=== PATIENT | female | born 1940 | race Caucasian/White ===

== ENCOUNTER → 2017-10-10 16:16 | Outpatient (CLI) | payer MEDICARE, BC, SELFPAY ==
[2017-10-10 17:29] LABS: Absolute Lymphocyte Count 0.81 X10^3/ul (0.83-4.51); Absolute Neutrophil Count 4.7 X10^3/uL (2.0-7.7); Basophil# 0.03 X10^3/uL; Basophil% 0.5 % (0-1); Eosinophil# 0.11 X10^3/uL; Eosinophils% 1.8 % (0-5); Hematocrit 39.6 % (37-47); Hemoglobin 12.7 g/dl (12.0-15.0); Lymphocyte # 0.81 X10^3/ul (4.0); Lymphocyte % 13.2 % (19-41); Mean Corp Hgb Conc 32.1 g/gl (32-36); Mean Corpuscular Hgb 28.2 pg (27.0-32.0); Mean Platelet Vol. 11.5 fl (6.2-12.0); Monocyte# 0.51 X10^3/uL; Monocyte% 8.3 % (0-10); Neutrophil # 4.68 X10^3/uL (2.7-7.7); Platelet Count 126 K/mm3 (150-450); RBC Distribution Width SD 48.3 fl (35.1-43.9); White Blood Count 6.2 K/mm3 (4.4-11.0)
[2017-10-10 17:37] LABS: POSITIVE COUNT NO; POSITIVE DIFFERENTIAL NO; POSITIVE MORPHOLOGY NO
[2017-10-10 18:26] LABS: ALB/GLOB Ratio 0.7 RATIO (0.9-2.4); AST(SGOT) 23 U/L (15-37); Alanine Aminotransfer ALT/SGPT 22 U/L (13-56); Alkaline Phosphatase 84 U/L (45-117); Anion Gap 9 (5-15); BUN 22 mg/dL (7-18); BUN/Creat Ratio 17.2 RATIO (10-20); Calcium,Total 8.7 mg/dL (8.5-10.1); Chloride 101 mmol/L (98-107); Creatinine, Serum 1.28 mg/dL (0.55-1.02); EST Glomerular Filtration Rate 43 mL/min (>60); Est Glom Filt Rate - Afr Amer 52 mL/min (>60); Globulin 4.4 g/dL (2.2-4.2); Glucose 240 mg/dL (74-106); Potassium 3.7 mmol/L (3.5-5.1); Protein, Total 7.4 g/dL (6.4-8.2); Sodium Level 141 mmol/L (136-145); Thyroid Stim Hormone (TSH) 1.53 uIU/mL (0.358-3.74)
[2017-10-10 19:58] LABS: Vitamin D,25 Hydroxy 19.1 ng/mL (19.95-100.01)
== END ==
PROVIDERS: Family Provider Family Medicine Geriatric Medicine; PCP Family Medicine Geriatric Medicine; Visit Provider Family Medicine Geriatric Medicine
DX: I10 Essential (primary) hypertension (principal); E11.9 Type 2 diabetes mellitus without complications; E55.9 Vitamin D deficiency, unspecified
CPT/HCPCS: 36415; 80053; 82306; 84443; 85025

== ENCOUNTER → 2017-10-27 17:00 | Outpatient (CLI) | payer MEDICARE, BC, SELFPAY | PROVIDERS: Family Provider Family Medicine Geriatric Medicine; PCP Family Medicine Geriatric Medicine; Visit Provider Family Medicine Geriatric Medicine | DX: R68.83 Chills (without fever) (principal) | CPT/HCPCS: 87633 ==

== ENCOUNTER → 2017-12-26 15:50 | Outpatient (CLI) | payer MEDICARE, BC, SELFPAY ==
[2017-12-26 18:10] LABS: Absolute Lymphocyte Count 0.73 X10^3/ul (0.83-4.51); Absolute Neutrophil Count 6.5 X10^3/uL (2.0-7.7); Basophil# 0.02 X10^3/uL; Basophil% 0.3 % (0-1); Eosinophil# 0.06 X10^3/uL; Eosinophils% 0.8 % (0-5); Hematocrit 41.5 % (37-47); Hemoglobin 13.6 g/dl (12.0-15.0); Lymphocyte # 0.73 X10^3/ul (4.0); Lymphocyte % 9.3 % (19-41); Mean Corp Hgb Conc 32.8 g/gl (32-36); Mean Corpuscular Hgb 29.3 pg (27.0-32.0); Mean Corpuscular Volume 89.4 fL (81-99); Monocyte# 0.59 X10^3/uL; Monocyte% 7.5 % (0-10); Neutrophil # 6.47 X10^3/uL (2.7-7.7); Platelet Count 141 K/mm3 (150-450); RBC Distribution Width CV 16.1 % (11.6-14.6); Red Blood Count 4.64 M/mm3 (4.2-5.4); White Blood Count 7.9 K/mm3 (4.4-11.0)
[2017-12-26 18:19] LABS: Anion Gap 7 (5-15); BUN 16 mg/dL (7-18); BUN/Creat Ratio 14.4 RATIO (10-20); CPK Total, Creatine Kinase 43 U/L (26-192); Calcium,Total 9.3 mg/dL (8.5-10.1); Chloride 100 mmol/L (98-107); Creatinine, Serum 1.11 mg/dL (0.55-1.02); EST Glomerular Filtration Rate 51 mL/min (>60); Est Glom Filt Rate - Afr Amer 61 mL/min (>60); Glucose 285 mg/dL (74-106); Sodium Level 135 mmol/L (136-145)
[2017-12-26 18:20] LABS: POSITIVE COUNT NO; POSITIVE DIFFERENTIAL NO; POSITIVE MORPHOLOGY NO
[2017-12-28 11:25] LABS: Myoglobin, Serum 60 ng/mL (25-58)
== END ==
PROVIDERS: Family Provider Family Medicine Geriatric Medicine; PCP Family Medicine Geriatric Medicine; Visit Provider Family Medicine Geriatric Medicine
DX: R07.9 Chest pain, unspecified (principal)
CPT/HCPCS: 36415; 80048; 82550; 83874; 84484; 85025

== ENCOUNTER 2017-12-27 19:18 | Observation (INO) | payer MEDICARE, BC, SELFPAY ==
[2017-12-27] VITALS (9 sets, daily range): BP systolic 112–135; BP diastolic 72–90; PULSE 86–104; RESP 11–16; TEMP 36.7–37.2; O2SAT 88–97; BMI 43.1; BMI 41.1; BMI 41.2
--- NOTE | 2017-12-27 19:26 | NURSING ---
CALLED FOR EKG PER PROTOCOL, PULLED OLD EKG'S FOR
--- NOTE | 2017-12-27 19:31 | EKG12_ITS ---
Test Reason : CP Blood Pressure : / mmHG Vent. Rate : 097 BPM Atrial Rate : 097 BPM P-R Int : 188 ms QRS Dur : 156 ms QT Int : 408 ms P-R-T Axes : 055 016 087 degrees QTc Int : 518 ms Normal sinus rhythm Left bundle branch block Abnormal ECG Confirmed by ANTONINO CARRANZA, BOOKER ([id number]), television news video editor JERSON TOVAR ([id number]) on 12/30/2017 3:32:45 PM Referred By: ASHLEY KWOK Confirmed By:BOOKER MUÑIZ MD
--- NOTE | 2017-12-27 19:35 | RAD_ITS ---
STUDY: X-RAY CHEST REASON FOR EXAM: Female, 77 years old. Chest pain TECHNIQUE: Single AP portable view of the chest. COMPARISON: 02/19/2016. FINDINGS: The lungs are clear and expanded. There is no demonstrated pleural abnormality. Normal size heart. Patient status post sternotomy. Normal mediastinum and allen. Normal visualized pulmonary arteries. Normal visualized aortic arch and descending thoracic aorta. Normal visualized thoracic spine. Normal visualized ribs, clavicles, and shoulders. There is no demonstrated abnormality of the visualized soft tissue structures of the upper abdomen. RAD/Chest 1 View (Portable) IMPRESSION: No acute cardiopulmonary disease. Electronically Signed: Giovany Omalley DO at 19:56 EDT , Service support ,
[2017-12-27 19:36] LABS: Bedside Glucose > 500 mg/dL (70-110)
--- NOTE | 2017-12-27 19:37 | ED.DCSUM_ITS ---
- ER Visit Summary Date of Service: 12/27/17 Chief Complaint: Chest pain History of Present Illness: The patient is a 77 F presenting with chest pain. This started today. She has pain in her left chest radiating to her left arm. This is associated with shortness of breath. She did not take her insulin this morning. She has a history of CVA, diabetes, hyperlipidemia, CHF, previous aortic valve replacement. She is on Plavix. She is a previous smoker. She is a poor historian. She does not wear home O2. Physical Examination: Vitals are stable. Patient is afebrile. Alert no acute distress. Pulse ox 88% on room air HEENT exam is unremarkable. Neck is supple. Lungs are diminished bilaterally. Heart is regular and tachycardic Abdomen is soft nontender nondistended. Extremities symmetric edema Skin is warm and dry. No focal neurologic deficit. Remainder of exam is unremarkable. Emergency Department Course and Treatment: EKG is normal sinus rhythm rate of 97 with left bundle branch block. Chest x-ray shows no acute process. CBC is unremarkable. Chemistries show sodium 132, BUN 29, creatinine 1.82. Her creatinine yesterday was 1.11. Glucose 486. She is given insulin subcutaneous. Troponin is negative. Will discuss with hospitalist for observation. Disposition: Observation Impression: Chest pain, hyperglycemia This note was generated with [employer] dictation software. It may contain incorrect words, spelling, and punctuation that were not noted in review of the chart prior to signing ED Disposition - Plan for ED Patient: Chief Complaint: Chest Pain Referrals: Micheal Teran Chi, MD [Primary Care Provider] -
[2017-12-27 19:45] LABS: Absolute Lymphocyte Count 0.48 X10^3/ul (0.83-4.51); Hematocrit 39.7 % (37-47); Hemoglobin 12.8 g/dl (12.0-15.0); Lymphocyte # 0.48 X10^3/ul (4.0); Lymphocyte % 5.1 % (19-41); Mean Corp Hgb Conc 32.2 g/gl (32-36); Mean Corpuscular Hgb 28.7 pg (27.0-32.0); Mean Platelet Vol. 10.6 fl (6.2-12.0); Monocyte# 0.91 X10^3/uL; Monocyte% 9.7 % (0-10); Neutrophil % 85.1 % (47-70); Platelet Count 151 K/mm3 (150-450); Red Blood Count 4.46 M/mm3 (4.2-5.4); White Blood Count 9.4 K/mm3 (4.4-11.0)
[2017-12-27 19:47] LABS: Differential Indicated SCAN CRITERIA MET; POSITIVE COUNT NO; POSITIVE DIFFERENTIAL YES; POSITIVE MORPHOLOGY NO
[2017-12-27 19:58] LABS: Differential Comment SCANNED
[2017-12-27 20:07] LABS: Anion Gap 7 (5-15); BUN 29 mg/dL (7-18); BUN/Creat Ratio 15.9 RATIO (10-20); Calcium,Total 8.3 mg/dL (8.5-10.1); Chloride 97 mmol/L (98-107); Creatinine, Serum 1.82 mg/dL (0.55-1.02); EST Glomerular Filtration Rate 29 mL/min (>60); Est Glom Filt Rate - Afr Amer 35 mL/min (>60); Estimated Creatinine Clearance 18.59 ml/min; Glucose 486 mg/dL (74-106); Potassium 4.3 mmol/L (3.5-5.1); Sodium Level 132 mmol/L (136-145)
--- NOTE | 2017-12-27 20:08 | ED.RN ---
LAB CALLED TO REPORT GLUCOSE 486. AND RN MADE AWARE.
--- NOTE | 2017-12-27 20:51 | PCM.HP.STD ---
Problem List (1) Atypical chest pain Status: Acute (2) Uncontrolled diabetes mellitus Status: Chronic Qualifiers: Diabetes mellitus type: type 2 (3) Obesity Status: Chronic (4) H/O aortic valve replacement Status: Resolved Comment: 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 with left carotid endarterectomy @ [place] by Dr Lerma 02/06/16 (5) Non-rheumatic aortic stenosis Status: Chronic (6) COPD (chronic obstructive pulmonary disease) Status: Chronic (7) Secondary pulmonary arterial hypertension Status: Chronic (8) Hyperlipidemia Status: Chronic (9) Chronic diastolic heart failure Status: Chronic (10) CVA (cerebral infarction) Status: Chronic (11) Hypertension Status: Chronic (12) Hypothyroidism Status: Chronic (13) Paroxysmal a-fib Status: Chronic History of Present Illness Date of Admission: 12/27/17 Chief Complaint: Intrascapular pain The patient is a 77 year old F with multiple comorbidities including diabetes mellitus type 2 with uncontrolled hyperglycemia, paroxysmal A. fib, not on Coumadin, stroke, bilateral carotid stenosis, left more than right status post left CEA, aortic stenosis status post bioprosthetic valve replacement came to ER with chest pain. She is not a good historian but at best she told me she had pain on the left hand and arm which radiates to intrascapular area. As per ER physician, Dr. Grajeda she has left-sided chest pain leading to left arm. She is mild short of breath and gets worse on exertion. Currently, she is chest pain-free [] In ED, initial workup was negative except hyperglycemia, glucose 486 with hyponatremia, sodium 132. Troponin negative. EKG shows normal sinus rhythm at 97 bpm with left bundle branch block. She has chronic left bundle branch block since January 2016 as per the EKG. Past Medical History Past Medical History (Chronic Problems): Chronic Problems (Last Reviewed 11/29/17 @ 13:02 by Mora Medina) Uncontrolled diabetes mellitus (Chronic) Obesity (Chronic) Non-rheumatic aortic stenosis (Chronic) COPD (chronic obstructive pulmonary disease) (Chronic) Secondary pulmonary arterial hypertension (Chronic) Hyperlipidemia (Chronic) Chronic diastolic heart failure (Chronic) CVA (cerebral infarction) (Chronic) Hypertension (Chronic) Hypothyroidism (Chronic) Paroxysmal a-fib (Chronic) Allergies prochlorperazine edisylate [From Compazine] Allergy (Verified 11/29/17 13:02) Other prochlorperazine maleate [From Compazine] Allergy (Verified 11/29/17 13:02) Other tolmetin sodium [From Tolectin] Allergy (Verified 11/29/17 13:02) Other Home Medications: Ambulatory Orders Medication Instructions Recorded Atorvastatin Calcium [Lipitor] 80 mg PO QHS #30 tab 04/09/14 Insulin Aspart [Novolog Flexpen] See Protocol SC TIDCM 02/18/16 Insulin Detemir [Levemir FlexPen] 25 units SC DAILY 02/18/16 clopidogrel 75 mg tablet 75 mg PO QDAY tab 11/28/17 escitalopram 10 mg tablet 10 mg PO QDAY 11/28/17 furosemide 40 mg tablet 40 mg PO BID tab 11/28/17 pregabalin 75 mg capsule 75 mg PO TID 11/28/17 levothyroxine 88 mcg capsule 112 mcg PO DAILY cap 11/29/17 Cetirizine HCl [Zyrtec] 10 mg PO DAILY 12/27/17 Ergocalciferol [Vitamin D] 50,000 unit PO QMONTH 12/27/17 Potassium Chloride [Klor-Con M20] 20 meq PO DAILY 12/27/17 Ranitidine [Zantac] 150 mg PO DAILY 12/27/17 Sitagliptin Phosphate [Januvia] 100 mg PO DAILY 12/27/17 Solifenacin Succinate [Vesicare] 10 mg PO DAILY 12/27/17 Surgical History: appendectomy, cataract, - - Aortic Valve replacement, left carotid endarterectomy, shoulder surgery Smoking Status: Former smoker - *Family History Maternal History Items: Diabetes, Stroke Paternal History Items: Cancer Sibling History Items: Hypertension Review of Systems Constitutional: Denies: Chills, Fever, Weight Change HEENT: Denies: Head Aches, Sinus Congestion, Sinus Drainage Cardiovascular: Reports: Chest Pain. Denies: Palpitations Respiratory: Reports: Shortness of breath upon exertion. Denies: Cough, Shortness of breath at rest, Sputum production Gastrointestinal: Denies: Abdominal Pain, Nausea, Vomiting Genitourinary: Denies: Dysuria Musculoskeletal: Reports: Back Pain, Joint Pain, Joint swelling, Muscle pain. Denies: Joint Tenderness Skin: Denies: Rash, Wounds Neurological: Reports: Balance problems. Denies: Focal weakness, Numbness, Tingling Psychiatric: Denies: Anxiety, Depression, Homicidal Ideations, Suicidal Ideations Hematologic/ Lymphatic: Denies: Easy Bruising, Easy Bleeding VTE Information - Inpt Only VTE Present on Admission: No VTE Mechan Device Prophylaxis: SCD's VTE Pharm Prophylaxis ordered?: Yes Patient Problems: Active and Suspected Problems (Last Reviewed 11/29/17 @ 13:02 by Mora Medina) Atypical chest pain (Acute) - Physical Exam General: Alert, Oriented x3, Cooperative HEENT: Atraumatic, PERRLA, EOMI, Normocephalic Neck: Supple, No JVD, Negative Carotid Bruits, - - Left carotid enterectomy Lungs: Clear to auscultation, Normal air movement, No rhonchi, No wheeze, Diminished Cardiovascular: Regular rate, Regular Rhythm, Normal S1, Normal S2, Murmur - Status post aortic valve replacement Abdomen: Bowel Sounds Present, Soft, Non Tender Extremities: Capillary Refill Less than 3 Seconds, Edema Skin: No rashes, No breakdown Musculoskeletal: No Tenderness to Palpation of Joints or Extremities Neurological: Cranial nerves II-XII grossly intact Psych/Mental Status: Normal Affect, Appropriate Vital Signs Temp Pulse Resp BP Pulse Ox 98.9 F 93 16 133/82 H 94 12/27/17 20:38 12/27/17 20:38 12/27/17 20:38 12/27/17 20:38 12/27/17 20:38 Assessment/Plan Active and Suspected Problems (Last Reviewed 11/29/17 @ 13:02 by Mora Medina) Atypical chest pain (Acute) The patient is a 77 year old F with multiple comorbidities including diabetes mellitus type 2 with uncontrolled hyperglycemia, paroxysmal A. fib, not on Coumadin, stroke, bilateral carotid stenosis, left more than right status post left CEA, aortic stenosis status post bioprosthetic valve replacement came to ER with chest pain. She is not a good historian but at best she told me she had pain on the left hand and arm which radiates to intrascapular area. As per ER physician, Dr. Grajeda she has left-sided chest pain leading to left arm. She is mild short of breath and gets worse on exertion. Currently, she is chest pain-free [] In ED, initial workup was negative except hyperglycemia, glucose 486 with hyponatremia, sodium 132. Troponin negative. EKG shows normal sinus rhythm at 97 bpm with left bundle branch block. She has chronic left bundle branch block since January 2016 as per the EKG. Her ANUSHA risk score is 3, one for each for age, CAD risk factor and anginal symptoms. 1. Atypical chest pain with possibility of unstable angina: Patient is being admitted on the PCU. With the history of stroke, carotid stenosis, aortic stenosis status post AVR, consult cardiology. She denies cardiac stents or CABG. Cycle cardiac enzymes. BNP pending. Continue Plavix. Started on metoprolol and continue lovastatin. She is not a good candidate for JUAN/ARB inhibitor of creatinine 1.82 with estimated GFR 18 mL/min. K4.3. 2. Cardiac or CAD equivalents: History of CVA, coronary diastolic heart failure bilateral carotid stenosis status post left CEA, aortic stenosis status post bioprosthetic, diabetes mellitus type 2 with uncontrolled hyperglycemia: This increases the risk of coronary disease. On Accu-Chek before meals and at bedtime and cover with sliding scale insulin. A1c tomorrow a.m. On Levemir 25 units subcu daily. 3. Paroxysmal A. fib: Rate is controlled. Patient is in sinus rhythm. 4. COPD with secondary pulmonary hypertension, hypothyroidism, or with obesity: Home medication reconciliation done. Laboratory Results 12/27/17 19:27: POC Glucose > 500 H* 12/27/17 19:35: WBC 9.4, RBC 4.46, Hgb 12.8, Hct 39.7, MCV 89.0, MCH 28.7, MCHC 32.2, RDW 16.0 H, RDW Differential 52.0 H, Plt Count 151, MPV 10.6, Immature Gran % (Auto) 0.100, Neut % (Auto) 85.1 H, Lymph % (Auto) 5.1 L, Colbert % (Auto) 9.7, Eos % (Auto) 0.0, Baso % (Auto) 0.0, Absolute Neuts (auto) 8.0 H, Absolute Lymphs (auto) 0.48 L, Total Counted Not Reportable, Differential Comment SCANNED 12/27/17 19:35: Sodium 132 L, Potassium 4.3, Chloride 97 L, Carbon Dioxide 28.0, Anion Gap 7, BUN 29 H, Creatinine 1.82 H, Estim Creat Clear Calc 18.59, Est GFR (MDRD) Af Amer 35 L, Est GFR (MDRD) Non-Af 29 L, BUN/Creatinine Ratio 15.9, Glucose 486 H*, Calcium 8.3 L, Troponin I < 0.02 12/27/17 19:35: B-Natriuretic Peptide Pending Clinical Impression(s) from Imaging Studies Chest X-Ray 12/27/17 19:35 IMPRESSION: No acute cardiopulmonary disease. Code Visit OBSV E&M: 51708 Initial observation care L3
[2017-12-27 22:08] LABS: BNP,B-Type NATRIURETIC PEPTIDE 743.4 pg/mL (0-100)
[2017-12-27] MEDS: Metoprolol Tartrate 25 MG Tablet PO (23:19)
[2017-12-27] MEDS: Furosemide 40 MG Tablet PO (23:19)
[2017-12-27] MEDS: Heparin Injection (Vial) 5,000 UNIT/ML VIAL 5000 UNIT SC (23:19)
[2017-12-27] MEDS: Atorvastatin Calcium 80 MG Tablet PO (23:23)
[2017-12-27] MEDS: Pregabalin 75 MG Capsule PO (23:24)
[2017-12-27 23:40] LABS: Bedside Glucose 197 mg/dL (70-110)
[2017-12-28] VITALS (8 sets, daily range): BP systolic 105–110; BP diastolic 61–63; PULSE 65–76; RESP 16–18; TEMP 36.4–36.9; O2SAT 92–96
[2017-12-28 04:20] LABS: Absolute Lymphocyte Count 0.97 X10^3/ul (0.83-4.51); Basophil# 0.01 X10^3/uL; Basophil% 0.1 % (0-1); Hematocrit 38.3 % (37-47); Hemoglobin 12.4 g/dl (12.0-15.0); Lymphocyte # 0.97 X10^3/ul (4.0); Mean Corp Hgb Conc 32.4 g/gl (32-36); Mean Corpuscular Volume 89.7 fL (81-99); Mean Platelet Vol. 10.8 fl (6.2-12.0); Monocyte# 0.71 X10^3/uL; Monocyte% 7.3 % (0-10); Neutrophil # 7.99 X10^3/uL (2.7-7.7); Neutrophil % 82.4 % (47-70); Platelet Count 158 K/mm3 (150-450); RBC Distribution Width CV 16.1 % (11.6-14.6); RBC Distribution Width SD 52.2 fl (35.1-43.9); Red Blood Count 4.27 M/mm3 (4.2-5.4); White Blood Count 9.7 K/mm3 (4.4-11.0)
[2017-12-28 04:42] LABS: International Normalized Ratio 1.1; POSITIVE COUNT NO; POSITIVE DIFFERENTIAL NO; POSITIVE MORPHOLOGY NO; Prothrombin Time (Protime)PT. 14.4 SECONDS (11.7-14.9)
[2017-12-28 04:48] LABS: ALB/GLOB Ratio 0.8 RATIO (0.9-2.4); AST(SGOT) 27 U/L (15-37); Alanine Aminotransfer ALT/SGPT 32 U/L (13-56); Albumin, Serum 2.6 g/dL (3.2-5.0); Alkaline Phosphatase 86 U/L (45-117); Anion Gap 8 (5-15); BUN 28 mg/dL (7-18); BUN/Creat Ratio 21.2 RATIO (10-20); Chloride 104 mmol/L (98-107); Cholesterol 122 mg/dL (200); Creatinine, Serum 1.32 mg/dL (0.55-1.02); EST Glomerular Filtration Rate 42 mL/min (>60); Est Glom Filt Rate - Afr Amer 50 mL/min (>60); Estimated Creatinine Clearance 25.64 ml/min; Globulin 3.4 g/dL (2.2-4.2); Glucose 240 mg/dL (74-106); High Density Lipoprotein 48 mg/dL; Potassium 4.2 mmol/L (3.5-5.1); Sodium Level 136 mmol/L (136-145); T4 Free Direct 1.08 ng/dL (0.76-1.46); Thyroid Stim Hormone (TSH) 4.22 uIU/mL (0.358-3.74); Triglycerides 94 mg/dL; Very Low Density Lipoprotein 19 mg/dL (5-40)
[2017-12-28] MEDS: Pregabalin 75 MG Capsule PO ×2 (05:43→13:36)
[2017-12-28] MEDS: Levothyroxine 112 MCG Tablet PO (05:44)
--- NOTE | 2017-12-28 05:55 | EKG12_ITS ---
Test Reason : AM EKG Blood Pressure : / mmHG Vent. Rate : 072 BPM Atrial Rate : 072 BPM P-R Int : 192 ms QRS Dur : 160 ms QT Int : 442 ms P-R-T Axes : 059 -14 150 degrees QTc Int : 483 ms Normal sinus rhythm Left bundle branch block Abnormal ECG When compared with ECG of 27-DEC-2017 19:21, MANUAL COMPARISON REQUIRED, DATA IS UNCONFIRMED Confirmed by ANTONINO CARRANZA, BOOKER ([id number]), food expeditor JERSON TOVAR ([id number]) on 12/30/2017 3:58:33 PM Referred By: FARRUKH Confirmed By:BOOKER MUÑIZ MD
[2017-12-28 06:56] LABS: Bedside Glucose 264 mg/dL (70-110)
[2017-12-28 07:14] LABS: Hemoglobin A1c 10.4 % (4.2-6.3)
[2017-12-28] MEDS: Metoprolol Tartrate 25 MG Tablet PO (09:00)
--- NOTE | 2017-12-28 09:16 | NURSING ---
Pt of of floor to nuclear stres test, report given to tex whom is familiar with patient. Son left building to get pt some personal items.
[2017-12-28] MEDS: Tolterodine Tartrate 4 MG CAP.SA PO (11:54)
[2017-12-28] MEDS: Furosemide 40 MG Tablet PO (11:55)
[2017-12-28] MEDS: Escitalopram Oxalate 10 MG Tablet PO (11:55)
[2017-12-28 11:56] LABS: Bedside Glucose 211 mg/dL (70-110)
[2017-12-28] MEDS: Famotidine 20 MG Tablet PO (11:56)
[2017-12-28] MEDS: Clopidogrel Bisulfate 75 MG Tablet PO (11:57)
[2017-12-28] MEDS: LINAGLIPTIN 5 MG TABLET PO (12:00)
--- NOTE | 2017-12-28 13:58 | DCINST_ITS ---
- Discharge Diagnoses Current Active Problems: Current Active and Chronic Problems (Last Reviewed 11/29/17 @ 13:02 by Mora Medina) Atypical chest pain (Acute) Uncontrolled diabetes mellitus (Chronic) Reason(s) for Visit for Discharge Instructions: Chest pain You will use the following diet at home:: Calorie/Carbohydrate Controlled ( specify 1200, 1400, etc), Cardiac Your food should be the consistency of: Regular Your liquids should be the consistency of: Regular/Thin Discharge Activity: Return to Normal Activity Allergies/Adverse Reactions: Allergies prochlorperazine edisylate [From Compazine] Allergy (Verified 11/29/17 13:02) Other prochlorperazine maleate [From Compazine] Allergy (Verified 11/29/17 13:02) Other tolmetin sodium [From Tolectin] Allergy (Verified 11/29/17 13:02) Other Medications to take at Discharge Atorvastatin Calcium [Lipitor] 80 mg PO QHS #30 tab 04/09/14 Insulin Aspart [Novolog Flexpen] See Protocol SC TIDCM 02/18/16 clopidogrel 75 mg tablet 75 mg PO QDAY tab 11/28/17 escitalopram 10 mg tablet 10 mg PO QDAY 11/28/17 furosemide 40 mg tablet 40 mg PO BID tab 11/28/17 pregabalin 75 mg capsule 75 mg PO TID 11/28/17 levothyroxine 88 mcg capsule 112 mcg PO DAILY cap 11/29/17 Cetirizine HCl [Zyrtec] 10 mg PO DAILY 12/27/17 Clopidogrel Bisulfate [Plavix] 75 mg PO DAILY 12/27/17 Ergocalciferol [Vitamin D] 50,000 unit PO QMONTH 12/27/17 Potassium Chloride [Klor-Con M20] 20 meq PO DAILY 12/27/17 Ranitidine [Zantac] 150 mg PO DAILY 12/27/17 Sitagliptin Phosphate [Januvia] 100 mg PO DAILY 12/27/17 Solifenacin Succinate [Vesicare] 10 mg PO DAILY 12/27/17 Insulin Detemir [Levemir FlexPen] 25 units SC DAILY #0 12/28/17 Metoprolol Tartrate [Lopressor (beta chloe)] 12.5 mg PO BID #60 tab 12/28/17 The following prescriptions were given: Metoprolol Tartrate [Lopressor (beta chloe)] 12.5 mg PO BID #60 tab Primary Care Physician: Micheal Teran Chi, MD [Primary Care Provider] - Please follow up with your Primary Care Physician in: within 2 weeks Please Follow Up With: Ventura Ragsdale MD When: within 2 weeks of discharge Proposed Discharge Date: 12/28/17
--- NOTE | 2017-12-28 13:58 | PCM.DC.SUM ---
Discharge Date and Diagnosis - Problem List Patient Problems: Active and Suspected Problems (Last Reviewed 11/29/17 @ 13:02 by Mora Medina) Atypical chest pain (Acute) Date of Admission: 12/27/17 Date of Discharge: 12/28/17 - Primary Discharge Diagnosis Active and Suspected Problems (Last Reviewed 11/29/17 @ 13:02 by Mora Medina) Atypical chest pain (Acute) Musculoskeletal pain - Secondary Discharge Diagnosis Chronic Problems (Last Reviewed 11/29/17 @ 13:02 by Mora Medina) Uncontrolled diabetes mellitus (Chronic) Obesity (Chronic) Non-rheumatic aortic stenosis (Chronic) COPD (chronic obstructive pulmonary disease) (Chronic) Secondary pulmonary arterial hypertension (Chronic) Hyperlipidemia (Chronic) Chronic diastolic heart failure (Chronic) CVA (cerebral infarction) (Chronic) Hypertension (Chronic) Hypothyroidism (Chronic) Paroxysmal a-fib (Chronic) Hospital Course and Treatment Imaging Results: 12/28/17 05:55 Nuclear Stress Test - Chemical [NM] AM (NON MEDS) None Operations: None Procedures: Stress test Summary of Care Provided: The patient is a 77 year old F with past medical history of CAD, hypertension, type II DM was admitted with atypical chest pain. Chest pain was described as pain that started from the hand and moved up the upper extremity and went in between her shoulders and down the other arm. Admitted to telemetry bed, no acute changes seen on telemetry. Troponins were slightly elevated, believed to be secondary to demand ischemia. Patient underwent stress test that was negative for any acute ischemia but showed previous infarct. Patient was started on beta-blockers and this admission. She was asked to follow-up with her primary doctor in 2 weeks and also to follow-up with Dr. Ragsdale within 2 weeks. Discharge Diet: Low fat/ Low Cholesterol, 2000 mg Sodium Diet, Carb Control Diet Discharge Activity: Return to Normal Activity Home Medications: Medications to take at Discharge Atorvastatin Calcium [Lipitor] 80 mg PO QHS #30 tab 04/09/14 Insulin Aspart [Novolog Flexpen] See Protocol SC TIDCM 02/18/16 clopidogrel 75 mg tablet 75 mg PO QDAY tab 11/28/17 escitalopram 10 mg tablet 10 mg PO QDAY 11/28/17 furosemide 40 mg tablet 40 mg PO BID tab 11/28/17 pregabalin 75 mg capsule 75 mg PO TID 11/28/17 levothyroxine 88 mcg capsule 112 mcg PO DAILY cap 11/29/17 Cetirizine HCl [Zyrtec] 10 mg PO DAILY 12/27/17 Clopidogrel Bisulfate [Plavix] 75 mg PO DAILY 12/27/17 Ergocalciferol [Vitamin D] 50,000 unit PO QMONTH 12/27/17 Potassium Chloride [Klor-Con M20] 20 meq PO DAILY 12/27/17 Ranitidine [Zantac] 150 mg PO DAILY 12/27/17 Sitagliptin Phosphate [Januvia] 100 mg PO DAILY 12/27/17 Solifenacin Succinate [Vesicare] 10 mg PO DAILY 12/27/17 Insulin Detemir [Levemir FlexPen] 25 units SC DAILY #0 12/28/17 Metoprolol Tartrate [Lopressor (beta chloe)] 12.5 mg PO BID #60 tab 12/28/17 Following Prescrptions Were Given to Patient: Metoprolol Tartrate [Lopressor (beta chloe)] 12.5 mg PO BID #60 tab Primary Care Physician: Micheal Teran Chi, MD [Primary Care Provider] - Please follow up with your Primary Care Physician in: within 2 weeks Please Follow Up With: Ventura Ragsdale MD When: within 2 weeks of discharge Disposition: Home Minutes spent on discharge:: 45 Patient Condition:: Stable Medical Necessity - Tobacco Use Smoking Status: Former smoker Meaningful Use Info Meaningful Use Diagnoses (Choose all that apply): None applicable Code Visit OBSV E&M: 62136 Observation care discharge
--- NOTE | 2017-12-28 14:46 | PCM.CONS.C ---
Problem List (1) Atypical chest pain Status: Acute (2) H/O aortic valve replacement Status: Resolved Comment: 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 with left carotid endarterectomy @ [place] by Dr Lerma 02/06/16 (3) COPD (chronic obstructive pulmonary disease) Status: Chronic Reason for Consult Date of Consultation: 12/28/17 Reason for Consultation: Atypical chest pain, AVR, peripheral vascular disease status post CEA former smoker History of Present Illness: The patient is a 77 year old F, known to me, with a history of diabetes, hypertension, hypercholesterolemia, former smoker who quit around 40 years ago after a 65-mabe-lbcf smoking history, 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 Patient was found to have severe aortic stenosis and underwent aortic valve replacement in January 2016 as well as concomitant left carotid endarterectomy for a 70% carotid stenosis. Her coronaries at that time were normal and did not require any bypass surgery during her aortic valve replacement. The patient reports that she completed cardiac rehab but essentially has very limited mobility and walks with a cane. Her existence is essentially sitting in a chair all day long. The patient developed atypical nonexertional left arm pain which radiated to her left shoulder blade while she was at rest. Patient came to [facility] ER last evening out of an abundance of caution. Her EKG showed normal sinus rhythm with left bundle branch block which is old. Patient underwent rule out protocol, which had a peak troponin of 0.31. Stress test was ordered with results pending. Prior to this the patient reports that she has had no significant chest pain, pressure, nausea or vomiting. She has been compliant with her medications. She no longer smokes. Patient is already on clopidogrel for previous CVA. [] Past Medical History Allergies/Adverse Reactions: Allergies prochlorperazine edisylate [From Compazine] Allergy (Verified 11/29/17 13:02) Other prochlorperazine maleate [From Compazine] Allergy (Verified 11/29/17 13:02) Other tolmetin sodium [From Tolectin] Allergy (Verified 11/29/17 13:02) Other Home Medications: Ambulatory Orders Medication Instructions Recorded Atorvastatin Calcium [Lipitor] 80 mg PO QHS #30 tab 04/09/14 Insulin Aspart [Novolog Flexpen] See Protocol SC TIDCM 02/18/16 clopidogrel 75 mg tablet 75 mg PO QDAY tab 11/28/17 escitalopram 10 mg tablet 10 mg PO QDAY 11/28/17 furosemide 40 mg tablet 40 mg PO BID tab 11/28/17 pregabalin 75 mg capsule 75 mg PO TID 11/28/17 levothyroxine 88 mcg capsule 112 mcg PO DAILY cap 11/29/17 Cetirizine HCl [Zyrtec] 10 mg PO DAILY 12/27/17 Clopidogrel Bisulfate [Plavix] 75 mg PO DAILY 12/27/17 Ergocalciferol [Vitamin D] 50,000 unit PO QMONTH 12/27/17 Potassium Chloride [Klor-Con M20] 20 meq PO DAILY 12/27/17 Ranitidine [Zantac] 150 mg PO DAILY 12/27/17 Sitagliptin Phosphate [Januvia] 100 mg PO DAILY 12/27/17 Solifenacin Succinate [Vesicare] 10 mg PO DAILY 12/27/17 Insulin Detemir [Levemir FlexPen] 25 units SC DAILY #0 12/28/17 Metoprolol Tartrate [Lopressor 12.5 mg PO BID #60 tab 12/28/17 (beta chloe)] Past Medical History (Chronic Problems): Chronic Problems (Last Reviewed 11/29/17 @ 13:02 by Mora Medina) Uncontrolled diabetes mellitus (Chronic) Obesity (Chronic) Non-rheumatic aortic stenosis (Chronic) COPD (chronic obstructive pulmonary disease) (Chronic) Secondary pulmonary arterial hypertension (Chronic) Hyperlipidemia (Chronic) Chronic diastolic heart failure (Chronic) CVA (cerebral infarction) (Chronic) Hypertension (Chronic) Hypothyroidism (Chronic) Paroxysmal a-fib (Chronic) Surgical History: appendectomy, cataract, - - Aortic Valve replacement, left carotid endarterectomy, shoulder surgery - *Family History Maternal Family History: Family History (Last Reviewed 11/29/17 @ 13:02 by Mora Medina) Mother CVA (cerebral vascular accident) Diabetes History Items: Diabetes, Stroke Paternal Family History: Family History (Last Reviewed 11/29/17 @ 13:02 by Mora Medina) Mother CVA (cerebral vascular accident) Diabetes History Items: Cancer Sibling Family History: Family History (Last Reviewed 11/29/17 @ 13:02 by Mora Medina) Mother CVA (cerebral vascular accident) Diabetes History Items: Hypertension Smoking Status: Former smoker Subjectve: Patient laying in bed, no acute distress. Objective: Vital Signs Temp Pulse Resp BP Pulse Ox 97.6 F L 65 16 105/63 92 12/28/17 13:38 12/28/17 13:38 12/28/17 13:38 12/28/17 13:38 12/28/17 13:38 Oxygen Flow Rate (L/min) 2 Oxygen Delivery Method Room Air Weight: 210 lb 12.191 oz Body Mass Index (BMI) 41.1 Intake and Output for Last 24 Hours 12/26/17 12/27/17 12/28/17 23:59 23:59 23:59 Intake Total 360 / 360 Output Total 500 / 500 Balance -140 / -140 General: Awake, Alert, Oriented x 3 HEENT: PERRL, EOMI, Sclera Non Icteric Neck: Supple, Good ROM, No Lymph Node Enlargement Lungs: Clear to auscultation Cardiovascular: Regular Rhythm, Normal S1, Normal S2, No Rubs, No Gallops Murmur Murmur: Grade 2/6, Crescendo-Decrescendo Vascular: No Carotid Bruits, Normal Femoral Pulses, Normal Radial Pulses, Normal Dorsalis Pedal Pulse, Normal Posterior Tibial Pulses Abdomen: Bowel Sounds Present, Soft, Non Tender, No HSM, No Organomegaly Extremities: No Cyanosis, No Clubbing, No edema Neurological: No Focal Motor or Sensory Deficit 12/27/17 23:14: Troponin I 0.11 H 12/28/17 03:56: Hemoglobin A1c 10.4 H 12/28/17 03:56: Sodium 136, Potassium 4.2, Chloride 104, Carbon Dioxide 24.0, Anion Gap 8, BUN 28 H, Creatinine 1.32 H, Est GFR (MDRD) Af Amer 50 L, Est GFR (MDRD) Non-Af 42 L, BUN/Creatinine Ratio 21.2 H, Glucose 240 H, Calcium 8.0 L, Total Bilirubin 0.50, Troponin I 0.26 H, Triglycerides 94, Cholesterol 122, LDL Cholesterol 55, VLDL Cholesterol 19, HDL Cholesterol 48 12/28/17 03:56: WBC 9.7, RBC 4.27, Hgb 12.4, Hct 38.3, MCV 89.7, MCH 29.0, MCHC 32.4, RDW 16.1 H, RDW Differential 52.2 H, Plt Count 158, MPV 10.8, Immature Gran % (Auto) 0.200, Neut % (Auto) 82.4 H, Lymph % (Auto) 10.0 L, [place] % (Auto) 7.3, Eos % (Auto) 0.0, Baso % (Auto) 0.1, Absolute Neuts (auto) 8.0 H, Total Counted Not Reportable 12/28/17 03:56: PT 14.4, INR 1.1, APTT 27.0 12/28/17 11:34: Troponin I 0.31 H Rhythm: EKG: Normal sinus rhythm, left bundle branch block, no acute changes. ECHO: Stress Test: Pending Cardiac Cath: PCI: CT Surgery: Holter monitor: EPS: PPM: CXR: Chest CT Scan: Assessment/Plan 1. New onset chest pain: It is difficult to get a history from the patient but as best I can tell the patient developed left arm pain with radiation into her shoulder while at rest. Her mobility is quite limited and she walks with a cane, and she has had no exertional anginal symptoms. Unfortunately she never really recovered very well after her aortic valve replacement in January 2016. Her catheterization prior to her aortic valve replacement was reviewed by me today which showed no significant coronary disease at that time. Nonetheless it is possible the patient may have developed coronary disease since her open heart surgery and aortic valve replacement. Her peak troponin thus far 0.31 which may be concerning for possible concomitant coronary disease. The patient underwent a non-walking nuclear stress test this morning and results are pending. If her stress test is negative for inducible ischemia, I would recommend continuing medical management at this time. If however her stress test shows any evidence of ischemia I would have a low threshold for repeat catheterization. She was already on Plavix for her previous CVA. Michelle at this point I would recommend continuing Lasix, metoprolol, Plavix, and statin based medications given her diabetes and peripheral vascular disease. Her elevated troponin may be a result of her markedly elevated sugars and may represent a type II non-STEMI. 2. Hyperlipidemia: Her LDL and HDL cholesterol are controlled well. Continue anti-lipid therapy. 3. Thank you very much for the opportunity to participate in the cardiac care of your patient. Consultation time took place between 830 and 9 AM. Code Visit Inpatient E&M: 52196 Init Hosp L2
--- NOTE | 2017-12-28 17:22 | STRESSREP ---
Stress Test Report Pharmacologic myocardial perfusion stress test. 77-year-old lady with a history of chest pain and mildly abnormal troponins. Medications Lipitor Plavix Lexapro potassium. Stress protocol: Resting EKG demonstrates sinus bradycardia with a rate of 56 bpm left bundle branch block is noted resting blood pressure is 102/60 mmHg. 0.4 mg regadenoson was infused per usual protocol followed by rapid intravenous saline flush injection. Continuous EKG monitoring was performed. At rest nonspecific ST-T wave changes were noted and the patient maintained a left bundle branch block pattern. The maximum heart rate attained was 67 bpm. The resting blood pressure is 102/60 and remained same throughout the infusion. Myocardial perfusion protocol. 15.0 mCi of technetium 99m sestamibi was injected at rest. 0.4 mg of regadenoson was infused per usual protocol. At peak infusion 44.7 mCi of technetium 99m sestamibi was injected stress images were obtained stress and rest images were reconstructed and compared in the short axis vertical long and horizontal long axis. Gated images were also obtained. Perfusion SPECT analysis: Review of the stress images demonstrate a medium-sized defect noted in the mid to distal anteroseptal wall. The anterolateral wall and inferior wall and inferoseptal wall appear to be well perfused. On the resting images there is a similar pattern also noted. This may suggest either previous anteroseptal infarct or breast wall attenuation artifact. No obvious ischemia is noted Gated SPECT analysis. The gated ejection fraction is noted to be 37% with global hypokinesis present. Conclusion: Myocardial perfusion stress test with no evidence of ischemia noted. Previous anteroseptal infarct cannot be completely excluded. Left bundle branch block pattern may give the appearance of previous anteroseptal infarct. Global hypokinesis present.
== END 2017-12-28 13:57 | disposition home or self-care (01) ==
LOC: ED 20:25 → PCU 20:30
PROVIDERS: Admitting Provider Internal Medicine; Emergency Provider Emergency Medicine; Family Provider Family Medicine Geriatric Medicine; PCP Family Medicine Geriatric Medicine; Visit Provider Internal Medicine
DX: R07.89 Other chest pain (principal); E78.5 Hyperlipidemia, unspecified; I11.0 Hypertensive heart disease with heart failure; E11.65 Type 2 diabetes mellitus with hyperglycemia; I50.32 Chronic diastolic (congestive) heart failure; E66.9 Obesity, unspecified; J44.9 Chronic obstructive pulmonary disease, unspecified; I27.21 Secondary pulmonary arterial hypertension; I48.0 Paroxysmal atrial fibrillation; E03.9 Hypothyroidism, unspecified; Z79.02 Long term (current) use of antithrombotics/antiplatelets; Z95.2 Presence of prosthetic heart valve; Z87.891 Personal history of nicotine dependence; Z86.73 Personal history of transient ischemic attack (TIA), and cerebral infarction without residual deficits; Z79.4 Long term (current) use of insulin; Z79.899 Other long term (current) drug therapy; Z68.41 Body mass index [BMI] 40.0-44.9, adult; Z71.3 Dietary counseling and surveillance
CPT/HCPCS: 36415; 71045; 78452; 80048; 80053; 80061; 82962; 83036; 83880; 84439; 84443; 84484; 85025; 85610; 85730; 93005; 93017; 96372; 97802; 99218; 99285; A9500; A4216; G0378; J2785

== ENCOUNTER 2018-01-01 23:17 | Observation (INO) | payer MEDICARE, BC, SELFPAY ==
[2018-01-01 23:18] VITALS: BP 135/78; PULSE 69; RESP 12; TEMP 36.6; O2SAT 90; BMI 43.0
[2018-01-02] VITALS (15 sets, daily range): BP systolic 115–155; BP diastolic 60–76; PULSE 62–79; RESP 14–16; TEMP 36.4–36.8; O2SAT 84–99; BMI 40.8; BMI 40.9
--- NOTE | 2018-01-02 00:03 | CT_ITS ---
STUDY: CT BRAIN WITHOUT CONTRAST REASON FOR EXAM: Female, 77 years old. Altered mental status RADIATION DOSAGE (If Supplied By Facility): CTDIvol = ( 44.99 ) mGy, DLP = ( 745.49 ) mGycm TECHNIQUE: Transaxial CT imaging of the brain was performed without administration of intravenous contrast material. Individualized dose optimization techniques were used for this CT. COMPARISON: February 18, 2016 FINDINGS: There continues to be an area of encephalomalacia in the posterior distribution of the right middle cerebral artery. This is most likely from an old infarct. There is also an old infarct involving the left lentiform nucleus. There is no acute hemorrhage or acute infarction and no intra or extra-axial hemorrhage or tumor mass. The calvarium is intact. There are no scalp swellings. The orbits, paranasal sinuses and mastoid air cells are normal. CT/Brain/Head without Contrast IMPRESSION: No acute findings in the brain. An old lacunar infarct involving the left lentiform nucleus and an old area of infarction in the posterior distribution of the right middle cerebral artery. No change since February 18, 2016 Electronically Signed: Kyle Contreras, at 1:18 EDT Tel , Service support ,
--- NOTE | 2018-01-02 00:04 | EKG12_ITS ---
Test Reason : CONFUSION Blood Pressure : / mmHG Vent. Rate : 065 BPM Atrial Rate : 065 BPM P-R Int : 184 ms QRS Dur : 160 ms QT Int : 482 ms P-R-T Axes : 059 -16 004 degrees QTc Int : 501 ms Sinus rhythm with occasional Premature ventricular complexes Left bundle branch block Abnormal ECG Confirmed by BLADIMIR CARRANZA, JEYSON ([id number]), news video editor JERSON TOVAR ([id number]) on 01/04/2018 1:14:58 PM Referred By: JOAQUINA Confirmed By:JEYSON GARRISON MD
[2018-01-02 00:32] LABS: Absolute Lymphocyte Count 0.84 X10^3/ul (0.83-4.51); Absolute Neutrophil Count 6.6 X10^3/uL (2.0-7.7); Basophil# 0.01 X10^3/uL; Basophil% 0.1 % (0-1); Eosinophil# 0.06 X10^3/uL; Eosinophils% 0.7 % (0-5); Hematocrit 39.3 % (37-47); Hemoglobin 12.6 g/dl (12.0-15.0); Lymphocyte # 0.84 X10^3/ul (4.0); Lymphocyte % 10.2 % (19-41); Mean Corp Hgb Conc 32.1 g/gl (32-36); Mean Corpuscular Hgb 28.7 pg (27.0-32.0); Mean Corpuscular Volume 89.5 fL (81-99); Mean Platelet Vol. 10.1 fl (6.2-12.0); Monocyte# 0.73 X10^3/uL; Monocyte% 8.9 % (0-10); Neutrophil # 6.55 X10^3/uL (2.7-7.7); POSITIVE COUNT NO; POSITIVE DIFFERENTIAL NO; POSITIVE MORPHOLOGY NO; Platelet Count 125 K/mm3 (150-450); RBC Distribution Width CV 15.9 % (11.6-14.6); Red Blood Count 4.39 M/mm3 (4.2-5.4); White Blood Count 8.2 K/mm3 (4.4-11.0)
--- NOTE | 2018-01-02 00:45 | RAD_ITS ---
STUDY: X-RAY CHEST REASON FOR EXAM: Female, 77 years old. Altered mental status TECHNIQUE: One view COMPARISON: December 28, 2007 FINDINGS: There is cardiomegaly with median sternotomy wires in place. Mild central vascular congestion but no pneumonia. No pleural effusions. Normal visualized thoracic spine. Normal visualized ribs, clavicles, and shoulders. There is no demonstrated abnormality of the visualized soft tissue structures of the upper abdomen. RAD/Chest 1 View (Portable) IMPRESSION: Cardiomegaly with central vascular congestion. No pneumonia. No pleural effusions. Electronically Signed: Kyle Contreras, at 1:52 EDT Tel , Service support ,
[2018-01-02 00:56] LABS: Anion Gap 6 (5-15); BUN 25 mg/dL (7-18); BUN/Creat Ratio 17.7 RATIO (10-20); Calcium,Total 8.6 mg/dL (8.5-10.1); Chloride 101 mmol/L (98-107); Creatinine, Serum 1.41 mg/dL (0.55-1.02); EST Glomerular Filtration Rate 38 mL/min (>60); Est Glom Filt Rate - Afr Amer 47 mL/min (>60); Glucose 348 mg/dL (74-106); Potassium 3.9 mmol/L (3.5-5.1); Sodium Level 137 mmol/L (136-145)
[2018-01-02 00:57] LABS: Alcohol, Blood (Medical)-Serum < 3.0 mg/dL
[2018-01-02 02:05] LABS: Bacteria 0 SEEN /hpf (None Seen); Mucous, Urine 0 SEEN /hpf (<or=2+); Red Blood Cells-Urine 0 SEEN /hpf (0-5); Squamous Epithelial Cells - UA 0 SEEN /hpf (5-10); White Blood Cells 0 SEEN /hpf (0-5)
[2018-01-02 02:09] LABS: Color, Urine Yellow (Yellow); Glucose, Dipstick 1000 mg/dl (Normal); Ketone-Dipstick 5 mg/dl (Negative); Leukocyte Esterase-Dipstick Negative /ul (Negative); Nitrite-Dipstick Negative (Negative); Occult Blood-Urine 10 /ul (Negative); Protein-Dipstick 30 mg/dl (Negative); Urine Bilirubin Dipstick Negative (Negative); Urine Clarity Clear (Clear); Urine Urobilinogen Normal (Normal)
[2018-01-02 02:27] LABS: Vista UDS pH Range 6
[2018-01-02 02:53] LABS: Amphetamine Urine VISTA NEGATIVE (<1000 ng/mL); Barbiturate Urine VISTA NEGATIVE (< 200 ng/mL); Benzodiazepine Urine VISTA NEGATIVE (< 200 ng/mL); Cocaine Urine VISTA NEGATIVE (< 300 ng/mL); Ecstacy Urine VISTA NEGATIVE (< 500 ng/mL); Methadone Urine VISTA NEGATIVE (< 300 ng/mL); PCP Urine VISTA NEGATIVE (< 25 ng/mL); THC Urine VISTA NEGATIVE (< 50 ng/mL)
--- NOTE | 2018-01-02 03:16 | ED.VISSUMM ---
- ER Visit Summary Date of Service: 01/02/18 Chief Complaint: Confusion History of Present Illness: The patient is a 77 F with confusion. Per family, the patient has been seeing people who are not there and she has been talking about her mother who was 18 years ago. She was angry at family [employer] and called 911. Her son is here. He has noted that she has had trouble with balance recently and also has been having some slurred speech intermittently lasting for short periods of time. No facial droop or unilateral weakness. Patient was seen earlier this month and was having arm and back pain. She had a cardiac evaluation according to the son. She had a negative stress test he says. The patient is not complaining of chest pain, shortness of breath, nausea, sweats, or any other related symptoms. Physical Examination: Afebrile and vital signs unremarkable. Head and neck atraumatic. Cranial nerves grossly intact. Patient was oriented to month and year and person. Heart regular. Lungs clear. Abdomen soft. Test Results: EKG showed sinus rhythm at a rate of 65 with a left bundle branch block pattern, similar to previous. CBC normal. Glucose 348, BUN 25 and creatinine 1.41. Urinalysis unremarkable. Troponin is indeterminate 0.1, and this is improved from previous. Alcohol negative. Chest x-ray showed congestion and cardiomegaly but nothing else acute. CT head showed chronic changes and nothing acute. Emergency Department Course and Treatment: Patient was placed on the monitor. Her son arrived and provided most of the history. Patient had no new or different symptoms for me when I reevaluated her. Her son said she had slurred speech lasting for several minutes here in the emergency department but no other symptoms. On initial reevaluation, the patient is resting comfortably. Patient may have some dementia or encephalopathy. I am concerned about the balance issue and slurred speech. She may also be having TIAs. I called the hospitalist for evaluation. Treatment Plan: As above Disposition: Admission Impression: 1. Encephalopathy 2. dysarthria This note was generated with [employer] software. It may contain incorrect words, spelling, and punctuation that were not noted in review of the chart prior to signing ED Disposition - Plan for ED Patient: Chief Complaint: Confusion Referrals: Micheal Teran Chi, MD [Primary Care Provider] -
--- NOTE | 2018-01-02 03:25 | ED.DCSUM_ITS ---
- ER Visit Summary Date of Service: 01/02/18 Chief Complaint: Confusion History of Present Illness: The patient is a 77 F with confusion. Per family, the patient has been seeing people who are not there and she has been talking about her mother who was 18 years ago. She was angry at family [employer] and called 911. Her son is here. He has noted that she has had trouble with balance recently and also has been having some slurred speech intermittently lasting for short periods of time. No facial droop or unilateral weakness. Patient was seen earlier this month and was having arm and back pain. She had a cardiac evaluation according to the son. She had a negative stress test he says. The patient is not complaining of chest pain, shortness of breath, nausea , sweats, or any other related symptoms. Physical Examination: Afebrile and vital signs unremarkable. Head and neck atraumatic. Cranial nerves grossly intact. Patient was oriented to month and year and person. Heart regular. Lungs clear. Abdomen soft. Test Results: EKG showed sinus rhythm at a rate of 65 with a left bundle branch block pattern, similar to previous. CBC normal. Glucose 348, BUN 25 and creatinine 1.41. Urinalysis unremarkable. Troponin is indeterminate 0.1, and this is improved from previous. Alcohol negative. Chest x-ray showed congestion and cardiomegaly but nothing else acute. CT head showed chronic changes and nothing acute. Emergency Department Course and Treatment: Patient was placed on the monitor. Her son arrived and provided most of the history. Patient had no new or different symptoms for me when I reevaluated her. Her son said she had slurred speech lasting for several minutes here in the emergency department but no other symptoms. On initial reevaluation, the patient is resting comfortably. Patient may have some dementia or encephalopathy. I am concerned about the balance issue and slurred speech. She may also be having TIAs. I called the hospitalist for evaluation. Treatment Plan: As above Disposition: Admission Impression: 1. Encephalopathy 2. dysarthria This note was generated with [employer] software. It may contain incorrect words, spelling, and punctuation that were not noted in review of the chart prior to signing ED Disposition - Plan for ED Patient: Chief Complaint: Confusion Referrals: Micheal Teran Chi, MD [Primary Care Provider] -
--- NOTE | 2018-01-02 03:37 | PCM.HP.STD ---
Problem List (1) Uncontrolled diabetes mellitus Status: Chronic (2) H/O aortic valve replacement Status: Resolved Comment: 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 with left carotid endarterectomy @ [place] by Dr Lerma 02/06/16 (3) COPD (chronic obstructive pulmonary disease) Status: Chronic (4) Hyperlipidemia Status: Chronic (5) Chronic diastolic heart failure Status: Chronic (6) CVA (cerebral infarction) Status: Chronic (7) Hypertension Status: Chronic (8) Hypothyroidism Status: Chronic (9) Paroxysmal a-fib Status: Chronic History of Present Illness Date of Admission: 01/02/18 Chief Complaint: Confusion. The patient is a 77 year old F with past medical history as mentioned above presented to the emergency room because of confusion. At this time, the patient is oriented ?2, disoriented to time and she said she does not know why she is in the hospital. The son was at the bedside and he mentioned that she has been confused, having memory issues and she has been hallucinating. The son mentioned that she has been having issues with memory and forgetfulness as well as occasional hesitation over the last few months but has been getting worse. Today, she had an argument with her and she called the [employer] office. He mentioned that she had intermittent slurred speech and she has been having issues with her balance. No reported mild deviation or drooling. No focal arm or leg weakness. At this time, the patient denies any symptoms. She has history of aortic valve replacement with bioprosthetic valve for aortic stenosis. She has history of type 2 diabetes mellitus she has been on insulin and Januvia, has been uncontrolled and her most recent hemoglobin A1c was few days ago it was 10.4. She had a history of stroke with no residual motor deficit she has been on Plavix and statins. In the emergency department, her vital signs were stable. Her routine blood work was remarkable for platelet count of 125,000 and creatinine of 1.41. Her blood glucose was 348. Troponin was 0.10. EKG revealed sinus rhythm with PVCs and left bundle branch block which was chronic. Chest x-ray showed no acute infiltrate. CT scan brain showed old lacunar infarction, no evidence of acute infarction or hemorrhage. He is being admitted for altered mental status/encephalopathy, confusion, hallucination and questionable slurred speech For evaluation. Past Medical History Past Medical History (Chronic Problems): Chronic Problems (Last Reviewed 11/29/17 @ 13:02 by Mora Medina) Uncontrolled diabetes mellitus (Chronic) Obesity (Chronic) Non-rheumatic aortic stenosis (Chronic) COPD (chronic obstructive pulmonary disease) (Chronic) Secondary pulmonary arterial hypertension (Chronic) Hyperlipidemia (Chronic) Chronic diastolic heart failure (Chronic) CVA (cerebral infarction) (Chronic) Hypertension (Chronic) Hypothyroidism (Chronic) Paroxysmal a-fib (Chronic) Allergies prochlorperazine edisylate [From Compazine] Allergy (Verified 01/01/18 23:17) Other prochlorperazine maleate [From Compazine] Allergy (Verified 01/01/18 23:17) Other tolmetin sodium [From Tolectin] Allergy (Verified 01/01/18 23:17) Other Home Medications: Ambulatory Orders Medication Instructions Recorded Atorvastatin Calcium [Lipitor] 80 mg PO QHS #30 tab 04/09/14 Insulin Aspart [Novolog Flexpen] See Protocol [facility] TIDCM 02/18/16 clopidogrel 75 mg tablet 75 mg PO QDAY tab 11/28/17 escitalopram 10 mg tablet 10 mg PO QDAY 11/28/17 furosemide 40 mg tablet 40 mg PO BID tab 11/28/17 pregabalin 75 mg capsule 75 mg PO TID 11/28/17 levothyroxine 88 mcg capsule 112 mcg PO DAILY cap 11/29/17 Cetirizine HCl [Zyrtec] 10 mg PO DAILY 12/27/17 Clopidogrel Bisulfate [Plavix] 75 mg PO DAILY 12/27/17 Ergocalciferol [Vitamin D] 50,000 unit PO QMONTH 12/27/17 Potassium Chloride [Klor-Con M20] 20 meq PO DAILY 12/27/17 Ranitidine [Zantac] 150 mg PO DAILY 12/27/17 Sitagliptin Phosphate [Januvia] 100 mg PO DAILY 12/27/17 Solifenacin Succinate [Vesicare] 10 mg PO DAILY 12/27/17 Insulin Detemir [Levemir FlexPen] 25 units SC DAILY #0 12/28/17 Metoprolol Tartrate [Lopressor 12.5 mg PO BID #60 tab 12/28/17 (beta chloe)] Surgical History: appendectomy, cataract, - - Aortic Valve replacement, left carotid endarterectomy, shoulder surgery Psychiatric History: No pertinent psych hx [employer]WORK[employer] SANDER History: No pertinent [employer]WORK[employer] SANDER history Lives: Spouse/ Significant Other Smoking Status: Former smoker Alcohol: None Drugs: None - *Family History Maternal History Items: Diabetes, Stroke Paternal History Items: Cancer Sibling History Items: Hypertension Review of Systems Constitutional: Denies: Anorexia, Chills, Fever, Weakness Eyes: Denies: Blurred vision, Double vision, Redness HEENT: Denies: Difficulty Hearing, Ear Pain, Nasal Congestion, Sore Throat Cardiovascular: Denies: Chest Pain, Chest Tightness, Heaviness, Palpitations, Syncope Respiratory: Denies: Cough, Pleuritic Pain, Shortness of Breath, Sputum production, Wheezing Gastrointestinal: Denies: Abdominal Pain, Constipation, Diarrhea, Nausea, Vomiting Genitourinary: Denies: Dysuria, Frequency, Hematuria Musculoskeletal: Denies: Arm Pain, Back Pain, Foot Pain Skin: Denies: Dryness, Rash Neurological: Reports: Confusion. Denies: Balance problems, Double vision, Change in Speech, Slurred speech, Focal weakness, Headaches, Incoordination Psychiatric: Denies: Anxiety, Depression Endocrine: Denies: Change in Body Habitus, Polydipsia VTE Information - Inpt Only VTE Present on Admission: No VTE Mechan Device Prophylaxis: None VTE Pharm Prophylaxis ordered?: Yes - Physical Exam General: Alert, Cooperative, No apparent distress, Disoriented HEENT: Atraumatic, PERRLA, EOMI Oral: No Gingival or Mucosal Lesions/ Ulcerations, Dry Mucosa Neck: Supple, No JVD, Negative Carotid Bruits, Trachea Midline, Thyroid Normal Size and Texture Lungs: Clear to auscultation, No rhonchi, No wheeze, No rales, Diminished Cardiovascular: Regular rate, Regular Rhythm, Normal S1, Normal S2, PMI Normal Abdomen: Bowel Sounds Present, Soft, Non Tender, Non-Distended, No Hepato-splenomegaly, Obese Extremities: No clubbing, No cyanosis, No edema Skin: No rashes, No breakdown Lymphatic: No Cervical, Supraclavicular, or Inguinal Adenopathy Neurological: Cranial nerves II-XII grossly intact, Motor Exam 5/5 strength throughout Psych/Mental Status: Normal Affect, Appropriate Vital Signs Temp Pulse Resp BP Pulse Ox 97.8 F 67 15 155/71 H 98 01/01/18 23:18 01/02/18 03:29 01/02/18 03:29 01/02/18 03:29 01/02/18 03:29 Oxygen Flow Rate (L/min) 4 Oxygen Delivery Method Nasal Cannula Weight: 220 lb Body Mass Index (BMI) 43.0 Finger Stick Blood Glucose 529 Laboratory Tests Past 24 Hrs 01/02/18 01/02/18 01/02/18 00:25 00:25 00:25 WBC 8.2 RBC 4.39 Hgb 12.6 Hct 39.3 MCV 89.5 MCH 28.7 MCHC 32.1 RDW 15.9 H RDW Differential 52.0 H Plt Count 125 L MPV 10.1 Immature Gran % (Auto) 0.100 Neut % (Auto) 80.0 H Lymph % (Auto) 10.2 L [place] % (Auto) 8.9 Eos % (Auto) 0.7 Baso % (Auto) 0.1 Absolute Neuts (auto) 6.6 Absolute Lymphs (auto) 0.84 Total Counted Not Reportable Sodium 137 Potassium 3.9 Chloride 101 Carbon Dioxide 30.0 Anion Gap 6 BUN 25 H Creatinine 1.41 H Estim Creat Clear Calc 24.00 Est GFR (MDRD) Af Amer 47 L Est GFR (MDRD) Non-Af 38 L BUN/Creatinine Ratio 17.7 Glucose 348 H Calcium 8.6 Troponin I 0.10 H Urine Color Urine Clarity Urine pH Ur Specific [place] Urine Protein Urine Glucose (UA) Urine Ketones Urine Occult Blood Urine Nitrite Urine Bilirubin Urine Urobilinogen Ur Leukocyte Esterase Urine RBC Urine WBC Ur Squamous Epith Cells Urine Bacteria Urine Mucus Urine Opiates Screen Urine Methadone Screen Ur Barbiturates Screen Ur Phencyclidine Scrn Ur Amphetamines Screen U Methamphetamin-MDMA U Benzodiazepines Scrn Urine Cocaine Screen U Cannabinoids Screen Ur Drug Screen Comment Ethyl Alcohol < 3.0 01/02/18 01/02/18 01:57 01:57 WBC RBC Hgb Hct MCV MCH MCHC RDW RDW Differential Plt Count MPV Immature Gran % (Auto) Neut % (Auto) Lymph % (Auto) [place] % (Auto) Eos % (Auto) Baso % (Auto) Absolute Neuts (auto) Absolute Lymphs (auto) Total Counted Sodium Potassium Chloride Carbon Dioxide Anion Gap BUN Creatinine Estim Creat Clear Calc Est GFR (MDRD) Af Amer Est GFR (MDRD) Non-Af BUN/Creatinine Ratio Glucose Calcium Troponin I Urine Color Yellow Urine Clarity Clear Urine pH 6.0 Ur Specific [place] 1.020 Urine Protein 30 H Urine Glucose (UA) 1000 H Urine Ketones 5 H Urine Occult Blood 10 H Urine Nitrite Negative Urine Bilirubin Negative Urine Urobilinogen Normal Ur Leukocyte Esterase Negative Urine RBC 0 SEEN Urine WBC 0 SEEN Ur Squamous Epith Cells 0 SEEN Urine Bacteria 0 SEEN Urine Mucus 0 SEEN Urine Opiates Screen NEGATIVE Urine Methadone Screen NEGATIVE Ur Barbiturates Screen NEGATIVE Ur Phencyclidine Scrn NEGATIVE Ur Amphetamines Screen NEGATIVE U Methamphetamin-MDMA NEGATIVE U Benzodiazepines Scrn NEGATIVE Urine Cocaine Screen NEGATIVE U Cannabinoids Screen NEGATIVE Ur Drug Screen Comment Ethyl Alcohol Clinical Impression(s) from Imaging Studies Brain CT 01/02/18 00:03 IMPRESSION: No acute findings in the brain. An old lacunar infarct involving the left lentiform nucleus and an old area of infarction in the posterior distribution of the right middle cerebral artery. No change since February 18, 2016 Electronically Signed: Kyle Contreras, at 1:18 EDT Tel , Service support , Chest X-Ray 01/02/18 00:45 IMPRESSION: Cardiomegaly with central vascular congestion. No pneumonia. No pleural effusions. Electronically Signed: Kyle Contreras, at 1:52 EDT Tel , Service support , Assessment/Plan This is a 77 years old female patient brought to the emergency room by family because of confusion, hallucination and questionable slurred speech and she is being admitted for evaluation. #1 altered mental status/confusion/hallucination: According to the patient's son, she has been having issues with memory, forgetfulness and sometimes his vision but has been getting worse nowadays. Her symptoms is not typical for TIA or stroke. It could be due to worsening dementia. CT scan brain showed no acute findings. She has no focal deficit on examination. Her vital signs are stable. Routine blood work was remarkable for chronic thrombocytopenia and chronically elevated creatinine. Plan: Admit to PCU for observation, cardiac monitoring, NIH stroke scale, MRI brain, continue Plavix and aspirin for history of stroke, PT OT evaluation and treatment. #2 borderline elevated troponin: Patient was admitted to the hospital for a couple of days ago for chest pain and abnormal cardiac enzymes. She underwent stress test that was negative for stress-induced myocardial ischemia. Troponin 0 0.10 which is actually coming down from December 28, 2017. EKG revealed sinus rhythm with LBBB which is chronic, no acute changes. #3 uncontrolled type 2 diabetes mellitus: A1c was 10.4 a few days ago, uncontrolled. Plan: ADA diet, Accu-Cheks q. before meals at bedtime, continue home dose of Levemir and Humalog insulin, continue Januvia, and systolic scale. #4 hypertension: Blood pressure stable, continue metoprolol. #5 hypothyroidism: Continue levothyroxine. #6 COPD: Stable, pulse ox is maintained on 2 L. Plan for albuterol as needed. #7 history of stroke: Continue Plavix and statins, plan for MRI brain. #8 DVT prophylaxis: Subcu Lovenox. Other chronic medical problems: #1 chronic diastolic CHF. #2 paroxysmal A. fib. #3 pulmonary hypertension. This note was generated with [employer] dictation software. It may contain incorrect words, spelling, and punctuation that were not noted in checking the note before signing. Code Visit OBSV E&M: 74600 Initial observation care L3
--- NOTE | 2018-01-02 03:50 | HP.PCM_ITS ---
Problem List (1) Uncontrolled diabetes mellitus Status: Chronic (2) H/O aortic valve replacement Status: Resolved Comment: 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 with left carotid endarterectomy @ [place] by Dr Lerma 02/06/16 (3) COPD (chronic obstructive pulmonary disease) Status: Chronic (4) Hyperlipidemia Status: Chronic (5) Chronic diastolic heart failure Status: Chronic (6) CVA (cerebral infarction) Status: Chronic (7) Hypertension Status: Chronic (8) Hypothyroidism Status: Chronic (9) Paroxysmal a-fib Status: Chronic History of Present Illness Date of Admission: 01/02/18 Chief Complaint: Confusion. The patient is a 77 year old F with past medical history as mentioned above presented to the emergency room because of confusion. At this time, the patient is oriented ?2, disoriented to time and she said she does not know why she is in the hospital. The son was at the bedside and he mentioned that she has been confused, having memory issues and she has been hallucinating. The son mentioned that she has been having issues with memory and forgetfulness as well as occasional hesitation over the last few months but has been getting worse. Today, she had an argument with her and she called the [employer] office. He mentioned that she had intermittent slurred speech and she has been having issues with her balance. No reported mild deviation or drooling. No focal arm or leg weakness. At this time, the patient denies any symptoms. She has history of aortic valve replacement with bioprosthetic valve for aortic stenosis. She has history of type 2 diabetes mellitus she has been on insulin and Januvia, has been uncontrolled and her most recent hemoglobin A1c was few days ago it was 10.4. She had a history of stroke with no residual motor deficit she has been on Plavix and statins. In the emergency department, her vital signs were stable. Her routine blood work was remarkable for platelet count of 125,000 and creatinine of 1.41. Her blood glucose was 348. Troponin was 0.10. EKG revealed sinus rhythm with PVCs and left bundle branch block which was chronic. Chest x-ray showed no acute infiltrate. CT scan brain showed old lacunar infarction, no evidence of acute infarction or hemorrhage. He is being admitted for altered mental status/encephalopathy, confusion, hallucination and questionable slurred speech For evaluation. Past Medical History Past Medical History (Chronic Problems): Chronic Problems (Last Reviewed 11/29/17 @ 13:02 by Mora Medina) Uncontrolled diabetes mellitus (Chronic) Obesity (Chronic) Non-rheumatic aortic stenosis (Chronic) COPD (chronic obstructive pulmonary disease) (Chronic) Secondary pulmonary arterial hypertension (Chronic) Hyperlipidemia (Chronic) Chronic diastolic heart failure (Chronic) CVA (cerebral infarction) (Chronic) Hypertension (Chronic) Hypothyroidism (Chronic) Paroxysmal a-fib (Chronic) Allergies prochlorperazine edisylate [From Compazine] Allergy (Verified 01/01/18 23:17) Other prochlorperazine maleate [From Compazine] Allergy (Verified 01/01/18 23:17) Other tolmetin sodium [From Tolectin] Allergy (Verified 01/01/18 23:17) Other Home Medications: Ambulatory Orders Medication Instructions Recorded Atorvastatin Calcium [Lipitor] 80 mg PO QHS #30 tab 04/09/14 Insulin Aspart [Novolog Flexpen] See Protocol [facility] TIDCM 02/18/16 clopidogrel 75 mg tablet 75 mg PO QDAY tab 11/28/17 escitalopram 10 mg tablet 10 mg PO QDAY 11/28/17 furosemide 40 mg tablet 40 mg PO BID tab 11/28/17 pregabalin 75 mg capsule 75 mg PO TID 11/28/17 levothyroxine 88 mcg capsule 112 mcg PO DAILY cap 11/29/17 Cetirizine HCl [Zyrtec] 10 mg PO DAILY 12/27/17 Clopidogrel Bisulfate [Plavix] 75 mg PO DAILY 12/27/17 Ergocalciferol [Vitamin D] 50,000 unit PO QMONTH 12/27/17 Potassium Chloride [Klor-Con M20] 20 meq PO DAILY 12/27/17 Ranitidine [Zantac] 150 mg PO DAILY 12/27/17 Sitagliptin Phosphate [Januvia] 100 mg PO DAILY 12/27/17 Solifenacin Succinate [Vesicare] 10 mg PO DAILY 12/27/17 Insulin Detemir [Levemir FlexPen] 25 units SC DAILY #0 12/28/17 Metoprolol Tartrate [Lopressor 12.5 mg PO BID #60 tab 12/28/17 (beta chloe)] Surgical History: appendectomy, cataract, - - Aortic Valve replacement, left carotid endarterectomy, shoulder surgery Psychiatric History: No pertinent psych hx CMO & PRESIDENT History: No pertinent CMO & PRESIDENT history Lives: Spouse/ Significant Other Smoking Status: Former smoker Alcohol: None Drugs: None - *Family History Maternal History Items: Diabetes, Stroke Paternal History Items: Cancer Sibling History Items: Hypertension Review of Systems Constitutional: Denies: Anorexia, Chills, Fever, Weakness Eyes: Denies: Blurred vision, Double vision, Redness HEENT: Denies: Difficulty Hearing, Ear Pain, Nasal Congestion, Sore Throat Cardiovascular: Denies: Chest Pain, Chest Tightness, Heaviness, Palpitations, Syncope Respiratory: Denies: Cough, Pleuritic Pain, Shortness of Breath, Sputum production, Wheezing Gastrointestinal: Denies: Abdominal Pain, Constipation, Diarrhea, Nausea, Vomiting Genitourinary: Denies: Dysuria, Frequency, Hematuria Musculoskeletal: Denies: Arm Pain, Back Pain, Foot Pain Skin: Denies: Dryness, Rash Neurological: Reports: Confusion. Denies: Balance problems, Double vision, Change in Speech, Slurred speech, Focal weakness, Headaches, Incoordination Psychiatric: Denies: Anxiety, Depression Endocrine: Denies: Change in Body Habitus, Polydipsia VTE Information - Inpt Only VTE Present on Admission: No VTE Mechan Device Prophylaxis: None VTE Pharm Prophylaxis ordered?: Yes - Physical Exam General: Alert, Cooperative, No apparent distress, Disoriented HEENT: Atraumatic, PERRLA, EOMI Oral: No Gingival or Mucosal Lesions/ Ulcerations, Dry Mucosa Neck: Supple, No JVD, Negative Carotid Bruits, Trachea Midline, Thyroid Normal Size and Texture Lungs: Clear to auscultation, No rhonchi, No wheeze, No rales, Diminished Cardiovascular: Regular rate, Regular Rhythm, Normal S1, Normal S2, PMI Normal Abdomen: Bowel Sounds Present, Soft, Non Tender, Non-Distended, No Hepato- splenomegaly, Obese Extremities: No clubbing, No cyanosis, No edema Skin: No rashes, No breakdown Lymphatic: No Cervical, Supraclavicular, or Inguinal Adenopathy Neurological: Cranial nerves II-XII grossly intact, Motor Exam 5/5 strength throughout Psych/Mental Status: Normal Affect, Appropriate Vital Signs Temp Pulse Resp BP Pulse Ox 97.8 F 67 15 155/71 H 98 01/01/18 23:18 01/02/18 03:29 01/02/18 03:29 01/02/18 03:29 01/02/18 03:29 Oxygen Flow Rate (L/min) 4 Oxygen Delivery Method Nasal Cannula Weight: 220 lb Body Mass Index (BMI) 43.0 Finger Stick Blood Glucose 529 Laboratory Tests Past 24 Hrs 01/02/18 01/02/18 01/02/18 00:25 00:25 00:25 WBC 8.2 RBC 4.39 Hgb 12.6 Hct 39.3 MCV 89.5 MCH 28.7 MCHC 32.1 RDW 15.9 H RDW Differential 52.0 H Plt Count 125 L MPV 10.1 Immature Gran % (Auto) 0.100 Neut % (Auto) 80.0 H Lymph % (Auto) 10.2 L [place] % (Auto) 8.9 Eos % (Auto) 0.7 Baso % (Auto) 0.1 Absolute Neuts (auto) 6.6 Absolute Lymphs (auto) 0.84 Total Counted Not Reportable Sodium 137 Potassium 3.9 Chloride 101 Carbon Dioxide 30.0 Anion Gap 6 BUN 25 H Creatinine 1.41 H Estim Creat Clear Calc 24.00 Est GFR (MDRD) Af Amer 47 L Est GFR (MDRD) Non-Af 38 L BUN/Creatinine Ratio 17.7 Glucose 348 H Calcium 8.6 Troponin I 0.10 H Urine Color Urine Clarity Urine pH Ur Specific [place] Urine Protein Urine Glucose (UA) Urine Ketones Urine Occult Blood Urine Nitrite Urine Bilirubin Urine Urobilinogen Ur Leukocyte Esterase Urine RBC Urine WBC Ur Squamous Epith Cells Urine Bacteria Urine Mucus Urine Opiates Screen Urine Methadone Screen Ur Barbiturates Screen Ur Phencyclidine Scrn Ur Amphetamines Screen U Methamphetamin-MDMA U Benzodiazepines Scrn Urine Cocaine Screen U Cannabinoids Screen Ur Drug Screen Comment Ethyl Alcohol < 3.0 01/02/18 01/02/18 01:57 01:57 WBC RBC Hgb Hct MCV MCH MCHC RDW RDW Differential Plt Count MPV Immature Gran % (Auto) Neut % (Auto) Lymph % (Auto) [place] % (Auto) Eos % (Auto) Baso % (Auto) Absolute Neuts (auto) Absolute Lymphs (auto) Total Counted Sodium Potassium Chloride Carbon Dioxide Anion Gap BUN Creatinine Estim Creat Clear Calc Est GFR (MDRD) Af Amer Est GFR (MDRD) Non-Af BUN/Creatinine Ratio Glucose Calcium Troponin I Urine Color Yellow Urine Clarity Clear Urine pH 6.0 Ur Specific [place] 1.020 Urine Protein 30 H Urine Glucose (UA) 1000 H Urine Ketones 5 H Urine Occult Blood 10 H Urine Nitrite Negative Urine Bilirubin Negative Urine Urobilinogen Normal Ur Leukocyte Esterase Negative Urine RBC 0 SEEN Urine WBC 0 SEEN Ur Squamous Epith Cells 0 SEEN Urine Bacteria 0 SEEN Urine Mucus 0 SEEN Urine Opiates Screen NEGATIVE Urine Methadone Screen NEGATIVE Ur Barbiturates Screen NEGATIVE Ur Phencyclidine Scrn NEGATIVE Ur Amphetamines Screen NEGATIVE U Methamphetamin-MDMA NEGATIVE U Benzodiazepines Scrn NEGATIVE Urine Cocaine Screen NEGATIVE U Cannabinoids Screen NEGATIVE Ur Drug Screen Comment Ethyl Alcohol Clinical Impression(s) from Imaging Studies Brain CT 01/02/18 00:03 IMPRESSION: No acute findings in the brain. An old lacunar infarct involving the left lentiform nucleus and an old area of infarction in the posterior distribution of the right middle cerebral artery. No change since February 18, 2016 Electronically Signed: Kyle Contreras, at 1:18 EDT Tel , Service support , Chest X-Ray 01/02/18 00:45 IMPRESSION: Cardiomegaly with central vascular congestion. No pneumonia. No pleural effusions. Electronically Signed: Kyle Contreras, at 1:52 EDT Tel , Service support , Assessment/Plan This is a 77 years old female patient brought to the emergency room by family because of confusion, hallucination and questionable slurred speech and she is being admitted for evaluation. #1 altered mental status/confusion/hallucination: According to the patient's son , she has been having issues with memory, forgetfulness and sometimes his vision but has been getting worse nowadays. Her symptoms is not typical for TIA or stroke. It could be due to worsening dementia. CT scan brain showed no acute findings. She has no focal deficit on examination. Her vital signs are stable. Routine blood work was remarkable for chronic thrombocytopenia and chronically elevated creatinine. Plan: Admit to PCU for observation, cardiac monitoring, NIH stroke scale, MRI brain, continue Plavix and aspirin for history of stroke, PT OT evaluation and treatment. #2 borderline elevated troponin: Patient was admitted to the hospital for a couple of days ago for chest pain and abnormal cardiac enzymes. She underwent stress test that was negative for stress-induced myocardial ischemia. Troponin 0 0.10 which is actually coming down from December 28, 2017. EKG revealed sinus rhythm with LBBB which is chronic, no acute changes. #3 uncontrolled type 2 diabetes mellitus: A1c was 10.4 a few days ago, uncontrolled. Plan: ADA diet, Accu-Cheks q. before meals at bedtime, continue home dose of Levemir and Humalog insulin, continue Januvia, and systolic scale. #4 hypertension: Blood pressure stable, continue metoprolol. #5 hypothyroidism: Continue levothyroxine. #6 COPD: Stable, pulse ox is maintained on 2 L. Plan for albuterol as needed. #7 history of stroke: Continue Plavix and statins, plan for MRI brain. #8 DVT prophylaxis: Subcu Lovenox. Other chronic medical problems: #1 chronic diastolic CHF. #2 paroxysmal A. fib. #3 pulmonary hypertension. This note was generated with Socratic dictation software. It may contain incorrect words, spelling, and punctuation that were not noted in checking the note before signing. Code Visit OBSV E&M: 43941 Initial observation care L3
--- NOTE | 2018-01-02 04:33 | MRI_ITS ---
STUDY: MRI BRAIN WITHOUT CONTRAST REASON FOR EXAM: Female, 77 years old. Confusion. Memory loss. Hallucinating. Slurred speech x1 week. TECHNIQUE: Standardized multiplanar fat and water weighted pulse sequences were obtained. COMPARISON: CT head without contrast 01/02/2018. MRI of the brain with and without contrast 03/25/2014. FINDINGS: No restricted diffusion to suspect acute or subacute ischemic infarct. Cystic encephalomalacia of the previous acute cortical-based ischemic infarct in the right cerebral hemisphere. There is ex vacuo dilatation of the inferior horn and occipital horn of the right lateral ventricle. The ventricles and cisterns are within normal limits. Wallerian degeneration of the right cerebral peduncle. Periventricular white matter T2 FLAIR hyperintensity foci are chronic white matter ischemic changes. Normal bilateral basal ganglia. Normal thalami. There is no extra-axial fluid accumulation. Normal flow voids within the major intracranial circulation suggesting patency by spin echo criteria. Normal sella turcica, pituitary gland, infundibular stalk, optic chiasm and hypothalamus. Normal tectal plate and pineal gland. Wallerian degeneration of the right cerebral peduncle from the cortical base infarct in the right cerebral hemisphere. Normal tomy and medulla. Normal cerebellum. Normal basal cisterns. Normal bilateral temporal bones. Normal bilateral internal auditory canals. No demonstrated orbital abnormality, within the constraints of a routine brain study. Normal visualized paranasal sinuses. Normal calvarium and skull base. Normal visualized soft tissue structures. Normal visualized upper cervical spine. MRI/Brain without Contrast IMPRESSION: 1. No MRI evidence of acute or subacute ischemic infarct. 2. Cystic encephalomalacia of the previous acute cortical-based ischemic infarct in the right cerebral hemisphere when compared to 03/25/2014. 3. Wallerian degeneration of the right cerebral peduncle. 4. Chronic periventricular white matter ischemic changes in both cerebral hemispheres. Electronically Signed: Justino Peña MD at 10:27 EDT , Service support ,
[2018-01-02] MEDS: Heparin Injection (Vial) 5,000 UNIT/ML VIAL 5000 UNIT SC ×3 (05:36→21:26)
[2018-01-02] MEDS: 0.9% Normal Saline 1,000 ML 75 ML IV ×2 (05:36→21:25)
[2018-01-02 06:50] LABS: Bedside Glucose 283 mg/dL (70-110)
[2018-01-02 12:10] LABS: Bedside Glucose 329 mg/dL (70-110)
[2018-01-02 16:41] LABS: Bedside Glucose 261 mg/dL (70-110)
--- NOTE | 2018-01-02 16:58 | PCM.PROGNOTE ---
Subjective: Patient is a 77-year-old female with a past medical history of diabetes mellitus type 2, hypertension, COPD, hyperlipidemia, history of CVA, hypothyroidism, paroxysmal atrial fibrillation and non-rheumatic Aortic stenosis with aortic valve replacement with carotid endarterectomy at [facility] by Dr. Fonseca on 02/06/2016 who was brought to the emergency department at [facility] on 01/02/2018 complaining of increased confusion and visual hallucinations. These sx have been waxing and waning over the past 6 months. Vital signs at presentation to the emergency room were temperature 97.8, pulse rate 69, blood pressure 135/78, respiratory rate 12 and she was 90% saturated on room air and then dropped to 84% on room air. CBC was remarkable for a platelet count of 125,000. She has had thrombocytopenia intermittently in the past. Blood cell count was 8.2 but there is a left shift with 80% neutrophils. Creatinine was increased at 1.41 but on 12/27/2017 was 1.82. Random blood glucose was 348. UA showed 0 WBCs per high-power field. The troponin was 0.1 but recent stress test within the past 2 weeks was negative. The stress did show a previous infarct. She was started on Metoprolol at [facility] from the recent admission. Metoprolol is the only new medication. CT brain showed no acute findings. MRI of the brain showed no evidence of acute or subacute ischemic infarct. She is unaware of why she is here. She is oriented X 3 but does not know the name of the president and tells me that 1 lb of pennies weighs more than a pound of feathers. She tells me that she does not know if a hammer floats on water because she has never tried this and she thinks that the presidential elections are currently going on. She mostly eats out and does not follow a diet. Denies any recent fevers or chills. Her son states that she does cough at home....they have a dog and she has not been coughing in the hospital. - Physical Exam General: Alert, Oriented x3, Cooperative, No apparent distress, Well developed, Well nourished HEENT: Atraumatic, PERRLA, EOMI, Normocephalic, - - No facial asymmetry Oral: Moist Mucosa Neck: Supple, No Nuchal Rigidity, Trachea Midline, Carotid Bruit, Right - vs radiation of aortic MM Lungs: Clear to auscultation, No rhonchi, No wheeze Cardiovascular: Regular rate, Regular Rhythm, Normal S1, Normal S2, Murmur - 2/6 crescendo decrescendo murmur at the second right intercostal space, No Gallop Abdomen: Bowel Sounds Present, Soft, Non Tender, Non-Distended, Obese Extremities: No clubbing, No cyanosis, No edema Skin: No rashes Musculoskeletal: Arthritic Changes Neurological: Cranial nerves II-XII grossly intact, Neuro grossly intact, - - I did not ambulate Psych/Mental Status: Normal Affect Vital Signs Temp Pulse Resp BP Pulse Ox 98.2 F 63 16 116/66 94 01/02/18 14:18 01/02/18 15:24 01/02/18 14:18 01/02/18 14:18 01/02/18 14:18 Oxygen Flow Rate (L/min) 1.5 Oxygen Delivery Method Nasal Cannula Weight: 209 lb 3.499 oz Body Mass Index (BMI) 40.8 Intake and Output for Last 24 Hours 12/31/17 01/01/18 01/02/18 23:59 23:59 23:59 Intake Total 1428 / 1428 Balance 1428 / 1428 POC Glucose 01/02/18 01/02/18 01/02/18 16:29 12:02 06:45 POC Glucose 261 H 329 H 283 H Medical Necessity - Tobacco Use Smoking Status: Former smoker Assessment/Plan Impressions 1. acute encephalopathy with confusion and hallucinations on possible chronic underlying dementia - the only recent change in medication is the addition of a beta chloe which can cause confusion in the elderly. No obvious infection. 2. HTN - controlled 3. bioprosthetic AV replacement in 2016 at [facility] 4. pulmonary HTN 5. Carotid endarterectomy at [facility] in 2016 6. Thrombocytopenia-intermittent over the past 2 years 7. Uncontrolled diabetes mellitus type 2 8. Chronic renal failure stage III 9. COPD 10. Remote history of CVA 11. Hypothyroidism with recent mildly increased TSH but normal T4 12. Paroxysmal atrial fibrillation-not on anticoagulation 13. Hypokalemia-supplemented DC the beta chloe Continue to hold Lyrica recheck the lab in the AM B12, RPR and ROHIT DC NIH scores-no focal neurologic deficits Continue subcu heparin for DVT prophylaxis Ambulatory pulse ox prior to discharge
[2018-01-02 18:52] LABS: CRP 8.57 mg/L (0.0-3.0)
[2018-01-02 19:07] LABS: Vitamin B12 421 pg/mL (211-911)
[2018-01-02] MEDS: Atorvastatin Calcium 80 MG Tablet PO (21:26)
[2018-01-02 21:28] LABS: Erythrocyte Sedimentation Rate 5 mm/hr (0-30)
[2018-01-02 23:36] LABS: Bedside Glucose 295 mg/dL (70-110)
[2018-01-03] VITALS (9 sets, daily range): BP systolic 133–143; BP diastolic 64–66; PULSE 64–80; RESP 18; TEMP 36.5–37; O2SAT 87–96
[2018-01-03] MEDS: Heparin Injection (Vial) 5,000 UNIT/ML VIAL 5000 UNIT SC ×2 (05:57→14:27)
[2018-01-03] MEDS: Levothyroxine 112 MCG Tablet PO (05:58)
[2018-01-03 06:15] LABS: Absolute Lymphocyte Count 0.79 X10^3/ul (0.83-4.51); Basophil# 0.01 X10^3/uL; Basophil% 0.1 % (0-1); Eosinophil# 0.06 X10^3/uL; Eosinophils% 0.8 % (0-5); Hematocrit 36.6 % (37-47); Hemoglobin 11.8 g/dl (12.0-15.0); Lymphocyte # 0.79 X10^3/ul (4.0); Lymphocyte % 10.6 % (19-41); Mean Corp Hgb Conc 32.2 g/gl (32-36); Mean Corpuscular Hgb 29.4 pg (27.0-32.0); Mean Platelet Vol. 11.2 fl (6.2-12.0); Monocyte# 0.59 X10^3/uL; Monocyte% 7.9 % (0-10); Neutrophil # 5.99 X10^3/uL (2.7-7.7); Neutrophil % 80.5 % (47-70); Platelet Count 114 K/mm3 (150-450); RBC Distribution Width CV 15.9 % (11.6-14.6); RBC Distribution Width SD 52.3 fl (35.1-43.9); Red Blood Count 4.02 M/mm3 (4.2-5.4); White Blood Count 7.5 K/mm3 (4.4-11.0)
[2018-01-03 06:16] LABS: POSITIVE COUNT NO; POSITIVE DIFFERENTIAL NO; POSITIVE MORPHOLOGY NO
[2018-01-03 06:37] LABS: ALB/GLOB Ratio 0.8 RATIO (0.9-2.4); AST(SGOT) 24 U/L (15-37); Alanine Aminotransfer ALT/SGPT 36 U/L (13-56); Albumin, Serum 2.4 g/dL (3.2-5.0); Alkaline Phosphatase 80 U/L (45-117); BUN 17 mg/dL (7-18); BUN/Creat Ratio 18.6 RATIO (10-20); Calcium,Total 8.2 mg/dL (8.5-10.1); Chloride 107 mmol/L (98-107); Creatinine, Serum 0.91 mg/dL (0.55-1.02); EST Glomerular Filtration Rate 63 mL/min (>60); Est Glom Filt Rate - Afr Amer 77 mL/min (>60); Estimated Creatinine Clearance 37.19 ml/min; Glucose 215 mg/dL (74-106); Magnesium 1.9 mg/dL (1.6-2.6); Phosphorus 2.5 mg/dL (2.5-4.9); Protein, Total 5.4 g/dL (6.4-8.2); Sodium Level 141 mmol/L (136-145)
[2018-01-03 06:38] LABS: Anion Gap 6 (5-15)
[2018-01-03 06:56] LABS: Bedside Glucose 222 mg/dL (70-110)
--- NOTE | 2018-01-03 08:53 | CASEMGMT ---
JAVAN spoke with patient and her son. Introduced self and role at [facility]. JAVAN spoke with patient's son about home health. He said that would be great if that could be set up. JAVAN explained what insurance pays for as far as home health. JAVAN told them SW will set this up and let them know the agency. Plan: home with home health. Martha CHOUDHARY MSW
[2018-01-03] MEDS: Magnesium Oxide 400 MG Tablet PO (09:12)
[2018-01-03] MEDS: Escitalopram Oxalate 10 MG Tablet PO (09:12)
[2018-01-03] MEDS: Clopidogrel Bisulfate 75 MG Tablet PO (09:13)
[2018-01-03] MEDS: LINAGLIPTIN 5 MG TABLET PO (09:13)
[2018-01-03] MEDS: Famotidine 20 MG Tablet PO (09:13)
[2018-01-03 11:31] LABS: Bedside Glucose 256 mg/dL (70-110)
[2018-01-03] MEDS: 0.9% Normal Saline 1,000 ML 75 ML IV (11:58)
--- NOTE | 2018-01-03 16:14 | DCINST_ITS ---
You will use the following diet at home:: Calorie/Carbohydrate Controlled ( specify 1200, 1400, etc) - 1800 calorie, low salt and low fat Your food should be the consistency of: Regular Your liquids should be the consistency of: Regular/Thin Discharge Activity: May Not Drive, Use Walker Weight Bearing Status: Full weight bearing Call your doctor if you observe: Fever of 101 or Higher, Shortness of breath, Dizziness, Fainting spells, Swelling in the ankles, Chest pain, Increased palpitations (irregular heartbeat) Additional Instructions: 1. You have memory loss and this is called dementia. It is most likely due to Alzheimer's disease and there is no cure for this. It is a progressive illness but there are medications that can slow down the decline. It can progress to a point where the brain forgets how to swallow, forgets how to walk and eventually you stop talking. I am referring you to one of the neurologists. A neurologist specializes in problems with the brain and they can get you started on medications to help slow down the decline. 2. The foster care social worker has set you up for home health care. She will also arrange for meals on wheels so you will not have to cook and you will get nutritious meals. 3. Your blood sugars are still high and I have increased the dose of the Levemir to 30 units daily. 4. You were dehydrated when you came into the hospital and we gave you IV fluids. I have decreased the Furosemide(Lasix) to once daily in the AM. Pending Tests on Discharge: ROHIT and RPR Allergies/Adverse Reactions: Allergies prochlorperazine edisylate [From Compazine] Allergy (Verified 01/01/18 23:17) Other prochlorperazine maleate [From Compazine] Allergy (Verified 01/01/18 23:17) Other tolmetin sodium [From Tolectin] Allergy (Verified 01/01/18 23:17) Other Medications to take at Discharge Insulin Aspart [Novolog Flexpen] See Protocol SC TIDCM 02/18/16 clopidogrel 75 mg tablet 75 mg PO QDAY tab 11/28/17 escitalopram 10 mg tablet 10 mg PO QDAY 11/28/17 pregabalin 75 mg capsule 75 mg PO TID 11/28/17 levothyroxine 88 mcg capsule 112 mcg PO DAILY cap 11/29/17 Cetirizine HCl [Zyrtec] 10 mg PO DAILY 12/27/17 Ergocalciferol [Vitamin D] 50,000 unit PO QMONTH 12/27/17 Potassium Chloride [Klor-Con M20] 20 meq PO DAILY 12/27/17 Ranitidine [Zantac] 150 mg PO DAILY 12/27/17 Sitagliptin Phosphate [Januvia] 100 mg PO DAILY 12/27/17 Solifenacin Succinate [Vesicare] 10 mg PO DAILY 12/27/17 Atorvastatin Calcium [Lipitor] 80 mg PO QHS 01/02/18 Magnesium Oxide [Mag-Ox 400] 400 mg PO DAILY 01/02/18 Metoprolol Tartrate [Lopressor (beta chloe)] 12.5 mg PO BID 01/02/18 Furosemide [Lasix] 40 mg PO DAILY #0 tab 01/03/18 Insulin Detemir [Levemir FlexPen] 30 units SC DAILY #0 01/03/18 Primary Care Physician: Micheal Teran Chi, MD [Primary Care Provider] - Please follow up with your Primary Care Physician in: 7-10 days Please Follow Up With: Nayana Eckert MD When: within the next month Please Follow Up With: Ventura Ragsdale MD When: as previously arranged Proposed Discharge Date: 01/03/18
--- NOTE | 2018-01-03 16:18 | PCM.DC.SUM ---
Discharge Date and Diagnosis - Problem List Patient Problems: Active and Suspected Problems (Last Reviewed 11/29/17 @ 13:02 by Mora Medina) Dehydration (Acute) Date of Admission: 01/02/18 Date of Discharge: 01/03/18 - Primary Discharge Diagnosis Active and Suspected Problems (Last Reviewed 11/29/17 @ 13:02 by Mora Medina) Dehydration (Acute) altered mental status - this is chronic but the family brought her in to be evaluated for this - Secondary Discharge Diagnosis Chronic Problems (Last Reviewed 11/29/17 @ 13:02 by Mora Medina) Thrombocytopenia (Chronic) - intermittent over the past few years Fibromyalgia (Chronic) Dementia (Chronic) - suspect Alzheimer's Uncontrolled diabetes mellitus (Chronic) Obesity (Chronic) H/O aortic valve replacement (Chronic ~02/06/16) 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 with left carotid endarterectomy @ [place] by Dr Lerma 02/06/16 Non-rheumatic aortic stenosis (Chronic) COPD (chronic obstructive pulmonary disease) (Chronic) Secondary pulmonary arterial hypertension (Chronic) Hyperlipidemia (Chronic) Chronic diastolic heart failure (Chronic) CVA (cerebral infarction) (Chronic) Hypertension (Chronic) Hypothyroidism (Chronic) Paroxysmal a-fib (Chronic) Cardiomyopathy with 37% EF on stress test 12/28/17 Chronic respiratory failure with hypoxemia Hospital Course and Treatment Imaging Results: Clinical Impression(s) from Imaging Studies Brain CT 01/02/18 00:03 IMPRESSION: No acute findings in the brain. An old lacunar infarct involving the left lentiform nucleus and an old area of infarction in the posterior distribution of the right middle cerebral artery. No change since February 18, 2016 Electronically Signed: Kyle Contreras, at 1:18 EDT Tel , Service support , Chest X-Ray 01/02/18 00:45 IMPRESSION: Cardiomegaly with central vascular congestion. No pneumonia. No pleural effusions. Electronically Signed: Kyle Contreras, at 1:52 EDT Tel , Service support , Brain MRI 01/02/18 04:33 IMPRESSION: 1. No MRI evidence of acute or subacute ischemic infarct. 2. Cystic encephalomalacia of the previous acute cortical-based ischemic infarct in the right cerebral hemisphere when compared to 03/25/2014. 3. [place]ian degeneration of the right cerebral peduncle. 4. Chronic periventricular white matter ischemic changes in both cerebral hemispheres. Electronically Signed: Justino Peña MD at 10:27 EDT , Service support , Laboratory Tests 01/02/18 01/02/18 01/02/18 00:25 00:25 00:25 WBC 8.2 RBC 4.39 Hgb 12.6 Hct 39.3 MCV 89.5 MCH 28.7 MCHC 32.1 RDW 15.9 H RDW Differential 52.0 H Plt Count 125 L MPV 10.1 Immature Gran % (Auto) 0.100 Neut % (Auto) 80.0 H Lymph % (Auto) 10.2 L [place] % (Auto) 8.9 Eos % (Auto) 0.7 Baso % (Auto) 0.1 Absolute Neuts (auto) 6.6 Absolute Lymphs (auto) 0.84 Total Counted Not Reportable ESR Sodium 137 Potassium 3.9 Chloride 101 Carbon Dioxide 30.0 Anion Gap 6 BUN 25 H Creatinine 1.41 H Estim Creat Clear Calc 24.00 Est GFR (MDRD) Af Amer 47 L Est GFR (MDRD) Non-Af 38 L BUN/Creatinine Ratio 17.7 Glucose 348 H Calcium 8.6 Phosphorus Magnesium Total Bilirubin AST ALT Alkaline Phosphatase Troponin I 0.10 H C-React Prot Ext Range Total Protein Albumin Globulin Albumin/Globulin Ratio Vitamin B12 Urine Color Urine Clarity Urine pH Ur Specific [place] Urine Protein Urine Glucose (UA) Urine Ketones Urine Occult Blood Urine Nitrite Urine Bilirubin Urine Urobilinogen Ur Leukocyte Esterase Urine RBC Urine WBC Ur Squamous Epith Cells Urine Bacteria Urine Mucus Urine Opiates Screen Urine Methadone Screen Ur Barbiturates Screen Ur Phencyclidine Scrn Ur Amphetamines Screen U Methamphetamin-MDMA U Benzodiazepines Scrn Urine Cocaine Screen U Cannabinoids Screen Ur Drug Screen Comment Ethyl Alcohol < 3.0 POC Glucose 01/02/18 01/02/18 01/02/18 00:25 00:25 00:25 WBC RBC Hgb Hct MCV MCH MCHC RDW RDW Differential Plt Count MPV Immature Gran % (Auto) Neut % (Auto) Lymph % (Auto) [place] % (Auto) Eos % (Auto) Baso % (Auto) Absolute Neuts (auto) Absolute Lymphs (auto) Total Counted ESR 5 Sodium Potassium Chloride Carbon Dioxide Anion Gap BUN Creatinine Estim Creat Clear Calc Est GFR (MDRD) Af Amer Est GFR (MDRD) Non-Af BUN/Creatinine Ratio Glucose Calcium Phosphorus Magnesium Total Bilirubin AST ALT Alkaline Phosphatase Troponin I C-React Prot Ext Range 8.57 H Total Protein Albumin Globulin Albumin/Globulin Ratio Vitamin B12 421 Urine Color Urine Clarity Urine pH Ur Specific [place] Urine Protein Urine Glucose (UA) Urine Ketones Urine Occult Blood Urine Nitrite Urine Bilirubin Urine Urobilinogen Ur Leukocyte Esterase Urine RBC Urine WBC Ur Squamous Epith Cells Urine Bacteria Urine Mucus Urine Opiates Screen Urine Methadone Screen Ur Barbiturates Screen Ur Phencyclidine Scrn Ur Amphetamines Screen U Methamphetamin-MDMA U Benzodiazepines Scrn Urine Cocaine Screen U Cannabinoids Screen Ur Drug Screen Comment Ethyl Alcohol POC Glucose 01/02/18 01/02/18 01/02/18 01:57 01:57 06:45 WBC RBC Hgb Hct MCV MCH MCHC RDW RDW Differential Plt Count MPV Immature Gran % (Auto) Neut % (Auto) Lymph % (Auto) [place] % (Auto) Eos % (Auto) Baso % (Auto) Absolute Neuts (auto) Absolute Lymphs (auto) Total Counted ESR Sodium Potassium Chloride Carbon Dioxide Anion Gap BUN Creatinine Estim Creat Clear Calc Est GFR (MDRD) Af Amer Est GFR (MDRD) Non-Af BUN/Creatinine Ratio Glucose Calcium Phosphorus Magnesium Total Bilirubin AST ALT Alkaline Phosphatase Troponin I C-React Prot Ext Range Total Protein Albumin Globulin Albumin/Globulin Ratio Vitamin B12 Urine Color Yellow Urine Clarity Clear Urine pH 6.0 Ur Specific [place] 1.020 Urine Protein 30 H Urine Glucose (UA) 1000 H Urine Ketones 5 H Urine Occult Blood 10 H Urine Nitrite Negative Urine Bilirubin Negative Urine Urobilinogen Normal Ur Leukocyte Esterase Negative Urine RBC 0 SEEN Urine WBC 0 SEEN Ur Squamous Epith Cells 0 SEEN Urine Bacteria 0 SEEN Urine Mucus 0 SEEN Urine Opiates Screen NEGATIVE Urine Methadone Screen NEGATIVE Ur Barbiturates Screen NEGATIVE Ur Phencyclidine Scrn NEGATIVE Ur Amphetamines Screen NEGATIVE U Methamphetamin-MDMA NEGATIVE U Benzodiazepines Scrn NEGATIVE Urine Cocaine Screen NEGATIVE U Cannabinoids Screen NEGATIVE Ur Drug Screen Comment Ethyl Alcohol POC Glucose 283 H 01/02/18 01/02/18 01/02/18 12:02 16:29 21:21 WBC RBC Hgb Hct MCV MCH MCHC RDW RDW Differential Plt Count MPV Immature Gran % (Auto) Neut % (Auto) Lymph % (Auto) [place] % (Auto) Eos % (Auto) Baso % (Auto) Absolute Neuts (auto) Absolute Lymphs (auto) Total Counted ESR Sodium Potassium Chloride Carbon Dioxide Anion Gap BUN Creatinine Estim Creat Clear Calc Est GFR (MDRD) Af Amer Est GFR (MDRD) Non-Af BUN/Creatinine Ratio Glucose Calcium Phosphorus Magnesium Total Bilirubin AST ALT Alkaline Phosphatase Troponin I C-React Prot Ext Range Total Protein Albumin Globulin Albumin/Globulin Ratio Vitamin B12 Urine Color Urine Clarity Urine pH Ur Specific [place] Urine Protein Urine Glucose (UA) Urine Ketones Urine Occult Blood Urine Nitrite Urine Bilirubin Urine Urobilinogen Ur Leukocyte Esterase Urine RBC Urine WBC Ur Squamous Epith Cells Urine Bacteria Urine Mucus Urine Opiates Screen Urine Methadone Screen Ur Barbiturates Screen Ur Phencyclidine Scrn Ur Amphetamines Screen U Methamphetamin-MDMA U Benzodiazepines Scrn Urine Cocaine Screen U Cannabinoids Screen Ur Drug Screen Comment Ethyl Alcohol POC Glucose 329 H 261 H 295 H 01/03/18 01/03/18 01/03/18 05:48 05:48 06:45 WBC 7.5 RBC 4.02 L Hgb 11.8 L Hct 36.6 L MCV 91.0 MCH 29.4 MCHC 32.2 RDW 15.9 H RDW Differential 52.3 H Plt Count 114 L MPV 11.2 Immature Gran % (Auto) 0.100 Neut % (Auto) 80.5 H Lymph % (Auto) 10.6 L [place] % (Auto) 7.9 Eos % (Auto) 0.8 Baso % (Auto) 0.1 Absolute Neuts (auto) 6.0 Absolute Lymphs (auto) 0.79 L Total Counted Not Reportable ESR Sodium 141 Potassium 4.0 Chloride 107 Carbon Dioxide 28.0 Anion Gap 6 BUN 17 Creatinine 0.91 Estim Creat Clear Calc 37.19 Est GFR (MDRD) Af Amer 77 Est GFR (MDRD) Non-Af 63 BUN/Creatinine Ratio 18.6 Glucose 215 H Calcium 8.2 L Phosphorus 2.5 Magnesium 1.9 Total Bilirubin 0.70 AST 24 ALT 36 Alkaline Phosphatase 80 Troponin I C-React Prot Ext Range Total Protein 5.4 L Albumin 2.4 L Globulin 3.0 Albumin/Globulin Ratio 0.8 L Vitamin B12 Urine Color Urine Clarity Urine pH Ur Specific [place] Urine Protein Urine Glucose (UA) Urine Ketones Urine Occult Blood Urine Nitrite Urine Bilirubin Urine Urobilinogen Ur Leukocyte Esterase Urine RBC Urine WBC Ur Squamous Epith Cells Urine Bacteria Urine Mucus Urine Opiates Screen Urine Methadone Screen Ur Barbiturates Screen Ur Phencyclidine Scrn Ur Amphetamines Screen U Methamphetamin-MDMA U Benzodiazepines Scrn Urine Cocaine Screen U Cannabinoids Screen Ur Drug Screen Comment Ethyl Alcohol POC Glucose 222 H 01/03/18 11:19 WBC RBC Hgb Hct MCV MCH MCHC RDW RDW Differential Plt Count MPV Immature Gran % (Auto) Neut % (Auto) Lymph % (Auto) [place] % (Auto) Eos % (Auto) Baso % (Auto) Absolute Neuts (auto) Absolute Lymphs (auto) Total Counted ESR Sodium Potassium Chloride Carbon Dioxide Anion Gap BUN Creatinine Estim Creat Clear Calc Est GFR (MDRD) Af Amer Est GFR (MDRD) Non-Af BUN/Creatinine Ratio Glucose Calcium Phosphorus Magnesium Total Bilirubin AST ALT Alkaline Phosphatase Troponin I C-React Prot Ext Range Total Protein Albumin Globulin Albumin/Globulin Ratio Vitamin B12 Urine Color Urine Clarity Urine pH Ur Specific [place] Urine Protein Urine Glucose (UA) Urine Ketones Urine Occult Blood Urine Nitrite Urine Bilirubin Urine Urobilinogen Ur Leukocyte Esterase Urine RBC Urine WBC Ur Squamous Epith Cells Urine Bacteria Urine Mucus Urine Opiates Screen Urine Methadone Screen Ur Barbiturates Screen Ur Phencyclidine Scrn Ur Amphetamines Screen U Methamphetamin-MDMA U Benzodiazepines Scrn Urine Cocaine Screen U Cannabinoids Screen Ur Drug Screen Comment Ethyl Alcohol POC Glucose 256 H none Operations: None Procedures: None Summary of Care Provided: Patient is a 77-year-old female with a past medical history of diabetes mellitus type 2, hypertension, COPD, hyperlipidemia, history of CVA, hypothyroidism, paroxysmal atrial fibrillation, fibromyalgia and non-rheumatic Aortic stenosis with aortic valve replacement with carotid endarterectomy at [facility] by Dr. Fonseca on 02/06/2016 who was brought to the emergency department at [facility] on 01/02/2018 by her family complaining of increased confusion and visual hallucinations. The confusion has been getting worse over the past couple years. She had been on a medication for dementia in the past but, she stopped it because she did not think this was helping her memory. These sx have been waxing and waning over the past 6 months. Vital signs at presentation to the emergency room were temperature 97.8, pulse rate 69, blood pressure 135/78, respiratory rate 12 and she was 90% saturated on room air and then dropped to 84% on room air. CBC was remarkable for a platelet count of 125,000. She has had thrombocytopenia intermittently in the past. White Blood cell count was 8.2 but there was a left shift with 80% neutrophils. Creatinine was increased at 1.41 but on 12/27/2017 was 1.82. Random blood glucose was 348. UA showed 0 WBCs per high-power field. The troponin was 0.1 which is lower than at [facility] from recent admission for chest pain on 12/27/17. Stress test on 12/28/17 was negative for ischemia. The EF was 37% and there was global hypokinesis. She was started on Metoprolol at [facility] from the recent admission. Metoprolol is the only new medication. CT brain showed no acute findings. MRI of the brain showed no evidence of acute or subacute ischemic infarct. There is encephalomalacia related to old CVA. Lyrica, Vesicare and Metoprolol all can cause confusion in the elderly and they were held at admission. She was hydrated and the creatinine decreased to 0.91 from 1.41. TSH was recently mildly increased at 4.22 but the T4 was within normal limits. B12 is normal. RPR and ROHIT are pending at the time of DC. She had no improvement in her mental status and she continues to confabulate. On the day of DC she told me that she was in [place]. She was afebrile for the duration of her hospital stay and vital signs were stable. The pulse ox on room air at rest on the date of discharge was 88%. The pulse ox on room air with ambulation was 87% and with ambulation on 2 LPM the pulse ox was 90%. She was discharged home on 01/03 with HHC set up by the . Meals on wheels will also be set up for her and her . Home O2 was arranged. She will resume her regular home medications with the following changes. Lasix was changed to 40 mg once daily and the Levemir was increased to 30 units daily. I discussed the diagnosis of dementia with her family and the fact that it is a progressive illness. With the Hallucinations she may have Lewy body dementia. I recommended a consult with Neurology and the patient and family were agreeable. She will follow up with Dr. Teran in the office in 7-10 days. She is on several medications that can cause confusion. May want to consider a longer trial of discontinuation of beta chloe and vesicare and wean the Lyrica Down. - Physical Exam General: Alert, Oriented to person and year, Cooperative, No apparent distress, Well developed, Well nourished. She is confabulating and tells me that she was brought to the hospital to watch movies and there was a problem with paying for the movies. HEENT: Atraumatic, PERRLA, EOMI, Normocephalic, - - No facial asymmetry Oral: Moist Mucosa Neck: Supple, No Nuchal Rigidity, Trachea Midline, Carotid Bruit, Right - vs radiation of aortic MM Lungs: Clear to auscultation, No rhonchi, No wheeze Cardiovascular: Regular rate, Regular Rhythm, Normal S1, Normal S2, Murmur - 2/6 crescendo decrescendo murmur at the second right intercostal space, No Gallop Abdomen: Bowel Sounds Present, Soft, Non Tender, Non-Distended, Obese Extremities: No clubbing, No cyanosis, No edema Skin: No rashes Musculoskeletal: Arthritic Changes Neurological: Cranial nerves II-XII grossly intact, Neuro grossly intact, - - I did not ambulate Psych/Mental Status: Normal Affect This note was generated with [employer] dictation software. It may contain incorrect words, spelling, and punctuation that were not noted in checking the note before signing. Discharge Activity: May Not Drive, Use Walker Weight Bearing Status: Full weight bearing Call your doctor if you observe: Fever of 101 or Higher, Shortness of breath, Dizziness, Fainting spells, Swelling in the ankles, Chest pain, Increased palpitations (irregular heartbeat) Home Medications: Medications to take at Discharge Insulin Aspart [Novolog Flexpen] See Protocol SC TIDCM 02/18/16 clopidogrel 75 mg tablet 75 mg PO QDAY tab 11/28/17 escitalopram 10 mg tablet 10 mg PO QDAY 11/28/17 pregabalin 75 mg capsule 75 mg PO TID 11/28/17 levothyroxine 88 mcg capsule 112 mcg PO DAILY cap 11/29/17 Cetirizine HCl [Zyrtec] 10 mg PO DAILY 12/27/17 Ergocalciferol [Vitamin D] 50,000 unit PO QMONTH 12/27/17 Potassium Chloride [Klor-Con M20] 20 meq PO DAILY 12/27/17 Ranitidine [Zantac] 150 mg PO DAILY 12/27/17 Sitagliptin Phosphate [Januvia] 100 mg PO DAILY 12/27/17 Solifenacin Succinate [Vesicare] 10 mg PO DAILY 12/27/17 Atorvastatin Calcium [Lipitor] 80 mg PO QHS 01/02/18 Magnesium Oxide [Mag-Ox 400] 400 mg PO DAILY 01/02/18 Metoprolol Tartrate [Lopressor (beta chloe)] 12.5 mg PO BID 01/02/18 Furosemide [Lasix] 40 mg PO DAILY #0 tab 01/03/18 Insulin Detemir [Levemir FlexPen] 30 units SC DAILY #0 01/03/18 Oxygen, Home [Home Oxygen] 2 lpm NASAL CONT #1 unit 01/03/18 Following Prescrptions Were Given to Patient: Oxygen, Home [Home Oxygen] 2 lpm NASAL CONT #1 unit Primary Care Physician: Micheal Teran Chi, MD [Primary Care Provider] - Please follow up with your Primary Care Physician in: 7-10 days Please Follow Up With: Nayaan Eckert MD When: within the next month Please Follow Up With: Ventura Ragsdale MD When: as previously arranged Disposition: Home with Home Health Minutes spent on discharge:: 40 Patient Condition:: Stable Medical Necessity - Tobacco Use Smoking Status: Former smoker Meaningful Use Info Meaningful Use Diagnoses (Choose all that apply): None applicable Code Visit Inpatient E&M: 21310 Disch Hosp
--- NOTE | 2018-01-03 16:36 | DS.PCM_ITS ---
Discharge Date and Diagnosis - Problem List Patient Problems: Active and Suspected Problems (Last Reviewed 11/29/17 @ 13:02 by Mora Medina) Dehydration (Acute) Date of Admission: 01/02/18 Date of Discharge: 01/03/18 - Primary Discharge Diagnosis Active and Suspected Problems (Last Reviewed 11/29/17 @ 13:02 by Mora Medina) Dehydration (Acute) altered mental status - this is chronic but the family brought her in to be evaluated for this - Secondary Discharge Diagnosis Chronic Problems (Last Reviewed 11/29/17 @ 13:02 by Mora Medina) Thrombocytopenia (Chronic) - intermittent over the past few years Fibromyalgia (Chronic) Dementia (Chronic) - suspect Alzheimer's Uncontrolled diabetes mellitus (Chronic) Obesity (Chronic) H/O aortic valve replacement (Chronic ~02/06/16) 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 with left carotid endarterectomy @ [place] by Dr Lerma 02/06/16 Non-rheumatic aortic stenosis (Chronic) COPD (chronic obstructive pulmonary disease) (Chronic) Secondary pulmonary arterial hypertension (Chronic) Hyperlipidemia (Chronic) Chronic diastolic heart failure (Chronic) CVA (cerebral infarction) (Chronic) Hypertension (Chronic) Hypothyroidism (Chronic) Paroxysmal a-fib (Chronic) Cardiomyopathy with 37% EF on stress test 12/28/17 Chronic respiratory failure with hypoxemia Hospital Course and Treatment Imaging Results: Clinical Impression(s) from Imaging Studies Brain CT 01/02/18 00:03 IMPRESSION: No acute findings in the brain. An old lacunar infarct involving the left lentiform nucleus and an old area of infarction in the posterior distribution of the right middle cerebral artery. No change since February 18, 2016 Electronically Signed: Kyle Contreras, at 1:18 EDT Tel , Service support , Chest X-Ray 01/02/18 00:45 IMPRESSION: Cardiomegaly with central vascular congestion. No pneumonia. No pleural effusions. Electronically Signed: Kyle Contreras, at 1:52 EDT Tel , Service support , Brain MRI 01/02/18 04:33 IMPRESSION: 1. No MRI evidence of acute or subacute ischemic infarct. 2. Cystic encephalomalacia of the previous acute cortical-based ischemic infarct in the right cerebral hemisphere when compared to 03/25/2014. 3. Wallerian degeneration of the right cerebral peduncle. 4. Chronic periventricular white matter ischemic changes in both cerebral hemispheres. Electronically Signed: Justino Peña MD at 10:27 EDT , Service support , Laboratory Tests 01/02/18 01/02/18 01/02/18 00:25 00:25 00:25 WBC 8.2 RBC 4.39 Hgb 12.6 Hct 39.3 MCV 89.5 MCH 28.7 MCHC 32.1 RDW 15.9 H RDW Differential 52.0 H Plt Count 125 L MPV 10.1 Immature Gran % (Auto) 0.100 Neut % (Auto) 80.0 H Lymph % (Auto) 10.2 L Franklin % (Auto) 8.9 Eos % (Auto) 0.7 Baso % (Auto) 0.1 Absolute Neuts (auto) 6.6 Absolute Lymphs (auto) 0.84 Total Counted Not Reportable ESR Sodium 137 Potassium 3.9 Chloride 101 Carbon Dioxide 30.0 Anion Gap 6 BUN 25 H Creatinine 1.41 H Estim Creat Clear Calc 24.00 Est GFR (MDRD) Af Amer 47 L Est GFR (MDRD) Non-Af 38 L BUN/Creatinine Ratio 17.7 Glucose 348 H Calcium 8.6 Phosphorus Magnesium Total Bilirubin AST ALT Alkaline Phosphatase Troponin I 0.10 H C-React Prot Ext Range Total Protein Albumin Globulin Albumin/Globulin Ratio Vitamin B12 Urine Color Urine Clarity Urine pH Ur Specific Kent Urine Protein Urine Glucose (UA) Urine Ketones Urine Occult Blood Urine Nitrite Urine Bilirubin Urine Urobilinogen Ur Leukocyte Esterase Urine RBC Urine WBC Ur Squamous Epith Cells Urine Bacteria Urine Mucus Urine Opiates Screen Urine Methadone Screen Ur Barbiturates Screen Ur Phencyclidine Scrn Ur Amphetamines Screen U Methamphetamin-MDMA U Benzodiazepines Scrn Urine Cocaine Screen U Cannabinoids Screen Ur Drug Screen Comment Ethyl Alcohol < 3.0 POC Glucose 01/02/18 01/02/18 01/02/18 00:25 00:25 00:25 WBC RBC Hgb Hct MCV MCH MCHC RDW RDW Differential Plt Count MPV Immature Gran % (Auto) Neut % (Auto) Lymph % (Auto) Franklin % (Auto) Eos % (Auto) Baso % (Auto) Absolute Neuts (auto) Absolute Lymphs (auto) Total Counted ESR 5 Sodium Potassium Chloride Carbon Dioxide Anion Gap BUN Creatinine Estim Creat Clear Calc Est GFR (MDRD) Af Amer Est GFR (MDRD) Non-Af BUN/Creatinine Ratio Glucose Calcium Phosphorus Magnesium Total Bilirubin AST ALT Alkaline Phosphatase Troponin I C-React Prot Ext Range 8.57 H Total Protein Albumin Globulin Albumin/Globulin Ratio Vitamin B12 421 Urine Color Urine Clarity Urine pH Ur Specific Kent Urine Protein Urine Glucose (UA) Urine Ketones Urine Occult Blood Urine Nitrite Urine Bilirubin Urine Urobilinogen Ur Leukocyte Esterase Urine RBC Urine WBC Ur Squamous Epith Cells Urine Bacteria Urine Mucus Urine Opiates Screen Urine Methadone Screen Ur Barbiturates Screen Ur Phencyclidine Scrn Ur Amphetamines Screen U Methamphetamin-MDMA U Benzodiazepines Scrn Urine Cocaine Screen U Cannabinoids Screen Ur Drug Screen Comment Ethyl Alcohol POC Glucose 01/02/18 01/02/18 01/02/18 01:57 01:57 06:45 WBC RBC Hgb Hct MCV MCH MCHC RDW RDW Differential Plt Count MPV Immature Gran % (Auto) Neut % (Auto) Lymph % (Auto) Franklin % (Auto) Eos % (Auto) Baso % (Auto) Absolute Neuts (auto) Absolute Lymphs (auto) Total Counted ESR Sodium Potassium Chloride Carbon Dioxide Anion Gap BUN Creatinine Estim Creat Clear Calc Est GFR (MDRD) Af Amer Est GFR (MDRD) Non-Af BUN/Creatinine Ratio Glucose Calcium Phosphorus Magnesium Total Bilirubin AST ALT Alkaline Phosphatase Troponin I C-React Prot Ext Range Total Protein Albumin Globulin Albumin/Globulin Ratio Vitamin B12 Urine Color Yellow Urine Clarity Clear Urine pH 6.0 Ur Specific Kent 1.020 Urine Protein 30 H Urine Glucose (UA) 1000 H Urine Ketones 5 H Urine Occult Blood 10 H Urine Nitrite Negative Urine Bilirubin Negative Urine Urobilinogen Normal Ur Leukocyte Esterase Negative Urine RBC 0 SEEN Urine WBC 0 SEEN Ur Squamous Epith Cells 0 SEEN Urine Bacteria 0 SEEN Urine Mucus 0 SEEN Urine Opiates Screen NEGATIVE Urine Methadone Screen NEGATIVE Ur Barbiturates Screen NEGATIVE Ur Phencyclidine Scrn NEGATIVE Ur Amphetamines Screen NEGATIVE U Methamphetamin-MDMA NEGATIVE U Benzodiazepines Scrn NEGATIVE Urine Cocaine Screen NEGATIVE U Cannabinoids Screen NEGATIVE Ur Drug Screen Comment Ethyl Alcohol POC Glucose 283 H 01/02/18 01/02/18 01/02/18 12:02 16:29 21:21 WBC RBC Hgb Hct MCV MCH MCHC RDW RDW Differential Plt Count MPV Immature Gran % (Auto) Neut % (Auto) Lymph % (Auto) Franklin % (Auto) Eos % (Auto) Baso % (Auto) Absolute Neuts (auto) Absolute Lymphs (auto) Total Counted ESR Sodium Potassium Chloride Carbon Dioxide Anion Gap BUN Creatinine Estim Creat Clear Calc Est GFR (MDRD) Af Amer Est GFR (MDRD) Non-Af BUN/Creatinine Ratio Glucose Calcium Phosphorus Magnesium Total Bilirubin AST ALT Alkaline Phosphatase Troponin I C-React Prot Ext Range Total Protein Albumin Globulin Albumin/Globulin Ratio Vitamin B12 Urine Color Urine Clarity Urine pH Ur Specific Kent Urine Protein Urine Glucose (UA) Urine Ketones Urine Occult Blood Urine Nitrite Urine Bilirubin Urine Urobilinogen Ur Leukocyte Esterase Urine RBC Urine WBC Ur Squamous Epith Cells Urine Bacteria Urine Mucus Urine Opiates Screen Urine Methadone Screen Ur Barbiturates Screen Ur Phencyclidine Scrn Ur Amphetamines Screen U Methamphetamin-MDMA U Benzodiazepines Scrn Urine Cocaine Screen U Cannabinoids Screen Ur Drug Screen Comment Ethyl Alcohol POC Glucose 329 H 261 H 295 H 01/03/18 01/03/18 01/03/18 05:48 05:48 06:45 WBC 7.5 RBC 4.02 L Hgb 11.8 L Hct 36.6 L MCV 91.0 MCH 29.4 MCHC 32.2 RDW 15.9 H RDW Differential 52.3 H Plt Count 114 L MPV 11.2 Immature Gran % (Auto) 0.100 Neut % (Auto) 80.5 H Lymph % (Auto) 10.6 L Franklin % (Auto) 7.9 Eos % (Auto) 0.8 Baso % (Auto) 0.1 Absolute Neuts (auto) 6.0 Absolute Lymphs (auto) 0.79 L Total Counted Not Reportable ESR Sodium 141 Potassium 4.0 Chloride 107 Carbon Dioxide 28.0 Anion Gap 6 BUN 17 Creatinine 0.91 Estim Creat Clear Calc 37.19 Est GFR (MDRD) Af Amer 77 Est GFR (MDRD) Non-Af 63 BUN/Creatinine Ratio 18.6 Glucose 215 H Calcium 8.2 L Phosphorus 2.5 Magnesium 1.9 Total Bilirubin 0.70 AST 24 ALT 36 Alkaline Phosphatase 80 Troponin I C-React Prot Ext Range Total Protein 5.4 L Albumin 2.4 L Globulin 3.0 Albumin/Globulin Ratio 0.8 L Vitamin B12 Urine Color Urine Clarity Urine pH Ur Specific Kent Urine Protein Urine Glucose (UA) Urine Ketones Urine Occult Blood Urine Nitrite Urine Bilirubin Urine Urobilinogen Ur Leukocyte Esterase Urine RBC Urine WBC Ur Squamous Epith Cells Urine Bacteria Urine Mucus Urine Opiates Screen Urine Methadone Screen Ur Barbiturates Screen Ur Phencyclidine Scrn Ur Amphetamines Screen U Methamphetamin-MDMA U Benzodiazepines Scrn Urine Cocaine Screen U Cannabinoids Screen Ur Drug Screen Comment Ethyl Alcohol POC Glucose 222 H 01/03/18 11:19 WBC RBC Hgb Hct MCV MCH MCHC RDW RDW Differential Plt Count MPV Immature Gran % (Auto) Neut % (Auto) Lymph % (Auto) Franklin % (Auto) Eos % (Auto) Baso % (Auto) Absolute Neuts (auto) Absolute Lymphs (auto) Total Counted ESR Sodium Potassium Chloride Carbon Dioxide Anion Gap BUN Creatinine Estim Creat Clear Calc Est GFR (MDRD) Af Amer Est GFR (MDRD) Non-Af BUN/Creatinine Ratio Glucose Calcium Phosphorus Magnesium Total Bilirubin AST ALT Alkaline Phosphatase Troponin I C-React Prot Ext Range Total Protein Albumin Globulin Albumin/Globulin Ratio Vitamin B12 Urine Color Urine Clarity Urine pH Ur Specific Kent Urine Protein Urine Glucose (UA) Urine Ketones Urine Occult Blood Urine Nitrite Urine Bilirubin Urine Urobilinogen Ur Leukocyte Esterase Urine RBC Urine WBC Ur Squamous Epith Cells Urine Bacteria Urine Mucus Urine Opiates Screen Urine Methadone Screen Ur Barbiturates Screen Ur Phencyclidine Scrn Ur Amphetamines Screen U Methamphetamin-MDMA U Benzodiazepines Scrn Urine Cocaine Screen U Cannabinoids Screen Ur Drug Screen Comment Ethyl Alcohol POC Glucose 256 H none Operations: None Procedures: None Summary of Care Provided: Patient is a 77-year-old female with a past medical history of diabetes mellitus type 2, hypertension, COPD, hyperlipidemia, history of CVA, hypothyroidism, paroxysmal atrial fibrillation, fibromyalgia and non-rheumatic Aortic stenosis with aortic valve replacement with carotid endarterectomy at [facility] by Dr. Fonseca on 02/06/2016 who was brought to the emergency department at [facility] on 01/02/2018 by her family complaining of increased confusion and visual hallucinations. The confusion has been getting worse over the past couple years. She had been on a medication for dementia in the past but, she stopped it because she did not think this was helping her memory. These sx have been waxing and waning over the past 6 months. Vital signs at presentation to the emergency room were temperature 97.8 , pulse rate 69, blood pressure 135/78, respiratory rate 12 and she was 90% saturated on room air and then dropped to 84% on room air. CBC was remarkable for a platelet count of 125,000. She has had thrombocytopenia intermittently in the past. White Blood cell count was 8.2 but there was a left shift with 80 % neutrophils. Creatinine was increased at 1.41 but on 12/27/2017 was 1.82. Random blood glucose was 348. UA showed 0 WBCs per high-power field. The troponin was 0.1 which is lower than at [facility] from recent admission for chest pain on 12/27/17. Stress test on 12/28/17 was negative for ischemia. The EF was 37% and there was global hypokinesis. She was started on Metoprolol at [facility] from the recent admission. Metoprolol is the only new medication. CT brain showed no acute findings. MRI of the brain showed no evidence of acute or subacute ischemic infarct. There is encephalomalacia related to old CVA. Lyrica, Vesicare and Metoprolol all can cause confusion in the elderly and they were held at admission. She was hydrated and the creatinine decreased to 0.91 from 1.41. TSH was recently mildly increased at 4.22 but the T4 was within normal limits. B12 is normal. RPR and ROHIT are pending at the time of DC. She had no improvement in her mental status and she continues to confabulate. On the day of DC she told me that she was in [place]. She was afebrile for the duration of her hospital stay and vital signs were stable. The pulse ox on room air at rest on the date of discharge was 88%. The pulse ox on room air with ambulation was 87% and with ambulation on 2 LPM the pulse ox was 90%. She was discharged home on 01/03 with HHC set up by the . Meals on wheels will also be set up for her and her . Home O2 was arranged. She will resume her regular home medications with the following changes. Lasix was changed to 40 mg once daily and the Levemir was increased to 30 units daily. I discussed the diagnosis of dementia with her family and the fact that it is a progressive illness. With the Hallucinations she may have Lewy body dementia. I recommended a consult with Neurology and the patient and family were agreeable. She will follow up with Dr. Teran in the office in 7-10 days. She is on several medications that can cause confusion. May want to consider a longer trial of discontinuation of beta chloe and vesicare and wean the Lyrica Down. - Physical Exam General: Alert, Oriented to person and year, Cooperative, No apparent distress, Well developed, Well nourished. She is confabulating and tells me that she was brought to the hospital to watch movies and there was a problem with paying for the movies. HEENT: Atraumatic, PERRLA, EOMI, Normocephalic, - - No facial asymmetry Oral: Moist Mucosa Neck: Supple, No Nuchal Rigidity, Trachea Midline, Carotid Bruit, Right - vs radiation of aortic MM Lungs: Clear to auscultation, No rhonchi, No wheeze Cardiovascular: Regular rate, Regular Rhythm, Normal S1, Normal S2, Murmur - 2/ 6 crescendo decrescendo murmur at the second right intercostal space, No Gallop Abdomen: Bowel Sounds Present, Soft, Non Tender, Non-Distended, Obese Extremities: No clubbing, No cyanosis, No edema Skin: No rashes Musculoskeletal: Arthritic Changes Neurological: Cranial nerves II-XII grossly intact, Neuro grossly intact, - - I did not ambulate Psych/Mental Status: Normal Affect This note was generated with [employer] dictation software. It may contain incorrect words, spelling, and punctuation that were not noted in checking the note before signing. Discharge Activity: May Not Drive, Use Walker Weight Bearing Status: Full weight bearing Call your doctor if you observe: Fever of 101 or Higher, Shortness of breath, Dizziness, Fainting spells, Swelling in the ankles, Chest pain, Increased palpitations (irregular heartbeat) Home Medications: Medications to take at Discharge Insulin Aspart [Novolog Flexpen] See Protocol [facility] TIDCM 02/18/16 clopidogrel 75 mg tablet 75 mg PO QDAY tab 11/28/17 escitalopram 10 mg tablet 10 mg PO QDAY 11/28/17 pregabalin 75 mg capsule 75 mg PO TID 11/28/17 levothyroxine 88 mcg capsule 112 mcg PO DAILY cap 11/29/17 Cetirizine HCl [Zyrtec] 10 mg PO DAILY 12/27/17 Ergocalciferol [Vitamin D] 50,000 unit PO QMONTH 12/27/17 Potassium Chloride [Klor-Con M20] 20 meq PO DAILY 12/27/17 Ranitidine [Zantac] 150 mg PO DAILY 12/27/17 Sitagliptin Phosphate [Januvia] 100 mg PO DAILY 12/27/17 Solifenacin Succinate [Vesicare] 10 mg PO DAILY 12/27/17 Atorvastatin Calcium [Lipitor] 80 mg PO QHS 01/02/18 Magnesium Oxide [Mag-Ox 400] 400 mg PO DAILY 01/02/18 Metoprolol Tartrate [Lopressor (beta chloe)] 12.5 mg PO BID 01/02/18 Furosemide [Lasix] 40 mg PO DAILY #0 tab 01/03/18 Insulin Detemir [Levemir FlexPen] 30 units [place] DAILY #0 01/03/18 Oxygen, Home [Home Oxygen] 2 lpm NASAL CONT #1 unit 01/03/18 Following Prescrptions Were Given to Patient: Oxygen, Home [Home Oxygen] 2 lpm NASAL CONT #1 unit Primary Care Physician: Micheal Teran Chi, MD [Primary Care Provider] - Please follow up with your Primary Care Physician in: 7-10 days Please Follow Up With: Nayana Eckert MD When: within the next month Please Follow Up With: Ventura Ragsdale MD When: as previously arranged Disposition: Home with Home Health Minutes spent on discharge:: 40 Patient Condition:: Stable Medical Necessity - Tobacco Use Smoking Status: Former smoker Meaningful Use Info Meaningful Use Diagnoses (Choose all that apply): None applicable Code Visit Inpatient E&M: 90748 Disch Hosp
[2018-01-03 16:56] LABS: Bedside Glucose 178 mg/dL (70-110)
--- NOTE | 2018-01-04 13:56 | CASEMGMT ---
JAVAN called [facility] and spoke with Abiola in Nutrition Services. JAVAN made a referral for home delivered meals. JAVAN also faxed over patient's face sheet. She will call them and do assessment for meals. Martha CHOUDHARY MSW
[2018-01-04 14:35] LABS: ANTINUCLEAR ANTIBODIES DIRECT Negative (Negative)
[2018-01-06 01:12] LABS: Rapid Plasmin Reagin (RPR) NONREACTIVE (NONREACTIVE)
== END 2018-01-03 18:43 | disposition home health service (06) ==
LOC: ED 01-02 01:53 → PCU 01-02 04:24
PROVIDERS: Admitting Provider Hospitalist; Emergency Provider Emergency Medicine; Family Provider Family Medicine Geriatric Medicine; PCP Family Medicine Geriatric Medicine; Visit Provider Internal Medicine
DX: E86.0 Dehydration (principal); R41.82 Altered mental status, unspecified; R47.81 Slurred speech; R47.1 Dysarthria and anarthria; E11.65 Type 2 diabetes mellitus with hyperglycemia; E78.5 Hyperlipidemia, unspecified; J44.9 Chronic obstructive pulmonary disease, unspecified; I11.0 Hypertensive heart disease with heart failure; I50.32 Chronic diastolic (congestive) heart failure; I48.0 Paroxysmal atrial fibrillation; E03.9 Hypothyroidism, unspecified; I27.21 Secondary pulmonary arterial hypertension; M79.7 Fibromyalgia; E66.9 Obesity, unspecified; J96.11 Chronic respiratory failure with hypoxia; I42.9 Cardiomyopathy, unspecified; Z86.73 Personal history of transient ischemic attack (TIA), and cerebral infarction without residual deficits; Z95.2 Presence of prosthetic heart valve; Z79.899 Other long term (current) drug therapy; Z79.4 Long term (current) use of insulin; Z79.02 Long term (current) use of antithrombotics/antiplatelets; Z68.41 Body mass index [BMI] 40.0-44.9, adult; Z71.3 Dietary counseling and surveillance; Z87.891 Personal history of nicotine dependence
CPT/HCPCS: 36415; 70450; 70551; 71045; 80048; 80053; 80307; 80320; 81001; 82607; 82962; 83735; 84100; 84484; 85025; 85652; 86038; 86140; 86225; 86235; 86592; 93005; 96360; 96361; 96372; 97110; 97162; 97166; 97530; 99218; 99284; J7030; J7040; A4216; G0378; G0480; G8978; G8979; G8987; G8988

== ENCOUNTER → 2018-01-10 13:19 | Outpatient (CLI) | payer MEDICARE, BC, SELFPAY ==
[2018-01-10 17:31] LABS: Absolute Lymphocyte Count 0.89 X10^3/ul (0.83-4.51); Absolute Neutrophil Count 10.2 X10^3/uL (2.0-7.7); Basophil# 0.02 X10^3/uL; Basophil% 0.2 % (0-1); Eosinophil# 0.04 X10^3/uL; Eosinophils% 0.3 % (0-5); Hematocrit 46.1 % (37-47); Hemoglobin 15.3 g/dl (12.0-15.0); Lymphocyte # 0.89 X10^3/ul (4.0); Lymphocyte % 7.4 % (19-41); Mean Corp Hgb Conc 33.2 g/gl (32-36); Mean Corpuscular Hgb 29.3 pg (27.0-32.0); Mean Corpuscular Volume 88.1 fL (81-99); Monocyte# 0.94 X10^3/uL; Monocyte% 7.8 % (0-10); Neutrophil # 10.16 X10^3/uL (2.7-7.7); Neutrophil % 84.1 % (47-70); POSITIVE COUNT NO; POSITIVE DIFFERENTIAL NO; POSITIVE MORPHOLOGY NO; Platelet Count 137 K/mm3 (150-450); RBC Distribution Width CV 15.8 % (11.6-14.6); RBC Distribution Width SD 51.2 fl (35.1-43.9); Red Blood Count 5.23 M/mm3 (4.2-5.4); White Blood Count 12.1 K/mm3 (4.4-11.0)
[2018-01-10 17:48] LABS: ALB/GLOB Ratio 0.7 RATIO (0.9-2.4); AST(SGOT) 33 U/L (15-37); Alanine Aminotransfer ALT/SGPT 28 U/L (13-56); Albumin, Serum 3.1 g/dL (3.2-5.0); Alkaline Phosphatase 99 U/L (45-117); Anion Gap 11 (5-15); BUN 15 mg/dL (7-18); BUN/Creat Ratio 15.1 RATIO (10-20); Calcium,Total 8.9 mg/dL (8.5-10.1); Chloride 99 mmol/L (98-107); Creatinine, Serum 0.99 mg/dL (0.55-1.02); EST Glomerular Filtration Rate 58 mL/min (>60); Est Glom Filt Rate - Afr Amer 70 mL/min (>60); Globulin 4.2 g/dL (2.2-4.2); Glucose 73 mg/dL (74-106); Potassium 3.7 mmol/L (3.5-5.1); Protein, Total 7.3 g/dL (6.4-8.2); Sodium Level 138 mmol/L (136-145); Thyroid Stim Hormone (TSH) 6.74 uIU/mL (0.358-3.74)
== END ==
PROVIDERS: Family Provider Family Medicine Geriatric Medicine; PCP Family Medicine Geriatric Medicine; Visit Provider Family Medicine Geriatric Medicine
DX: E55.9 Vitamin D deficiency, unspecified (principal); I10 Essential (primary) hypertension; E11.9 Type 2 diabetes mellitus without complications
CPT/HCPCS: 36415; 80053; 82306; 84443; 85025

== ENCOUNTER 2018-03-12 03:43 | Inpatient (IN) | payer MEDICARE, BC, SELFPAY ==
[2018-03-12] VITALS (19 sets, daily range): BP systolic 102–146; BP diastolic 54–90; PULSE 78–110; RESP 16–22; TEMP 36.3–37.2; O2SAT 90–100; BMI 36.6; BMI 36.3
--- NOTE | 2018-03-12 04:06 | CT_ITS ---
STUDY: CTA CHEST REASON FOR EXAM: Female, 77 years old. Chest pain RADIATION DOSAGE (If Supplied By Facility): CTDIvol = ( 19.32 ) mGy, DLP = ( 584.49 ) mGycm TECHNIQUE: The examination was performed with the intravenous administration of 100 ml of Isovue 370 contrast material. Post-processing of the angiographic images was performed, with multiplanar reformation and 3D reconstruction. Individualized dose optimization techniques were used for this CT. COMPARISON: Chest x-ray 03/12/2018. 01/02/2018. FINDINGS: Bilateral filling defects consistent with pulmonary emboli involving the right greater than left pulmonary arteries most pronounced in the right inferior pulmonary artery, less left inferior and bilateral superior pulmonary arteries. There is atherosclerotic calcification of the aortic arch with tortuosity. There is no demonstrated aortic dissection. Sternal cerclage wires are present from a prior sternotomy and aortic valve replacement. There is cardiac enlargement. There is coronary artery calcification. There are discontinued epicardial leads. Enlarged lymph nodes in the pre and paratracheal mediastinum. Normal hilar regions. Normal visualized trachea and bronchi. The lungs are well expanded. There is compression of basilar parenchyma, mild groundglass opacification, platelike atelectasis left upper lobe and lingula. There is no focal parenchymal abnormality. Normal pleura. Normal chest wall structures. There are degenerative changes of thoracic spine and bilateral shoulder joints. Normal visualized upper abdomen. CT/CTA Chest W/WO Contrast IMPRESSION: Bilateral right greater than left pulmonary arterial emboli. These findings were discussed on the telephone with Dr. Alvarado at 551 hrs. EST on 03/12/2018. No pulmonary edema, congestive heart failure or confluent pneumonia. Mild chronic appearing interstitial disease, nonspecific groundglass opacification and atelectasis. Atherosclerosis, cardiomegaly, coronary artery disease, post cardiac surgery, degenerative changes felt to be nonacute findings. N.B. : The above information has been verbally conveyed by Ashely Copeland MD to Herberth Alvarado, Covering Physician, on 03/12/2018 05:52:04 (ET). Electronically Signed: Ashely Copeland MD at 5:59 EDT , Service support ,
--- NOTE | 2018-03-12 04:06 | EKG12_ITS ---
Test Reason : CP Blood Pressure : / mmHG Vent. Rate : 100 BPM Atrial Rate : 100 BPM P-R Int : 170 ms QRS Dur : 154 ms QT Int : 408 ms P-R-T Axes : 054 -12 088 degrees QTc Int : 526 ms Normal sinus rhythm Left bundle branch block Abnormal ECG Confirmed by ANTONINO CARRANZA, BOOKER ([id number]), movie editor JERSON TOVAR ([id number]) on 03/14/2018 1:38:33 PM Referred By: PATTI Confirmed By:BOOKER MUÑIZ MD
--- NOTE | 2018-03-12 04:25 | RAD_ITS ---
STUDY: X-RAY CHEST REASON FOR EXAM: Female, 77 years old. Right-sided chest pain radiating down arm. TECHNIQUE: AP portable chest. COMPARISON: January 02, 2018. FINDINGS: The lungs are clear and expanded. There is no demonstrated pleural abnormality. Stable mild cardiomegaly. Normal mediastinum and allen. Normal visualized pulmonary arteries. Normal visualized aortic arch and descending thoracic aorta. Sternal wires are present. Degenerative changes of the thoracic spine. Normal visualized ribs, clavicles, and shoulders. There is no demonstrated abnormality of the visualized soft tissue structures of the upper abdomen. RAD/Chest 1 View (Portable) IMPRESSION: Stable mild cardiomegaly. Electronically Signed: Travis May MD at 4:51 EDT , Service support ,
[2018-03-12] MEDS: Aspirin 81 MG TAB.CHEW 324 MG PO (04:34)
[2018-03-12] MEDS: 0.9% Normal Saline 1,000 ML 1000 ML IV (04:34)
[2018-03-12] MEDS: Ondansetron 4 MG/2 ML Vial IV (04:35)
[2018-03-12] MEDS: Morphine 4 MG/ML Syringe IV (04:35)
[2018-03-12 04:36] LABS: Absolute Lymphocyte Count 1.69 X10^3/ul (0.83-4.51); Absolute Neutrophil Count 5.9 X10^3/uL (2.0-7.7); Basophil# 0.03 X10^3/uL; Basophil% 0.4 % (0-1); Eosinophil# 0.14 X10^3/uL; Eosinophils% 1.6 % (0-5); Hematocrit 43.2 % (37-47); Hemoglobin 14.6 g/dl (12.0-15.0); Lymphocyte # 1.69 X10^3/ul (4.0); Lymphocyte % 19.8 % (19-41); Mean Corp Hgb Conc 33.8 g/gl (32-36); Mean Corpuscular Hgb 30.4 pg (27.0-32.0); Mean Platelet Vol. 10.4 fl (6.2-12.0); Monocyte# 0.75 X10^3/uL; Monocyte% 8.8 % (0-10); Neutrophil # 5.91 X10^3/uL (2.7-7.7); Neutrophil % 69.2 % (47-70); Platelet Count 150 K/mm3 (150-450); RBC Distribution Width CV 14.5 % (11.6-14.6); RBC Distribution Width SD 47.9 fl (35.1-43.9); White Blood Count 8.5 K/mm3 (4.4-11.0)
[2018-03-12 04:39] LABS: POSITIVE COUNT NO; POSITIVE DIFFERENTIAL NO; POSITIVE MORPHOLOGY NO
[2018-03-12 04:49] LABS: Anion Gap 9 (5-15); BUN 22 mg/dL (7-18); BUN/Creat Ratio 15.1 RATIO (10-20); Calcium,Total 8.5 mg/dL (8.5-10.1); Chloride 101 mmol/L (98-107); Creatinine, Serum 1.46 mg/dL (0.55-1.02); EST Glomerular Filtration Rate 37 mL/min (>60); Est Glom Filt Rate - Afr Amer 45 mL/min (>60); Estimated Creatinine Clearance 24.35 ml/min; Glucose 196 mg/dL (74-106); Potassium 4.8 mmol/L (3.5-5.1); Sodium Level 140 mmol/L (136-145)
[2018-03-12] MEDS: APIXABAN 5 MG TABLET 10 MG PO ×2 (06:17→21:43)
--- NOTE | 2018-03-12 06:32 | PCM.HP.STD ---
Problem List (1) Thrombocytopenia Status: Chronic (2) Fibromyalgia Status: Chronic (3) Dementia Status: Chronic (4) Uncontrolled diabetes mellitus Status: Chronic (5) H/O aortic valve replacement Status: Chronic Comment: 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 with left carotid endarterectomy @ [facility] by Dr Lerma 02/06/16 (6) Non-rheumatic aortic stenosis Status: Chronic (7) COPD (chronic obstructive pulmonary disease) Status: Chronic (8) Secondary pulmonary arterial hypertension Status: Chronic (9) Hyperlipidemia Status: Chronic (10) Chronic diastolic heart failure Status: Chronic (11) CVA (cerebral infarction) Status: Chronic (12) Hypertension Status: Chronic (13) Hypothyroidism Status: Chronic (14) Paroxysmal a-fib Status: Chronic History of Present Illness Date of Admission: 03/12/18 Chief Complaint: PE The patient is a 77 year old female w/ h/o chronic diastolic heart failure, paroxysmal afib, DMII, HTN, hypothyroid, chronic respiratory failure, and COPD admitted for bilateral PE. She was admitted 2 months ago for confusion. After the admission, she has been mostly bedbound. She only would get up to use the restroom. She developed sudden right arm and shoulder pain. Pain was severe and cramping. Nothing made it better or worse. Pain woke her up around 1AM. Pain was not associated with any other symptoms. No nausea or vomiting. Pain was also in her chest as well. Past Medical History Past Medical History (Chronic Problems): Chronic Problems (Last Reviewed 11/29/17 @ 13:02 by Mora Medina) Thrombocytopenia (Chronic) Fibromyalgia (Chronic) Dementia (Chronic) Uncontrolled diabetes mellitus (Chronic) Obesity (Chronic) H/O aortic valve replacement (Chronic ~02/06/16) 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 with left carotid endarterectomy @ [facility] by Dr Lerma 02/06/16 Non-rheumatic aortic stenosis (Chronic) COPD (chronic obstructive pulmonary disease) (Chronic) Secondary pulmonary arterial hypertension (Chronic) Hyperlipidemia (Chronic) Chronic diastolic heart failure (Chronic) CVA (cerebral infarction) (Chronic) Hypertension (Chronic) Hypothyroidism (Chronic) Paroxysmal a-fib (Chronic) Medical History: Medical History (Last Reviewed 11/29/17 @ 13:02 by Mora Medina) Obesity (Chronic) E66.9 Non-rheumatic aortic stenosis (Chronic) I35.0 COPD (chronic obstructive pulmonary disease) (Chronic) J44.9 Secondary pulmonary arterial hypertension (Chronic) I27.21 Hyperlipidemia (Chronic) E78.5 Chronic diastolic heart failure (Chronic) I50.32 CVA (cerebral infarction) (Chronic) I63.9 Hypertension (Chronic) I10 Hypothyroidism (Chronic) E03.9 Paroxysmal a-fib (Chronic) I48.0 Bilateral carotid artery stenosis I65.23 Fibromyalgia M79.7 Obstructive sleep apnea G47.33 Onychomycosis B35.1 Type 2 diabetes mellitus without complications E11.9 Vascular dementia F01.50 Allergies prochlorperazine edisylate [From Compazine] Allergy (Verified 03/12/18 03:47) Other prochlorperazine maleate [From Compazine] Allergy (Verified 03/12/18 03:47) Other tolmetin sodium [From Tolectin] Allergy (Verified 03/12/18 03:47) Other Home Medications: Ambulatory Orders Medication Instructions Recorded Insulin Aspart [Novolog Flexpen] See Protocol SC TIDCM 02/18/16 clopidogrel 75 mg tablet 75 mg PO QDAY tab 11/28/17 escitalopram 10 mg tablet 10 mg PO QDAY 11/28/17 pregabalin 75 mg capsule 75 mg PO TID 11/28/17 levothyroxine 88 mcg capsule 112 mcg PO DAILY cap 11/29/17 Cetirizine HCl [Zyrtec] 10 mg PO DAILY 12/27/17 Ergocalciferol [Vitamin D] 50,000 unit PO QMONTH 12/27/17 Potassium Chloride [Klor-Con M20] 20 meq PO DAILY 12/27/17 Ranitidine [Zantac] 150 mg PO DAILY 12/27/17 Sitagliptin Phosphate [Januvia] 100 mg PO DAILY 12/27/17 Solifenacin Succinate [Vesicare] 10 mg PO DAILY 12/27/17 Atorvastatin Calcium [Lipitor] 80 mg PO QHS 01/02/18 Magnesium Oxide [Mag-Ox 400] 400 mg PO DAILY 01/02/18 Metoprolol Tartrate [Lopressor 12.5 mg PO BID 01/02/18 (beta chloe)] Furosemide [Lasix] 40 mg PO DAILY #0 tab 01/03/18 Insulin Detemir [Levemir FlexPen] 30 units SC DAILY #0 01/03/18 Oxygen, Home [Home Oxygen] 2 lpm NASAL CONT #1 unit 01/03/18 Surgical History: Surgical History (Last Reviewed 03/12/18 @ 06:39 by Tenzin Olsen MD) H/O aortic valve replacement (Chronic) Onset Date: ~02/06/16 Z95.2 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 with left carotid endarterectomy @ [facility] by Dr Lerma 02/06/16 History of left-sided carotid endarterectomy Onset Date: ~02/06/16 Z98.890 History of right and left heart catheterization Onset Date: ~12/24/15 Z98.890 CONCLUSIONS: 1. Normal LV function with an EF of 65%. 2. [id number] at least moderate pulmonary hypertension with evidence of desaturation both intrapulmonary and systemically. 3. Normal cardiac output. 4. No evidence of aortic insufficiency. 5. Nonobstructive coronary artery disease of the mid LAD, mid RCA, and mid left circumflex. Hx of cholecystectomy Z90.49 Surgical History: appendectomy, cataract, - - Aortic Valve replacement, left carotid endarterectomy, shoulder surgery Psychiatric History: No pertinent psych hx [employer]TER [employer] TURNER History: No pertinent [employer]TER [employer] TURNER history Smoking Status: Former smoker - *Family History Maternal Family History: Family History (Last Reviewed 11/29/17 @ 13:02 by Mora Medina) Mother CVA (cerebral vascular accident) Diabetes History Items: Diabetes, Stroke Paternal Family History: Family History (Last Reviewed 11/29/17 @ 13:02 by Mora Medina) Mother CVA (cerebral vascular accident) Diabetes History Items: Cancer Sibling Family History: Family History (Last Reviewed 11/29/17 @ 13:02 by Mora Medina) Mother CVA (cerebral vascular accident) Diabetes History Items: Hypertension Review of Systems Constitutional: Denies: Chills, Fever, Weight Change HEENT: Denies: Head Aches, Sinus Congestion, Sinus Drainage Cardiovascular: Reports: Chest Pain. Denies: Palpitations Respiratory: Denies: Cough, Shortness of breath at rest, Sputum production Gastrointestinal: Denies: Abdominal Pain, Nausea, Vomiting Genitourinary: Denies: Dysuria Musculoskeletal: Reports: Arm Pain, Shoulder Pain. Denies: Joint Pain, Joint Tenderness Skin: Denies: Rash, Wounds Neurological: Denies: Numbness, Tingling, Focal weakness Psychiatric: Denies: Anxiety, Depression, Homicidal Ideations, Suicidal Ideations Hematologic/ Lymphatic: Denies: Easy Bruising, Easy Bleeding VTE Information - Inpt Only VTE Present on Admission: No VTE Mechan Device Prophylaxis: SCD's VTE Pharm Prophylaxis ordered?: Yes - Physical Exam General: Alert, Oriented x3, Cooperative HEENT: Atraumatic, PERRLA, EOMI, Normocephalic Neck: Supple, No JVD, Negative Carotid Bruits Lungs: Clear to auscultation, Normal air movement Cardiovascular: Regular rate, No murmurs Abdomen: Bowel Sounds Present, Soft, Non Tender Extremities: No edema, Capillary Refill Less than 3 Seconds Skin: No rashes, No breakdown Musculoskeletal: No Tenderness to Palpation of Joints or Extremities Neurological: Cranial nerves II-XII grossly intact Psych/Mental Status: Normal Affect, Appropriate Vital Signs Temp Pulse Resp BP Pulse Ox 97.6 F L 98 19 H 127/59 H 95 03/12/18 03:44 03/12/18 06:23 03/12/18 06:23 03/12/18 06:23 03/12/18 06:23 Oxygen Flow Rate (L/min) 2 Oxygen Delivery Method Nasal Cannula Weight: 87.9 kg Body Mass Index (BMI) 36.6 Finger Stick Blood Glucose 529 Laboratory Tests Past 24 Hrs 03/12/18 03/12/18 03:49 03:49 WBC 8.5 RBC 4.80 Hgb 14.6 Hct 43.2 MCV 90.0 MCH 30.4 MCHC 33.8 RDW 14.5 RDW Differential 47.9 H Plt Count 150 MPV 10.4 Immature Gran % (Auto) 0.200 Neut % (Auto) 69.2 Lymph % (Auto) 19.8 [place] % (Auto) 8.8 Eos % (Auto) 1.6 Baso % (Auto) 0.4 Absolute Neuts (auto) 5.9 Absolute Lymphs (auto) 1.69 Total Counted Not Reportable Sodium 140 Potassium 4.8 Chloride 101 Carbon Dioxide 30.0 Anion Gap 9 BUN 22 H Creatinine 1.46 H Estim Creat Clear Calc 24.35 Est GFR (MDRD) Af Amer 45 L Est GFR (MDRD) Non-Af 37 L BUN/Creatinine Ratio 15.1 Glucose 196 H Calcium 8.5 Troponin I 0.186 H Assessment/Plan All Active Problems (Last Reviewed 11/29/17 @ 13:02 by Mora Medina) Dehydration (Acute) 77 year old female w/ h/o chronic diastolic heart failure, paroxysmal afib, DMII, HTN, hypothyroid, chronic respiratory failure, and COPD admitted for bilateral PE. 1) PE: CT disclosed Bilateral right greater than left pulmonary arterial emboli. Probably from PAF as pt was not anticoag. vs. immobilization. Will get ECHO. Will also get doppler to r/o DVT. Will start heparin gtt. Will consider eliquis once workup is completed. Hypercoag workup pending. 2) Elevated trops: Probably from PE vs type II vs NSTEMI. Will follow trops. Pt is on heparin gtt. C/w home meds. 3) ISIS: Probably azotemia. Baseline Cr 1.0 Hydration. Monitor. 4) Chronic issues: Chronic diastolic heart failure, paroxysmal afib, DMII, HTN, hypothyroid, chronic respiratory failure, and COPD Resume home meds. 5) Prophylaxis: SCD / heparin gtt.
--- NOTE | 2018-03-12 06:46 | NURSING ---
Called ED wool fleece sorter, Erica at this time to confirm Pt okay to come to PCU.
--- NOTE | 2018-03-12 07:10 | EKG12_ITS ---
Test Reason : CP Blood Pressure : / mmHG Vent. Rate : 107 BPM Atrial Rate : 107 BPM P-R Int : 140 ms QRS Dur : 158 ms QT Int : 396 ms P-R-T Axes : 044 000 135 degrees QTc Int : 528 ms Sinus tachycardia Left bundle branch block Abnormal ECG When compared with ECG of 12-MAR-2018 07:56, MANUAL COMPARISON REQUIRED, DATA IS UNCONFIRMED Confirmed by ANTONINO CARRANZA, BOOKER ([id number]), editorial writer JERSON TOVAR ([id number]) on 03/14/2018 3:04:10 PM Referred By: WILBERTO Confirmed By:BOOKER MUÑIZ MD
--- NOTE | 2018-03-12 07:10 | VDLE_ITS ---
Reason For Study: PE RIGHT LEFT GSV is normal. GSV is normal. CFV is compressible, spontaneous, competent CFV is compressible, spontaneous, competent, and demonstrates pulsatile venous flow. and demonstrates pulsatile venous flow. FV is compressible, spontaneous, competent FV is compressible, spontaneous, competent and demonstrates pulsatile venous flow. and demonstrates pulsatile venous flow. POP V is compressible, spontaneous, POP V is compressible, spontaneous, competent and demonstrates pulsatile venous competent and demonstrates pulsatile venous flow. flow. T/P Trunk is compressible. T/P Trunk is compressible. PTV is compressible. PTV is compressible. RT PerV is compressible. LT PerV is compressible. Procedure Exam performed portable in patient room. A preliminary report was called and/or faxed to [facility] nurse. Interpretation Summary Deep veins of the lower extremities are bilaterally patent and compressible segmentally. There is no evidence of deep vein thrombosis on either side. Valvular competence appears intact within the proximal deep venous systems bilaterally. The greater saphenous veins appear bilaterally patent and compressible segmentally. Pulsatile flow is noted in the deep venous system bilaterally, which may be indicative of elevated central venous pressure (i.e. congestive heart failure, tricuspid valve insufficiency, etc.). Clinical correlation is advised. Ordering Physician: Tenzin Olsen Referring Physician: Micheal Teran Chi Performed By: Alma Tello RVT
--- NOTE | 2018-03-12 07:17 | ED.DCSUM_ITS ---
- ER Visit Summary Date of Service: 03/12/18 Chief Complaint: Chest pain History of Present Illness: The patient is a [address] Teran and Dr. Ragsdale. She reports that she has right-sided chest pain that began 1:00 this morning while she was resting in bed. She is unable to further describe the pain. She reports that 6 out of 10 at worst and 5-10 currently. Is worsened by nothing including movement or breathing. It is also relieved by nothing. No nausea, vomiting, shortness of breath, or diaphoresis with this. She reports that the chest pain radiates up into her jaw into her back and down her right arm. She reports that her chest feels improved now, but her back and arms still hurt. Physical Examination: Vitals: Stable. Afebrile. General: Well-nourished and well-developed. Head: Normocephalic atraumatic. Neck: Supple, no lymphadenopathy. No JVD. Nontender. Cardiovascular: Regular rate and rhythm. 2 out of 6 systolic murmur. Respiratory: No respiratory distress. Clear to auscultation bilaterally. Abdominal: Soft, nontender, nondistended, normal bowel sounds. No guarding, rebound, or peritoneal signs. Back: Nontender. Extremities: Nontender, 1+ pitting edema over lower extremities bilaterally. Skin: Normal color, no rash. Neurologic: Alert and oriented ?3. Cranial nerves II through XII are intact. Normal strength and sensation. Psych: Normal affect. Test Results: EKG is sinus at 100 with a left bundle branch block. Is unchanged from December 2017. Initial troponin is 0.186. However, her troponin has been 0.11-0.31 since December 27 of this year. Chem-7 is more for BUN of 22, creatinine 1.46, glucose 196. CBC is normal. Chest x-ray shows stable cardiomegaly that is mild and no acute disease. CTA of the chest shows no dissection. She has bilateral PEs right greater than left. Emergency Department Course and Treatment: Patient was treated the dose of morphine and Zofran IV. She was given aspirin p.o. She is resting comfortably. When her CT returned she was given Eliquis p.o. Treatment Plan: Patient was discussed with Dr. Olsen. She will be admitted to the hospital for further relation and treatment. Disposition: Admitted in stable condition. Impression: 1. Pulmonary embolism bilaterally. 2. Chronic renal insufficiency. 3. Indeterminate troponin. This note was generated with [employer] dictation software. It may contain incorrect words, spelling, and punctuation that were not noted in review of the chart prior to signing ED Disposition - Plan for ED Patient: Disposition: Acute Care Hospital [facility] Chief Complaint: Chest Pain
[2018-03-12 08:08] LABS: International Normalized Ratio 1.1; Prothrombin Time (Protime)PT. 13.8 SECONDS (11.7-14.9)
[2018-03-12] MEDS: Glucerna Shake 120 ML LIQUID PO (09:24)
[2018-03-12] MEDS: Heparin Injection (Vial) 5,000 UNIT/ML VIAL 6000 UNIT IV (09:25)
[2018-03-12] MEDS: 0.9% NaCl Peripheral Flush Adult/Peds IV ×2 (09:34→14:24)
--- NOTE | 2018-03-12 10:17 | EKG12_ITS ---
Test Reason : ADMISSION Blood Pressure : / mmHG Vent. Rate : 091 BPM Atrial Rate : 091 BPM P-R Int : 180 ms QRS Dur : 160 ms QT Int : 438 ms P-R-T Axes : 067 011 034 degrees QTc Int : 538 ms Normal sinus rhythm Left bundle branch block Abnormal ECG When compared with ECG of 12-MAR-2018 03:47, MANUAL COMPARISON REQUIRED, DATA IS UNCONFIRMED Confirmed by ANTONINO CARRANZA, BOOKER ([id number]), online content editor JERSON TOVAR ([id number]) on 03/14/2018 3:04:20 PM Referred By: LA Confirmed By:BOOKER MUÑIZ MD
[2018-03-12 10:24] LABS: Partial Thromboplast Time 28.3 Seconds (24.1-36.2)
[2018-03-12] MEDS: Morphine 2 MG/ML Syringe 1 MG IV (10:41)
[2018-03-12 11:55] LABS: Bedside Glucose 275 mg/dL (70-110)
[2018-03-12] MEDS: Tolterodine Tartrate 4 MG CAP.SA PO (11:56)
[2018-03-12] MEDS: Furosemide 40 MG Tablet PO (11:57)
[2018-03-12] MEDS: HYDROcodone Bitartrate/Apap 5/325 Tablet PO (11:58)
[2018-03-12] MEDS: Clopidogrel Bisulfate 75 MG Tablet PO (11:58)
[2018-03-12] MEDS: LINAGLIPTIN 5 MG TABLET PO (11:58)
[2018-03-12] MEDS: Magnesium Oxide 400 MG Tablet PO (11:58)
[2018-03-12] MEDS: Metoprolol Tartrate 25 MG Tablet 12.5 MG PO ×2 (11:58→21:44)
--- NOTE | 2018-03-12 13:33 | PN_ITS ---
<Ricardo Rivero - Last Filed: 03/12/18 13:23> Subjective: Patient admitted this morning for pulmonary embolism following a presentation to the ER for chest pain and right arm pain radiating into the neck. She is very immobile at home. She has not had a prior blood clot. This morning she was complaining of severe 9 out of 10 right arm pain radiating into her neck. She is not short of breath and has no chest pain at all today. She has no pleurisy. She has no swelling in her arms or legs. She has no nausea or vomiting, fevers chills, cough. The patient is on oxygen, she tells me that she uses oxygen at home as needed but does not know why she is on oxygen and cannot tell me who put her on it either. - Physical Exam General: Alert, Oriented x3, Cooperative HEENT: Atraumatic, PERRLA, EOMI, Normocephalic Neck: Supple, No JVD, Negative Carotid Bruits Lungs: Clear to auscultation, Normal air movement Cardiovascular: Regular rate, No murmurs Abdomen: Bowel Sounds Present, Soft, Non Tender, Obese Extremities: No edema, Capillary Refill Less than 3 Seconds Skin: No rashes, No breakdown Musculoskeletal: No Tenderness to Palpation of Joints or Extremities Neurological: Cranial nerves II-XII grossly intact Psych/Mental Status: Normal Affect, Appropriate Vital Signs Temp Pulse Resp BP Pulse Ox 97.4 F L 109 H 17 146/76 H 93 03/12/18 10:18 03/12/18 11:58 03/12/18 10:18 03/12/18 11:58 03/12/18 10:18 Oxygen Flow Rate (L/min) 2 Oxygen Delivery Method Room Air Weight: 87.2 kg Body Mass Index (BMI) 36.3 Intake and Output for Last 24 Hours 03/10/18 03/11/18 03/12/18 23:59 23:59 23:59 Intake Total 273.1 / 273.1 Balance 273.1 / 273.1 Laboratory Tests Past 24 Hrs 03/12/18 03/12/18 03/12/18 07:35 07:35 07:35 PT INR APTT Dil Srikanth Viper Venom Protein C Antigen Pending Functional Protein C Pending Prot C Funct Activity Pending Antithrombin III Ag Pending Func Antithrombin III Pending Factor V Leiden Mutat Pending Troponin I 0.164 H Beta-2-GPI IgG Ab Pending Beta-2-GPI IgA Ab Pending Beta-2-GPI IgM Ab Pending Anti-Cardiolipin IgG Ab Pending Anti-Cardiolipin IgM Ab Pending Factor II DNA Analysis Pending 03/12/18 03/12/18 03/12/18 07:35 07:35 07:35 PT 13.8 INR 1.1 APTT 28.3 Dil Srikanth Viper Venom Pending Protein C Antigen Functional Protein C Prot C Funct Activity Antithrombin III Ag Func Antithrombin III Factor V Leiden Mutat Troponin I Beta-2-GPI IgG Ab Beta-2-GPI IgA Ab Beta-2-GPI IgM Ab Anti-Cardiolipin IgG Ab Anti-Cardiolipin IgM Ab Factor II DNA Analysis 03/12/18 03/12/18 10:20 13:00 PT INR APTT Dil Srikanth Viper Venom Protein C Antigen Functional Protein C Prot C Funct Activity Antithrombin III Ag Func Antithrombin III Factor V Leiden Mutat Troponin I 0.176 H Pending Beta-2-GPI IgG Ab Beta-2-GPI IgA Ab Beta-2-GPI IgM Ab Anti-Cardiolipin IgG Ab Anti-Cardiolipin IgM Ab Factor II DNA Analysis POC Glucose 03/12/18 11:46 POC Glucose 275 H Medical Necessity - Tobacco Use Smoking Status: Former smoker Assessment/Plan All Active Problems (Last Reviewed 11/29/17 @ 13:02 by Mora Medina) Dehydration (Acute) 1. Acute bilateral pulmonary emboli-with indeterminate troponin, nonspecific EKG changes. Will obtain echocardiogram tomorrow. No swelling, no hx PE. Likely from immobility. Patient is now off heparin and transitioned to Eliquis. Doppler is pending. Patient is not short of breath and has no chest pain. Hyper coag panel was ordered and is pending. She does remain mildly tachycardic and with arm and throat pain - prn norco. 2. ISIS-continue to monitor and provide gentle hydration with IV fluids, discontinue Lasix. 3. CAD status post CABG - on bb, plavix, statin 4. Chronic diastolic heart failure-monitor for volume overload, hold lasix for ISIS 5. Paroxysmal atrial fibrillation-she remains mildly tachycardic this is from the PE likely. Rhythm is sinus tachy. Continue beta-chloe therapy. 6. Type 2 diabetes mellitus-titrate current therapy add SSI 7. Chronic hypoxic respiratory failure and COPD-continue aerosols as needed 8. Obstructive sleep apnea-patient is noncompliant with CPAP at home. 9. Hypertension- mildly elevated. Trend only at this time. 10. Hypothyroid - synthroid DVT prophylaxis-Eliquis CAMERON planning-PT OT This patient was seen by Ricardo Rivero PA-C under the supervision of Doctor Anaid. <Zane Worrell - Last Filed: 03/12/18 14:59> Subjective: Patient complaining of the worst pain in her life involving her shoulder and going into her neck. Patient demanding to have pain medication that very moment. Shortly thereafter patient dozes off in the middle conversation with me. - Physical Exam General: - - Encounter then she starts to doze off minute conversation with me. HEENT: Atraumatic, Normocephalic Lungs: Clear to auscultation, Normal air movement Cardiovascular: Regular rate, Regular Rhythm, Normal S1, Normal S2 Abdomen: Bowel Sounds Present, Non Tender Skin: No rashes, No breakdown Musculoskeletal: - - Tender palpation around the glenohumeral joint. On the right. Psych/Mental Status: Flat Affect Vital Signs Temp Pulse Resp BP Pulse Ox 36.9 C 78 17 109/70 94 03/12/18 13:11 03/12/18 13:11 03/12/18 13:11 03/12/18 13:11 03/12/18 13:11 Oxygen Flow Rate (L/min) 2 Oxygen Delivery Method Nasal Cannula Weight: 87.2 kg Body Mass Index (BMI) 36.3 Intake and Output for Last 24 Hours 03/10/18 03/11/18 03/12/18 23:59 23:59 23:59 Intake Total 273.1 / 273.1 Balance 273.1 / 273.1 Laboratory Tests Past 24 Hrs 03/12/18 03/12/18 03/12/18 07:35 07:35 07:35 PT INR APTT Dil Srikanth Viper Venom Protein C Antigen Pending Functional Protein C Pending Prot C Funct Activity Pending Antithrombin III Ag Pending Func Antithrombin III Pending Factor V Leiden Mutat Pending Troponin I 0.164 H Beta-2-GPI IgG Ab Pending Beta-2-GPI IgA Ab Pending Beta-2-GPI IgM Ab Pending Anti-Cardiolipin IgG Ab Pending Anti-Cardiolipin IgM Ab Pending Factor II DNA Analysis Pending 03/12/18 03/12/18 03/12/18 07:35 07:35 07:35 PT 13.8 INR 1.1 APTT 28.3 Dil Srikanth Viper Venom Pending Protein C Antigen Functional Protein C Prot C Funct Activity Antithrombin III Ag Func Antithrombin III Factor V Leiden Mutat Troponin I Beta-2-GPI IgG Ab Beta-2-GPI IgA Ab Beta-2-GPI IgM Ab Anti-Cardiolipin IgG Ab Anti-Cardiolipin IgM Ab Factor II DNA Analysis 03/12/18 03/12/18 10:20 13:00 PT INR APTT Dil Srikanth Viper Venom Protein C Antigen Functional Protein C Prot C Funct Activity Antithrombin III Ag Func Antithrombin III Factor V Leiden Mutat Troponin I 0.176 H 0.185 H Beta-2-GPI IgG Ab Beta-2-GPI IgA Ab Beta-2-GPI IgM Ab Anti-Cardiolipin IgG Ab Anti-Cardiolipin IgM Ab Factor II DNA Analysis POC Glucose 03/12/18 11:46 POC Glucose 275 H Assessment/Plan Patient seen and examined independently. Data reviewed. I agree with the above note by the physician tiler's assistant. 1. Acute bilateral pulmonary emboli * Patient was started on. Feel that it could be discontinued patient continue with Eliquis. I feel that this is provoked given the patient's immobility. Hypercoagulable panel was ordered but feel that the treatment for this patient should be 6 months of anticoagulation despite what the hypercoagulation panel shows. Hypercoagulation panel is abnormal and then with pathology as outpatient to see if the anticoagulant she would need to be extended to lifelong or not. 2. Debility: Very poor performance status at home. PT OT evaluate and treat 3. Acute kidney injury: Creatinine 1.46. Baseline is 0.99. Patient receiving IV fluids. Recheck labs in the morning. 4. Right shoulder pain: Review of chest x-ray did not reveal any obvious dislocation. This may be related with rotator cuff tear would recommend physical and occupational therapy and if ongoing then to follow-up with orthopedics. Patient became very groggy during my encounter with her and does often spikes explained that she has severe pain. Discontinue the morphine altogether. Patient may have Bradford if needed. 5. Elevated troponins: Likely related with the pulmonary emboli. Echocardiogram has been ordered. The etiology of his elevated troponins are most likely due to the pulmonary embolism and I do not feel that cardiology needs to be consulted at this time. Patient does have a left bundle branch block on EKG which has been present previously. Code Visit Inpatient E&M: 69527 [facility]
[2018-03-12] MEDS: 0.9% Normal Saline 1,000 ML 75 ML IV (14:22)
[2018-03-12] MEDS: Pregabalin 75 MG Capsule PO ×2 (14:22→21:48)
[2018-03-12] MEDS: Insulin Lispro 100 UNIT/ML INSULN.PEN SC ×2 (17:34→21:45)
[2018-03-12 17:55] LABS: Bedside Glucose 235 mg/dL (70-110)
[2018-03-12] MEDS: Nystatin Powder 15gm Bottle 1 APPLIC TOPICAL (21:44)
[2018-03-12] MEDS: Atorvastatin Calcium 80 MG Tablet PO (21:44)
[2018-03-12 22:10] LABS: Bedside Glucose 283 mg/dL (70-110)
[2018-03-13] VITALS (15 sets, daily range): BP systolic 103–127; BP diastolic 45–71; PULSE 70–103; RESP 12–18; TEMP 36.5–36.7; O2SAT 83–99
[2018-03-13] MEDS: 0.9% Normal Saline 1,000 ML 75 ML IV ×2 (01:08→16:00)
[2018-03-13] MEDS: Nystatin Powder 15gm Bottle 1 APPLIC TOPICAL ×3 (05:24→22:08)
[2018-03-13] MEDS: Pregabalin 75 MG Capsule PO ×3 (05:24→22:08)
[2018-03-13] MEDS: Levothyroxine 112 MCG Tablet PO (05:24)
--- NOTE | 2018-03-13 05:55 | ECHOCS_ITS ---
Reason For Study: CHEST PAIN/ PE Procedure This was a 2D Doppler, Color Flow transthoracic echocardiogram. The study was technically difficult. Exam performed portable in patient room. Left Ventricle Mildly dilated left ventricle. The estimated ejection fraction is 25 %. Moderately severe global left ventricular systolic dysfunction. Septal motion consistent with IVCD. Right Ventricle Normal RV size. Mild global right ventricular systolic dysfunction. Atria Normal left atrium. Normal right atrium. Mitral Valve Mild diffuse mitral valve thickening. Mild-Moderate (1-2+) eccentric mitral valve insufficiency. Tricuspid Valve Normal tricuspid valve. Moderate (2+) tricuspid valve insufficiency. Pulmonary artery systolic pressure is 55 mmHg. Moderate pulmonary hypertension. Aortic Valve Peak aortic valve gradient 36 mmHg. Mean aortic valve gradient 21 mmHg. Stable appearing bioprosthetic aortic valve apparatus. Trivial perivalvular insufficiency of the aortic valve. Pulmonic Valve Normal pulmonic valve. Mild (1+) pulmonic valve insufficiency. Great Vessels Normal aortic root. The pulmonary artery is normal size. The inferior vena cava is dilated. Pericardium/Pleural No pericardial effusion. MMode/2D Measurements & Calculations LVIDd: 5.8 cm IVSd: 0.91 cm LVOT diam: 1.8 cm LVIDs: 5.1 cm LVPWd: 0.93 cm LVOT area: 2.5 cm2 RVDd: 4.9 cm FS: 11.5 % Ao root diam: 3.0 cm LAV(MOD-bp): 61.3 ml LVAd ap4: 36.9 cm2 LAV(MOD-bp) Indexed: 33.0 ml/m2 EDV(MOD-sp4): 126.0 ml LAV(MOD-sp2): 76.6 ml EDV(sp4-el): 131.1 ml LAV(MOD-sp4): 48.6 ml LVAs ap4: 27.0 cm2 ESV(MOD-sp4): 77.3 ml ESV(sp4-el): 81.7 ml EF(MOD-sp4): 38.6 % EF(sp4-el): 37.7 % SV(MOD-sp4): 48.7 ml SV(sp4-el): 49.5 ml LA A4 area: 18.6 cm2 RA A4 area: 15.3 cm2 Doppler Measurements & Calculations Ao V2 max: 297.6 cm/sec LV V1 max: 96.5 cm/sec SV(LVOT): 54.9 ml Ao max P.5 mmHg LV V1 max P.7 mmHg Ao V2 mean: 219.0 cm/sec LV V1 mean P.9 mmHg Ao mean P.2 mmHg LV V1 mean: 64.6 cm/sec Ao V2 VTI: 65.0 cm LV V1 VTI: 21.7 cm JARRETT(I,D): 0.84 cm2 JARRETT(V,D): 0.82 cm2 PA V2 max: 95.1 cm/sec PI end-d tex: 100.3 cm/sec TR max tex: 354.2 cm/sec TR max P.4 mmHg Interpretation Summary Mildly dilated left ventricle. The estimated ejection fraction is 25 %. Moderately severe global left ventricular systolic dysfunction. Septal motion consistent with IVCD. Mild-Moderate (1-2+) eccentric mitral valve insufficiency. Moderate (2+) tricuspid valve insufficiency. Pulmonary artery systolic pressure is 55 mmHg. Moderate pulmonary hypertension. Compared to the previous echo the LV is worse and the pulmonary pressures are higher Ordering Physician: Tenzin Olsen Referring Physician: GRISELDA MERCADO CHI Performed By: Joann Farrell, ALYSSA, RVT
[2018-03-13 05:57] LABS: Hematocrit 38.4 % (37-47); Hemoglobin 12.3 g/dl (12.0-15.0); Mean Corpuscular Hgb 29.5 pg (27.0-32.0); Mean Corpuscular Volume 92.1 fL (81-99); Mean Platelet Vol. 10.5 fl (6.2-12.0); Platelet Count 141 K/mm3 (150-450); RBC Distribution Width CV 14.5 % (11.6-14.6); RBC Distribution Width SD 48.8 fl (35.1-43.9); Red Blood Count 4.17 M/mm3 (4.2-5.4); White Blood Count 7.1 K/mm3 (4.4-11.0)
[2018-03-13 05:58] LABS: Scan Indicated on CBC? Y/N NO
[2018-03-13 06:22] LABS: Anion Gap 9 (5-15); BUN 29 mg/dL (7-18); BUN/Creat Ratio 22.8 RATIO (10-20); Calcium,Total 7.9 mg/dL (8.5-10.1); Chloride 106 mmol/L (98-107); Creatinine, Serum 1.27 mg/dL (0.55-1.02); EST Glomerular Filtration Rate 43 mL/min (>60); Est Glom Filt Rate - Afr Amer 52 mL/min (>60); Estimated Creatinine Clearance 27.99 ml/min; Glucose 211 mg/dL (74-106); Potassium 3.9 mmol/L (3.5-5.1); Sodium Level 144 mmol/L (136-145)
[2018-03-13 06:45] LABS: Bedside Glucose 195 mg/dL (70-110)
[2018-03-13] MEDS: HYDROcodone Bitartrate/Apap 5/325 Tablet PO ×2 (08:13→17:21)
[2018-03-13] MEDS: Escitalopram Oxalate 10 MG Tablet PO (09:37)
[2018-03-13] MEDS: Insulin Lispro 100 UNIT/ML INSULN.PEN SC ×4 (09:37→22:12)
[2018-03-13] MEDS: APIXABAN 5 MG TABLET 10 MG PO ×2 (09:37→22:06)
[2018-03-13] MEDS: Loratadine 10 MG Tablet PO (09:39)
[2018-03-13] MEDS: Tolterodine Tartrate 4 MG CAP.SA PO (09:40)
[2018-03-13] MEDS: Metoprolol Tartrate 25 MG Tablet 12.5 MG PO (09:40)
[2018-03-13] MEDS: Magnesium Oxide 400 MG Tablet PO (09:41)
[2018-03-13] MEDS: Famotidine 20 MG Tablet PO (09:41)
[2018-03-13] MEDS: Glucerna Shake 120 ML LIQUID PO ×3 (09:42→16:30)
[2018-03-13] MEDS: Clopidogrel Bisulfate 75 MG Tablet PO (09:42)
[2018-03-13] MEDS: LINAGLIPTIN 5 MG TABLET PO (09:42)
--- NOTE | 2018-03-13 11:23 | EKG12_ITS ---
Test Reason : Blood Pressure : / mmHG Vent. Rate : 066 BPM Atrial Rate : 066 BPM P-R Int : 172 ms QRS Dur : 158 ms QT Int : 470 ms P-R-T Axes : 055 015 251 degrees QTc Int : 492 ms Normal sinus rhythm Left bundle branch block Abnormal ECG When compared with ECG of 12-MAR-2018 10:26, MANUAL COMPARISON REQUIRED, DATA IS UNCONFIRMED Confirmed by ANTONINO CARRNAZA, BOOKER ([id number]), staff editor JERSON TOVAR ([id number]) on 03/14/2018 3:00:42 PM Referred By: EZE Confirmed By:BOOKER MUÑIZ MD
--- NOTE | 2018-03-13 11:36 | CASEMGMT ---
SW spoke with patient and her son. Introduced self as well as role at [facility]. Patient has Dementia so her son answered questions. He feels patient has been doing fine at home, but he said his brother feels she needs to go somewhere. Patient's is the healthcare POA and he will be the one to make the decision about home vs SNF. SW will talk with patient's . Martha LOPEZ
[2018-03-13 11:40] LABS: Bedside Glucose 189 mg/dL (70-110)
--- NOTE | 2018-03-13 14:04 | CHAPLAIN ---
Type of Pastoral Visit _x__ Initial Visit ___ Follow-up Visit ___ On-call Visit ___ General Patient Visit ___ Spiritual Assessment ___ Family Conference ___ Bereavement ___ Rapid Response ___ Code Blue ___ Other (describe below) Pastoral Care Referral From _x__ Patient ___ Family ___ Nurse ___ Physician ___ Order Desk Caller ___ Supervisor Painting ___ Other (describe below) Sacrament/Intervention _x__ Active listening ___ Anointing ___ Yazidi ___ Bereavement ___ Communion _x__ Yasmeen exploration ___ _x__ Life review _x__ Prayer ___ Reconciliation ___ Sacrament of Sick ___ Supportive presence ___ Wedding ___ Other (describe below) Pastoral Comments
--- NOTE | 2018-03-13 14:15 | CASEMGMT ---
Per Amira MARTINI, pt to be sent home on [facility] and script e-scribed to [facility]. Call to [facility] and per tech, pt's co-pay is $8.00. Amira MARTINI aware at this time, voices understanding. Pt updated and voices understanding. Rose Mary LOERA CM
--- NOTE | 2018-03-13 14:35 | CASEMGMT ---
JAVAN spoke with patient's . JAVAN introduced self as well as role at [facility]. Patient's said he is not able to care for patient in this condition. He has tried to get her up and move, but she does not listen. He said his son was looking at places. It sounds like they looked at [place] and SW explained that is assisted living and insurance does not pay for assisted living. JAVAN told him JAVAN will give him a list of facilities. He said his son's will go look at them and they can get back to on where they would like her to go. SW gave him a list of [place] and [facility] facilities. Plan: placement pending family's SNF choice and accepting facility. Martha CHOUDHARY MSW
[2018-03-13 16:35] LABS: Bedside Glucose 228 mg/dL (70-110)
--- NOTE | 2018-03-13 17:34 | PCM.PROGNOTE ---
Subjective: Patient noted bilateral arm pain radiating into her neck 8 out of 10 today. Denies overt chest heaviness, chest pain, tightness, shortness of breath, pain with deep breathing. No palpitations. No worsening leg edema. No dizziness or lightheadedness. She remains significantly weak. - Physical Exam General: Alert, Oriented x3, Cooperative HEENT: Atraumatic, PERRLA, EOMI, Normocephalic Neck: Supple, No JVD, Negative Carotid Bruits Lungs: Clear to auscultation, Normal air movement Cardiovascular: Regular rate, No murmurs Abdomen: Bowel Sounds Present, Soft, Non Tender Extremities: No edema, Capillary Refill Less than 3 Seconds Skin: No rashes, No breakdown Musculoskeletal: No Tenderness to Palpation of Joints or Extremities Neurological: Cranial nerves II-XII grossly intact Psych/Mental Status: Normal Affect, Appropriate, Alert and oriented to time, place, person, mood and affect Vital Signs Temp Pulse Resp BP Pulse Ox 97.8 F 74 18 125/60 H 97 03/13/18 14:50 03/13/18 16:17 03/13/18 14:50 03/13/18 14:50 03/13/18 14:50 Oxygen Flow Rate (L/min) 2 Oxygen Delivery Method Nasal Cannula Weight: 192 lb 3.889 oz Body Mass Index (BMI) 36.3 Intake and Output for Last 24 Hours 03/11/18 03/12/18 03/13/18 23:59 23:59 23:59 Intake Total 1371.1 / 1371.1 1210 / 1210 Balance 1371.1 / 1371.1 1210 / 1210 Laboratory Tests Past 24 Hrs 03/13/18 03/13/18 05:25 05:25 WBC 7.1 RBC 4.17 L Hgb 12.3 Hct 38.4 MCV 92.1 MCH 29.5 MCHC 32.0 RDW 14.5 RDW Differential 48.8 H Plt Count 141 L MPV 10.5 Sodium 144 Potassium 3.9 Chloride 106 Carbon Dioxide 29.0 Anion Gap 9 BUN 29 H Creatinine 1.27 H Estim Creat Clear Calc 27.99 Est GFR (MDRD) Af Amer 52 L Est GFR (MDRD) Non-Af 43 L BUN/Creatinine Ratio 22.8 H Glucose 211 H Calcium 7.9 L POC Glucose 03/13/18 03/13/18 03/13/18 16:25 11:27 06:38 POC Glucose 228 H 189 H 195 H 03/12/18 03/12/18 21:41 17:30 POC Glucose 283 H 235 H Medical Necessity - Tobacco Use Smoking Status: Former smoker Assessment/Plan All Active Problems (Last Reviewed 11/29/17 @ 13:02 by Mora Medina) Dehydration (Acute) 1. Acute bilateral pulmonary emboli-with indeterminate troponin, nonspecific EKG changes. Echocardiogram demonstrates EF of 25%, moderate pulmonary hypertension with PAS P of 55 mmHg, moderate 2+ TVI, 1-2+ MVI, septal motion consistent with IVCD, moderately severe global left ventricular systolic dysfunction, pulmonary pressure and LV function worsen prior. Probably secondary to PE. Cardiology is consulted. Troponin has remained flat. EKG today is improved. She may need further workup for underlying cardiac etiologies as an outpatient. None planned at this time. -Tachycardia is resolved. 2. ISIS-continue to monitor and provide gentle hydration with IV fluids, discontinue Lasix. 3. CAD status post CABG - on bb, plavix, statin 4. Chronic diastolic heart failure-monitor for volume overload, hold lasix for ISIS 5. Paroxysmal atrial fibrillation-she remains mildly tachycardic this is from the PE likely. Rhythm is sinus tachy. Continue beta-chloe therapy. 6. Type 2 diabetes mellitus-titrate current therapy add SSI 7. Chronic hypoxic respiratory failure and COPD-continue aerosols as needed 8. Obstructive sleep apnea-patient is noncompliant with CPAP at home. 9. Hypertension- mildly elevated. Trend only at this time. 10. Hypothyroid - synthroid DVT [id number]-[id number] was sent to the pharmacy and she will be able to continue as an outpatient. DC planning-PT OT-patient remains significantly debilitated and may need placement. This patient was seen by Ricardo Rivero PA-C under the supervision of Doctor Mane.
--- NOTE | 2018-03-13 19:14 | PCM.CONS.C ---
Reason for Consult Date of Consultation: 03/13/18 Reason for Consultation: Chest pain and abnormal troponin History of Present Illness: The patient is a 77 year old F known to Dr. 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 Her coronaries at that time were normal and did not require any bypass surgery during her aortic valve replacement. She had been doing cardiac rehabilitation and has completed this. She presented to the hospital in December of this year with chest discomfort she was noted to have a mildly elevated troponin she underwent a pharmacologic myocardial perfusion stress test but did not demonstrate any evidence of ischemia. She presented to the emergency room yesterday with chest discomfort described as a heaviness radiating to her right arm. She was evaluated in the emergency room her troponins were noted to be minimally elevated but not more than before she underwent a CAT scan of the chest which demonstrated bilateral pulmonary emboli. Her electrocardiogram shows normal sinus rhythm with a left bundle branch block, but it was not clear whether there was some changes in lead aVR. Cardiology was called to evaluate her on the basis of the above. She currently denies any chest pain or shortness of breath or paroxysmal nocturnal dyspnea and is under treatment for her pulmonary emboli. Past Medical History Allergies/Adverse Reactions: Allergies prochlorperazine edisylate [From Compazine] Allergy (Verified 03/12/18 03:47) Other prochlorperazine maleate [From Compazine] Allergy (Verified 03/12/18 03:47) Other tolmetin sodium [From Tolectin] Allergy (Verified 03/12/18 03:47) Other Home Medications: Ambulatory Orders Medication Instructions Recorded Insulin Aspart [Novolog Flexpen] See Protocol SC TIDCM 02/18/16 clopidogrel 75 mg tablet 75 mg PO QDAY tab 11/28/17 levothyroxine 88 mcg capsule 112 mcg PO DAILY cap 11/29/17 Ergocalciferol [Vitamin D] 50,000 unit PO QMONTH 12/27/17 Sitagliptin Phosphate [Januvia] 100 mg PO DAILY 05/01/18 Solifenacin Succinate [Vesicare] 10 mg PO DAILY 12/27/17 Atorvastatin Calcium [Lipitor] 80 mg PO QHS 01/02/18 Metoprolol Tartrate [Lopressor 12.5 mg PO BID 01/02/18 (beta chloe)] Furosemide [Lasix] 40 mg PO DAILY #0 tab 01/03/18 Insulin Detemir [Levemir FlexPen] 30 units SC DAILY #0 01/03/18 Oxygen, Home [Home Oxygen] 2 lpm NASAL CONT #1 unit 01/03/18 Memantine HCl 5 mg PO BID 03/12/18 Vortioxetine Hydrobromide 10 mg PO DAILY 03/12/18 [Brintellix] Apixaban [Eliquis] 10 mg PO BID #62 tab 03/13/18 Past Medical History (Chronic Problems): Chronic Problems (Last Reviewed 11/29/17 @ 13:02 by Mora Medina) Thrombocytopenia (Chronic) Fibromyalgia (Chronic) Dementia (Chronic) Uncontrolled diabetes mellitus (Chronic) Obesity (Chronic) H/O aortic valve replacement (Chronic ~02/06/16) 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 with left carotid endarterectomy @ [place] by Dr Lerma 02/06/16 Non-rheumatic aortic stenosis (Chronic) COPD (chronic obstructive pulmonary disease) (Chronic) Secondary pulmonary arterial hypertension (Chronic) Hyperlipidemia (Chronic) Chronic diastolic heart failure (Chronic) CVA (cerebral infarction) (Chronic) Hypertension (Chronic) Hypothyroidism (Chronic) Paroxysmal a-fib (Chronic) Surgical History: appendectomy, cataract, - - Aortic Valve replacement, left carotid endarterectomy, shoulder surgery Psychiatric History: No pertinent psych hx 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: No pertinent OYSTER UNLOADER history - *Family History Maternal Family History: Family History (Last Reviewed 11/29/17 @ 13:02 by Mora Medina) Mother CVA (cerebral vascular accident) Diabetes History Items: Diabetes, Stroke Paternal Family History: Family History (Last Reviewed 11/29/17 @ 13:02 by Mora Medina) Mother CVA (cerebral vascular accident) Diabetes History Items: Cancer Sibling Family History: Family History (Last Reviewed 11/29/17 @ 13:02 by Mora Medina) Mother CVA (cerebral vascular accident) Diabetes History Items: Hypertension Smoking Status: Former smoker Alcohol: None Review of Systems - Review of Systems General: Denies: Fever, Night Sweats, Fatigue Cardiovascular: Reports: Chest Discomfort, Chest Discomfort with Exertion. Denies: Shortness of Breath, Orthopnea, PND, Peripheral Edema, Palpitations, Lightheadedness, Dizziness, Near Syncope, Syncope Respiratory: Denies: Cough, Sputum Production, Hemoptysis Gastrointestinal: Denies: Hematemesis, Hematochezia, Melena Genitourinary: Denies: Dysuria, Hematuria Skin: Denies: Rash Subjectve: Pleasant lady in no apparent distress sitting in chair Objective: Vital Signs Temp Pulse Resp BP Pulse Ox 97.8 F 88 18 125/60 H 97 03/13/18 14:50 03/13/18 18:49 03/13/18 14:50 03/13/18 14:50 03/13/18 14:50 Oxygen Flow Rate (L/min) 2 Oxygen Delivery Method Nasal Cannula Weight: 192 lb 3.889 oz Body Mass Index (BMI) 36.3 Intake and Output for Last 24 Hours 03/11/18 03/12/18 03/13/18 23:59 23:59 23:59 Intake Total 1371.1 / 1371.1 1210 / 1210 Balance 1371.1 / 1371.1 1210 / 1210 General: Awake, Alert, Oriented x 3 HEENT: PERRL, EOMI, Sclera Non Icteric Neck: Supple, Good ROM, No Lymph Node Enlargement Lungs: Clear to auscultation Cardiovascular: Regular Rhythm, Normal S1, Normal S2, No Murmurs, No Rubs, No Gallops Vascular: No Carotid Bruits, Normal Femoral Pulses, Normal Radial Pulses, Normal Dorsalis Pedal Pulse, Normal Posterior Tibial Pulses Abdomen: Bowel Sounds Present, Soft, Non Tender, No HSM, No Organomegaly Extremities: No Cyanosis, No Clubbing, No edema Neurological: No Focal Motor or Sensory Deficit Psych/Mental Status: Appropriate 03/13/18 05:25: WBC 7.1, RBC 4.17 L, Hgb 12.3, Hct 38.4, MCV 92.1, MCH 29.5, MCHC 32.0, RDW 14.5, RDW Differential 48.8 H, Plt Count 141 L, MPV 10.5 03/13/18 05:25: Sodium 144, Potassium 3.9, Chloride 106, Carbon Dioxide 29.0, Anion Gap 9, BUN 29 H, Creatinine 1.27 H, Est GFR (MDRD) Af Amer 52 L, Est GFR (MDRD) Non-Af 43 L, BUN/Creatinine Ratio 22.8 H, Glucose 211 H, Calcium 7.9 L Rhythm: EKG: Sinus rhythm with a left bundle branch block ECHO: Global reduction in left ventricular systolic function estimated EF 25% with pulmonary to systolic pressure of 55 mmHg. Assessment/Plan 1. Chest pain normal cardiac enzymes. She presents with chest pain which is somewhat atypical in fashion. It is associated with mildly abnormal cardiac enzymes without the typical rise and fall pattern. I suspect the above is secondary to right ventricular strain. This is more than likely secondary to her pulmonary embolism. My recommendation at this time would be to continue anticoagulation and I would not pursue any further cardiac workup. Of note is the fact that she had a stress test performed within the last 3 months we did not demonstrate any evidence of obvious ischemia. In addition prior to her aortic valve replacement she was noted to have no significant coronary artery disease. I would also recommend discontinuing her clopidogrel at this time to minimize any chance for bleeding short-term. This can be resumed later when she is off the Eliquis or on her lower dose. 2. Left ventricular systolic dysfunction She appears to have a cardiomyopathy the etiology of which is not entirely clear accompanied by left bundle branch block. She will continued to have supportive management with beta-chloe and JUAN inhibitor as tolerated. 3. Pulmonary hypertension She does have evidence of pulmonary hypertension which is likely secondary to her pulmonary artery emboli. Hopefully this should improve with anticoagulation and a repeat echocardiogram should be performed in 3-6 months to reassess her pulmonary pressures. Thank you for allowing me to participate in the care of your patient. Please don't hesitate to call if any issues arise
--- NOTE | 2018-03-13 19:23 | CON.PCM_ITS ---
Reason for Consult Date of Consultation: 03/13/18 Reason for Consultation: Chest pain and abnormal troponin History of Present Illness: The patient is a 77 year old F known to Dr. 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 Her coronaries at that time were normal and did not require any bypass surgery during her aortic valve replacement. She had been doing cardiac rehabilitation and has completed this. She presented to the hospital in December of this year with chest discomfort she was noted to have a mildly elevated troponin she underwent a pharmacologic myocardial perfusion stress test but did not demonstrate any evidence of ischemia. She presented to the emergency room yesterday with chest discomfort described as a heaviness radiating to her right arm. She was evaluated in the emergency room her troponins were noted to be minimally elevated but not more than before she underwent a CAT scan of the chest which demonstrated bilateral pulmonary emboli. Her electrocardiogram shows normal sinus rhythm with a left bundle branch block, but it was not clear whether there was some changes in lead aVR. Cardiology was called to evaluate her on the basis of the above. She currently denies any chest pain or shortness of breath or paroxysmal nocturnal dyspnea and is under treatment for her pulmonary emboli. Past Medical History Allergies/Adverse Reactions: Allergies prochlorperazine edisylate [From Compazine] Allergy (Verified 03/12/18 03:47) Other prochlorperazine maleate [From Compazine] Allergy (Verified 03/12/18 03:47) Other tolmetin sodium [From Tolectin] Allergy (Verified 03/12/18 03:47) Other Home Medications: Ambulatory Orders Medication Instructions Recorded Insulin Aspart [Novolog Flexpen] See Protocol SC TIDCM 02/18/16 clopidogrel 75 mg tablet 75 mg PO QDAY tab 11/28/17 levothyroxine 88 mcg capsule 112 mcg PO DAILY cap 11/29/17 Ergocalciferol [Vitamin D] 50,000 unit PO QMONTH 12/27/17 Sitagliptin Phosphate [Januvia] 100 mg PO DAILY 05/01/18 Solifenacin Succinate [Vesicare] 10 mg PO DAILY 12/27/17 Atorvastatin Calcium [Lipitor] 80 mg PO QHS 01/02/18 Metoprolol Tartrate [Lopressor 12.5 mg PO BID 01/02/18 (beta chloe)] Furosemide [Lasix] 40 mg PO DAILY #0 tab 01/03/18 Insulin Detemir [Levemir FlexPen] 30 units SC DAILY #0 01/03/18 Oxygen, Home [Home Oxygen] 2 lpm NASAL CONT #1 unit 01/03/18 Memantine HCl 5 mg PO BID 03/12/18 Vortioxetine Hydrobromide 10 mg PO DAILY 03/12/18 [Brintellix] Apixaban [Eliquis] 10 mg PO BID #62 tab 03/13/18 Past Medical History (Chronic Problems): Chronic Problems (Last Reviewed 11/29/17 @ 13:02 by Mora Meidna) Thrombocytopenia (Chronic) Fibromyalgia (Chronic) Dementia (Chronic) Uncontrolled diabetes mellitus (Chronic) Obesity (Chronic) H/O aortic valve replacement (Chronic ~02/06/16) 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 with left carotid endarterectomy @ [place] by Dr Lerma 02/06/16 Non-rheumatic aortic stenosis (Chronic) COPD (chronic obstructive pulmonary disease) (Chronic) Secondary pulmonary arterial hypertension (Chronic) Hyperlipidemia (Chronic) Chronic diastolic heart failure (Chronic) CVA (cerebral infarction) (Chronic) Hypertension (Chronic) Hypothyroidism (Chronic) Paroxysmal a-fib (Chronic) Surgical History: appendectomy, cataract, - - Aortic Valve replacement, left carotid endarterectomy, shoulder surgery Psychiatric History: No pertinent psych hx PHARMACY CASHIER History: No pertinent PHARMACY CASHIER history - *Family History Maternal Family History: Family History (Last Reviewed 11/29/17 @ 13:02 by Mora Medina) Mother CVA (cerebral vascular accident) Diabetes History Items: Diabetes, Stroke Paternal Family History: Family History (Last Reviewed 11/29/17 @ 13:02 by Mora Medina) Mother CVA (cerebral vascular accident) Diabetes History Items: Cancer Sibling Family History: Family History (Last Reviewed 11/29/17 @ 13:02 by Mora Medina) Mother CVA (cerebral vascular accident) Diabetes History Items: Hypertension Smoking Status: Former smoker Alcohol: None Review of Systems - Review of Systems General: Denies: Fever, Night Sweats, Fatigue Cardiovascular: Reports: Chest Discomfort, Chest Discomfort with Exertion. Denies: Shortness of Breath, Orthopnea, PND, Peripheral Edema, Palpitations, Lightheadedness, Dizziness, Near Syncope, Syncope Respiratory: Denies: Cough, Sputum Production, Hemoptysis Gastrointestinal: Denies: Hematemesis, Hematochezia, Melena Genitourinary: Denies: Dysuria, Hematuria Skin: Denies: Rash Subjectve: Pleasant lady in no apparent distress sitting in chair Objective: Vital Signs Temp Pulse Resp BP Pulse Ox 97.8 F 88 18 125/60 H 97 03/13/18 14:50 03/13/18 18:49 03/13/18 14:50 03/13/18 14:50 03/13/18 14:50 Oxygen Flow Rate (L/min) 2 Oxygen Delivery Method Nasal Cannula Weight: 192 lb 3.889 oz Body Mass Index (BMI) 36.3 Intake and Output for Last 24 Hours 03/11/18 03/12/18 03/13/18 23:59 23:59 23:59 Intake Total 1371.1 / 1371.1 1210 / 1210 Balance 1371.1 / 1371.1 1210 / 1210 General: Awake, Alert, Oriented x 3 HEENT: PERRL, EOMI, Sclera Non Icteric Neck: Supple, Good ROM, No Lymph Node Enlargement Lungs: Clear to auscultation Cardiovascular: Regular Rhythm, Normal S1, Normal S2, No Murmurs, No Rubs, No Gallops Vascular: No Carotid Bruits, Normal Femoral Pulses, Normal Radial Pulses, Normal Dorsalis Pedal Pulse, Normal Posterior Tibial Pulses Abdomen: Bowel Sounds Present, Soft, Non Tender, No HSM, No Organomegaly Extremities: No Cyanosis, No Clubbing, No edema Neurological: No Focal Motor or Sensory Deficit Psych/Mental Status: Appropriate 03/13/18 05:25: WBC 7.1, RBC 4.17 L, Hgb 12.3, Hct 38.4, MCV 92.1, MCH 29.5, MCHC 32.0, RDW 14.5, RDW Differential 48.8 H, Plt Count 141 L, MPV 10.5 03/13/18 05:25: Sodium 144, Potassium 3.9, Chloride 106, Carbon Dioxide 29.0, Anion Gap 9, BUN 29 H, Creatinine 1.27 H, Est GFR (MDRD) Af Amer 52 L, Est GFR ( MDRD) Non-Af 43 L, BUN/Creatinine Ratio 22.8 H, Glucose 211 H, Calcium 7.9 L Rhythm: EKG: Sinus rhythm with a left bundle branch block ECHO: Global reduction in left ventricular systolic function estimated EF 25% with pulmonary to systolic pressure of 55 mmHg. Assessment/Plan 1. Chest pain normal cardiac enzymes. She presents with chest pain which is somewhat atypical in fashion. It is associated with mildly abnormal cardiac enzymes without the typical rise and fall pattern. I suspect the above is secondary to right ventricular strain. This is more than likely secondary to her pulmonary embolism. * My recommendation at this time would be to continue anticoagulation and I would not pursue any further cardiac workup. Of note is the fact that she had a stress test performed within the last 3 months we did not demonstrate any evidence of obvious ischemia. In addition prior to her aortic valve replacement she was noted to have no significant coronary artery disease. * I would also recommend discontinuing her clopidogrel at this time to minimize any chance for bleeding short-term. This can be resumed later when she is off the Eliquis or on her lower dose. * 2. Left ventricular systolic dysfunction She appears to have a cardiomyopathy the etiology of which is not entirely clear accompanied by left bundle branch block. She will continued to have supportive management with beta-chloe and JUAN inhibitor as tolerated. 3. Pulmonary hypertension She does have evidence of pulmonary hypertension which is likely secondary to her pulmonary artery emboli. Hopefully this should improve with anticoagulation and a repeat echocardiogram should be performed in 3-6 months to reassess her pulmonary pressures. Thank you for allowing me to participate in the care of your patient. Please don't hesitate to call if any issues arise
[2018-03-13] MEDS: Ipratropium/Albuterol Sulfate 3 ML AMPUL.NEB INHALATION (19:48)
--- NOTE | 2018-03-13 21:08 | EKG12_ITS ---
Test Reason : CP Blood Pressure : / mmHG Vent. Rate : 093 BPM Atrial Rate : 093 BPM P-R Int : 178 ms QRS Dur : 160 ms QT Int : 420 ms P-R-T Axes : 072 027 -06 degrees QTc Int : 522 ms Normal sinus rhythm Left bundle branch block Abnormal ECG When compared with ECG of 13-MAR-2018 12:21, MANUAL COMPARISON REQUIRED, DATA IS UNCONFIRMED Confirmed by ANTONINO CARRANZA, BOOKER ([id number]), acquisition editor JERSON TOVAR ([id number]) on 03/17/2018 2:00:04 PM Referred By: REKHA Confirmed By:BOOKER MUÑIZ MD
[2018-03-13] MEDS: Carvedilol 3.125 MG TABLET PO (22:06)
[2018-03-13] MEDS: Atorvastatin Calcium 80 MG Tablet PO (22:08)
[2018-03-13] MEDS: Memantine Hydrochloride 5 MG Tablet PO (22:12)
[2018-03-13 22:45] LABS: Bedside Glucose 242 mg/dL (70-110)
[2018-03-14] VITALS (7 sets, daily range): BP systolic 117–124; BP diastolic 72–75; PULSE 86–101; RESP 12–16; TEMP 36.8–37.1; O2SAT 94–98
[2018-03-14] MEDS: Acetaminophen 325 MG Tablet 650 MG PO (04:06)
[2018-03-14] MEDS: Nystatin Powder 15gm Bottle 1 APPLIC TOPICAL (06:09)
[2018-03-14] MEDS: Levothyroxine 112 MCG Tablet PO (06:09)
[2018-03-14] MEDS: Pregabalin 75 MG Capsule PO (06:09)
[2018-03-14 07:10] LABS: Bedside Glucose 252 mg/dL (70-110)
[2018-03-14] MEDS: Insulin Lispro 100 UNIT/ML INSULN.PEN SC ×3 (07:48→16:51)
--- NOTE | 2018-03-14 07:53 | PN.CARD_ITS ---
Subjectve: Patient seen and evaluated. Appears to be sleeping with no complaints. Objective: Vital Signs Temp Pulse Resp BP Pulse Ox 98.6 F 97 13 124/75 H 97 03/14/18 05:46 03/14/18 05:46 03/14/18 05:46 03/14/18 05:46 03/14/18 05:46 Oxygen Flow Rate (L/min) 2 Oxygen Delivery Method Nasal Cannula Weight: 192 lb 3.889 oz Body Mass Index (BMI) 36.3 Intake and Output for Last 24 Hours 03/12/18 03/13/18 03/14/18 23:59 23:59 23:59 Intake Total 1371.1 / 1371.1 2184 / 2184 543 / 543 Output Total 0 / 0 Balance 1371.1 / 1371.1 2184 / 2184 543 / 543 General: Awake, Alert, Oriented x 3 HEENT: PERRL, EOMI, Sclera Non Icteric Neck: Supple, Good ROM, No Lymph Node Enlargement Lungs: Clear to auscultation Cardiovascular: Regular Rhythm, Normal S1, Normal S2, No Murmurs, No Rubs, No Gallops Vascular: No Carotid Bruits, Normal Femoral Pulses, Normal Radial Pulses, Normal Dorsalis Pedal Pulse, Normal Posterior Tibial Pulses Abdomen: Bowel Sounds Present, Soft, Non Tender, No HSM, No Organomegaly Extremities: No Cyanosis, No Clubbing, No edema Neurological: No Focal Motor or Sensory Deficit Rhythm: EKG: ECHO: Stress Test: Cardiac Cath: PCI: CT Surgery: Holter monitor: EPS: PPM: CXR: Chest CT Scan: Medical Necessity - Tobacco Use Smoking Status: Former smoker Assessment/Plan 1. Chest pain normal cardiac enzymes. She presents with chest pain which is somewhat atypical in fashion. It is associated with mildly abnormal cardiac enzymes without the typical rise and fall pattern. I suspect the above is secondary to right ventricular strain. This is more than likely secondary to her pulmonary embolism. * My recommendation at this time would be to continue anticoagulation and I would not pursue any further cardiac workup. Of note is the fact that she had a stress test performed within the last 3 months we did not demonstrate any evidence of obvious ischemia. In addition prior to her aortic valve replacement she was noted to have no significant coronary artery disease. * I would also recommend discontinuing her clopidogrel at this time to minimize any chance for bleeding short-term. This can be resumed later when she is off the Eliquis or on her lower dose. * 2. Left ventricular systolic dysfunction She appears to have a cardiomyopathy the etiology of which is not entirely clear accompanied by left bundle branch block. She will continued to have supportive management with beta-chloe and JUAN inhibitor as tolerated. 3. Pulmonary hypertension She does have evidence of pulmonary hypertension which is likely secondary to her pulmonary artery emboli. Hopefully this should improve with anticoagulation and a repeat echocardiogram should be performed in 3-6 months to reassess her pulmonary pressures. No further changes noted as at this morning. Thank you for allowing me to participate in the care of your patient. Please don't hesitate to call if any issues arise
[2018-03-14] MEDS: Glucerna Shake 120 ML LIQUID PO ×2 (07:55→11:33)
[2018-03-14 08:06] LABS: Absolute Lymphocyte Count 1.06 X10^3/ul (0.83-4.51); Absolute Neutrophil Count 6.4 X10^3/uL (2.0-7.7); Basophil# 0.02 X10^3/uL; Basophil% 0.3 % (0-1); Eosinophils% 1.3 % (0-5); Hematocrit 37.3 % (37-47); Hemoglobin 11.8 g/dl (12.0-15.0); Lymphocyte # 1.06 X10^3/ul (4.0); Lymphocyte % 13.3 % (19-41); Mean Corp Hgb Conc 31.6 g/gl (32-36); Mean Corpuscular Hgb 29.4 pg (27.0-32.0); Mean Corpuscular Volume 92.8 fL (81-99); Mean Platelet Vol. 10.1 fl (6.2-12.0); Monocyte# 0.43 X10^3/uL; Monocyte% 5.4 % (0-10); Neutrophil # 6.35 X10^3/uL (2.7-7.7); Neutrophil % 79.4 % (47-70); Platelet Count 125 K/mm3 (150-450); RBC Distribution Width CV 14.5 % (11.6-14.6); RBC Distribution Width SD 49.8 fl (35.1-43.9); Red Blood Count 4.02 M/mm3 (4.2-5.4)
[2018-03-14 08:07] LABS: POSITIVE COUNT NO; POSITIVE DIFFERENTIAL NO; POSITIVE MORPHOLOGY NO
[2018-03-14 08:29] LABS: Anion Gap 5 (5-15); BUN 24 mg/dL (7-18); BUN/Creat Ratio 23.5 RATIO (10-20); Calcium,Total 8.1 mg/dL (8.5-10.1); Chloride 108 mmol/L (98-107); Creatinine, Serum 1.02 mg/dL (0.55-1.02); EST Glomerular Filtration Rate 56 mL/min (>60); Est Glom Filt Rate - Afr Amer 68 mL/min (>60); Estimated Creatinine Clearance 34.85 ml/min; Glucose 241 mg/dL (74-106); Sodium Level 142 mmol/L (136-145)
[2018-03-14] MEDS: Ipratropium/Albuterol Sulfate 3 ML AMPUL.NEB INHALATION (08:40)
[2018-03-14] MEDS: Famotidine 20 MG Tablet PO (09:52)
[2018-03-14] MEDS: LINAGLIPTIN 5 MG TABLET PO (09:52)
[2018-03-14] MEDS: Memantine Hydrochloride 5 MG Tablet PO (09:52)
[2018-03-14] MEDS: Magnesium Oxide 400 MG Tablet PO (09:52)
[2018-03-14] MEDS: Loratadine 10 MG Tablet PO (09:52)
[2018-03-14] MEDS: Tolterodine Tartrate 4 MG CAP.SA PO (09:52)
[2018-03-14] MEDS: APIXABAN 5 MG TABLET 10 MG PO (09:52)
[2018-03-14] MEDS: Carvedilol 3.125 MG TABLET PO (09:53)
[2018-03-14] MEDS: Escitalopram Oxalate 10 MG Tablet PO (09:53)
--- NOTE | 2018-03-14 10:20 | CASEMGMT ---
Social Work SW spoke with pt physician and pt is ready for d/c today. SW placed phone call to pt and informed that pt ready for d/c today. Pt does not feel he can take pt home and she needs SNF placement. Extensive conversation with spouse explaining medicare guidelines for hospital admission and SNF qualification. Explained that pt will not qualify for Medicare to cover SNF stay and pt will be private pay. says they are considering [facility] but is not agreeing to private pay. Spouse to talk to sons and will be in to talk with SW. Phone call to [facility] and room rate is $250 - $265 per day and 30 day payment is due upon admission. Per conversation between SW and family yesterday, family had considered [facility] in the past. SW placed call to [facility] and they do have beds available. They would need to assess pt for appropriateness. Laly at [facility] to call SW back with room rate information which can be passed on to family. SW to continue to follow. HILLARY Varela
--- NOTE | 2018-03-14 11:00 | CASEMGMT ---
Social Work Pt son Burce here and spoke with JAVAN. Explained to Bruce the Medicare coverage and plan for d/c today. Bruce voices understanding and states pt cannot return home at this time as pt father can no longer care for pt. [facility] is first choice and Bruce is understanding that pt will be private pay. Prices given to Bruce. Bruce also inquiring about [facility]. Phone call to [facility] and they do not have any female beds at this time. Bruce notified. [facility] is not an option at this time due to limited resources. Bruce feels pt can pay for one month and will then need to apply for Medicaid. Phone call placed to [facility] to check and see if they can accept pt. Bruce plans to talk to pt and explain the need for SNF and financial situation. JAVAN to followup. HILLARY Varela
--- NOTE | 2018-03-14 11:02 | PCM.TXEXTCAR ---
- Diet 03/13/18 17:58 1800 mouna, carbohydrate-controlled, cardiac/low sodium. Giles 1 packet BID 120 ml Glucerna Shake TID - Routine Orders/Code Status Enema Type: Fleetz Enema Frequency: Daily PRN Suppository Type: Dulcolax 10mg Suppository Frequency: Daily PRN O2 Liters per Minute: 2 O2 Frequency: Continuous Routine Lab Work: - - Repeat CBC, BMP within 1 week. - Wound(s) right buttock Wound Type: 3 small scabbed areas ? friction Dressing Change: Mepilex left buttock Wound Type: ? friction vs. pressure Dressing Change: applied a new Mepilex dressing - Suggestions for Active Care Change Position every (hours): 2 Hours to sit in a chair: 6 Times a day to sit in chair: 3 - Therapies Physical Therapy: Eval and Treat Occupational Therapy: Eval and Treat - Problem/Diagnosis (1) Pulmonary embolism Status: Acute Current Visit: Yes (2) Cardiomyopathy Status: Acute Comment: Etiology unclear w/ indeterminate cardiac enzymes, plan continue anticoagulation with repeat echocardiogram in 3-6 months to reassess pulmonary pressures per cardiology request. Continue supportive management with beta-chloe and JUAN inhibitor. 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 left carotid endarterectomy @ [place] by Dr Lerma 02/06/16 Current Visit: No (12) Non-rheumatic aortic stenosis Status: Chronic Current Visit: No (13) COPD (chronic obstructive pulmonary disease) Status: Chronic Current Visit: No (14) Secondary pulmonary arterial hypertension Status: Chronic Current Visit: No (15) Hyperlipidemia Status: Chronic Current Visit: No (16) Chronic diastolic heart failure Status: Chronic Current Visit: No (17) CVA (cerebral infarction) Status: Chronic Current Visit: No (18) Hypertension Status: Chronic Current Visit: No (19) Hypothyroidism Status: Chronic Current Visit: No (20) Paroxysmal a-fib Status: Chronic Current Visit: No - Allergies/Procedures Done in Hospital Allergies/Adverse Reactions: Allergies prochlorperazine edisylate [From Compazine] Allergy (Verified 03/12/18 03:47) Other prochlorperazine maleate [From Compazine] Allergy (Verified 03/12/18 03:47) Other tolmetin sodium [From Tolectin] Allergy (Verified 03/12/18 03:47) Other Procedures: 2-D Echocardiogram, EKG - Type of Care/Length of Stay Estimated LOS: Convalescent Care Less Than 30 days Type of Care Needed: Skilled Rehab Potential: Fair Prognosis: Fair - Additional Orders/Day of Discharge Additional Orders: (1) HOB, aspiration precautions. (2) Fall precautions. (3) Continue IS 10x/hr 7a-7p. (4) Continue home chronic 2L NC supplementation. (5) Encourage CPAP usage q HS, has been non-compliant [facility]. (6) For recent cardiomyopathy, unclear type, continue coreg and low dose lisinopril with hold parameters as noted. (7) Plan repeat ECHO per Cardiology direction in 3-6 months. (8) Hypercoaguable panel pending, obtained upon admission, will need to be reviewed with patient PCP or SNF Physician. H&P will serve as current which was dated: 03/12/18 Day of Discharge: 03/14/18 - Dietary and Speech Recommendations Dietitian Recommendations/Changes: Suggest diet change to 1800 mouna, carbohydrate-controlled, cardiac/low sodium. Consider Giles 1 packet BID for wound healing--order from pharmacy. Continue 120 ml Glucerna Shake TID on medpass as tolerated. - Follow Up Care Primary Care Physician: Micheal Teran Chi, MD [Primary Care Provider] - Please follow up with your Primary Care Physician in: Follow-up within 1-2 days SNF discharge planned. Please Follow Up With: Ricky Gregg MD When: Follow-up 2-4 weeks, may see REGISTERED RADIATION THERAPIST
--- NOTE | 2018-03-14 11:12 | TREXTCAR_ITS ---
- Diet 03/13/18 17:58 1800 mouna, carbohydrate-controlled, cardiac/low sodium. Giles 1 packet BID 120 ml Glucerna Shake TID - Routine Orders/Code Status Enema Type: Fleetz Enema Frequency: Daily PRN Suppository Type: Dulcolax 10mg Suppository Frequency: Daily PRN O2 Liters per Minute: 2 O2 Frequency: Continuous Routine Lab Work: - - Repeat CBC, BMP within 1 week. - Wound(s) right buttock Wound Type: 3 small scabbed areas ? friction Dressing Change: Mepilex left buttock Wound Type: ? friction vs. pressure Dressing Change: applied a new Mepilex dressing - Suggestions for Active Care Change Position every (hours): 2 Hours to sit in a chair: 6 Times a day to sit in chair: 3 - Therapies Physical Therapy: Eval and Treat Occupational Therapy: Eval and Treat - Problem/Diagnosis (1) Pulmonary embolism Status: Acute Current Visit: Yes (2) Cardiomyopathy Status: Acute Comment: Etiology unclear w/ indeterminate cardiac enzymes, plan continue anticoagulation with repeat echocardiogram in 3-6 months to reassess pulmonary pressures per cardiology request. Continue supportive management with beta-chloe and JUAN inhibitor. 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 left carotid endarterectomy @ [place] by Dr Lerma 02/06/16 Current Visit: No (12) Non-rheumatic aortic stenosis Status: Chronic Current Visit: No (13) COPD (chronic obstructive pulmonary disease) Status: Chronic Current Visit: No (14) Secondary pulmonary arterial hypertension Status: Chronic Current Visit: No (15) Hyperlipidemia Status: Chronic Current Visit: No (16) Chronic diastolic heart failure Status: Chronic Current Visit: No (17) CVA (cerebral infarction) Status: Chronic Current Visit: No (18) Hypertension Status: Chronic Current Visit: No (19) Hypothyroidism Status: Chronic Current Visit: No (20) Paroxysmal a-fib Status: Chronic Current Visit: No - Allergies/Procedures Done in Hospital Allergies/Adverse Reactions: Allergies prochlorperazine edisylate [From Compazine] Allergy (Verified 03/12/18 03:47) Other prochlorperazine maleate [From Compazine] Allergy (Verified 03/12/18 03:47) Other tolmetin sodium [From Tolectin] Allergy (Verified 03/12/18 03:47) Other Procedures: 2-D Echocardiogram, EKG - Type of Care/Length of Stay Estimated LOS: Convalescent Care Less Than 30 days Type of Care Needed: Skilled Rehab Potential: Fair Prognosis: Fair - Additional Orders/Day of Discharge Additional Orders: (1) HOB, aspiration precautions. (2) Fall precautions. (3) Continue IS 10x/hr 7a-7p. (4) Continue home chronic 2L NC supplementation. (5 ) Encourage CPAP usage q HS, has been non-compliant [facility]. (6) For recent cardiomyopathy, unclear type, continue coreg and low dose lisinopril with hold parameters as noted. (7) Plan repeat ECHO per Cardiology direction in 3-6 months. (8) Hypercoaguable panel pending, obtained upon admission, will need to be reviewed with patient PCP or SNF Physician. H&P will serve as current which was dated: 03/12/18 Day of Discharge: 03/14/18 - Dietary and Speech Recommendations Dietitian Recommendations/Changes: Suggest diet change to 1800 mouna, carbohydrate -controlled, cardiac/low sodium. Consider Giles 1 packet BID for wound healing- -order from pharmacy. Continue 120 ml Glucerna Shake TID on medpass as tolerated. - Follow Up Care Primary Care Physician: Micheal Teran Chi, MD [Primary Care Provider] - Please follow up with your Primary Care Physician in: Follow-up within 1-2 days SNF discharge planned. Please Follow Up With: Ricky Gregg MD When: Follow-up 2-4 weeks, may see SHRUB GROWER
--- NOTE | 2018-03-14 11:21 | PCM.DC ---
- Discharge Diagnoses Current Active Problems: Current Active and Chronic Problems (Last Reviewed 11/29/17 @ 13:02 by Mora Medina) (1) Atypical chest pain secondary to Pulmonary Embolism, Suspected secondary to prolonged immobility but pending hypercoaguable panel (2) Acute kidney injury, Secondary to #1, nephrotoxic regimen, resolved (3) Indeterminate cardiac enzymes w/ Reduced EF w/ Cardiomyopathy, Unclear Etiology (THIS IS NOT AN NSTEMI) (4) CAD (5) Valvular Heart Disease w/ Aortic Stenosis s/p AVR w/ Jasbir Perceval stentless sutureless pericardial valve. (6) Hypothyroidism (7) Diabetes mellitus type II (8) PAF (9) Hypertension (10) Hyperlipidemia (11) Anxiety and Depression (12) Chronic COPD (13) Diastolic CHF (14) GERD (15) Chronic thrombocytopenia (16) Carotid disease s/p L CEA (17) Dementia Unclear Type without behavioral disturbance history (18) Chronic Hypoxic Respiratory Failure secondary to Chronic COPD, CHF You will use the following diet at home:: Calorie/Carbohydrate Controlled (specify 1200, 1400, etc) - ADA 1800 and cardiac diet encouraged. Your food should be the consistency of: Regular Your liquids should be the consistency of: Regular/Thin Discharge Activity: - - Encourage continued activities with therapies, increased activity parameters per PCP discretion upon re-evaluation. Encourage out of bed to chair for all meals and routine ambulation. May resume sexual activity in: 10-14 days Weight Bearing Status: Weight bearing as tolerated Call your doctor if you observe: Fever of 101 or Higher, Inability to urinate, Inability to have a bowel movement, Shortness of breath, Dizziness, Fainting spells, Chest pain, Uncontrolled pain Instructions: Pulmonary Embolism, Discharge Instructions for Pulmonary Embolism, Discharge Instructions for Acute Kidney Injury, Living with Cardiomyopathy, Medications for Cardiomyopathy, Discharge Instructions for Cardiomyopathy Additional Instructions: Please have repeat CBC and BMP with your primary care physician at follow-up. Upon discharge you have a hypercoaguable panel that is pending although your pulmonary embolism is suspected secondary to prolonged inactivity. During the admission you had noted acute renal injury but this resolved but repeat basic metabolic panel with your primary care physician has been requested. During the admission you had mild elevations of your cardiac enzymes with US of the heart (Echocardiogram) that demonstrationed mildly decreased function which Cardiology notes is secondary to Cardiomyopathy of unclear type. The plan is to continue the eliquis, coreg (beta-karlie changed from your prior metoprolol), low dose lisinopril if your blood pressure allows with repeat US of the heart in 3-6 months with follow-up with Dr. Gregg. Additionally, continue the nystatin powder to affected regions to assist in resolving the skin fungal infection and may stop once abdominal folds appear healthy. Allergies/Adverse Reactions: Allergies prochlorperazine edisylate [From Compazine] Allergy (Verified 03/12/18 03:47) Other prochlorperazine maleate [From Compazine] Allergy (Verified 03/12/18 03:47) Other tolmetin sodium [From Tolectin] Allergy (Verified 03/12/18 03:47) Other Medications to take at Discharge Insulin Aspart [Novolog Flexpen] See Protocol SC TIDCM 02/18/16 levothyroxine 88 mcg capsule 112 mcg PO DAILY cap 11/29/17 Ergocalciferol [Vitamin D] 50,000 unit PO QMONTH 12/27/17 Sitagliptin Phosphate [Januvia] 100 mg PO DAILY 12/27/17 Solifenacin Succinate [Vesicare] 10 mg PO DAILY 12/27/17 Atorvastatin Calcium [Lipitor] 80 mg PO QHS 01/02/18 Furosemide [Lasix] 40 mg PO DAILY #0 tab 01/03/18 Insulin Detemir [Levemir FlexPen] 30 units SC DAILY #0 01/03/18 Oxygen, Home [Home Oxygen] 2 lpm NASAL CONT #1 unit 01/03/18 Memantine HCl 5 mg PO BID 03/12/18 Vortioxetine Hydrobromide [Trintellix] 10 mg PO DAILY 03/12/18 Apixaban [Eliquis] 10 mg PO BID #62 tab 03/13/18 Acetaminophen [Tylenol Tablet] 650 mg PO Q6H PRN PRN tablet 03/14/18 Albuterol Aerosols [Ventolin Aerosols] 2.5 mg INHALATION Q2H PRN PRN #1 box 03/14/18 Carvedilol [Coreg (Beta Karlie)] 3.125 mg PO BID #60 tablet 03/14/18 Escitalopram Oxalate [Lexapro] 10 mg PO DAILY tablet 03/14/18 Glucerna Shake 120 ml PO TIDCM liquid 03/14/18 Ipratropium/Albuterol Sulfate [Duoneb] 3 ml INHALATION Q6HWA.RT #1 box 03/14/18 Lisinopril [Zestril] 2.5 mg PO DAILY #30 tablet 03/14/18 Nystatin Powder [Mycostatin Powder] 1 applic TOPICAL TID #1 bottle 03/14/18 The following prescriptions were given: Albuterol Aerosols [Ventolin Aerosols] 2.5 mg INHALATION Q2H PRN PRN #1 box PRN Reason: dyspnea, wheezing Ipratropium/Albuterol Sulfate [Duoneb] 3 ml INHALATION Q6HWA.RT #1 box Lisinopril [Zestril] 2.5 mg PO DAILY #30 tablet Apixaban [Eliquis] 10 mg PO BID #62 tab Carvedilol [Coreg (Beta Karlie)] 3.125 mg PO BID #60 tablet Nystatin Powder [Mycostatin Powder] 1 applic TOPICAL TID #1 bottle Primary Care Physician: Mihceal Teran Chi, MD [Primary Care Provider] - Please follow up with your Primary Care Physician in: Follow-up within 1-2 days SNF discharge planned. Test Results: Test results from this visit will be discussed in further detail at your follow-up appointment, if applicable. Please Follow Up With: Ricky Gregg MD When: Follow-up 2-4 weeks, may see LEPIDOPTERIST Proposed Discharge Date: 03/14/18
--- NOTE | 2018-03-14 11:31 | DCINST_ITS ---
- Discharge Diagnoses Current Active Problems: Current Active and Chronic Problems (Last Reviewed 11/29/17 @ 13:02 by Mora Medina) (1) Atypical chest pain secondary to Pulmonary Embolism, Suspected secondary to prolonged immobility but pending hypercoaguable panel (2) Acute kidney injury, Secondary to #1, nephrotoxic regimen, resolved (3) Indeterminate cardiac enzymes w/ Reduced EF w/ Cardiomyopathy, Unclear Etiology (THIS IS NOT AN NSTEMI) (4) CAD (5) Valvular Heart Disease w/ Aortic Stenosis s/p AVR w/ Jasbir Perceval stentless sutureless pericardial valve. (6) Hypothyroidism (7) Diabetes mellitus type II (8) PAF (9) Hypertension (10) Hyperlipidemia (11) Anxiety and Depression (12) Chronic COPD (13) Diastolic CHF (14) GERD (15) Chronic thrombocytopenia (16) Carotid disease s/p L CEA (17) Dementia Unclear Type without behavioral disturbance history (18) Chronic Hypoxic Respiratory Failure secondary to Chronic COPD, CHF You will use the following diet at home:: Calorie/Carbohydrate Controlled ( specify 1200, 1400, etc) - ADA 1800 and cardiac diet encouraged. Your food should be the consistency of: Regular Your liquids should be the consistency of: Regular/Thin Discharge Activity: - - Encourage continued activities with therapies, increased activity parameters per PCP discretion upon re-evaluation. Encourage out of bed to chair for all meals and routine ambulation. May resume sexual activity in: 10-14 days Weight Bearing Status: Weight bearing as tolerated Call your doctor if you observe: Fever of 101 or Higher, Inability to urinate, Inability to have a bowel movement, Shortness of breath, Dizziness, Fainting spells, Chest pain, Uncontrolled pain Instructions: Pulmonary Embolism, Discharge Instructions for Pulmonary Embolism , Discharge Instructions for Acute Kidney Injury, Living with Cardiomyopathy, Medications for Cardiomyopathy, Discharge Instructions for Cardiomyopathy Additional Instructions: Please have repeat CBC and BMP with your primary care physician at follow-up. Upon discharge you have a hypercoaguable panel that is pending although your pulmonary embolism is suspected secondary to prolonged inactivity. During the admission you had noted acute renal injury but this resolved but repeat basic metabolic panel with your primary care physician has been requested. During the admission you had mild elevations of your cardiac enzymes with US of the heart (Echocardiogram) that demonstrationed mildly decreased function which Cardiology notes is secondary to Cardiomyopathy of unclear type. The plan is to continue the eliquis, coreg (beta-karlie changed from your prior metoprolol), low dose lisinopril if your blood pressure allows with repeat US of the heart in 3-6 months with follow-up with Dr. Gregg. Additionally, continue the nystatin powder to affected regions to assist in resolving the skin fungal infection and may stop once abdominal folds appear healthy. Allergies/Adverse Reactions: Allergies prochlorperazine edisylate [From Compazine] Allergy (Verified 03/12/18 03:47) Other prochlorperazine maleate [From Compazine] Allergy (Verified 03/12/18 03:47) Other tolmetin sodium [From Tolectin] Allergy (Verified 03/12/18 03:47) Other Medications to take at Discharge Insulin Aspart [Novolog Flexpen] See Protocol SC TIDCM 02/18/16 levothyroxine 88 mcg capsule 112 mcg PO DAILY cap 11/29/17 Ergocalciferol [Vitamin D] 50,000 unit PO QMONTH 12/27/17 Sitagliptin Phosphate [Januvia] 100 mg PO DAILY 12/27/17 Solifenacin Succinate [Vesicare] 10 mg PO DAILY 12/27/17 Atorvastatin Calcium [Lipitor] 80 mg PO QHS 01/02/18 Furosemide [Lasix] 40 mg PO DAILY #0 tab 01/03/18 Insulin Detemir [Levemir FlexPen] 30 units SC DAILY #0 01/03/18 Oxygen, Home [Home Oxygen] 2 lpm NASAL CONT #1 unit 01/03/18 Memantine HCl 5 mg PO BID 03/12/18 Vortioxetine Hydrobromide [Trintellix] 10 mg PO DAILY 03/12/18 Apixaban [Eliquis] 10 mg PO BID #62 tab 03/13/18 Acetaminophen [Tylenol Tablet] 650 mg PO Q6H PRN PRN tablet 03/14/18 Albuterol Aerosols [Ventolin Aerosols] 2.5 mg INHALATION Q2H PRN PRN #1 box Carvedilol [Coreg (Beta Karlie)] 3.125 mg PO BID #60 tablet 03/14/18 Escitalopram Oxalate [Lexapro] 10 mg PO DAILY tablet 03/14/18 Glucerna Shake 120 ml PO TIDCM liquid 03/14/18 Ipratropium/Albuterol Sulfate [Duoneb] 3 ml INHALATION Q6HWA.RT #1 box 03/14/18 Lisinopril [Zestril] 2.5 mg PO DAILY #30 tablet 03/14/18 Nystatin Powder [Mycostatin Powder] 1 applic TOPICAL TID #1 bottle 03/14/18 The following prescriptions were given: Albuterol Aerosols [Ventolin Aerosols] 2.5 mg INHALATION Q2H PRN PRN #1 box PRN Reason: dyspnea, wheezing Ipratropium/Albuterol Sulfate [Duoneb] 3 ml INHALATION Q6HWA.RT #1 box Lisinopril [Zestril] 2.5 mg PO DAILY #30 tablet Apixaban [Eliquis] 10 mg PO BID #62 tab Carvedilol [Coreg (Beta Karlie)] 3.125 mg PO BID #60 tablet Nystatin Powder [Mycostatin Powder] 1 applic TOPICAL TID #1 bottle Primary Care Physician: Micheal Teran Chi, MD [Primary Care Provider] - Please follow up with your Primary Care Physician in: Follow-up within 1-2 days SNF discharge planned. Test Results: Test results from this visit will be discussed in further detail at your follow- up appointment, if applicable. Please Follow Up With: Ricky Gregg MD When: Follow-up 2-4 weeks, may see DIESEL TRUCK TECHNICIAN Proposed Discharge Date: 03/14/18
[2018-03-14 11:55] LABS: Bedside Glucose 212 mg/dL (70-110)
--- NOTE | 2018-03-14 14:05 | CASEMGMT ---
Addendum entered by Anna Mosher 03/14/18 15:05: Return call from Mandy at the [facility] and they are able to accept pt as long as family brings in one months payment today. JAVAN requested Mandy speak directly with pt family to clarify the financial aspect of this placement. JAVAN explained to spouse and son Avery that [facility] can accept and request spouse call Mandy to work of financial piece. Spouse agreeable and making call. After SW left room, SW received phone call from M[facility] at [facility] who states family has agreed to pay and are on the way to bank to get money. Pt cannot be transferred to [facility] until family arrives at the [facility] with payment. Mandy will contact JAVAN when this happens. HILLARY Varela Original Note: Social Work Met with pt, spouse and son Avery and explained that pt is ready for d/c today and that pt will be private pay if choosing to place in facility. Spouse states he is now understanding of this and agreeable and would like pt placed at [facility]. Phone call placed and message left requesting return call. Referral faxed. Mandy returned call and will assess if they can accept pt and call JAVAN back. Family aware that we are waiting on [facility] determination. HILLARY Varela
--- NOTE | 2018-03-14 15:49 | PCM.DC.SUM ---
Discharge Date and Diagnosis - Problem List Patient Problems: Active and Suspected Problems (Last Reviewed 11/29/17 @ 13:02 by Mora Medina) Pulmonary embolism (Acute) Acute kidney injury (Acute) Cardiac enzymes elevated (Acute) Cardiomyopathy (Acute) Etiology unclear w/ indeterminate cardiac enzymes, plan continue anticoagulation with repeat echocardiogram in 3-6 months to reassess pulmonary pressures per cardiology request. Continue supportive management with beta-karlie and JUAN inhibitor. Date of Admission: 03/12/18 Date of Discharge: 03/14/18 - Primary Discharge Diagnosis Active and Suspected Problems (Last Reviewed 11/29/17 @ 13:02 by Mora Medina) Acute Pulmonary emboli bilateral (Acute) suspected 2/2 immobility Acute kidney injury (Acute) Cardiac enzymes elevated (Acute) 2/2 above Cardiomyopathy (Acute) Etiology unclear w/ indeterminate cardiac enzymes, plan continue anticoagulation with repeat echocardiogram in 3-6 months to reassess pulmonary pressures per cardiology request. Continue supportive management with beta-karlie and JUAN inhibitor. CAD s/p aortic valve repair Hypothyroidism DMt2 PAF HLD Anx/depression GERD Chronic diastolic CHF chronic thrombocytopenia hx dementia chronic hypoxic respiratory failure 2/2 copd/chf - Secondary Discharge Diagnosis Chronic Problems (Last Reviewed 11/29/17 @ 13:02 by Mora Medina) Diabetes mellitus, type II (Chronic) Chronic respiratory failure with hypoxia (Chronic) Thrombocytopenia (Chronic) Fibromyalgia (Chronic) Dementia (Chronic) Uncontrolled diabetes mellitus (Chronic) Obesity (Chronic) H/O aortic valve replacement (Chronic ~02/06/16) 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 with left carotid endarterectomy @ [facility] by Dr Lerma 02/06/16 Non-rheumatic aortic stenosis (Chronic) COPD (chronic obstructive pulmonary disease) (Chronic) Secondary pulmonary arterial hypertension (Chronic) Hyperlipidemia (Chronic) Chronic diastolic heart failure (Chronic) CVA (cerebral infarction) (Chronic) Hypertension (Chronic) Hypothyroidism (Chronic) Paroxysmal a-fib (Chronic) Hospital Course and Treatment Imaging Results: CT/CTA Chest W/WO Contrast IMPRESSION: Bilateral right greater than left pulmonary arterial emboli. These findings were discussed on the telephone with Dr. Alvarado at 551 hrs. EST on 03/12/2018. No pulmonary edema, congestive heart failure or confluent pneumonia. Mild chronic appearing interstitial disease, nonspecific groundglass opacification and atelectasis. Atherosclerosis, cardiomegaly, coronary artery disease, post cardiac surgery, degenerative changes felt to be nonacute findings. RAD/Chest 1 View (Portable) IMPRESSION: Stable mild cardiomegaly. Venous US Interpretation Summary Deep veins of the lower extremities are bilaterally patent and compressible segmentally. There is no evidence of deep vein thrombosis on either side. Valvular competence appears intact within the proximal deep venous systems bilaterally. The greater saphenous veins appear bilaterally patent and compressible segmentally. Pulsatile flow is noted in the deep venous system bilaterally, which may be indicative of elevated central venous pressure (i.e. congestive heart failure, tricuspid valve insufficiency, etc.). Clinical correlation is advised. Echo: Interpretation Summary Mildly dilated left ventricle. The estimated ejection fraction is 25 %. Moderately severe global left ventricular systolic dysfunction. Septal motion consistent with IVCD. Mild-Moderate (1-2+) eccentric mitral valve insufficiency. Moderate (2+) tricuspid valve insufficiency. Pulmonary artery systolic pressure is 55 mmHg. Moderate pulmonary hypertension. Compared to the previous echo the LV is worse and the pulmonary pressures are higher Consultations 03/12/18 18:47 Consult: Onc/Wound/sand worker Routine Comment: Reason for Consult:: Sores on Bottom Operations: None Procedures: 2-D Echocardiogram Summary of Care Provided: Physical exam on day of discharge: General: Resting comfortably NAD Psych: A/Ox3 normal affect HEENT: [place]ARR[place] AT NC Neck: Supple NT CV: RRR no m/t/r/g/h Resp: CTA Abd: [id number] Soft NT no guarding or rigidity Ext: DP2+= no edema Skin: W/D normal turgor Lymph/Heme: No active bleeding or adenopathy Neuro: CN2-12 intact Hospital course: The patient is a 77 year old F with hx as above who presented to the ER with right arm pain radiating into her neck. A CTA chest was obtained and demonstrated bilateral PEs. She was placed on heparin and admitted to the PCU. She had indeterminate troponin and EKG changes, an echo was obtained and demonstrated right heart strain. Cardiology was consulted. She was placed on eliquis for PO anticoagulation. It was felt that this PE was likely 2/2 immobility as she has been very weak since her last admission. A hypercoag panel is pending. US LE was negative for DVTs. She does have underlying CAD, and medications were reviewed by cardiology. Her medications going forward will include coreg, lisinpril, eliquis, lipitor. She will go home on oxygen, she was using her oxygen secondary to chronic hypoxic respiratory failure from COPD as needed at home prior, she will be using it permanently until it is able to be weaned off at the long-term. She was discharged to SNF in stable condition. She will need follow up with cardiology in two weeks and a repeat echo in 3-6 months. This patient was seen by Ricardo Rivero PA-C under the supervision of Dr. Mane. [] Discharge Diet: Low fat/ Low Cholesterol, 1800 Calorie Control Diet, 2000 mg Sodium Diet Discharge Activity: Return to Normal Activity, - - Encourage continued activities with therapies, increased activity parameters per PCP discretion upon re-evaluation. Encourage out of bed to chair for all meals and routine ambulation. May resume sexual activity in: 10-14 days Weight Bearing Status: Weight bearing as tolerated Call your doctor if you observe: Fever of 101 or Higher, Inability to urinate, Inability to have a bowel movement, Shortness of breath, Dizziness, Fainting spells, Chest pain, Uncontrolled pain Home Medications: Medications to take at Discharge Insulin Aspart [Novolog Flexpen] See Protocol SC TIDCM 02/18/16 levothyroxine 88 mcg capsule 112 mcg PO DAILY cap 11/29/17 Ergocalciferol [Vitamin D] 50,000 unit PO QMONTH 12/27/17 Sitagliptin Phosphate [Januvia] 100 mg PO DAILY 12/27/17 Solifenacin Succinate [Vesicare] 10 mg PO DAILY 12/27/17 Atorvastatin Calcium [Lipitor] 80 mg PO QHS 01/02/18 Furosemide [Lasix] 40 mg PO DAILY #0 tab 01/03/18 Insulin Detemir [Levemir FlexPen] 30 units SC DAILY #0 01/03/18 Oxygen, Home [Home Oxygen] 2 lpm NASAL CONT #1 unit 01/03/18 Memantine HCl 5 mg PO BID 03/12/18 Vortioxetine Hydrobromide [Trintellix] 10 mg PO DAILY 03/12/18 Apixaban [Eliquis] 10 mg PO BID #62 tab 03/13/18 Acetaminophen [Tylenol Tablet] 650 mg PO Q6H PRN PRN tablet 03/14/18 Albuterol Aerosols [Ventolin Aerosols] 2.5 mg INHALATION Q2H PRN PRN #1 box 03/14/18 Carvedilol [Coreg (Beta Karlie)] 3.125 mg PO BID #60 tab 03/14/18 Escitalopram Oxalate [Lexapro] 10 mg PO DAILY tablet 03/14/18 Glucerna Shake 120 ml PO TIDCM liquid 03/14/18 Ipratropium/Albuterol Sulfate [Duoneb] 3 ml INHALATION Q6HWA.RT #1 box 03/14/18 Lisinopril [Zestril] 2.5 mg PO DAILY #30 tab 03/14/18 Nystatin Powder [Mycostatin Powder] 1 applic TOPICAL TID #1 bottle 03/14/18 Following Prescrptions Were Given to Patient: Albuterol Aerosols [Ventolin Aerosols] 2.5 mg INHALATION Q2H PRN PRN #1 box PRN Reason: dyspnea, wheezing Apixaban [Eliquis] 10 mg PO BID #62 tab Carvedilol [Coreg (Beta Karlie)] 3.125 mg PO BID #60 tab Ipratropium/Albuterol Sulfate [Duoneb] 3 ml INHALATION Q6HWA.RT #1 box Lisinopril [Zestril] 2.5 mg PO DAILY #30 tab Nystatin Powder [Mycostatin Powder] 1 applic TOPICAL TID #1 bottle Primary Care Physician: Micheal Teran Chi, MD [Primary Care Provider] - Please follow up with your Primary Care Physician in: Follow-up within 1-2 days SNF discharge planned. Please Follow Up With: Ventura Ragsdale MD When: Follow-up 2-4 weeks, may see PLATE FILLER Patient Instructions: Pulmonary Embolism, Living with Cardiomyopathy, Medications for Cardiomyopathy, Discharge Instructions for Acute Kidney Injury, Discharge Instructions for Cardiomyopathy, Discharge Instructions for Pulmonary Embolism Disposition: [facility] facility Minutes spent on discharge:: 35 Patient Condition:: Stable Medical Necessity - Tobacco Use Smoking Status: Former smoker Meaningful Use Info Meaningful Use Diagnoses (Choose all that apply): VTE - VTE Anticoag overlap given w/in hospital stay or rx'd at dc?: Yes Pt receive overlap for 5 days?: No Reason overlap not ordered, prescribed, or given for 5 days: Procedure Not Indicated
--- NOTE | 2018-03-14 16:06 | DS.PCM_ITS ---
Discharge Date and Diagnosis - Problem List Patient Problems: Active and Suspected Problems (Last Reviewed 11/29/17 @ 13:02 by Mora Medina) Pulmonary embolism (Acute) Acute kidney injury (Acute) Cardiac enzymes elevated (Acute) Cardiomyopathy (Acute) Etiology unclear w/ indeterminate cardiac enzymes, plan continue anticoagulation with repeat echocardiogram in 3-6 months to reassess pulmonary pressures per cardiology request. Continue supportive management with beta- karlie and JUAN inhibitor. Date of Admission: 03/12/18 Date of Discharge: 03/14/18 - Primary Discharge Diagnosis Active and Suspected Problems (Last Reviewed 11/29/17 @ 13:02 by Mora Medina) Acute Pulmonary emboli bilateral (Acute) suspected 2/2 immobility Acute kidney injury (Acute) Cardiac enzymes elevated (Acute) 2/2 above Cardiomyopathy (Acute) Etiology unclear w/ indeterminate cardiac enzymes, plan continue anticoagulation with repeat echocardiogram in 3-6 months to reassess pulmonary pressures per cardiology request. Continue supportive management with beta- karlie and JUAN inhibitor. 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 These findings were discussed on the telephone with Dr. Alvarado at 551 hrs. EST on 03/12/2018. No pulmonary edema, congestive heart failure or confluent pneumonia. Mild chronic appearing interstitial disease, nonspecific groundglass opacification and atelectasis. Atherosclerosis, cardiomegaly, coronary artery disease, post cardiac surgery, degenerative changes felt to be nonacute findings. RAD/Chest 1 View (Portable) IMPRESSION: Stable mild cardiomegaly. Venous US Interpretation Summary Deep veins of the lower extremities are bilaterally patent and compressible segmentally. There is no evidence of deep vein thrombosis on either side. Valvular competence appears intact within the proximal deep venous systems bilaterally. The greater saphenous veins appear bilaterally patent and compressible segmentally. Pulsatile flow is noted in the deep venous system bilaterally, which may be indicative of elevated central venous pressure (i.e. congestive heart failure , tricuspid valve insufficiency, etc.). Clinical correlation is advised. Echo: Interpretation Summary Mildly dilated left ventricle. The estimated ejection fraction is 25 %. Moderately severe global left ventricular systolic dysfunction. Septal motion consistent with IVCD. Mild-Moderate (1-2+) eccentric mitral valve insufficiency. Moderate (2+) tricuspid valve insufficiency. Pulmonary artery systolic pressure is 55 mmHg. Moderate pulmonary hypertension. Compared to the previous echo the LV is worse and the pulmonary pressures are higher Consultations 03/12/18 18:47 Consult: Onc/Wound/surface grinder tender Routine Comment: Reason for Consult:: Sores on Bottom Operations: None Procedures: 2-D Echocardiogram Summary of Care Provided: Physical exam on day of discharge: General: Resting comfortably NAD Psych: A/Ox3 normal affect HEENT: PEARRLA AT NC Neck: Supple NT CV: RRR no m/t/r/g/h Resp: CTA Abd: [id number] Soft NT no guarding or rigidity Ext: DP2+= no edema Skin: W/D normal turgor Lymph/Heme: No active bleeding or adenopathy Neuro: CN2-12 intact Hospital course: The patient is a 77 year old F with hx as above who presented to the ER with right arm pain radiating into her neck. A CTA chest was obtained and demonstrated bilateral PEs. She was placed on heparin and admitted to the PCU. She had indeterminate troponin and EKG changes, an echo was obtained and demonstrated right heart strain. Cardiology was consulted. She was placed on eliquis for PO anticoagulation. It was felt that this PE was likely 2/2 immobility as she has been very weak since her last admission. A hypercoag panel is pending. US LE was negative for DVTs. She does have underlying CAD, and medications were reviewed by cardiology. Her medications going forward will include coreg, lisinpril, eliquis, lipitor. She will go home on oxygen, she was using her oxygen secondary to chronic hypoxic respiratory failure from COPD as needed at home prior, she will be using it permanently until it is able to be weaned off at the skilled nursing. She was discharged to SNF in stable condition. She will need follow up with cardiology in two weeks and a repeat echo in 3-6 months. This patient was seen by Ricardo Rivero PA-C under the supervision of Dr. Mane. [] Discharge Diet: Low fat/ Low Cholesterol, 1800 Calorie Control Diet, 2000 mg Sodium Diet Discharge Activity: Return to Normal Activity, - - Encourage continued activities with therapies, increased activity parameters per PCP discretion upon re-evaluation. Encourage out of bed to chair for all meals and routine ambulation. May resume sexual activity in: 10-14 days Weight Bearing Status: Weight bearing as tolerated Call your doctor if you observe: Fever of 101 or Higher, Inability to urinate, Inability to have a bowel movement, Shortness of breath, Dizziness, Fainting spells, Chest pain, Uncontrolled pain Home Medications: Medications to take at Discharge Insulin Aspart [Novolog Flexpen] See Protocol SC TIDCM 02/18/16 levothyroxine 88 mcg capsule 112 mcg PO DAILY cap 11/29/17 Ergocalciferol [Vitamin D] 50,000 unit PO QMONTH 12/27/17 Sitagliptin Phosphate [Januvia] 100 mg PO DAILY 12/27/17 Solifenacin Succinate [Vesicare] 10 mg PO DAILY 12/27/17 Atorvastatin Calcium [Lipitor] 80 mg PO QHS 01/02/18 Furosemide [Lasix] 40 mg PO DAILY #0 tab 01/03/18 Insulin Detemir [Levemir FlexPen] 30 units SC DAILY #0 01/03/18 Oxygen, Home [Home Oxygen] 2 lpm NASAL CONT #1 unit 01/03/18 Memantine HCl 5 mg PO BID 03/12/18 Vortioxetine Hydrobromide [Trintellix] 10 mg PO DAILY 03/12/18 Apixaban [Eliquis] 10 mg PO BID #62 tab 03/13/18 Acetaminophen [Tylenol Tablet] 650 mg PO Q6H PRN PRN tablet 03/14/18 Albuterol Aerosols [Ventolin Aerosols] 2.5 mg INHALATION Q2H PRN PRN #1 box Carvedilol [Coreg (Beta Karlie)] 3.125 mg PO BID #60 tab 03/14/18 Escitalopram Oxalate [Lexapro] 10 mg PO DAILY tablet 03/14/18 Glucerna Shake 120 ml PO TIDCM liquid 03/14/18 Ipratropium/Albuterol Sulfate [Duoneb] 3 ml INHALATION Q6HWA.RT #1 box 03/14/18 Lisinopril [Zestril] 2.5 mg PO DAILY #30 tab 03/14/18 Nystatin Powder [Mycostatin Powder] 1 applic TOPICAL TID #1 bottle 03/14/18 Following Prescrptions Were Given to Patient: Albuterol Aerosols [Ventolin Aerosols] 2.5 mg INHALATION Q2H PRN PRN #1 box PRN Reason: dyspnea, wheezing Apixaban [Eliquis] 10 mg PO BID #62 tab Carvedilol [Coreg (Beta Karlie)] 3.125 mg PO BID #60 tab Ipratropium/Albuterol Sulfate [Duoneb] 3 ml INHALATION Q6HWA.RT #1 box Lisinopril [Zestril] 2.5 mg PO DAILY #30 tab Nystatin Powder [Mycostatin Powder] 1 applic TOPICAL TID #1 bottle Primary Care Physician: Micheal Teran Chi, MD [Primary Care Provider] - Please follow up with your Primary Care Physician in: Follow-up within 1-2 days SNF discharge planned. Please Follow Up With: Ventura Ragsdale MD When: Follow-up 2-4 weeks, may see BELT MACHINE OPERATOR Patient Instructions: Pulmonary Embolism, Living with Cardiomyopathy, Medications for Cardiomyopathy, Discharge Instructions for Acute Kidney Injury , Discharge Instructions for Cardiomyopathy, Discharge Instructions for Pulmonary Embolism Disposition: Jail facility Minutes spent on discharge:: 35 Patient Condition:: Stable Medical Necessity - Tobacco Use Smoking Status: Former smoker Meaningful Use Info Meaningful Use Diagnoses (Choose all that apply): VTE - VTE Anticoag overlap given w/in hospital stay or rx'd at dc?: Yes Pt receive overlap for 5 days?: No Reason overlap not ordered, prescribed, or given for 5 days: Procedure Not Indicated
--- NOTE | 2018-03-14 16:32 | CASEMGMT ---
Social Work Return phone call from Mandy at [facility] and they are able to accept pt at any time. Transportation arranged for 5:00 sweet pickle maker by [facility] ambulance. Phone call to pt spouse with no answer. Phone call to pt son Cal and he will notify spouse. Nursing and [facility] made aware of d/c time. No further needs. HILLARY Varela
[2018-03-14 17:26] LABS: Bedside Glucose 153 mg/dL (70-110)
[2018-03-17 16:07] LABS: Protein C Antigen 93 % (60-150); Protein C, Functional 98 % (73-180)
[2018-03-20 12:51] LABS: Anti-Cardiolipin Ab, IgG, Qn < 9 GPL U/mL (0-14); Anti-Cardiolipin Ab, IgM, Qn < 9 MPL U/mL (0-12); Anti-Thrombin 3 AG, Immunol 98 % (72-124); Antithrombin 3 Function 108 % (75-135); Beta-2-Glycoprotein I IgA <9 (0-25); Beta-2-Glycoprotein I IgG <9 (0-20); Beta-2-Glycoprotein I IgM <9 (0-32)
== END 2018-03-14 17:08 | disposition skilled nursing facility (03) | DRG 176 ==
LOC: ED 04:32 → PCU 06:43
PROVIDERS: Admitting Provider Internal Medicine; Emergency Provider Emergency Medicine; Family Provider Family Medicine Geriatric Medicine; PCP Family Medicine Geriatric Medicine; Visit Provider Family Medicine
DX: I26.99 Other pulmonary embolism without acute cor pulmonale (principal); I50.32 Chronic diastolic (congestive) heart failure; N17.9 Acute kidney failure, unspecified; J96.11 Chronic respiratory failure with hypoxia; I42.9 Cardiomyopathy, unspecified; E03.9 Hypothyroidism, unspecified; I11.0 Hypertensive heart disease with heart failure; J44.9 Chronic obstructive pulmonary disease, unspecified; I48.0 Paroxysmal atrial fibrillation; E11.9 Type 2 diabetes mellitus without complications; Z79.4 Long term (current) use of insulin; Z99.81 Dependence on supplemental oxygen; I25.10 Atherosclerotic heart disease of native coronary artery without angina pectoris; Z95.1 Presence of aortocoronary bypass graft; Z95.2 Presence of prosthetic heart valve; E78.5 Hyperlipidemia, unspecified; F41.9 Anxiety disorder, unspecified; F32.9 Major depressive disorder, single episode, unspecified; D69.6 Thrombocytopenia, unspecified; K21.9 Gastro-esophageal reflux disease without esophagitis; F03.90 Unspecified dementia, unspecified severity, without behavioral disturbance, psychotic disturbance, mood disturbance, and anxiety; M79.7 Fibromyalgia; R74.8 Abnormal levels of other serum enzymes; Z87.891 Personal history of nicotine dependence
CPT/HCPCS: 36415; 71045; 71275; 80048; 81240; 81241; 82962; 84484; 85025; 85027; 85300; 85301; 85302; 85303; 85610; 85613; 85730; 86146; 86147; 93005; 93306; 93970; 94640; 97162; 97166; 97530; 97535; 97802; 99285; J7030; Q9967; A4216

== ENCOUNTER → 2018-03-20 05:00 | Outpatient (REF) | payer MEDICARE, BC, SELFPAY ==
[2018-03-20 09:34] LABS: Hematocrit 34.4 % (37-47); Hemoglobin 10.9 g/dl (12.0-15.0); Mean Corp Hgb Conc 31.7 g/gl (32-36); Mean Corpuscular Hgb 29.8 pg (27.0-32.0); Mean Platelet Vol. 10.2 fl (6.2-12.0); Platelet Count 191 K/mm3 (150-450); RBC Distribution Width CV 14.5 % (11.6-14.6); RBC Distribution Width SD 47.9 fl (35.1-43.9); Red Blood Count 3.66 M/mm3 (4.2-5.4); White Blood Count 8.1 K/mm3 (4.4-11.0)
[2018-03-20 09:45] LABS: Scan Indicated on CBC? Y/N NO
[2018-03-20 09:57] LABS: Anion Gap 5 (5-15); BUN 15 mg/dL (7-18); BUN/Creat Ratio 21.9 RATIO (10-20); Calcium,Total 7.5 mg/dL (8.5-10.1); Chloride 106 mmol/L (98-107); Creatinine, Serum 0.68 mg/dL (0.55-1.02); EST Glomerular Filtration Rate 88 mL/min (>60); Est Glom Filt Rate - Afr Amer 107 mL/min (>60); Glucose 37 mg/dL (74-106); Potassium 3.4 mmol/L (3.5-5.1); Sodium Level 143 mmol/L (136-145)
== END ==
LOC: OLS.AVED 05:00
PROVIDERS: Visit Provider Family Medicine
DX: J44.9 Chronic obstructive pulmonary disease, unspecified (principal); E78.5 Hyperlipidemia, unspecified
CPT/HCPCS: 36415; 80048; 85027

== ENCOUNTER → 2018-03-27 05:00 | Outpatient (REF) | payer MEDICARE, BC, SELFPAY ==
[2018-03-27 08:55] LABS: Hematocrit 33.4 % (37-47); Hemoglobin 10.5 g/dl (12.0-15.0); Mean Corp Hgb Conc 31.4 g/gl (32-36); Mean Corpuscular Hgb 29.9 pg (27.0-32.0); Mean Corpuscular Volume 95.2 fL (81-99); Mean Platelet Vol. 10.1 fl (6.2-12.0); Platelet Count 240 K/mm3 (150-450); RBC Distribution Width CV 14.9 % (11.6-14.6); RBC Distribution Width SD 49.3 fl (35.1-43.9); Red Blood Count 3.51 M/mm3 (4.2-5.4); White Blood Count 7.5 K/mm3 (4.4-11.0)
[2018-03-27 09:03] LABS: BUN 24 mg/dL (7-18); BUN/Creat Ratio 30.8 RATIO (10-20); Calcium,Total 8.6 mg/dL (8.5-10.1); Creatinine, Serum 0.78 mg/dL (0.55-1.02); EST Glomerular Filtration Rate 76 mL/min (>60); Est Glom Filt Rate - Afr Amer 92 mL/min (>60); Glucose 99 mg/dL (74-106); Sodium Level 142 mmol/L (136-145)
[2018-03-27 09:04] LABS: Anion Gap 2 (5-15); Chloride 104 mmol/L (98-107); Potassium 3.3 mmol/L (3.5-5.1)
[2018-03-27 09:09] LABS: Scan Indicated on CBC? Y/N NO
== END ==
LOC: OLS.AVED 05:00
PROVIDERS: Visit Provider Family Medicine
DX: R53.83 Other fatigue (principal)
CPT/HCPCS: 36415; 80048; 85027

== ENCOUNTER → 2018-04-03 05:00 | Outpatient (REF) | payer MEDICARE, BC, SELFPAY ==
[2018-04-03 11:44] LABS: Anion Gap 10 (5-15); BUN 27 mg/dL (7-18); BUN/Creat Ratio 32.1 RATIO (10-20); Calcium,Total 8.7 mg/dL (8.5-10.1); Chloride 102 mmol/L (98-107); Creatinine, Serum 0.84 mg/dL (0.55-1.02); EST Glomerular Filtration Rate 70 mL/min (>60); Est Glom Filt Rate - Afr Amer 85 mL/min (>60); Glucose 193 mg/dL (74-106); Potassium 3.9 mmol/L (3.5-5.1); Sodium Level 142 mmol/L (136-145)
== END ==
LOC: OLS.AVED 05:00
PROVIDERS: Visit Provider Family Medicine
DX: Z79.899 Other long term (current) drug therapy (principal)
CPT/HCPCS: 36415; 80048

== ENCOUNTER → 2018-04-24 04:00 | Outpatient (REF) | payer MEDICARE, BC, SELFPAY ==
[2018-04-24 08:16] LABS: Hemoglobin 10.1 g/dl (12.0-15.0); Mean Corp Hgb Conc 31.6 g/gl (32-36); Mean Corpuscular Hgb 30.7 pg (27.0-32.0); Mean Corpuscular Volume 97.3 fL (81-99); Mean Platelet Vol. 10.4 fl (6.2-12.0); Platelet Count 142 K/mm3 (150-450); RBC Distribution Width CV 14.9 % (11.6-14.6); RBC Distribution Width SD 50.5 fl (35.1-43.9); Red Blood Count 3.29 M/mm3 (4.2-5.4); White Blood Count 6.4 K/mm3 (4.4-11.0)
[2018-04-24 08:18] LABS: Scan Indicated on CBC? Y/N NO
[2018-04-24 08:28] LABS: ALB/GLOB Ratio 0.7 RATIO (0.9-2.4); Albumin, Serum 2.3 g/dL (3.2-5.0); Anion Gap 8 (5-15); BUN 24 mg/dL (7-18); BUN/Creat Ratio 27.5 RATIO (10-20); Calcium,Total 8.1 mg/dL (8.5-10.1); Chloride 105 mmol/L (98-107); Creatinine, Serum 0.87 mg/dL (0.55-1.02); EST Glomerular Filtration Rate 67 mL/min (>60); Est Glom Filt Rate - Afr Amer 81 mL/min (>60); Globulin 3.2 g/dL (2.2-4.2); Glucose 173 mg/dL (74-106); Potassium 4.1 mmol/L (3.5-5.1); Prealbumin 13.5 mg/dL (20.0-40.0); Protein, Total 5.5 g/dL (6.4-8.2); Sodium Level 144 mmol/L (136-145)
== END ==
LOC: OLS.AVED 04:00
PROVIDERS: Visit Provider Family Medicine
DX: R53.83 Other fatigue (principal); T14.90XA Injury, unspecified, initial encounter
CPT/HCPCS: 36415; 80048; 82040; 84134; 84156; 85027

== ENCOUNTER → 2018-05-04 08:20 | Outpatient (REF) | payer MEDICARE, OTHER, SELFPAY ==
[2018-05-04 09:38] LABS: Hemoglobin A1c 6.2 % (4.2-6.3)
[2018-05-04 09:45] LABS: ALB/GLOB Ratio 0.8 RATIO (0.9-2.4); AST(SGOT) 22 U/L (15-37); Alanine Aminotransfer ALT/SGPT 26 U/L (13-56); Albumin, Serum 2.6 g/dL (3.2-5.0); Alkaline Phosphatase 50 U/L (45-117); Anion Gap 8 (5-15); BUN 21 mg/dL (7-18); BUN/Creat Ratio 25.7 RATIO (10-20); Calcium,Total 8.3 mg/dL (8.5-10.1); Chloride 105 mmol/L (98-107); Cholesterol 109 mg/dL (200); Creatinine, Serum 0.82 mg/dL (0.55-1.02); EST Glomerular Filtration Rate 72 mL/min (>60); Est Glom Filt Rate - Afr Amer 87 mL/min (>60); Globulin 3.3 g/dL (2.2-4.2); Glucose 171 mg/dL (74-106); High Density Lipoprotein 41 mg/dL; Potassium 4.1 mmol/L (3.5-5.1); Protein, Total 5.9 g/dL (6.4-8.2); Sodium Level 143 mmol/L (136-145); Thyroid Stim Hormone (TSH) 3.74 uIU/mL (0.358-3.74); Triglycerides 92 mg/dL; Very Low Density Lipoprotein 18 mg/dL (5-40)
== END ==
LOC: OLS.AVEC 08:20
PROVIDERS: Visit Provider Family Medicine
DX: E11.9 Type 2 diabetes mellitus without complications (principal)
CPT/HCPCS: 36415; 80053; 80061; 83036; 84443

== ENCOUNTER → 2018-08-10 13:06 | Outpatient (CLI) | payer MEDICARE, BC, SELFPAY ==
--- NOTE | 2018-08-10 13:11 | ECHOD_ITS ---
Reason For Study: PULMONARY HYPERTENSION Procedure This was a 2D Doppler, Color Flow transthoracic echocardiogram. Exam performed in department. Left Ventricle Moderately dilated left ventricle. The estimated ejection fraction is 25-30 %. Stage 2 diastolic dysfunction. Septal motion consistent with IVCD. There is severe global hypokinesis of the left ventricle. Right Ventricle Normal size and thickness. Normal systolic function. Atria Normal left atrium. Normal right atrium. Normal atrial septum. Mitral Valve Mild diffuse mitral valve thickening. Mild (1+) mitral valve insufficiency. Tricuspid Valve Normal tricuspid valve. Trivial tricuspid valve insufficiency. Right ventricular systolic pressure estimated to be 49 mmHg. Moderate pulmonary hypertension. Aortic Valve Peak aortic valve gradient 30 mmHg. Mean aortic valve gradient 17 mmHg. Stable appearing bioprosthetic aortic valve apparatus. Pulmonic Valve Normal pulmonic valve. Great Vessels Normal aortic root. Normal arch. Normal inferior vena cava. Inferior vena cava collapse with sniff. Pericardium/Pleural No pericardial effusion. Medication DEFINITY NOT UTILIZED DUE TO INCREASED PULMONARY PRESSURES. MMode/2D Measurements & Calculations LVIDd: 5.5 cm IVSd: 1.2 cm LVOT diam: 1.8 cm LVIDs: 4.7 cm LVPWd: 0.92 cm RVDd: 3.6 cm FS: 14.1 % LVOT area: 2.6 cm2 Ao root diam: 3.1 cm LAV(MOD-bp): 56.8 ml LVAd ap4: 38.8 cm2 LAV(MOD-bp) Indexed: 31.9 ml/m2 EDV(MOD-sp4): 151.9 ml LAV(MOD-sp2): 65.2 ml EDV(sp4-el): 159.0 ml LAV(MOD-sp4): 46.2 ml LVAs ap4: 26.7 cm2 ESV(MOD-sp4): 81.2 ml ESV(sp4-el): 87.3 ml EF(MOD-sp4): 46.6 % EF(sp4-el): 45.1 % SV(MOD-sp4): 70.8 ml SV(sp4-el): 71.7 ml LA A4 area: 17.5 cm2 LA dimension(2D): 4.2 cm RA A4 area: 19.1 cm2 Time Measurements MV dec time: 0.27 sec Doppler Measurements & Calculations MV E max kel: 136.1 cm/sec Lat Peak E' Kel: 5.7 cm/sec Med Peak E' Kel: 4.4 cm/sec MV A max kel: 105.0 cm/sec E/E' lat: 23.9 E/E' med: 31.0 MV E/A: 1.3 Ao V2 max: 273.8 cm/sec LV V1 max: 120.1 cm/sec SV(LVOT): 75.3 ml Ao max P.0 mmHg LV V1 max P.9 mmHg Ao V2 mean: 191.8 cm/sec LV V1 mean P.6 mmHg Ao mean P.8 mmHg LV V1 mean: 86.4 cm/sec Ao V2 VTI: 63.1 cm LV V1 VTI: 29.5 cm JARRETT(I,D): 1.2 cm2 JARRETT(V,D): 1.1 cm2 PA V2 max: 98.0 cm/sec TR max kel: 358.9 cm/sec TR max P.8 mmHg Interpretation Summary Moderately dilated left ventricle. The estimated ejection fraction is 25-30 %. There is severe global hypokinesis of the left ventricle. Stage 2 diastolic dysfunction. Mild (1+) mitral valve insufficiency. Trivial tricuspid valve insufficiency. Right ventricular systolic pressure estimated to be 49 mmHg. Moderate pulmonary hypertension. Compared to echo report dated 03/13/2018, no appreciable changes noted. The study was technically difficult. Ordering Physician: Ventura Ragsdale Referring Physician: GRISELDA MERCADO Performed By: Katrin Zhao RDCS
--- OUTSIDE RECORDS SUMMARY | 2018-09-26 08:59 | XMS RPT_ITS ---
:1940 Author Organization OHIP Support Name Relationship Address Phone Falguni Broussard Unavailable [address] + [place] [address] BaldaytonerUgoin Unavailable , + [place] [address] R Unavailable Unavailable Unavailable Baldner Falguni Unavailable [address] + [place] [address] Baldner Avery Unavailable , + [place] [address] R Unavailable Unavailable Unavailable Baldner, Falguni Unavailable [address] + [place] [address] Baldner, Avery Unavailable , + [place] [address] R Unavailable Unavailable Unavailable Baldner, Falguni Unavailable [address] + [place] [address] Baldner, Avery Unavailable , + [place] [address] R Unavailable Unavailable Unavailable BALDNER, FALGUNI Unavailable [address] + [place] [address] BALDAYTONER AVERY Unavailable Unavailable + [place] [address] R Unavailable Unavailable Unavailable BALDNER, FALGUNI Unavailable [address] + [place] [address] BALDAYTONER, AVERY Unavailable Unavailable + [place] [address] R Unavailable Unavailable Unavailable Baldner, Falguni Unavailable [address] + [place] [address] Baldner, Avery Unavailable . + [place] [address] R Unavailable Unavailable Unavailable Baldner, Falguni Unavailable [address] + [place] [address] Baldner, Avery Unavailable . + [place] [address] R Unavailable Unavailable Unavailable Baldner, Falguni Unavailable [address] + [place] [address] Baldner, Avery Unavailable . + [place] [address] R Unavailable Unavailable Unavailable Baldner, Falguni Unavailable [address] + [place] [address] Baldner, Avery Unavailable . + [place] [address] R Unavailable Unavailable Unavailable Baldner, Falguni Unavailable [address] + [place] [address] Baldner, Avery Unavailable . + [place] [address] R Unavailable Unavailable Unavailable Baldner, Falguni Unavailable [address] + [place] [address] Baldner, Avery Unavailable . + [place] [address] R Unavailable Unavailable Unavailable Baldner, Falguni Unavailable [address] + [place] [address] Baldner, Avery Unavailable . + [place] [address] R Unavailable Unavailable Unavailable Baldner, Falguni Unavailable [address] + [place] [address] Baldner, Avery Unavailable . + [place] [address] R Unavailable Unavailable Unavailable Baldner, Falguni Unavailable [address] + [place] [address] Baldner, Avery Unavailable Unavailable + [place] [address] R Unavailable Unavailable Unavailable Baldner, Falguni Unavailable [address] + [place] [address] Baldner, Avery Unavailable Unavailable + [place] [address] R Unavailable Unavailable Unavailable BALDNER, FALGUNI Unavailable [address] + [place] [address] BALDNER, AVERY Unavailable Unavailable + [place] [address] R Unavailable Unavailable Unavailable Baldner, Falguni Unavailable [address] + [place] [address] BaldaytonerUgoin Unavailable Unavailable + [place] [address] R Unavailable Unavailable Unavailable BALDNER, FALGUNI Unavailable [address] + [place] [address] BALDAYTONERUGOIN Unavailable Unavailable + [place] [address] R Unavailable Unavailable Unavailable Baldner, Falguni Unavailable [address] + [place] [address] Baldaytoner Avery Unavailable . + [place] [address] R Unavailable Unavailable Unavailable BALDNER, FALGUNI Unavailable [address] + [place] [address] BALDAYTONERUGOIN Unavailable Unavailable + [place] [address] R Unavailable Unavailable Unavailable BALDNER, FALGUNI Unavailable [address] + [place] [address] BALDAYTONER AVERY Unavailable Unavailable + [place] [address] R Unavailable Unavailable Unavailable BALDNER, FALGUNI Unavailable [address] + [place] [address] BALDNER AVERY Unavailable Unavailable + [place] [address] R Unavailable Unavailable Unavailable BALDNER, FALGUNI Unavailable [address] + [place] [address] BALDAYTONER AVERY Unavailable Unavailable + [place] [address] R Unavailable Unavailable Unavailable BALDNER, FALGUNI Unavailable [address] + [place] [address] BALDNER AVERY Unavailable Unavailable + [place] [address] R Unavailable Unavailable Unavailable BALDNER, FALGUNI Unavailable [address] + [place] [address] BALDAYTONER AVERY Unavailable Unavailable + [place] [address] R Unavailable Unavailable Unavailable BALDNER, FALGUNI Unavailable [address] + [place] [address] BALDNER, AVERY Unavailable Unavailable + [place] [address] R Unavailable Unavailable Unavailable BALDNER, FALGUNI Unavailable [address] + [place] [address] BALDNER, AVREY Unavailable Unavailable + [place] [address] R Unavailable Unavailable Unavailable BALDNER, FALGUNI Unavailable [address] + [place] [address] BALDNER, AVERY Unavailable Unavailable + [place] [address] R Unavailable Unavailable Unavailable BALDNER, FALGUNI Unavailable [address] + [place] [address] BALDNER, AVERY Unavailable . + [place] [address] R Unavailable Unavailable Unavailable BALDNER, FALGUNI Unavailable [address] + [place] [address] BALDNER, AVERY Unavailable . + [place] [address] R Unavailable Unavailable Unavailable BALDNER, FALGUNI Unavailable [address] + [place] [address] BALDNER, AVERY Unavailable . + [place] [address] R Unavailable Unavailable Unavailable BALDNER, FALGUNI Unavailable [address] + [place] [address] BALDNER, AVERY Unavailable . + [place] [address] R Unavailable Unavailable Unavailable BALDNER, FALGUNI Unavailable [address] + [place] [address] BALDNER, AVERY Unavailable . + [place] [address] R Unavailable Unavailable Unavailable Care Team Providers Name Role Phone Ventura Ragsdale Attending Unavailable Ventura Ragsdale Referring Unavailable Jeffry, Micheal Chi Primary Care Unavailable Ventura Ragsdale Attending Unavailable Ventura Ragsdale Referring Unavailable Jeffry, Micheal Chi Primary Care Unavailable Ventura Ragsdale Consulting Unavailable Rolan Mark Attending Unavailable Ventura Ragsdale Attending Unavailable Jeffry, Micheal Chi Referring Unavailable Mark, Rolan Attending Unavailable Mark, Rloan Attending Unavailable Jeffry, Micheal Chi Attending Unavailable Jeffry, Micheal Chi Primary Care Unavailable Jeffry, Micheal Chi Attending Unavailable Jeffry, Micheal Chi Primary Care Unavailable Mora Medina Attending Unavailable Ventura Ragsdale Attending Unavailable Jeffry, Micheal Chi Referring Unavailable Jeffry, Micheal Chi Primary Care Unavailable Jeffry, Micheal Chi Attending Unavailable Jeffry, Micheal Chi Primary Care Unavailable Jeffry, Micheal Chi Primary Care Unavailable Renny, Hood Admitting Unavailable Ventura Ragsdale Consulting Unavailable Paintsil, Hughes Attending Unavailable Renny, Hood Admitting Unavailable Renny, Hood Attending Unavailable Jeffry, Micheal Chi Primary Care Unavailable Renny, Hood Consulting Unavailable Renny, Hood Admitting Unavailable Paintsil, Hughes Attending Unavailable Jeffry, Micheal Chi Primary Care Unavailable Ventura Ragsdale Consulting Unavailable Paintsil, Hughes Consulting Unavailable Renny, Hood Admitting Unavailable Ventura Ragsdale Attending Unavailable Jeffry, Micheal Chi Primary Care Unavailable Ventura Ragsdale Consulting Unavailable Paintsil, Hughes Consulting Unavailable Jeffry, Micheal Chi Primary Care Unavailable Ashelfah, Ghasem Admitting Unavailable Sementi, Della Attending Unavailable Ashelfah, Ghasem Admitting Unavailable Ashelfah, Ghasem Attending Unavailable Jeffry, Micheal Chi Primary Care Unavailable Ashelfah, Ghasem Consulting Unavailable Ashelfah, Ghasem Admitting Unavailable Sementi, Della Attending Unavailable Jeffry, Micheal Chi Primary Care Unavailable Sementi, Della Consulting Unavailable Jeffry, Micheal Chi Attending Unavailable Jeffry, Micheal Chi Primary Care Unavailable Jeffry, Micheal Chi Attending Unavailable Jeffry, Micheal Chi Primary Care Unavailable Jeffry, Micheal Chi Primary Care Unavailable Pretty, Tenzin Admitting Unavailable White, Shamika Attending Unavailable Cristino, [place] Consulting Unavailable Pretty, Tenzin Admitting Unavailable Jeffry, Micheal Chi Primary Care Unavailable Pretty, Tenzin Consulting Unavailable Renny, Hood Attending Unavailable Pretty, Tenzin Admitting Unavailable Jeffry, Micheal Chi Primary Care Unavailable Cristino, [place] Consulting Unavailable White, Shamika Attending Unavailable White, Shamika Consulting Unavailable Pretty, Tenzin Admitting Unavailable Cristino, Ricky Attending Unavailable Jeffry, Micheal Chi Primary Care Unavailable Cristino, Ricky Consulting Unavailable White, Shamika Consulting Unavailable Pretty, Tenzin Admitting Unavailable White, Shamika Attending Unavailable Jeffry, Micheal Chi Primary Care Unavailable Cristino, Ricky Consulting Unavailable White, Shamika Consulting Unavailable Pretty, Tenzin Admitting Unavailable Cristino, Ricky Attending Unavailable Jeffry, Micheal Chi Primary Care Unavailable Cristino, [place] Consulting Unavailable White, Shamika Consulting Unavailable Mark, Rolan Attending Unavailable Mark, Rolan Attending Unavailable Mark, Rolan Attending Unavailable Mark, Rolan Attending Unavailable Cristino, Ricky Attending Unavailable Wilberto, Neymarman Referring Unavailable Mark, Rolan Attending Unavailable Ventura Ragsdale Attending Unavailable Jeffry, Micheal Chi Referring Unavailable Jeffry, Micheal Chi Primary Care Unavailable Jn, Ventura Attending Unavailable PROBLEMS PROBLEMS DATE TYPE CONDITION / CODE ATTENDING STATUS SOURCE 09/07/2018 Unknown I42.9 - Ventura Ragsdale Active [facility] Cardiomyopathy, Community unspecified / Hospital I42.9(ICD-10) Repository 09/07/2018 Unknown E78.5 - Ventura Ragsdale Active [facility] Hyperlipidemia, Community unspecified / Hospital E78.5(ICD-10) Repository 09/07/2018 Unknown I48.0 - Paroxysmal Ventura Ragsdale Active [facility] atrial fibrillation / Community I48.0(ICD-10) Hospital Repository 09/18/2018 Unknown J44.9 - Chronic MarkRolan pinto Active [facility] obstructive pulmonary Community disease, unspecified / Hospital J44.9(ICD-10) Repository 09/18/2018 Unknown I10 - Essential Mark, Rolan Active [facility] (primary) hypertension Community / I10(ICD-10) Hospital Repository 09/18/2018 Unknown E03.9 - Mark, Rolan [facility] Hypothyroidism, Community unspecified / Hospital E03.9(ICD-10) Repository 09/18/2018 Unknown E11.9 - Type 2 Mark, Rolan Active [facility] diabetes mellitus Community without complications Hospital / E11.9(ICD-10) Repository 09/18/2018 Unknown 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, Rolan Active [facility] specified disorders of Community adult personality and Hospital behavior / Repository F68.8(ICD-10) 09/04/2018 Unknown R06.02 - Shortness of Mark, Rolan Active [facility] breath / Community R06.02(ICD-10) Hospital Repository 08/10/2018 Unknown I26.99 - Other Ventura Ragsdale Active [facility] pulmonary embolism Community without acute cor Hospital pulmonale / Repository I26.99(ICD-10) 06/16/2018 Unknown R53.83 - Other fatigue Rolan Mark Active [facility] / R53.83(ICD-10) Community Hospital Repository 05/26/2018 Unknown Z79.899 - Other long Rolan Mark [facility] term (current) drug Community therapy / Hospital Z79.899(ICD-10) Repository 04/26/2018 Unknown I50.32 - Chronic Cristino, [place] Active [facility] diastolic (congestive) Community heart failure / Hospital I50.32(ICD-10) Repository 04/26/2018 Unknown R94.31 - Abnormal Cristino, Ricky Active [facility] electrocardiogram Community [ECG] [EKG] / Hospital R94.31(ICD-10) Repository 04/26/2018 Unknown I11.0 - Hypertensive Cristino, Ricky Active [facility] heart disease with Community heart failure / Hospital I11.0(ICD-10) Repository 04/26/2018 Unknown I25.10 - Cristino, [place] Active [facility] Atherosclerotic heart Community disease of [facility] coronary artery Repository without angina pectoris / I25.10(ICD-10) 01/06/2018 Unknown J96.11 - Chronic Sementi, Active [facility] respiratory failure [facility] with hypoxia / Hospital J96.11(ICD-10) Repository 11/29/2017 Unknown Z95.2 - Presence of Ventura Ragsdale Active [facility] prosthetic heart valve [facility] / Z95.2(ICD-10) Hospital Repository 11/29/2017 Unknown E66.9 - Obesity, Ventura Ragsdale Active [facility] unspecified / Community E66.9(ICD-10) Hospital Repository 11/29/2017 Unknown I35.0 - Nonrheumatic Ventura Ragsdale Active [facility] aortic (valve) Community stenosis / Hospital I35.0(ICD-10) Repository 11/29/2017 Unknown I27.21 - Secondary Ventura Ragsdale Active [facility] pulmonary arterial Community hypertension / Hospital I27.21(ICD-10) Repository 11/29/2017 Unknown I63.9 - Cerebral Ventura Ragsdale Active [facility] infarction, Community unspecified / Hospital I63.9(ICD-10) Repository 11/29/2017 Unknown R06.00 - Dyspnea, Ventura Ragsdale Active [facility] unspecified / Community R06.00(ICD-10) Hospital Repository 11/29/2017 Unknown R05 - Cough / Ventura Ragsdale Active [facility] R05(ICD-10) [facility] Repository 10/10/2017 Unknown E55.9 - Vitamin D Jeffry, Micheal Chi Active [facility] deficiency, Community unspecified / Hospital E55.9(ICD-10) Repository PROCEDURES PROCEDURES No Procedure Records FoundRESULTS RESULTS CARDIOLOGY VISIT Observed: 09/07/2018 Status: F Source: [place] 3:26 PM [facility] [place] [facility] [address] [place] [address] OFFICE VISIT Date of Service: 09/07/18 MR#: [id number] Acct: [id number] Name: BEVERLY BROUSSARD Rep #: [id number] : 1940 Provider: Ventura Ragsdale MD Age/Sex: 77/F [place] [facility] [place] Status: Signed HPI HPI Chief Complaint: Routine f/u Details: Details: referring physician: Dr. Liu Mrs. 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 According to the patient she was told that her carotids were nonobstructive at that time although I do not have any documents to that effect. In addition she was reportedly found to have severe aortic stenosis by recent echocardiogram dated 11/04/15. This demonstrated an EF of 65%, mild left atrial enlargement, severe aortic stenosis with a peak/mean gradient of 49/27 mmHg and estimated JARRETT of 0.87 cm . From a cardiac standpoint she denies any exertional angina but does complain of dyspnea on exertion and shortness of breath. She also reports positional lightheadedness and dizziness is been going on for several months. She denies ever having a catheterization, and repeat carotid ultrasound done 11/04/15 demonstrated a greater than 70% stenosis of the right internal and left internal carotid arteries. The systolic velocities bilaterally had increased significantly since 01/02/14. She had antegrade flow normally bilaterally in the vertebrals. A CTA of her neck dated 12/02/15 showed a right internal carotid of 50-69%, and a left internal carotid of 70%, with normal vertebral arteries. She has seen Dr. Aviles in the past. In addition she underwent a CHANCE on 12/05/15 which showed an estimated JARRETT of 0.7 cm , mild mitral regurgitation, and an EF of 65%. Patient was also found to have significant bilateral carotid disease left greater than right. Patient underwent successful aortic valve replacement with a Esequiel sutureless valve by Dr. Fonseca at [facility] on 01/28/16, as well as concomitant left carotid endarterectomy at the same time. no additional carotid endarterectomy was performed on the right carotid. Postoperatively she developed some atrial fibrillation and was treated with amiodarone therapy. She was subsequently transferred to the rehab center, then to home. She has completed physical therapy at [facility]. She has also completed cardiac rehab without any difficulty.. At home she is doing her daily chores, and was feeling stronger every week. She felt better than prior to her surgery, but still not back to 100%. She denies any exertional chest pain, angina, shortness of breath or dyspnea on exertion. She has occasional forgetfulness and poor memory which was present prior to her surgery. She is status post CVA in the past. She walks on her own most of time but occasionally with a cane. Patient was admitted was re admitted to the hospital on 03/14/18 for acute chest pain was found to have minimal elevation of troponins and pulmonary emboli. Patient was placed on anticoagulation therapy with eliquis, and subsequently transferred to [facility]. She apparently has no recollection of that admission, does not recall seeing Dr. Grgeg. I was out of town at the time she is now here in follow-up. Echocardiogram done on 03/13/18 showed EF of 25%, RVSP of 55 mmHg, with mild to moderate mitral regurgitation. She denies any chest pain, angina, shortness of breath. Apparently the group home adjusted her medications, took her off of Coreg, put her on Lopressor, took her off of lisinopril, and continues her on both Eliquis and Plavix. Part of her cardiac workup she underwent repeat echocardiogram to determine if her LV function has improved after her AVR. This took place on 08/10/18 and her EF was around 25-30% with no significant improvement since February 2018. Her RVSP was found to be 49 mmHg. Patient is here to be evaluated for possible AICD therapy. Patient currently lives alone at the group home, and ambulates in the hallway with a walker. She has had a previous CVA, and has some limitations with movement as well as dementia and is currently on Aricept. She denies any positional lightheadedness, dizziness, palpitations, presyncope or syncope. In our office today her blood pressure is 110/50 and pulse is 68and regular. her physical exam demonstrates well-healed suture lines in both her carotid and sternal area, no evidence of sternal instability, regular rate and rhythm with a 2/6 systolic ejection murmur, no edema noted. In addition she has faint bilateral late expiratory wheezes. Lipids As of 06/09/16 showed HDL of 60 and LDL of 53. Lipids as of 05/04/18 show an LDL of 50 and an HDL of 41. EKG previously demonstrates normal sinus rhythm with baseline left bundle branch block unchanged. Intake Vital Signs09/07/18 Height 5 ft 09/07/18 Weight: 186 lb 09/07/18 Body Mass Index (BMI) 36.3 09/07/18 Blood Pressure 100/50 L Intake Visit Reasons: 4 M FU Allergies pregabalin [From Lyrica] Adverse Reaction (Severe, Verified 09/01/18 10:38) Mental status changes prochlorperazine edisylate [From Compazine] Adverse Reaction (Severe, Verified 09/01/18 10:38) Seizures prochlorperazine maleate [From Compazine] Adverse Reaction (Severe, Verified 09/01/18 10:38) Seizures tolmetin sodium [From Tolectin] Adverse Reaction (Severe, Verified 09/01/18 10:38) Syncope Medications Insulin Aspart [Novolog Flexpen] See Protocol SC TIDCM 02/18/16 [History Confirmed 05/11/18] Ergocalciferol [Vitamin D] 50,000 unit PO QMONTH 12/27/17 [History Confirmed 05/11/18] Sitagliptin Phosphate [Januvia] 100 mg PO DAILY 12/27/17 [History Confirmed 05/11/18] Solifenacin Succinate [Vesicare] 10 mg PO DAILY 12/27/17 [History Confirmed 05/11/18] Atorvastatin Calcium [Lipitor] 80 mg PO QHS 01/02/18 [History Confirmed 03/12/18] Furosemide [Lasix] 40 mg PO DAILY #0 tab 01/03/18 [Rx Confirmed 05/11/18] Insulin Detemir [Levemir FlexPen] 30 units SC DAILY #0 01/03/18 [Rx Confirmed 05/11/18] Oxygen, Home [Home Oxygen] 2 lpm NASAL CONT #1 unit 01/03/18 [Rx Confirmed 05/11/18] Memantine HCl 5 mg PO BID 03/12/18 [History Confirmed 05/11/18] Vortioxetine Hydrobromide [Trintellix] 10 mg PO DAILY 03/12/18 [History Confirmed 05/11/18] Apixaban [Eliquis] 10 mg PO BID #62 tab 03/13/18 [Rx Confirmed 05/11/18] Acetaminophen [Tylenol Tablet] 650 mg PO Q6H PRN PRN tab 03/14/18 [Rx Confirmed 05/11/18] Albuterol Aerosols [Ventolin Aerosols] 2.5 mg INHALATION Q2H PRN PRN #1 box 03/14/18 [Rx Confirmed 05/11/18] Escitalopram Oxalate [Lexapro] 10 mg PO DAILY tab 03/14/18 [Rx Confirmed 05/11/18] Glucerna Shake 120 ml PO TIDCM liquid 03/14/18 [Rx Confirmed 05/11/18] Ipratropium/Albuterol Sulfate [Duoneb] 3 ml INHALATION Q6HWA.RT #1 box 03/14/18 [Rx Confirmed 05/11/18] Nystatin Powder [Mycostatin Powder] 1 applic TOPICAL TID #1 bottle 03/14/18 [Rx Confirmed 05/11/18] levothyroxine 112 mcg tablet 112 mcg PO DAILY 05/09/18 [History Confirmed 05/11/18] clopidogrel 75 mg tablet 75 mg PO DAILY 09/07/18 [History Confirmed 09/07/18] metoprolol tartrate 25 mg tablet 25 mg PO BID 09/07/18 [History Confirmed 09/07/18] [facility] Pulmonary embolism, bilateral (Acute 03/12/18) Diabetes mellitus, type II (Chronic) Chronic respiratory failure with hypoxia (Chronic) Cardiac enzymes elevated (Acute) Cardiomyopathy (Acute) Thrombocytopenia (Chronic) Dementia (Chronic) Uncontrolled diabetes mellitus (Chronic) Obesity (Chronic) Non-rheumatic aortic stenosis (Chronic) COPD (chronic obstructive pulmonary disease) (Chronic) Secondary pulmonary arterial hypertension (Chronic) Hyperlipidemia (Chronic) Chronic diastolic heart failure (Chronic) CVA (cerebral infarction) (Chronic) Hypertension (Chronic) Hypothyroidism (Chronic) Paroxysmal a-fib (Chronic) Bilateral carotid artery stenosis (Chronic) Fibromyalgia (Chronic) Obstructive sleep apnea (Chronic) Onychomycosis (Chronic) Type 2 diabetes mellitus without complications (Chronic) Vascular dementia (Chronic) Surgical History H/O aortic valve replacement (Chronic 02/06/16) History of left-sided carotid endarterectomy (Resolved 02/06/16) History of right and left heart catheterization (Resolved 12/24/15) Hx of cholecystectomy (Resolved) Family History Mother CVA (cerebral vascular accident) Diabetes Social History Smoking Status: Former smoker ROS Const Const: Negative for fatigue, weakness, body ache, fever(s), headache(s), chills, frequent falls, night sweats, daytime sleepiness, difficulty sleeping, excessive sweating, weight gain, weight loss, increased appetite, poor appetite, anorexia or other Eyes Eyes: Negative for blind spots, loss of peripheral vision, transient loss of vision, blurry vision, change in vision, double vision, floaters, tunnel vision or other ENT ENT: Negative for headache(s), dizziness, hearing loss, tinnitus, Nosebleed/epistaxis, balance problems, post nasal drip, lip swelling, tongue swelling, bleeding gums, hoarseness, neck pain, dry mouth or other Cardio Chest Pain: No Resp Respiratory: Negative for SOB with activity, SOB at rest, SOB orthopnea\SOB lying down, Coughing up blood/hemoptysis, chest congestion, pain on inspiration, snoring, stridor, wheezing, crackles, paroxysmal nocturnal dyspnea or other GI GI: Negative nausea, vomiting, heartburn, constipation, belching, bloating, cramping, vomiting blood/hematemesis, bright, red blood in stools, black,tarry stools, loose stools, Difficulty Swallowing or other : Negative for hematuria, frequent nighttime urination/ nocturia, erectile dysfunction or abnormal vaginal bleeding Musc Musc: Negative for balance problems, muscle aches/ myalgia, muscle weakness or joint pain Skin Skin: Negative redness, non-healing lesions, rash, unusual bruising, skin ulcer, wounds, jaundice or other Neuro Neuro: Negative for weakness, headache(s), frequent falls, blurry vision, double vision, dizziness, lightheadedness, near syncope, syncope, orthostatic symptoms, confusion, memory loss, restless legs, vertigo, seizures, lack of coordination or other Horacio Hematologic/Lymphatic: Negative for easy bleeding, easy bruising, enlarged lymph nodes or other Endo Endo: Negative for fatigue, excessive sweating, cold intolerance, heat intolerance, flushing, increased thirst/drinking, increased hunger, hair loss, hair growth or other Psych Psych: Negative for anxiety, depression, thoughts of harming anyone, thoughts of harming yourself, visual hallucinations, panic attacks or audible hallucinations Allergy Allergy/Immunology: Negative for lip swelling, Negative for tongue swelling, Negative for rash, Negative for throat swelling, Negative for hives Cardiology Exam Const Appearance: cooperative, healthy appearing and no acute distress Nutritional Appearance: well nourished Orientation: alert, oriented x3 and oriented to person Head Head: normal to inspection, atraumatic and normocephalic Nose: external nose normal Face and Sinus: face symmetric Mouth: oral mucosae normal Eyes General: appearance normal, both eyes and all related structures Eyelids: eyelids normal Conjunctivae: conjunctivae normal Pupils: PERRL and normal by confrontation EOM: EOM intact bilaterally Neck Neck: normal visual inspection and full ROM Carotids: normal carotid upstroke Chest Chest inspection: normal inspection of the chest Auscultation: Bilateral: Clear to Auscultation Cardio Palpation: normal PMI Rate: regular rate Rhythm: regular rhythm Heart sounds: S1 normal and S2 normal GI GI: normal to inspection, no hepatosplenomegaly and bowel sounds present Neuro General: alert, oriented x3, awake, CN's II-XI intact bilaterally and moves all extremities Skin Skin: no rashes or lesions noted Extremities Pulses: Normal: Right Femoral Pulse, Left Femoral Pulse, Right Dorsalis Pedis Pulse, Left Dorsalis Pedis Pulse, Right Posterior Tibial Pulse, Left Posterior Tibial Pulse, Right Radial Pulse, Left Radial Pulse Lower Extremity Edema: None: Bilateral Psych Psychological: normal affect Assessment AND Plan 1. Cardiomyopathy I42.9 echo done Jul 2018 continues to show reduced EF 25%, it was 60-65% in 2016. Etiology unclear Plan 1. Cardiomyopathy: The patient has not had an improved LV function since her aortic valve replacement and despite maximal medical therapy. She has not a candidate for cardiac rehab. The patient was brought here to evaluate and to discuss the option of AICD/DIRECTOR OF CUSTOMER SERVICE therapy given her baseline left bundle branch block. After a long and thorough discussion with the patient, I do not believe she is grasping the concepts that I am trying to explain to her with respect to improving her heart function as well as preventing sudden cardiac . I gave her the option of proceeding with consultation with Dr. Dumont at [facility], and she does not wish to proceed until she talks to her . Although her brought her here, he was not in the waiting room, and was unavailable to discuss. In the meantime I believe it is reasonable to continue Lasix, metoprolol. Told the patient to let us know when she has made a decision one way or the other, and then we will proceed with consultation with Dr. Dumont. 2. Hyperlipidemia E78.5 Plan 2. Hyperlipidemia: Her LDL and HDL cholesterol are at goal. Continue Lipitor. 3. Paroxysmal a-fib I48.0 Plan 3. Paroxysmal atrial fibrillation: The patient has a history of paroxysmal atrial fibrillation and previous CVA. She is currently in a wheelchair. She has had no falls. I believe it is reasonable to continue Eliquis but discontinue her Plavix as she does not appear to require both. 4. Return office in 6 months. This note was generated using a voice recognition system and there may be incorrect words, spelling or punctuation that were not noted when reviewing the office note prior to saving. Plan Detail Other Medications Discontinued: lisinopril Hold for SBP <110 Discontinued Reason: Orde2.5 mg PO DAILY 30 tabs 0RF r Changed Follow Up +6M (Ragsdale) Coding Level of Care Code Off vis,est,level 3 Diagnoses Cardiomyopathy I42.9 Hyperlipidemia E78.5 Paroxysmal a-fib I48.0 Coding Level of Care Code Off vis,est,level 3 Diagnoses Cardiomyopathy I42.9 Hyperlipidemia E78.5 Paroxysmal a-fib I48.0 Supplemental Info Supplemental Information Labs LDL Cholesterol 50 mg/dL (0-130) 05/04/18 HDL Cholesterol 41 mg/dL (40-) 05/04/18 Triglycerides 92 mg/dL (-199) 05/04/18 VLDL Cholesterol 18 mg/dL (5-40) 05/04/18 Diagnostics Electrocardiogram 03/13/18 Echocardiogram 08/10/18 Stress Test Nuclear Medicine 12/28/17 Stress Test 12/28/17 Cardiac Catheterization 12/24/15 Chest X-Ray 03/12/18 Venous Doppler Study 03/12/18 Pulmonary Pulmonary Function Test 01/12/16 09/07/18 1526 <Electronically signed by Ventura Ragsdale MD> Date Ventura Ragsdale MD Cosigner Signature: Date (if applicable) CC: Micheal Mercado MD BASIC METABOLIC Collected: 09/04/2018 Status: F Source: [place] ([place]) 5:10 [place] [facility] [place] Order Comment: 168 TYPE CODE TESTS RESULT OUT OF RANGE REFERENCE UNITS LAB L501.0100 74-106 mg/dL High GLU 130 Result Comment: Fasting Glucose result greater than or equal to 126 mg/dL suggests DIABETES MELLITUS per A.D.A. criteria. Please note revised GLUCOSE reference range effective 2017. LAB L501.1000 7-18 mg/dL High BUN 22 LAB L501.1100 0.55-1.02 mg/dL Normal CREAT,SERUM 0.85 Result Comment: The validity of the calculated GFR AND GFRAA in patients over 70 years has not been determined. Clinical correlation is essential. LAB L501.1110 >60 mL/min Normal EST GFR 69 Result Comment: Non- GFR Calc LAB L501.1115 >60 mL/min Normal EST GFR - AA 83 Result Comment: GFR Calc LAB L501.1300 10-20 RATIO High BUN/CRE 25.8 LAB L501.2200 8.5-10.1 mg/dL Low CA 8.1 LAB L501.5300 136-145 mmol/L NA Normal 140 LAB L501.5600 3.5-5.1 mmol/L K Normal 4.2 LAB L501.5900 98-107 mmol/L CL Normal 103 LAB L501.6100 21.0-32.0 mmol/L Normal CO2 30.0 LAB L501.6200 5-15 Normal GAP 7 Performed By: #### L500.2500 #### [facility] [address] [place], [address] CBC W/DIFF, AUTOMATED Collected: 09/04/2018 Status: F Source: [place] 5:10 AM [facility] [place] Order Comment: 168 TYPE CODE TESTS RESULT OUT OF RANGE REFERENCE UNITS LAB L100.1000 4.4-11.0 K/mm3 Normal WBC 5.9 LAB L100.1200 4.2-5.4 M/mm3 Low RBC 3.74 LAB L100.1300 12.0-15.0 g/dl Low HGB 9.9 LAB L100.1400 37-47 % Low HCT 32.6 LAB L100.1500 81-99 fL Normal MCV 87.2 LAB L100.1600 27.0-32.0 pg Low MCH 26.5 LAB L100.1700 32-36 g/gl Low MCHC 30.4 LAB L100.1810 11.6-14.6 % High RDW CV 17.2 LAB L100.1820 35.1-43.9 fl High RDW SD 54.8 LAB L100.1900 150-450 K/mm3 Normal PLT 208 LAB L100.2000 6.2-12.0 fl Normal MPV 9.6 LAB L100.2100 47-70 % Normal NEUT% 62.5 LAB L100.2200 19-41 % Normal LY% 20.5 LAB L100.2300 0-10 % High MONO% 12.6 LAB L100.2400 0-5 % Normal EO% 3.6 LAB L100.2500 0-1 % Normal BASO% 0.5 LAB L100.2550 0.0-0.9 % Normal IM GRAN % 0.300 Result Comment: IG% - Immature Granulocytes (promyelocytes, myelocytes and metamyelocytes) > 1% indicates that a LEFT SHIFT is Present. LAB L100.2620 2.0-7.7 X10 3/uL Normal Absolute Neut 3.7 LAB L100.2720 0.83-4.51 X10 3/ul Normal Absolute Lymph 1.21 Performed By: #### L100.0100 #### [facility] [place], [address] CBC W/DIFF, AUTOMATED Collected: 09/02/2018 Status: F Source: [place] 7:05 AM [facility] [place] TYPE CODE TESTS RESULT OUT OF RANGE REFERENCE UNITS LAB L100.1000 4.4-11.0 K/mm3 Normal WBC 4.8 LAB L100.1200 4.2-5.4 M/mm3 Low RBC 3.78 LAB L100.1300 12.0-15.0 g/dl Low HGB 10.0 LAB L100.1400 37-47 % Low HCT 32.9 LAB L100.1500 81-99 fL Normal MCV 87.0 LAB L100.1600 27.0-32.0 pg Low MCH 26.5 LAB L100.1700 32-36 g/gl Low MCHC 30.4 LAB L100.1810 11.6-14.6 % High RDW CV 17.2 LAB L100.1820 35.1-43.9 fl High RDW SD 54.3 LAB L100.1900 150-450 K/mm3 Normal PLT 230 LAB L100.2000 6.2-12.0 fl Normal MPV 9.6 LAB L100.2100 47-70 % Normal NEUT% 59.1 LAB L100.2200 19-41 % Normal LY% 24.6 LAB L100.2300 0-10 % High MONO% 12.4 LAB L100.2400 0-5 % Normal EO% 3.3 LAB L100.2500 0-1 % Normal BASO% 0.4 LAB L100.2550 0.0-0.9 % Normal IM GRAN % 0.200 Result Comment: IG% - Immature Granulocytes (promyelocytes, myelocytes and metamyelocytes) > 1% indicates that a LEFT SHIFT is Present. LAB L100.2620 2.0-7.7 X10 3/uL Normal Absolute Neut 2.9 LAB L100.2720 0.83-4.51 X10 3/ul Normal Absolute Lymph 1.19 Performed By: #### L100.0100 #### [facility] [address] [place], [place], [address] BASIC METABOLIC Collected: 09/02/2018 Status: F Source: [place] (BMP) 7:05 AM [facility] [place] TYPE CODE TESTS RESULT OUT OF RANGE REFERENCE UNITS LAB L501.0100 74-106 mg/dL High GLU 135 Result Comment: Fasting Glucose result greater than or equal to 126 mg/dL suggests DIABETES MELLITUS per A.D.A. criteria. Please note revised GLUCOSE reference range effective 2017. LAB L501.1000 7-18 mg/dL High BUN 20 LAB L501.1100 0.55-1.02 mg/dL Normal CREAT,SERUM 0.85 Result Comment: The validity of the calculated GFR AND GFRAA in patients over 70 years has not been determined. Clinical correlation is essential. LAB L501.1110 >60 mL/min Normal EST GFR 69 Result Comment: Non- GFR Calc LAB L501.1115 >60 mL/min Normal EST GFR - AA 84 Result Comment: GFR Calc LAB L501.1300 10-20 RATIO High BUN/CRE 23.6 LAB L501.2200 8.5-10.1 mg/dL CA Normal 8.5 LAB L501.5300 136-145 mmol/L NA Normal 141 LAB L501.5600 3.5-5.1 mmol/L K Normal 3.9 LAB L501.5900 98-107 mmol/L CL Normal 102 LAB L501.6100 21.0-32.0 mmol/L High CO2 33.0 LAB L501.6200 5-15 Normal GAP 6 Performed By: #### L500.2500 #### [facility] [address] [place], [address] COMPREHENSIVE METABOLIC Collected: 08/13/2018 Status: F Source: [place] 5:05 PM [facility] [place] TYPE CODE TESTS RESULT OUT OF RANGE REFERENCE UNITS LAB L501.0100 74-106 mg/dL High GLU 231 Result Comment: Glucose result greater than or equal to 200 mg/dL suggests DIABETES MELLITUS per A.D.A. criteria. Please note revised GLUCOSE reference range effective 2017. LAB L501.1000 7-18 mg/dL High BUN 22 LAB L501.1100 0.55-1.02 mg/dL Normal CREAT,SERUM 0.94 Result Comment: The validity of the calculated GFR AND GFRAA in patients over 70 years has not been determined. Clinical correlation is essential. LAB L501.1110 >60 mL/min Normal EST GFR 61 Result Comment: Non- GFR Calc LAB L501.1115 >60 mL/min Normal EST GFR - AA 74 Result Comment: GFR Calc LAB L501.1300 10-20 RATIO High BUN/CRE 23.4 LAB L501.1500 6.4-8.2 g/dL T Normal PROT 7.5 LAB L501.1800 3.2-5.0 g/dL Low ALB 3.1 LAB L501.1950 2.2-4.2 g/dL High GLOB 4.4 LAB L501.2000 0.9-2.4 RATIO Low A/G 0.7 LAB L501.2200 8.5-10.1 mg/dL CA Normal 8.6 LAB L501.4100 15-37 U/L High AST 72 LAB L501.4305 45-117 U/L Normal ALK P 102 LAB L501.4405 13-56 U/L Normal ALT 51 LAB L501.4600 0.20-1.00 mg/dL T Normal BILI 0.80 LAB L501.5300 136-145 mmol/L NA Normal 137 LAB L501.5600 3.5-5.1 mmol/L K Normal 3.6 LAB L501.5900 98-107 mmol/L CL Normal 101 LAB L501.6100 21.0-32.0 mmol/L Normal CO2 29.0 LAB L501.6200 5-15 Normal GAP 7 Performed By: #### L500.4050 #### [facility] [address] [place], [address] CBC W/DIFF, AUTOMATED Collected: 08/13/2018 Status: F Source: [place] 5:05 PM [facility] [place] TYPE CODE TESTS RESULT OUT OF RANGE REFERENCE UNITS LAB L100.1000 4.4-11.0 K/mm3 Normal WBC 10.8 LAB L100.1200 4.2-5.4 M/mm3 Low RBC 4.07 LAB L100.1300 12.0-15.0 g/dl Low HGB 10.9 LAB L100.1400 37-47 % Low HCT 35.1 LAB L100.1500 81-99 fL Normal MCV 86.2 LAB L100.1600 27.0-32.0 pg Low MCH 26.8 LAB L100.1700 32-36 g/gl Low MCHC 31.1 LAB L100.1810 11.6-14.6 % High RDW CV 15.5 LAB L100.1820 35.1-43.9 fl High RDW SD 49.0 LAB L100.1900 150-450 K/mm3 Normal PLT 204 LAB L100.2000 6.2-12.0 fl Normal MPV 10.0 LAB L100.2100 47-70 % High NEUT% 79.8 LAB L100.2200 19-41 % Low LY% 9.0 LAB L100.2300 0-10 % Normal MONO% 10.0 LAB L100.2400 0-5 % Normal EO% 1.0 LAB L100.2500 0-1 % Normal BASO% 0.1 LAB L100.2550 0.0-0.9 % Normal IM GRAN % 0.100 Result Comment: IG% - Immature Granulocytes (promyelocytes, myelocytes and metamyelocytes) > 1% indicates that a LEFT SHIFT is Present. LAB L100.2620 2.0-7.7 X10 3/uL High Absolute Neut 8.6 LAB L100.2720 0.83-4.51 X10 3/ul Normal Absolute Lymph 0.97 Performed By: #### L100.0100 #### [facility] [address] [place], [address] ECHOCARDIOGRAM COMPLETE Observed: 08/10/2018 Status: F Source: [place] 4:28 PM [facility] [place] [facility] Cardiovascular Services [address] [place] [address] Echo Complete 08/10/18 1313 MR#: [id number] Acct: [id number] Name: BEVERLY BROUSSARD Rep #: [id number] : 1940 77 From: Ventura Ragsdale MD Attending Dr: Ventura Ragsdale MD Status: REG CLI Ordering Dr: Vetnura Ragsdale MD Date: 08/10/18 Location: [facility] Sex: F C Admitted: Reason For Study: PULMONARY HYPERTENSION Procedure This was a 2D Doppler, Color Flow transthoracic echocardiogram. Exam performed in department. Left Ventricle Moderately dilated left ventricle. The estimated ejection fraction is 25-30 %. Stage 2 diastolic dysfunction. Septal motion consistent with IVCD. There is severe global hypokinesis of the left ventricle. Right Ventricle Normal size and thickness. Normal systolic function. Atria Normal left atrium. Normal right atrium. Normal atrial septum. Mitral Valve Mild diffuse mitral valve thickening. Mild (1+) mitral valve insufficiency. Tricuspid Valve Normal tricuspid valve. Trivial tricuspid valve insufficiency. Right ventricular systolic pressure estimated to be 49 mmHg. Moderate pulmonary hypertension. Aortic Valve Peak aortic valve gradient 30 mmHg. Mean aortic valve gradient 17 mmHg. Stable appearing bioprosthetic aortic valve apparatus. Pulmonic Valve Normal pulmonic valve. Great Vessels Normal aortic root. Normal arch. Normal inferior vena cava. Inferior vena cava collapse with sniff. Pericardium/Pleural No pericardial effusion. Medication DEFINITY NOT UTILIZED DUE TO INCREASED PULMONARY PRESSURES. MMode/2D Measurements AND Calculations LVIDd: 5.5 cm IVSd: 1.2 cm LVOT diam: 1.8 cm LVIDs: 4.7 cm LVPWd: 0.92 cm RVDd: 3.6 cm FS: 14.1 % LVOT area: 2.6 cm2 Ao root diam: 3.1 cm LAV(MOD-bp): 56.8 ml LVAd ap4: 38.8 cm2 LAV(MOD-bp) Indexed: 31.9 ml/m2 EDV(MOD-sp4): 151.9 ml LAV(MOD-sp2): 65.2 ml EDV(sp4-el): 159.0 ml LAV(MOD-sp4): 46.2 ml LVAs ap4: 26.7 cm2 ESV(MOD-sp4): 81.2 ml ESV(sp4-el): 87.3 ml EF(MOD-sp4): 46.6 % EF(sp4-el): 45.1 % SV(MOD-sp4): 70.8 ml SV(sp4-el): 71.7 ml LA A4 area: 17.5 cm2 LA dimension(2D): 4.2 cm RA A4 area: 19.1 cm2 Time Measurements MV dec time: 0.27 sec Doppler Measurements AND Calculations MV E max tex: 136.1 cm/sec Lat Peak E' Tex: 5.7 cm/sec Med Peak E' Tex: 4.4 cm/sec MV A max tex: 105.0 cm/sec E/E' lat: 23.9 E/E' med: 31.0 MV E/A: 1.3 Ao V2 max: 273.8 cm/sec LV V1 max: 120.1 cm/sec SV(LVOT): 75.3 ml Ao max P.0 mmHg LV V1 max P.9 mmHg Ao V2 mean: 191.8 cm/sec LV V1 mean P.6 mmHg Ao mean P.8 mmHg LV V1 mean: 86.4 cm/sec Ao V2 VTI: 63.1 cm LV V1 VTI: 29.5 cm JARRETT(I,D): 1.2 cm2 JARRETT(V,D): 1.1 cm2 PA V2 max: 98.0 cm/sec TR max tex: 358.9 cm/sec TR max P.8 mmHg Interpretation Summary Moderately dilated left ventricle. The estimated ejection fraction is 25-30 %. There is severe global hypokinesis of the left ventricle. Stage 2 diastolic dysfunction. Mild (1+) mitral valve insufficiency. Trivial tricuspid valve insufficiency. Right ventricular systolic pressure estimated to be 49 mmHg. Moderate pulmonary hypertension. Compared to echo report dated 03/13/2018, no appreciable changes noted. The study was technically difficult. Ordering Physician: Ventura Ragsdale Referring Physician: MICHEAL MERCADO Performed By: Katrin Zhao [facility] 08/10/18 1628 Date Ventura Ragsdale MD CC: Ventura Ragsdale MD; Micheal Mercado MD Date Dictated: 08/10/18 1313 Date Transcribed: 08/10/181627 Upper Extremity Surgeon: Signed CARDIOLOGY VISIT Observed: 05/16/2018 Status: F Source: [place] 10:12 AM [facility] [place] [facility] [address] [place] [address] [address] [place] [address] OFFICE VISIT Date of Service: 05/11/18 MR#: [id number] Acct: [id number] Name: BEVERLY BROUSSARD Rep #: [id number] : 1940 Provider: Ventura Ragsdale MD Age/Sex: 77/F [place] [facility] [place] Status: Signed HPI HPI Chief Complaint: Routine f/u Details: referring physician: Dr. Liu Mrs. Broussard is a very pleasant 77-year-old morbidly obese diabetic female with a history of hypertension, hypercholesterolemia, former smoker who quit around 40 years ago after a 11-dbyd-wzio smoking history, 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 According to the patient she was told that her carotids were nonobstructive at that time although I do not have any documents to that effect. In addition she was reportedly found to have severe aortic stenosis by recent echocardiogram dated 11/04/15. This demonstrated an EF of 65%, mild left atrial enlargement, severe aortic stenosis with a peak/mean gradient of 49/27 mmHg and estimated JARRETT of 0.87 cm . From a cardiac standpoint she denies any exertional angina but does complain of dyspnea on exertion and shortness of breath. She also reports positional lightheadedness and dizziness is been going on for several months. She denies ever having a catheterization, and repeat carotid ultrasound done 11/04/15 demonstrated a greater than 70% stenosis of the right internal and left internal carotid arteries. The systolic velocities bilaterally had increased significantly since 01/02/14. She had antegrade flow normally bilaterally in the vertebrals. A CTA of her neck dated 12/02/15 showed a right internal carotid of 50-69%, and a left internal carotid of 70%, with normal vertebral arteries. She has seen Dr. Aviles in the past. In addition she underwent a CHANCE on 12/05/15 which showed an estimated JARRETT of 0.7 cm , mild mitral regurgitation, and an EF of 65%. Patient was also found to have significant bilateral carotid disease left greater than right. Patient underwent successful aortic valve replacement with a Bogart sutureless valve by Dr. Fonseca at [facility] on 01/28/16, as well as concomitant left carotid endarterectomy at the same time. no additional carotid endarterectomy was performed on the right carotid. Postoperatively she developed some atrial fibrillation and was treated with amiodarone therapy. She was subsequently transferred to the rehab center, then to home. She has completed physical therapy at [facility]. She has also completed cardiac rehab without any difficulty.. At home she is doing her daily chores, and was feeling stronger every week. She felt better than prior to her surgery, but still not back to 100%. She denies any exertional chest pain, angina, shortness of breath or dyspnea on exertion. She has occasional forgetfulness and poor memory which was present prior to her surgery. She is status post CVA in the past. She walks on her own most of time but occasionally with a cane. Patient was admitted was [facility] on 03/14/18 for acute chest pain was found to have minimal elevation of troponins and pulmonary emboli. Patient was placed on anticoagulation therapy with eliquis, and subsequently transferred to [facility] She apparently has no recollection of that admission, does not recall seeing Dr. Gregg. I was out of town at the time she is now here in follow-up. Echocardiogram done on 03/13/18 showed EF of 25%, RVSP of 55 mmHg, with mild to moderate mitral regurgitation. She denies any chest pain, angina, shortness of breath, but does complain of bilateral lower extremity edema. She reports that she is compliant with her medications that she is given at the group home. In our office today her blood pressure is 110/50 and pulse is 68and regular. her physical exam demonstrates well-healed suture lines in both her carotid and sternal area, no evidence of sternal instability, regular rate and rhythm with a 2/6 systolic ejection murmur, no edema noted. In addition she has faint bilateral late expiratory wheezes. Lipids As of 06/09/16 showed HDL of 60 and LDL of 53. Lipids as of 05/04/18 show an LDL of 50 and an HDL of 41. EKG previously demonstrates normal sinus rhythm with baseline left bundle branch block unchanged. Intake Vital Signs05/11/18 Height 5 ft 05/11/18 Weight: 200 lb 05/11/18 Body Mass Index (BMI) 39.0 05/11/18 Blood Pressure 110/50 Intake Visit Reasons: F/U Exceptional Children Teacher Required: No Accompanied by: Niece Is patient in pain?: No Allergies pregabalin [From Lyrica] Adverse Reaction (Severe, Verified 05/11/18 15:27) Mental status changes prochlorperazine edisylate [From Compazine] Adverse Reaction (Severe, Verified 05/09/18 09:35) Seizures prochlorperazine maleate [From Compazine] Adverse Reaction (Severe, Verified 05/09/18 09:35) Seizures tolmetin sodium [From Tolectin] Adverse Reaction (Severe, Verified 05/09/18 09:35) Syncope Medications Insulin Aspart [Novolog Flexpen] See Protocol SC TIDCM 02/18/16 [History Confirmed 05/11/18] Ergocalciferol [Vitamin D] 50,000 unit PO QMONTH 12/27/17 [History Confirmed 05/11/18] Sitagliptin Phosphate [Januvia] 100 mg PO DAILY 12/27/17 [History Confirmed 05/11/18] Solifenacin Succinate [Vesicare] 10 mg PO DAILY 12/27/17 [History Confirmed 05/11/18] Atorvastatin Calcium [Lipitor] 80 mg PO QHS 01/02/18 [History Confirmed 03/12/18] Furosemide [Lasix] 40 mg PO DAILY #0 tab 01/03/18 [Rx Confirmed 05/11/18] Insulin Detemir [Levemir FlexPen] 30 units SC DAILY #0 01/03/18 [Rx Confirmed 05/11/18] Oxygen, Home [Home Oxygen] 2 lpm NASAL CONT #1 unit 01/03/18 [Rx Confirmed 05/11/18] Memantine HCl 5 mg PO BID 03/12/18 [History Confirmed 05/11/18] Vortioxetine Hydrobromide [Trintellix] 10 mg PO DAILY 03/12/18 [History Confirmed 05/11/18] Apixaban [Eliquis] 10 mg PO BID #62 tab 03/13/18 [Rx Confirmed 05/11/18] Acetaminophen [Tylenol Tablet] 650 mg PO Q6H PRN PRN tab 03/14/18 [Rx Confirmed 05/11/18] Albuterol Aerosols [Ventolin Aerosols] 2.5 mg INHALATION Q2H PRN PRN #1 box 03/14/18 [Rx Confirmed 05/11/18] Carvedilol [Coreg (Beta Chloe)] 3.125 mg PO BID #60 tab 03/14/18 [Rx Confirmed 05/11/18] Escitalopram Oxalate [Lexapro] 10 mg PO DAILY tab 03/14/18 [Rx Confirmed 05/11/18] Glucerna Shake 120 ml PO TIDCM liquid 03/14/18 [Rx Confirmed 05/11/18] Ipratropium/Albuterol Sulfate [Duoneb] 3 ml INHALATION Q6HWA.RT #1 box 03/14/18 [Rx Confirmed 05/11/18] Lisinopril [Zestril] 2.5 mg PO DAILY #30 tab 03/14/18 [Rx Confirmed 05/11/18] Nystatin Powder [Mycostatin Powder] 1 applic TOPICAL TID #1 bottle 03/14/18 [Rx Confirmed 05/11/18] levothyroxine 112 mcg tablet 112 mcg PO DAILY 05/09/18 [History Confirmed 05/11/18] [facility] Medical History Pulmonary embolism, bilateral (Acute 03/12/18) Diabetes mellitus, type II (Chronic) Chronic respiratory failure with hypoxia (Chronic) Cardiac enzymes elevated (Acute) Cardiomyopathy (Acute) Thrombocytopenia (Chronic) Dementia (Chronic) Uncontrolled diabetes mellitus (Chronic) Obesity (Chronic) Non-rheumatic aortic stenosis (Chronic) COPD (chronic obstructive pulmonary disease) (Chronic) Secondary pulmonary arterial hypertension (Chronic) Hyperlipidemia (Chronic) Chronic diastolic heart failure (Chronic) CVA (cerebral infarction) (Chronic) Hypertension (Chronic) Hypothyroidism (Chronic) Paroxysmal a-fib (Chronic) Bilateral carotid artery stenosis (Chronic) Fibromyalgia (Chronic) Obstructive sleep apnea (Chronic) Onychomycosis (Chronic) Type 2 diabetes mellitus without complications (Chronic) Vascular dementia (Chronic) Surgical History H/O aortic valve replacement (Chronic 02/06/16) History of left-sided carotid endarterectomy (Resolved 02/06/16) History of right and left heart catheterization (Resolved 12/24/15) Hx of cholecystectomy (Resolved) Family History Mother CVA (cerebral vascular accident) Diabetes Social History Smoking Status: Former smoker ROS Const Const: Positive for other ([facility]); negative for fatigue, weakness, body ache, fever(s), headache(s), chills, frequent falls, night sweats, daytime sleepiness, difficulty sleeping, excessive sweating, weight gain, weight loss, increased appetite, poor appetite or anorexia Eyes Eyes: Negative for blind spots, loss of peripheral vision, transient loss of vision, blurry vision, change in vision, double vision, floaters, tunnel vision or other ENT ENT: Negative for headache(s), dizziness, hearing loss, tinnitus, Nosebleed/epistaxis, balance problems, post nasal drip, lip swelling, tongue swelling, bleeding gums, hoarseness, neck pain, dry mouth or other Cardio Chest Pain: No Palpitations: No Edema: Bilateral (Ptting to mid omya) Muscle aches with walking: None Resp Respiratory: Negative for SOB with activity, SOB at rest, SOB orthopnea\SOB lying down, Cough, Coughing up blood/hemoptysis, chest congestion, pain on inspiration, snoring, stridor, wheezing, crackles, paroxysmal nocturnal dyspnea or other GI GI: Negative nausea, vomiting, heartburn, constipation, belching, bloating, cramping, vomiting blood/hematemesis, bright, red blood in stools, black,tarry stools, loose stools, Difficulty Swallowing or other : Negative for hematuria, frequent nighttime urination/ nocturia, erectile dysfunction or abnormal vaginal bleeding Musc Musc: Positive for joint pain; negative for balance problems, muscle aches/ myalgia or muscle weakness Skin Skin: Negative redness, non-healing lesions, rash, unusual bruising, skin ulcer, wounds, jaundice or other Neuro Neuro: Positive for other (walks with walker for balance); negative for weakness, headache(s), frequent falls, blurry vision, double vision, dizziness, lightheadedness, near syncope, syncope, orthostatic symptoms, confusion, memory loss, restless legs, vertigo, seizures or lack of coordination Horacio Hematologic/Lymphatic: Negative for easy bleeding, easy bruising, enlarged lymph nodes or other Endo Endo: Negative for fatigue, excessive sweating, cold intolerance, heat intolerance, flushing, increased thirst/drinking, increased hunger, hair loss, hair growth or other Psych Psych: Negative for anxiety, depression, thoughts of harming anyone, thoughts of harming yourself, visual hallucinations, panic attacks or audible hallucinations Allergy Allergy/Immunology: Negative for lip swelling, Negative for tongue swelling, Negative for rash, Negative for throat swelling, Negative for hives Cardiology Exam Const Appearance: cooperative, healthy appearing and no acute distress Nutritional Appearance: well nourished Orientation: alert, oriented x3 and oriented to person Head Head: normal to inspection, atraumatic and normocephalic Nose: external nose normal Face and Sinus: face symmetric Mouth: oral mucosae normal Eyes General: appearance normal, both eyes and all related structures Eyelids: eyelids normal Conjunctivae: conjunctivae normal Pupils: PERRL and normal by confrontation EOM: EOM intact bilaterally Neck Neck: normal visual inspection and full ROM Carotids: normal carotid upstroke Chest Chest inspection: normal inspection of the chest Auscultation: Bilateral: Clear to Auscultation Cardio Palpation: normal PMI Rate: regular rate Rhythm: regular rhythm Heart sounds: S1 normal and S2 normal GI GI: normal to inspection, no hepatosplenomegaly and bowel sounds present Neuro General: alert, oriented x3, awake, CN's II-XI intact bilaterally and moves all extremities Skin Skin: no rashes or lesions noted Extremities Pulses: Normal: Right Femoral Pulse, Left Femoral Pulse, Right Dorsalis Pedis Pulse, Left Dorsalis Pedis Pulse, Right Posterior Tibial Pulse, Left Posterior Tibial Pulse, Right Radial Pulse, Left Radial Pulse Lower Extremity Edema: None: Bilateral Psych Psychological: normal affect Assessment AND Plan 1. Pulmonary embolism, bilateral I26.99 Per CTA 03/12/18 [facility] Plan 1. Pulmonary emboli: Patient recently suffered a pulmonary emboli and is currently on Eliquis therapy. Patient was also found to have significant pulmonary hypertension with an RVSP of 55 mmHg, and severe LV dysfunction with an EF of 25%. Her EF of 25% is new finding since 2016 at which time her EF was 65%. She is also status post aortic valve replacement. At this point I would recommend continuing anticoagulation and if her pulmonary hypertension does not improve I would recommend lifelong anticoagulation for her LV dysfunction and pulmonary hypertension. We will repeat her echocardiogram in 3 months time to assess her LV function and pulmonary pressures Orders Orders: 2. Cardiomyopathy I42.9 Etiology unclear w/ indeterminate cardiac enzymes, plan continue anticoagulation with repeat echocardiogram in 3-6 months to reassess pulmonary pressures per cardiology request. Continue supportive management with beta-chloe and JUAN inhibitor. Plan 2. Cardiomyopathy: The patient has cardiomyopathy which is new since her echocardiogram in 2016, and apparently shows an EF around 25%. This may have been a result of previous systemic hypertension and aortic valve replacement. We will repeat her echocardiogram in 3 months time to assess her pulmonary pressures and LV function. If her LV function is still poor, would recommend lifelong anticoagulation therapy with Eliquis or equivalent. Recommend that she continue her JUAN inhibitor lisinopril as well as Lasix. She will wrap her legs with Juan bandages to assist with venous root 3. H/O aortic valve replacement Z95.2 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 with left carotid endarterectomy @ [facility] by Dr Lerma 02/06/16 Plan Jing. 3. Status post aortic valve replacement: Continue SBE prophylaxis. Repeat echocardiogram pending 4. Hyperlipidemia E78.5 Plan 4. Hyperlipidemia: Her LDL and HDL cholesterol are at goal. Continue Lipitor. 5. Return office in 4 months with either myself or an MANAGEMENT COORDINATOR. This note was generated using a voice recognition system and there may be incorrect words, spelling or punctuation that were not noted when reviewing the office note prior to saving. Plan Detail Follow Up +4M (Jn or YAAKOV) Coding Level of Care Code Off vis,est,level 3 Diagnoses Pulmonary embolism, bilateral I26.99 Cardiomyopathy I42.9 H/O aortic valve replacement Z95.2 Hyperlipidemia E78.5 Coding Level of Care Code Off vis,est,level 3 Diagnoses Pulmonary embolism, bilateral I26.99 Cardiomyopathy I42.9 H/O aortic valve replacement Z95.2 Hyperlipidemia E78.5 05/16/18 1012 <Electronically signed by Ventura Ragsdale MD> Date Ventura Ragsdale MD Cosigner Signature: Date (if applicable) CC: Rolan Mark MD HEMOGLOBIN A1C Collected: 05/04/2018 Status: F Source: [place] 8:[place] [facility] [place] CODE TESTS RESULT OUT OF RANGE REFERENCE UNITS LAB L501.9985 4.2-6.3 % Normal HGB A1C 6.2 Performed By: #### L501.9985 #### [facility] [address] [place], [place], [address] COMPREHENSIVE METABOLIC Collected: 05/04/2018 Status: F Source: [facility] 8:20 AM [facility] [place] TYPE CODE TESTS RESULT OUT OF RANGE REFERENCE UNITS LAB L501.0100 74-106 mg/dL High GLU 171 Result Comment: Fasting Glucose result greater than or equal to 126 mg/dL suggests DIABETES MELLITUS per A.D.A. criteria. Please note revised GLUCOSE reference range effective 2017. LAB L501.1000 7-18 mg/dL High BUN 21 LAB L501.1100 0.55-1.02 mg/dL Normal CREAT,SERUM 0.82 Result Comment: The validity of the calculated GFR AND GFRAA in patients over 70 years has not been determined. Clinical correlation is essential. LAB L501.1110 >60 mL/min Normal EST GFR 72 Result Comment: Non- GFR Calc LAB L501.1115 >60 mL/min Normal EST GFR - AA 87 Result Comment: GFR Calc LAB L501.1300 10-20 RATIO High BUN/CRE 25.7 LAB L501.1500 6.4-8.2 g/dL Low T PROT 5.9 LAB L501.1800 3.2-5.0 g/dL Low ALB 2.6 LAB L501.1950 2.2-4.2 g/dL Normal GLOB 3.3 LAB L501.2000 0.9-2.4 RATIO Low A/G 0.8 LAB L501.2200 8.5-10.1 mg/dL Low CA 8.3 LAB L501.4100 15-37 U/L Normal AST 22 LAB L501.4305 45-117 U/L Normal ALK P 50 LAB L501.4405 13-56 U/L Normal ALT 26 LAB L501.4600 0.20-1.00 mg/dL T Normal BILI 0.60 LAB L501.5300 136-145 mmol/L NA Normal 143 LAB L501.5600 3.5-5.1 mmol/L K Normal 4.1 LAB L501.5900 98-107 mmol/L CL Normal 105 LAB L501.6100 21.0-32.0 mmol/L Normal CO2 30.0 LAB L501.6200 5-15 Normal GAP 8 Performed By: #### L500.4050, L500.4100, L501.9520 #### [facility] [address] [place], [place], [address] LIPID PROFILE Collected: 05/04/2018 Status: F Source: [place] 8:20 AM [facility] [place] TYPE CODE TESTS RESULT OUT OF RANGE REFERENCE UNITS LAB L501.4900 200 mg/dL Normal CHOL 109 Result Comment: <200 mg/dL Desirable 200-240 mg/dL Borderline >240 mg/dL High Risk LAB L501.5000 mg/dL Normal TRIG 92 Result Comment: The drugs N-Acetylcysteine and Metamizole may falsely depress this assay. Serum Triglycerides Reference Interval Normal <150 mg/dL Borderline high 150 - 199 mg/dL High 200 - 499 mg/dL Very High > or = 500 mg/dL LAB L501.6400 mg/dL Normal HDL 41 Result Comment: The drugs N-Acetylcysteine and Metamizole may falsely depress this assay. Reference Range HDL <40 mg/dL Low HDL Cholesterol HDL >or= 60 mg/dL High HDL Cholesterol LAB L501.6500 0-130 mg/dL Normal LDL 50 LAB L501.6600 5-40 mg/dL Normal VLDL 18 Performed By: #### L500.4050, L500.4100, L501.9520 #### [facility] [address] [place], [place], [id number] THYROID STIM HORMONE Collected: 05/04/2018 Status: F Source: [place] ([facility]) 8:20 AM [facility] [place] TYPE CODE TESTS RESULT OUT OF RANGE REFERENCE UNITS LAB L501.9520 0.358-3.74 uIU/mL Normal TSH 3.74 Performed By: #### L500.4050, L500.4100, L501.9520 #### [facility] [address], [place], [address] CBC-COMPLETE BLOOD CNT Collected: 04/24/2018 Status: F Source: [place] NO DIFF 5:50 AM [facility] [place] Order Comment: ROOM 168 TYPE CODE TESTS RESULT OUT OF RANGE REFERENCE UNITS LAB L100.1000 4.4-11.0 K/mm3 Normal WBC 6.4 LAB L100.1200 4.2-5.4 M/mm3 Low RBC 3.29 LAB L100.1300 12.0-15.0 g/dl Low HGB 10.1 LAB L100.1400 37-47 % Low HCT 32.0 LAB L100.1500 81-99 fL Normal MCV 97.3 LAB L100.1600 27.0-32.0 pg Normal MCH 30.7 LAB L100.1700 32-36 g/gl Low MCHC 31.6 LAB L100.1810 11.6-14.6 % High RDW CV 14.9 LAB L100.1820 35.1-43.9 fl High RDW SD 50.5 LAB L100.1900 150-450 K/mm3 Low PLT 142 LAB L100.2000 6.2-12.0 fl Normal MPV 10.4 Performed By: #### L100.0500 #### [facility] [address] [place], [place], [address] PROTEIN, TOTAL Collected: 04/24/2018 Status: F Source: [place] 5:50 AM [facility] [place] Order Comment: ROOM 168 TYPE CODE TESTS RESULT OUT OF RANGE REFERENCE UNITS LAB L501.1500 6.4-8.2 g/dL Low T PROT 5.5 LAB L501.1950 2.2-4.2 g/dL Normal GLOB 3.2 LAB L501.2000 0.9-2.4 RATIO Low A/G 0.7 Performed By: #### L001.0705, L500.2500, L501.1800, L506.0500 #### [facility] [address] [place], [place], [address] BASIC METABOLIC Collected: 04/24/2018 Status: F Source: [place] PRO[place] (BMP) 5:50 AM [facility] [place] Order Comment: ROOM 168 TYPE CODE TESTS RESULT OUT OF RANGE REFERENCE UNITS LAB L501.0100 74-106 mg/dL High GLU 173 Result Comment: Fasting Glucose result greater than or equal to 126 mg/dL suggests DIABETES MELLITUS per A.D.A. criteria. Please note revised GLUCOSE reference range effective 2017. LAB L501.1000 7-18 mg/dL High BUN 24 LAB L501.1100 0.55-1.02 mg/dL Normal CREAT,SERUM 0.87 Result Comment: The validity of the calculated GFR AND GFRAA in patients over 70 years has not been determined. Clinical correlation is essential. LAB L501.1110 >60 mL/min Normal EST GFR 67 Result Comment: Non- GFR Calc LAB L501.1115 >60 mL/min Normal EST GFR - AA 81 Result Comment: GFR Calc LAB L501.1300 10-20 RATIO High BUN/CRE 27.5 LAB L501.2200 8.5-10.1 mg/dL Low CA 8.1 LAB L501.5300 136-145 mmol/L NA Normal 144 LAB L501.5600 3.5-5.1 mmol/L K Normal 4.1 LAB L501.5900 98-107 mmol/L CL Normal 105 LAB L501.6100 21.0-32.0 mmol/L Normal CO2 31.0 LAB L501.6200 5-15 Normal GAP 8 Performed By: #### L001.0705, L500.2500, L501.1800, L506.0500 #### [facility] [address] [place], [place], [id number] ALBUMIN, SERUM Collected: 04/24/2018 Status: F Source: [place] 5:50 AM [facility] [place] Order Comment: ROOM 168 TYPE CODE TESTS RESULT OUT OF RANGE REFERENCE UNITS LAB L501.1800 3.2-5.0 g/dL Low ALB 2.3 Performed By: #### L001.0705, L500.2500, L501.1800, L506.0500 #### [facility] [address] [place], [address] PREALBUMIN Collected: 04/24/2018 Status: F Source: [place] 5:50 AM [facility] [place] Order Comment: ROOM 168 TYPE CODE TESTS RESULT OUT OF REFERENCE UNITS RANGE LAB L506.0500 20.0-40.0 mg/dL Low PREALBUMIN 13.5 Performed By: #### L001.0705, L500.2500, L501.1800, L506.0500 #### [facility] [address] [place], [place], [id number] BASIC METABOLIC Collected: 04/03/2018 Status: F Source: [place] PROFILE ([facility]) 8:45 AM [facility] [place] Order Comment: ROOM 136 TYPE CODE TESTS RESULT OUT OF RANGE REFERENCE UNITS LAB L501.0100 74-106 mg/dL High GLU 193 Result Comment: Fasting Glucose result greater than or equal to 126 mg/dL suggests DIABETES MELLITUS per A.D.A. criteria. Please note revised GLUCOSE reference range effective 2017. LAB L501.1000 7-18 mg/dL High BUN 27 LAB L501.1100 0.55-1.02 mg/dL Normal CREAT,SERUM 0.84 Result Comment: The validity of the calculated GFR AND GFRAA in patients over 70 years has not been determined. Clinical correlation is essential. LAB L501.1110 >60 mL/min Normal EST GFR 70 Result Comment: Non- GFR Calc LAB L501.1115 >60 mL/min Normal EST GFR - AA 85 Result Comment: GFR Calc LAB L501.1300 10-20 RATIO High BUN/CRE 32.1 LAB L501.2200 8.5-10.1 mg/dL CA Normal 8.7 LAB L501.5300 136-145 mmol/L NA Normal 142 LAB L501.5600 3.5-5.1 mmol/L K Normal 3.9 LAB L501.5900 98-107 mmol/L CL Normal 102 LAB L501.6100 21.0-32.0 mmol/L Normal CO2 30.0 LAB L501.6200 5-15 Normal GAP 10 Performed By: #### L500.2500 #### [facility] [address] [place], [address] BASIC METABOLIC Collected: 03/27/2018 Status: F Source: [place] PROFILE ([facility]) 6:40 AM [facility] [place] Order Comment: ROOM 136 TYPE CODE TESTS RESULT OUT OF RANGE REFERENCE UNITS LAB L501.0100 74-106 mg/dL Normal GLU 99 Result Comment: Please note revised GLUCOSE reference range effective 2017. LAB L501.1000 7-18 mg/dL High BUN 24 LAB L501.1100 0.55-1.02 mg/dL Normal CREAT,SERUM 0.78 Result Comment: The validity of the calculated GFR AND GFRAA in patients over 70 years has not been determined. Clinical correlation is essential. LAB L501.1110 >60 mL/min Normal EST GFR 76 Result Comment: Non- GFR Calc LAB L501.1115 >60 mL/min Normal EST GFR - AA 92 Result Comment: GFR Calc LAB L501.1300 10-20 RATIO High BUN/CRE 30.8 LAB L501.2200 8.5-10.1 mg/dL CA Normal 8.6 LAB L501.5300 136-145 mmol/L NA Normal 142 LAB L501.5600 3.5-5.1 mmol/L Low K 3.3 LAB L501.5900 98-107 mmol/L CL Normal 104 LAB L501.6100 21.0-32.0 mmol/L High CO2 36.0 LAB L501.6200 5-15 Low GAP 2 Performed By: #### L500.2500 #### [facility] [address] [place], [place], [address] CBC-COMPLETE BLOOD CNT Collected: 03/27/2018 Status: F Source: [place] NO DIFF 6:40 AM [facility] [place] Order Comment: ROOM 136 TYPE CODE TESTS RESULT OUT OF RANGE REFERENCE UNITS LAB L100.1000 4.4-11.0 K/mm3 Normal WBC 7.5 LAB L100.1200 4.2-5.4 M/mm3 Low RBC 3.51 LAB L100.1300 12.0-15.0 g/dl Low HGB 10.5 LAB L100.1400 37-47 % Low HCT 33.4 LAB L100.1500 81-99 fL Normal MCV 95.2 LAB L100.1600 27.0-32.0 pg Normal MCH 29.9 LAB L100.1700 32-36 g/gl Low MCHC 31.4 LAB L100.1810 11.6-14.6 % High RDW CV 14.9 LAB L100.1820 35.1-43.9 fl High RDW SD 49.3 LAB L100.1900 150-450 K/mm3 Normal PLT 240 LAB L100.2000 6.2-12.0 fl Normal MPV 10.1 Performed By: #### L100.0500 #### [facility] [address] [place], [place], [id number] CBC-COMPLETE BLOOD CNT Collected: 03/20/2018 Status: F Source: [place] NO DIFF 7:55 AM [facility] [place] Order Comment: 136 TYPE CODE TESTS RESULT OUT OF RANGE REFERENCE UNITS LAB L100.1000 4.4-11.0 K/mm3 Normal WBC 8.1 LAB L100.1200 4.2-5.4 M/mm3 Low RBC 3.66 LAB L100.1300 12.0-15.0 g/dl Low HGB 10.9 LAB L100.1400 37-47 % Low HCT 34.4 LAB L100.1500 81-99 fL Normal MCV 94.0 LAB L100.1600 27.0-32.0 pg Normal MCH 29.8 LAB L100.1700 32-36 g/gl Low MCHC 31.7 LAB L100.1810 11.6-14.6 % Normal RDW CV 14.5 LAB L100.1820 35.1-43.9 fl High RDW SD 47.9 LAB L100.1900 150-450 K/mm3 Normal PLT 191 LAB L100.2000 6.2-12.0 fl Normal MPV 10.2 Performed By: #### L100.0500 #### [facility] [address] [place], [place], [id number] BASIC METABOLIC Collected: 03/20/2018 Status: F Source: [place] PROFILE (BMP) 7:55 AM [facility] [place] Order Comment: 136 TYPE CODE TESTS RESULT OUT OF RANGE REFERENCE UNITS LAB L501.0100 74-106 mg/dL Low alert GLU 37 Result Comment: Critical Result(s) Called at: 09:57:32 03/20/2018 by: Alla Lundy Glucose result less than 50 mg/dL suggests HYPOGLYCEMIA. Please note revised GLUCOSE reference range effective 2017. LAB L501.1000 7-18 mg/dL Normal BUN 15 LAB L501.1100 0.55-1.02 mg/dL Normal CREAT,SERUM 0.68 Result Comment: The validity of the calculated GFR AND GFRAA in patients over 70 years has not been determined. Clinical correlation is essential. LAB L501.1110 >60 mL/min Normal EST GFR 88 Result Comment: Non- GFR Calc LAB L501.1115 >60 mL/min Normal EST GFR - AA 107 Result Comment: GFR Calc LAB L501.1300 10-20 RATIO High BUN/CRE 21.9 LAB L501.2200 8.5-10.1 mg/dL Low CA 7.5 LAB L501.5300 136-145 mmol/L NA Normal 143 LAB L501.5600 3.5-5.1 mmol/L Low K 3.4 LAB L501.5900 98-107 mmol/L CL Normal 106 LAB L501.6100 21.0-32.0 mmol/L Normal CO2 32.0 LAB L501.6200 5-15 Normal GAP 5 Performed By: #### L500.2500 #### [facility] [address] [place], [address] 12 LEAD ELECTROCARDIOGRAM Observed: 03/17/2018 Status: F Source: [place] 2:00 PM [facility] [place] [facility] Cardiovascular Services [address] [place] [address] 12 Lead EKG 03/13/182114 MR#: [id number] Acct: [id number] Name: BEVERLY BROUSSARD Rep #: [id number] : 1940 77 From: Ricky Gregg MD Attending Dr: Shamika Mane Status: DIS IN Ordering Dr: Shamika Mane Date: 03/13/18 Location: [facility] Sex: F C Admitted: 03/12/18 Test Reason : CP Blood Pressure : / mmHG Vent. Rate : 093 BPM Atrial Rate : 093 BPM P-R Int : 178 ms QRS Dur : 160 ms QT Int : 420 ms P-R-T Axes : 072 027 -06 degrees QTc Int : 522 ms Normal sinus rhythm Left bundle branch block Abnormal ECG When compared with ECG of 13-MAR-2018 12:21, MANUAL COMPARISON REQUIRED, DATA IS UNCONFIRMED Confirmed by RICKY GREGG MD ([id number]), editor & co founder ADELA TOVAR ([id number]) on 03/17/2018 2:00:04 PM Referred By: ALHAJI Confirmed By:RICKY GREGG MD 03/17/18 1400 Date Ricky Gregg MD CC: Shamika Mane; Micheal Mercado MD Signed BEDSIDE GLUCOSE Collected: 03/14/2018 Status: F Source: [place] 4:49 PM [facility] [place] TYPE CODE TESTS RESULT OUT OF REFERENCE UNITS RANGE LAB L501.080 70-110 mg/dL High BEDSIDE GLU 153 Result Comment: MANAGEMENT OF PATIENT CARE PER NURSING PROTOCOL Performed By: #### L501.080 #### [facility] [address] [place] [address] DISCHARGE SUMMARY Observed: 03/14/2018 Status: F Source: [place] 4:09 PM [facility] [place] [facility] Medical Records Department [address] [place] [address] Discharge Summary 03/14/18 1549 MR#: [id number] Acct: [id number] Name: BEVERLY BROUSSARD Rep #: [id number] : 1940 77 From: Ricardo MARTINI PCP: Micheal Mercado MD, Chi Status: ADM IN Y Location: [place] [address] ADDENDUM by Shamika Mane on 03/14/18 at 1608 Code Visit ATTENDING PHYSICIAN DISCHARGE NOTE: I have seen and examined the patient independently and agree with the assessment, plan, history per Ricardo Rivero as noted. Discharge Diagnoses: (1) Atypical chest pain secondary to Pulmonary Embolism, Suspected secondary to prolonged immobility but pending hypercoaguable panel (2) Acute kidney injury, Secondary to #1, nephrotoxic regimen, resolved (3) Indeterminate cardiac enzymes w/ Reduced EF w/ Cardiomyopathy, Unclear Type (THIS IS NOT AN NSTEMI) (4) CAD (5) Valvular Heart Disease w/ Aortic Stenosis s/p AVR w/ Jasbir Perceval stentless sutureless pericardial valve. (6) Hypothyroidism (7) Diabetes mellitus type II (8) PAF (9) Hypertension (10) Hyperlipidemia (11) Anxiety and Depression (12) Chronic COPD (13) Diastolic CHF (14) GERD (15) Chronic thrombocytopenia (16) Carotid disease s/p L CEA (17) Dementia Unclear Type without behavioral disturbance history (18) Chronic Hypoxic Respiratory Failure secondary to Chronic COPD, CHF Discharge Summary: The patient is a 77 y/o F w/ PMHx: Chronic Thrombocytopenia, Chronic COPD, Valvular Heart Disease (Aortic Stenosis s/p AVR w/ Jasbir Perceval stentless sutureless pericardial valve), Carotid Disease s/p L CEA, Diabetes mellitus type II, Dementia Unclear Type, Chronic Fibromyalgia, Pulmonary HTN, HTN, HLD, Chronic Diastolic CHF, Hypothyroidism, PAF who [facility] w/ history of ongoing decreased activity nearly bedbound status with onset today sudden right arm and shoulder discomfort noted to be severe in nature which woke her up at approximately 1 AM with no other markedly associated symptoms. EKG without acute findings, CXR no acute process, CTPA with noted bilateral right greater than left pulmonary artery emboli. She was admitted to the PCU, maintained on monitor, DVT ultrasounds were obtained and negative for acute DVT, hypercoag panel pending although patient 77 thus would have expected other issues prior and bedbound status recently viable etiology, cardiac enzymes mildly elevated w/ 0.186-->0.164-->0.176-->0.185, maintained on eliquis noted to be affordable for patient skilled nursing. PT, OT, CM consultations w/ decision for SNF given family inability to care for patient secondary to ongoing debility. Given elevated cardiac enzymes Cardiology consulted. ECHO w/ mildly dilated LV, EF 25%, moderately severe global LV systolic dysfunction, septal motion consistent with i.v. ICD, mild to moderate MV insufficiency, moderate TV insufficiency, pulmonary artery systolic pressure 55 mmHg, moderate pulmonary hypertension. Cardiology noteed EF Reduction with abnormal cardiac enzymes suspicious for Cardiomyopathy, unclear type with recommendation for continued anticoagulation, add low dose ACEI if able, continued BB w/ home metoprolol-->coreg per Cardiology, continued statin therapy. Patient additionally with ISIS upon admission with gentle hydration, hold on nephrotoxic regimen w/ resolution w/ admission BUN/Cr 22/1.46, prior baseline creatinine noted to be 0.9, 03/14/18 BUN/Cr 24/1.02 with upon SNF transition restart home diuretic and per Cardiology recommendation low dose ACEI addition with hold parameters given low normal BP. Patient clinically improved, appropriate for discharge on 03/14/18 with CM discussions w/ family and family decision for SNF placement. SNF placement arranged and patient transitioned w/ follow-up with PCP, Cardiology w/ planned future repeat ECHO in 3-6 months. Upon discharge pending hypercoaguable panel obtained upon admission secondary to noted acute PE; however, likely secondary to notable immobility recent increase especially given age/history. Discharge Time: > 35 Minutes DAY OF DISCHARGE PROGRESS NOTE: Subjective: Patient without acute event overnight per self and nursing report. Patient remains moderately weak and takes encouragement to participate in activity, OOB and with therapies. She denies any recurrent chest discomfort or dyspnea. Patient denies fever, chills, nausea, emesis, abdominal pain. Patient agreeable to discharge to SNF. Patient will be discharged with follow-up with primary care physician in addition to cardiology as noted. Objective: T 98.2, HR 88, BP 11/75, RR 16, 87% on chronic 2L NC. Physical Examination: General: awake, alert, oriented x 3 and cooperative, seated upright in bed, in no apparent distress. Skin: normal color, turgor, no icterus, cyanosis. HEENT: AT/NC, EOMI, PERRLA, MMM. Lungs: Diminished BS, > BL Bases, moderate effort, mild decrease BL bases, no rales, ronchi or wheezing. Heart: Regular rate and rhythm; no gallop, rub audible. Neurological: patient awake, alert, oriented x 3; cognitive function intact; pupils equally reactive to light and accomodation; cranial nerves II-XII grossly normal, moving all 4 extremities, no focal deficits, strength moderately globally decreased secondary to acute presentation. Psychiatric: affect appears normal, no acute evidence of depressive or anxiety feelings. Assessment and Plan: Please see hospital summary above. Inpatient E AND M: [id number] Disch Hosp 03/14/18 1040 <Electronically signed by Shamika Mane > Date Shamika Mane cc: VINI Rivero; Shamika Mane; Micheal Mercado MD * Signed Discharge Date and Diagnosis - Problem List Patient Problems: Active and Suspected Problems (Last Reviewed 11/29/17 @ 13:02 by Mora Medina) Pulmonary embolism (Acute) Acute kidney injury (Acute) Cardiac enzymes elevated (Acute) Cardiomyopathy (Acute) Etiology unclear w/ indeterminate cardiac enzymes, plan continue anticoagulation with repeat echocardiogram in 3-6 months to reassess pulmonary pressures per cardiology request. Continue supportive management with beta-chloe and JUAN inhibitor. Date of Admission: 03/12/18 Date of Discharge: 03/14/18 - Primary Discharge Diagnosis Active and Suspected Problems (Last Reviewed 11/29/17 @ 13:02 by Mora Medina) Acute Pulmonary emboli bilateral (Acute) suspected 2/2 immobility Acute kidney injury (Acute) Cardiac enzymes elevated (Acute) 2/2 above Cardiomyopathy (Acute) Etiology unclear w/ indeterminate cardiac enzymes, plan continue anticoagulation with repeat echocardiogram in 3-6 months to reassess pulmonary pressures per cardiology request. Continue supportive management with beta-chloe and JUAN inhibitor. CAD s/p aortic valve repair Hypothyroidism DMt2 PAF HLD Anx/depression GERD Chronic diastolic CHF chronic thrombocytopenia hx dementia chronic hypoxic respiratory failure 2/2 copd/chf - Secondary Discharge Diagnosis Chronic Problems (Last Reviewed 11/29/17 @ 13:02 by Mora Medina) Diabetes mellitus, type II (Chronic) Chronic respiratory failure with hypoxia (Chronic) Thrombocytopenia (Chronic) Fibromyalgia (Chronic) Dementia (Chronic) Uncontrolled diabetes mellitus (Chronic) Obesity (Chronic) H/O aortic valve replacement (Chronic 02/06/16) 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 with left carotid endarterectomy @ [facility] by Dr Lerma 02/06/16 Non-rheumatic aortic stenosis (Chronic) COPD (chronic obstructive pulmonary disease) (Chronic) Secondary pulmonary arterial hypertension (Chronic) Hyperlipidemia (Chronic) Chronic diastolic heart failure (Chronic) CVA (cerebral infarction) (Chronic) Hypertension (Chronic) Hypothyroidism (Chronic) Paroxysmal a-fib (Chronic) Hospital Course and Treatment Imaging Results: CT/CTA Chest W/WO Contrast IMPRESSION: Bilateral right greater than left pulmonary arterial emboli. These findings were discussed on the telephone with Dr. Alvarado at 551 hrs. EST on 03/12/2018. No pulmonary edema, congestive heart failure or confluent pneumonia. Mild chronic appearing interstitial disease, nonspecific groundglass opacification and atelectasis. Atherosclerosis, cardiomegaly, coronary artery disease, post cardiac surgery, degenerative changes felt to be nonacute findings. RAD/Chest 1 View (Portable) IMPRESSION: Stable mild cardiomegaly. Venous US Interpretation Summary Deep veins of the lower extremities are bilaterally patent and compressible segmentally. There is no evidence of deep vein thrombosis on either side. Valvular competence appears intact within the proximal deep venous systems bilaterally. The greater saphenous veins appear bilaterally patent and compressible segmentally. Pulsatile flow is noted in the deep venous system bilaterally, which may be indicative of elevated central venous pressure (i.e. congestive heart failure, tricuspid valve insufficiency, etc.). Clinical correlation is advised. Echo: Interpretation Summary Mildly dilated left ventricle. The estimated ejection fraction is 25 %. Moderately severe global left ventricular systolic dysfunction. Septal motion consistent with IVCD. Mild-Moderate (1-2+) eccentric mitral valve insufficiency. Moderate (2+) tricuspid valve insufficiency. Pulmonary artery systolic pressure is 55 mmHg. Moderate pulmonary hypertension. Compared to the previous echo the LV is worse and the pulmonary pressures are higher Consultations 03/12/18 18:47 Consult: Onc/Wound/electronics design engineer Routine Comment: Reason for Consult:: Sores on Bottom Operations: None Procedures: 2-D Echocardiogram Summary of Care Provided: Physical exam on day of discharge: General: Resting comfortably NAD Psych: A/Ox3 normal affect HEENT: PEARRLA AT NC Neck: Supple NT CV: RRR no m/t/r/g/h Resp: CTA Abd: [id number] Soft NT no guarding or rigidity Ext: DP2+= no edema Skin: W/D normal turgor Lymph/Heme: No active bleeding or adenopathy Neuro: CN2-12 intact Hospital course: The patient is a 77 year old F with hx as above who presented to the ER with right arm pain radiating into her neck. A CTA chest was obtained and demonstrated bilateral PEs. She was placed on heparin and admitted to the PCU. She had indeterminate troponin and EKG changes, an echo was obtained and demonstrated right heart strain. Cardiology was consulted. She was placed on eliquis for PO anticoagulation. It was felt that this PE was likely 2/2 immobility as she has been very weak since her last admission. A hypercoag panel is pending. US LE was negative for DVTs. She does have underlying CAD, and medications were reviewed by cardiology. Her medications going forward will include coreg, lisinpril, eliquis, lipitor. She will go home on oxygen, she was using her oxygen secondary to chronic hypoxic respiratory failure from COPD as needed at home prior, she will be using it permanently until it is able to be weaned off at the group home. She was discharged to SNF in stable condition. She will need follow up with cardiology in two weeks and a repeat echo in 3-6 months. This patient was seen by Ricardo Rivero PA-C under the supervision of Dr. Mane. [] Discharge Diet: Low fat/ Low Cholesterol, 1800 Calorie Control Diet, 2000 mg Sodium Diet Discharge Activity: Return to Normal Activity, - - Encourage continued activities with therapies, increased activity parameters per PCP discretion upon re-evaluation. Encourage out of bed to chair for all meals and routine ambulation. May resume sexual activity in: 10-14 days Weight Bearing Status: Weight bearing as tolerated Call your doctor if you observe: Fever of 101 or Higher, Inability to urinate, Inability to have a bowel movement, Shortness of breath, Dizziness, Fainting spells, Chest pain, Uncontrolled pain Home Medications: Medications to take at Discharge Insulin Aspart [Novolog Flexpen] See Protocol SC TIDCM 02/18/16 levothyroxine 88 mcg capsule 112 mcg PO DAILY cap 11/29/17 Ergocalciferol [Vitamin D] 50,000 unit PO QMONTH 12/27/17 Sitagliptin Phosphate [Januvia] 100 mg PO DAILY 12/27/17 Solifenacin Succinate [Vesicare] 10 mg PO DAILY 12/27/17 Atorvastatin Calcium [Lipitor] 80 mg PO QHS 01/02/18 Furosemide [Lasix] 40 mg PO DAILY #0 tab 01/03/18 Insulin Detemir [Levemir FlexPen] 30 units SC DAILY #0 01/03/18 Oxygen, Home [Home Oxygen] 2 lpm NASAL CONT #1 unit 01/03/18 Memantine HCl 5 mg PO BID 03/12/18 Vortioxetine Hydrobromide [Trintellix] 10 mg PO DAILY 03/12/18 Apixaban [Eliquis] 10 mg PO BID #62 tab 03/13/18 Acetaminophen [Tylenol Tablet] 650 mg PO Q6H PRN PRN tablet 03/14/18 Albuterol Aerosols [Ventolin Aerosols] 2.5 mg INHALATION Q2H PRN PRN #1 box 03/14/18 Carvedilol [Coreg (Beta Chloe)] 3.125 mg PO BID #60 tab 03/14/18 Escitalopram Oxalate [Lexapro] 10 mg PO DAILY tablet 03/14/18 Glucerna Shake 120 ml PO TIDCM liquid 03/14/18 Ipratropium/Albuterol Sulfate [Duoneb] 3 ml INHALATION Q6HWA.RT #1 box 03/14/18 Lisinopril [Zestril] 2.5 mg PO DAILY #30 tab 03/14/18 Nystatin Powder [Mycostatin Powder] 1 applic TOPICAL TID #1 bottle 03/14/18 Following Prescrptions Were Given to Patient: Albuterol Aerosols [Ventolin Aerosols] 2.5 mg INHALATION Q2H PRN PRN #1 box PRN Reason: dyspnea, wheezing Apixaban [Eliquis] 10 mg PO BID #62 tab Carvedilol [Coreg (Beta Chloe)] 3.125 mg PO BID #60 tab Ipratropium/Albuterol Sulfate [Duoneb] 3 ml INHALATION Q6HWA.RT #1 box Lisinopril [Zestril] 2.5 mg PO DAILY #30 tab Nystatin Powder [Mycostatin Powder] 1 applic TOPICAL TID #1 bottle Primary Care Physician: Micheal Mercado Chi, MD [Primary Care Provider] - Please follow up with your Primary Care Physician in: Follow- up within 1-2 days SNF discharge planned. Please Follow Up With: Ventura Ragsadle MD When: Follow-up 2-4 weeks, may see FOREST FIRE PREVENTION MANAGER Patient Instructions: Pulmonary Embolism, Living with Cardiomyopathy, Medications for Cardiomyopathy, Discharge Instructions for Acute Kidney Injury, Discharge Instructions for Cardiomyopathy, Discharge Instructions for Pulmonary Embolism Disposition: Alf facility Minutes spent on discharge:: 35 Patient Condition:: Stable Medical Necessity - Tobacco Use Smoking Status: Former smoker Meaningful Use Info Meaningful Use Diagnoses (Choose all that apply): VTE - VTE Anticoag overlap given w/in hospital stay or rx'd at dc?: Yes Pt receive overlap for 5 days?: No Reason overlap not ordered, prescribed, or given for 5 days: Procedure Not Indicated 03/14/18 1607 <Electronically signed by Ricardo MARTINI> Date Ricardo MARTINI 03/14/18 1607<Electronically signed by Shamika Mane > Cosigner Signature (if applicable): Date White, L CC: VINI Rivero; Shamika Alhaji; Micheal Mercado MD Signed 12 LEAD ELECTROCARDIOGRAM Observed: 03/14/2018 Status: F Source: [place] 3:04 PM [facility] [place] Cardiovascular Services [address] [place] [id number] 12 Lead EKG 03/12/18 1026 MR#: [id number] Acct: [id number] Name: BEVERLY BROUSSARD Rep #: [id number] : 1940 77 From: Ricky Gregg MD Attending Dr: Shamika Mane Status: ADM IN Ordering Dr: Tenzin Olsen MD Date: 03/12/18 Location: [facility] Sex: F C Admitted: 03/12/18 Test Reason : CP Blood Pressure : / mmHG Vent. Rate : 107 BPM Atrial Rate : 107 BPM P-R Int : 140 ms QRS Dur : 158 ms QT Int : 396 ms P-R-T Axes : 044 000 135 degrees QTc Int : 528 ms Sinus tachycardia Left bundle branch block Abnormal ECG When compared with ECG of 12-MAR-2018 07:56, MANUAL COMPARISON REQUIRED, DATA IS UNCONFIRMED Confirmed by RICKY GREGG MD ([id number]), editor & co founder ADELA TOVAR ([id number]) on 03/14/2018 3:04:10 PM Referred By: WILBERTO Confirmed By:RICKY GREGG MD 03/14/18 1504 Date Ricky Gregg MD CC: Shamika Mane; Tenzin Olsen MD; Micheal Mercado MD Signed 12 LEAD ELECTROCARDIOGRAM Observed: 03/14/2018 Status: F Source: [place] 3:04 PM [facility] Cardiovascular Services [address] [place] [address] 12 Lead EKG 03/12/18 0756 MR#: [id number] Acct: [id number] Name: BEVERLY BROUSSARD N Rep #: [id number] : 1940 77 From: Ricky Gregg MD Attending Dr: Shamika Mane Status: ADM IN Ordering Dr: Ricardo Rivero Date: 03/12/18 Location: [facility] Sex: F C Admitted: 03/12/18 Test Reason : ADMISSION Blood Pressure : / mmHG Vent. Rate : 091 BPM Atrial Rate : 091 BPM P-R Int : 180 ms QRS Dur : 160 ms QT Int : 438 ms P-R-T Axes : 067 011 034 degrees QTc Int : 538 ms Normal sinus rhythm Left bundle branch block Abnormal ECG When compared with ECG of 12-MAR-2018 03:47, MANUAL COMPARISON REQUIRED, DATA IS UNCONFIRMED Confirmed by CRISTINO CARRANZA, RICKY ([id number]), editor & co founder ADELA TOVAR ([id number]) on 03/14/2018 3:04:20 PM Referred By: LA Confirmed By:RICKY GREGG MD 03/14/18 1504 Date Ricky Gregg MD CC: VINI Riveor; Shamika Mane; Micheal Mercado MD Signed 12 LEAD ELECTROCARDIOGRAM Observed: 03/14/2018 Status: F Source: [place] 3:00 PM [facility] Cardiovascular Services [address] [place] [address] 12 Lead EKG 03/13/18 1221 MR#: [id number] Acct: [id number] Name: BEVERLY BROUSSARD N Rep #: [id number] : 1940 77 From: Ricky Gregg MD Attending Dr: Shamika Mane Status: ADM IN Ordering Dr: Ricardo Rivero Date: 03/13/18 Location: [facility] Sex: F C Admitted: 03/12/18 Test Reason : Blood Pressure : / mmHG Vent. Rate : 066 BPM Atrial Rate : 066 BPM P-R Int : 172 ms QRS Dur : 158 ms QT Int : 470 ms P-R-T Axes : 055 015 251 degrees QTc Int : 492 ms Normal sinus rhythm Left bundle branch block Abnormal ECG When compared with ECG of 12-MAR-2018 10:26, MANUAL COMPARISON REQUIRED, DATA IS UNCONFIRMED Confirmed by RICKY GREGG MD ([id number]), editor & co founder ADELA TOVAR ([id number]) on 03/14/2018 3:00:42 PM Referred By: EZE Confirmed By:RICKY GREGG MD 03/14/18 1500 Date Ricky Gregg MD CC: VINI Rivero; Shamika Mane; Micheal Mercado MD Signed CONSULTATION Observed: 03/14/2018 Status: F Source: [place] 2:08 PM [facility] [place] [facility] Medical Records Department [address] [place] [id number] Consultation 03/13/181913 MR#: [id number] Acct: [id number] Name: BEVERLY BROUSSARD Rep #: [id number] : 1940 77 From: Ricky Gregg MD PCP: Micheal Mercado MD, Chi Status: ADM IN Y [id number] Reason for Consult Date of Consultation: 03/13/18 Reason for Consultation: Chest pain and abnormal troponin History of Present Illness: The patient is a 77 year old F known to Dr. Odin Ragsdale, with a history of diabetes, hypertension, hypercholesterolemia, former smoker who quit around 40 years ago after a [id number] smoking history, 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Patient was found to have severe aortic stenosis and underwent aortic valve replacement in January 2016 as well as concomitant left carotid endarterectomy for a 70% carotid stenosis. Her coronaries at that time were normal and did not require any bypass surgery during her aortic valve replacement. She had been doing cardiac rehabilitation and has completed this. She presented to the hospital in December of this year with chest discomfort she was noted to have a mildly elevated troponin she underwent a pharmacologic myocardial perfusion stress test but did not demonstrate any evidence of ischemia. She presented to the emergency room yesterday with chest discomfort described as a heaviness radiating to her right arm. She was evaluated in the emergency room her troponins were noted to be minimally elevated but not more than before she underwent a CAT scan of the chest which demonstrated bilateral pulmonary emboli. Her electrocardiogram shows normal sinus rhythm with a left bundle branch block, but it was not clear whether there was some changes in lead aVR. Cardiology was called to evaluate her on the basis of the above. She currently denies any chest pain or shortness of breath or paroxysmal nocturnal dyspnea and is under treatment for her pulmonary emboli. Past Medical History Allergies/Adverse Reactions: Allergies prochlorperazine edisylate [From Compazine] Allergy (Verified 03/12/18 03:47) Other prochlorperazine maleate [From Compazine] Allergy (Verified 03/12/18 03:47) Other tolmetin sodium [From Tolectin] Allergy (Verified 03/12/18 03:47) Other Home Medications: Ambulatory Orders Medication Instructions Recorded Insulin Aspart [Novolog Flexpen] See Protocol SC TIDCM 02/18/16 Past Medical History (Chronic Problems): Chronic Problems (Last Reviewed 11/29/17 @ 13:02 by Mora Medina) Thrombocytopenia (Chronic) Fibromyalgia (Chronic) Dementia (Chronic) Uncontrolled diabetes mellitus (Chronic) Obesity (Chronic) H/O aortic valve replacement (Chronic 02/06/16) 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 with left carotid endarterectomy @ [facility] by Dr Lerma 02/06/16 Non-rheumatic aortic stenosis (Chronic) COPD (chronic obstructive pulmonary disease) (Chronic) Secondary pulmonary arterial hypertension (Chronic) Hyperlipidemia (Chronic) Chronic diastolic heart failure (Chronic) CVA (cerebral infarction) (Chronic) Hypertension (Chronic) Hypothyroidism (Chronic) Paroxysmal a-fib (Chronic) Surgical History: appendectomy, cataract, - - Aortic Valve replacement, left carotid endarterectomy, shoulder surgery Psychiatric History: No pertinent psych hx MEDICAL REIMBURSEMENT SPECIALIST History: No pertinent MEDICAL REIMBURSEMENT SPECIALIST history - *Family History Maternal Family History: Family History (Last Reviewed 11/29/17 @ 13:02 by Mora Medina) Mother CVA (cerebral vascular accident) Diabetes History Items: Diabetes, Stroke Paternal Family History: Family History (Last Reviewed 11/29/17 @ 13:02 by Mora Medina) Mother CVA (cerebral vascular accident) Diabetes History Items: Cancer Sibling Family History: Family History (Last Reviewed 11/29/17 @ 13:02 by Mora Medina) Mother CVA (cerebral vascular accident) Diabetes History Items: Hypertension Smoking Status: Former smoker Alcohol: None Review of Systems - Review of Systems General: Denies: Fever, Night Sweats, Fatigue Cardiovascular: Reports: Chest Discomfort, Chest Discomfort with Exertion. Denies: Shortness of Breath, Orthopnea, PND, Peripheral Edema, Palpitations, Lightheadedness, Dizziness, Near Syncope, Syncope Respiratory: Denies: Cough, Sputum Production, Hemoptysis Gastrointestinal: Denies: Hematemesis, Hematochezia, Melena Genitourinary: Denies: Dysuria, Hematuria Skin: Denies: Rash Subjectve: Pleasant lady in no apparent distress sitting in chair Objective: Vital Signs Temp Pulse Resp BP Pulse Ox 97.8 F 88 18 125/60 H 97 03/13/18 14:50 03/13/18 18:49 03/13/18 14:50 03/13/18 14:50 03/13/18 14:50 Oxygen Flow Rate (L/min) 2 Oxygen Delivery Method Nasal Cannula Weight: 192 lb 3.889 oz Body Mass Index (BMI) 36.3 Intake and Output for Last 24 Hours Intake Total 1371.1 / 1371.1 1210 / 1210 Balance 1371.1 / 1371.1 121 / 1210 General: Awake, Alert, Oriented x 3 HEENT: PERRL, EOMI, Sclera Non Icteric Neck: Supple, Good ROM, No Lymph Node Enlargement Lungs: Clear to auscultation Cardiovascular: Regular Rhythm, Normal S1, Normal S2, No Murmurs, No Rubs, No Gallops Vascular: No Carotid Bruits, Normal Femoral Pulses, Normal Radial Pulses, Normal Dorsalis Pedal Pulse, Normal Posterior Tibial Pulses Abdomen: Bowel Sounds Present, Soft, Non Tender, No HSM, No Organomegaly Extremities: No Cyanosis, No Clubbing, No edema Neurological: No Focal Motor or Sensory Deficit Psych/Mental Status: Appropriate 03/13/18 05:25: WBC 7.1, RBC 4.17 L, Hgb 12.3, Hct 38.4, MCV 92.1, MCH 29.5, MCHC 32.0, RDW 14.5, RDW Differential 48.8 H, Plt Count 141 L, MPV 10.5 03/13/18 05:25: Sodium 144, Potassium 3.9, Chloride 106, Carbon Dioxide 29.0, Anion Gap 9, BUN 29 H, Creatinine 1.27 H, Est GFR (MDRD) Af Amer 52 L, Est GFR (MDRD) Non-Af 43 L, BUN/Creatinine Ratio 22.8 H, Glucose 211 H, Calcium 7.9 L Rhythm: EKG: Sinus rhythm with a left bundle branch block ECHO: Global reduction in left ventricular systolic function estimated EF 25% with pulmonary to systolic pressure of 55 mmHg. Assessment/Plan 1. Chest pain normal cardiac enzymes. She presents with chest pain which is somewhat atypical in fashion. It is associated with mildly abnormal cardiac enzymes without the typical rise and fall pattern. I suspect the above is secondary to right ventricular strain. This is more than likely secondary to her pulmonary embolism. * My recommendation at this time would be to continue anticoagulation and I would not pursue any further cardiac workup. Of note is the fact that she had a stress test performed within the last 3 months we did not demonstrate any evidence of obvious ischemia. In addition prior to her aortic valve replacement she was noted to have no significant coronary artery disease. * I would also recommend discontinuing her clopidogrel at this time to minimize any chance for bleeding short-term. This can be resumed later when she is off the Eliquis or on her lower dose. * 2. Left ventricular systolic dysfunction She appears to have a cardiomyopathy the etiology of which is not entirely clear accompanied by left bundle branch block. She will continued to have supportive management with beta-chloe and JUAN inhibitor as tolerated. 3. Pulmonary hypertension She does have evidence of pulmonary hypertension which is likely secondary to her pulmonary artery emboli. Hopefully this should improve with anticoagulation and a repeat echocardiogram should be performed in 3-6 months to reassess her pulmonary pressures. Thank you for allowing me to participate in the care of your patient. Please don't hesitate to call if any issues arise 03/14/18 1408 <Electronically signed by Ricky Gregg MD> Date Ricky Gregg MD Cosigner Signature (if applicable): Date CC: Ricky Gregg MD; Micheal Mercado MD Signed 12 LEAD ELECTROCARDIOGRAM Observed: 03/14/2018 Status: F Source: [place] 1:38 PM [facility] [place] [facility] Cardiovascular Services [address] [place] [address] 12 Lead EKG 03/12/18 0347 MR#: [id number] Acct: [id number] Name: BEVERLY BROUSSARD Rep #: [id number] : 1940 77 From: Ricky Gregg MD Attending Dr: Shamika Mane Status: ADM IN Ordering Dr: Herberth Alvarado MD Date: 03/12/18 Location: [facility] Sex: F C Admitted: 03/12/18 Test Reason : CP Blood Pressure : / mmHG Vent. Rate : 100 BPM Atrial Rate : 100 BPM P-R Int : 170 ms QRS Dur : 154 ms QT Int : 408 ms P-R-T Axes : 054 -12 088 degrees QTc Int : 526 ms Normal sinus rhythm Left bundle branch block Abnormal ECG Confirmed by CRISTINO CARRANZA, RICKY ([id number]), editor & co founder ADELA TOVAR ([id number]) on 03/14/2018 1:38:33 PM Referred By: PATTI Confirmed By:RICKY GREGG MD 03/14/18 1338 Date Ricky Gregg MD CC: Shamika Alvaardo MD; Micheal Mercado MD Signed DISCHARGE INSTRUCTION Observed: 03/14/2018 Status: F Source: [place] 11:31 AM [facility] [place] Medical Records Department [address] [place] [address] Instructions for Home/Discharge Instructions 03/14/18 1121 MR#: [id number] Acct: [id number] Name: BEVERLY BROUSSARD Rep #: [id number] : 1940 77 From: Shamika Mane PCP: Jeffry CARRANZA,Micheal Chi Status: ADM IN - Discharge Diagnoses Current Active Problems: Current Active and Chronic Problems (Last Reviewed 11/29/17 @ 13:02 by Mora Medina) (1) Atypical chest pain secondary to Pulmonary Embolism, Suspected secondary to prolonged immobility but pending hypercoaguable panel (2) Acute kidney injury, Secondary to #1, nephrotoxic regimen, resolved (3) Indeterminate cardiac enzymes w/ Reduced EF w/ Cardiomyopathy, Unclear Etiology (THIS IS NOT AN NSTEMI) (4) CAD (5) Valvular Heart Disease w/ Aortic Stenosis s/p AVR w/ Jasbir Perceval stentless sutureless pericardial valve. (6) Hypothyroidism (7) Diabetes mellitus type II (8) PAF (9) Hypertension (10) Hyperlipidemia (11) Anxiety and Depression (12) Chronic COPD (13) Diastolic CHF (14) GERD (15) Chronic thrombocytopenia (16) Carotid disease s/p L CEA (17) Dementia Unclear Type without behavioral disturbance history (18) Chronic Hypoxic Respiratory Failure secondary to Chronic COPD, CHF You will use the following diet at home:: Calorie/Carbohydrate Controlled (specify 1200, 1400, etc) - ADA 1800 and cardiac diet encouraged. Your food should be the consistency of: Regular Your liquids should be the consistency of: Regular/Thin Discharge Activity: - - Encourage continued activities with therapies, increased activity parameters per PCP discretion upon re-evaluation. Encourage out of bed to chair for all meals and routine ambulation. May resume sexual activity in: 10-14 days Weight Bearing Status: Weight bearing as tolerated Call your doctor if you observe: Fever of 101 or Higher, Inability to urinate, Inability to have a bowel movement, Shortness of breath, Dizziness, Fainting spells, Chest pain, Uncontrolled pain Instructions: Pulmonary Embolism, Discharge Instructions for Pulmonary Embolism, Discharge Instructions for Acute Kidney Injury, Living with Cardiomyopathy, Medications for Cardiomyopathy, Discharge Instructions for Cardiomyopathy Additional Instructions: Please have repeat CBC and BMP with your primary care physician at follow-up. Upon discharge you have a hypercoaguable panel that is pending although your pulmonary embolism is suspected secondary to prolonged inactivity. During the admission you had noted acute renal injury but this resolved but repeat basic metabolic panel with your primary care physician has been requested. During the admission you had mild elevations of your cardiac enzymes with US of the heart (Echocardiogram) that demonstrationed mildly decreased function which Cardiology notes is secondary to Cardiomyopathy of unclear type. The plan is to continue the eliquis, coreg (beta-chloe changed from your prior metoprolol), low dose lisinopril if your blood pressure allows with repeat US of the heart in 3-6 months with follow-up with Dr. Gregg. Additionally, continue the nystatin powder to affected regions to assist in resolving the skin fungal infection and may stop once abdominal folds appear healthy. Allergies/Adverse Reactions: Allergies prochlorperazine edisylate [From Compazine] Allergy (Verified 03/12/18 03:47) Other prochlorperazine maleate [From Compazine] Allergy (Verified 03/12/18 03:47) Other tolmetin sodium [From Tolectin] Allergy (Verified 03/12/18 03:47) Other Medications to take at Discharge Insulin Aspart [Novolog Flexpen] See Protocol SC TIDCM 02/18/16 levothyroxine 88 mcg capsule 112 mcg PO DAILY cap 11/29/17 Ergocalciferol [Vitamin D] 50,000 unit PO QMONTH 12/27/17 Sitagliptin Phosphate [Januvia] 100 mg PO DAILY 12/27/17 Solifenacin Succinate [Vesicare] 10 mg PO DAILY 12/27/17 Atorvastatin Calcium [Lipitor] 80 mg PO QHS 01/02/18 Furosemide [Lasix] 40 mg PO DAILY #0 tab 01/03/18 Insulin Detemir [Levemir FlexPen] 30 units SC DAILY #0 01/03/18 Oxygen, Home [Home Oxygen] 2 lpm NASAL CONT #1 unit 01/03/18 Memantine HCl 5 mg PO BID 03/12/18 Vortioxetine Hydrobromide [Trintellix] 10 mg PO DAILY 03/12/18 Apixaban [Eliquis] 10 mg PO BID #62 tab 03/13/18 Acetaminophen [Tylenol Tablet] 650 mg PO Q6H PRN PRN tablet 03/14/18 Albuterol Aerosols [Ventolin Aerosols] 2.5 mg INHALATION Q2H PRN PRN #1 box 03/14/18 Carvedilol [Coreg (Beta Chloe)] 3.125 mg PO BID #60 tablet 03/14/18 Escitalopram Oxalate [Lexapro] 10 mg PO DAILY tablet 03/14/18 Glucerna Shake 120 ml PO TIDCM liquid 03/14/18 Ipratropium/Albuterol Sulfate [Duoneb] 3 ml INHALATION Q6HWA.RT #1 box 03/14/18 Lisinopril [Zestril] 2.5 mg PO DAILY #30 tablet 03/14/18 Nystatin Powder [Mycostatin Powder] 1 applic TOPICAL TID #1 bottle 03/14/18 The following prescriptions were given: Albuterol Aerosols [Ventolin Aerosols] 2.5 mg INHALATION Q2H PRN PRN #1 box PRN Reason: dyspnea, wheezing Ipratropium/Albuterol Sulfate [Duoneb] 3 ml INHALATION Q6HWA.RT #1 box Lisinopril [Zestril] 2.5 mg PO DAILY #30 tablet Apixaban [Eliquis] 10 mg PO BID #62 tab Carvedilol [Coreg (Beta Chloe)] 3.125 mg PO BID #60 tablet Nystatin Powder [Mycostatin Powder] 1 applic TOPICAL TID #1 bottle Primary Care Physician: Micheal Mercado Chi, MD [Primary Care Provider] - Please follow up with your Primary Care Physician in: Follow- up within 1-2 days SNF discharge planned. Test Results: Test results from this visit will be discussed in further detail at your follow-up appointment, if applicable. Please Follow Up With: Ricky Gregg MD When: Follow-up 2-4 weeks, may see [employer] PREVENTION MANAGER Proposed Discharge Date: 03/14/18 03/14/18 1131 <Electronically signed by Shamika Mane > Date Shamika Mane CC: Ricky Gregg MD; Micheal Mercado MD BEDSIDE GLUCOSE Collected: 03/14/2018 Status: F Source: [place] 11[place] [facility] [place] CODE TESTS RESULT OUT OF REFERENCE UNITS RANGE LAB L501.080 70-110 mg/dL High BEDSIDE GLU 212 Result Comment: MANAGEMENT OF PATIENT CARE PER NURSING PROTOCOL Performed By: #### L501.080 #### [facility] [address] [place] [address] TRANSFER TO EXTENDED Observed: 03/14/2018 Status: F Source: [place] [facility] 11:[place] [facility] [place] [facility] Medical Records Department [address] [place] [address] Transfer to Extended Care MR#: [id number] Acct: [id number] Name: BEVERLY BROUSSARD Rep #: [id number] : 1940 77 From: Shamika Mane PCP: Jeffry CARRANZA,Micheal Montoya Status: ADM IN BEVERLY BROUSSARD (Patient) (Health Ins. Claim No.) (Day of Discharge to Facility) Certification of patient admission REQUIRED AT TIME OF ADMISSION. I CERTIFY THAT POST-HOSPITAL ECF SERVICES ARE REQUIRED TO BE GIVEN ON AN IN-PATIENT BASIS BECAUSE OF THE ABOVE NAMED PATIENT'S NEED FOR GROUP HOME CARE ON A CONTINUING BASIS FOR THE CONDITION(S) FOR WHICH HE/SHE WAS RECEIVING IN-PATIENT HOSPITAL SERVICES PRIOR TO HIS/HER TRANSFER TO THE F. 03/14/18 1114 <Electronically signed by Shamika Mane > Date Shamika Mane - Diet 03/13/18 17:58 1800 mouna, carbohydrate-controlled, cardiac/low sodium. Giles 1 packet BID 120 ml Glucerna Shake TID - Routine Orders/Code Status Enema Type: Fleetz Enema Frequency: Daily PRN Suppository Type: Dulcolax 10mg Suppository Frequency: Daily PRN O2 Liters per Minute: 2 O2 Frequency: Continuous Routine Lab Work: - - Repeat CBC, BMP within 1 week. - Wound(s) right buttock Wound Type: 3 small scabbed areas ? friction Dressing Change: Mepilex left buttock Wound Type: ? friction vs. pressure Dressing Change: applied a new Mepilex dressing - Suggestions for Active Care Change Position every (hours): 2 Hours to sit in a chair: 6 Times a day to sit in chair: 3 - Therapies Physical Therapy: Eval and Treat Occupational Therapy: Eval and Treat - Problem/Diagnosis (1) Pulmonary embolism Status: Acute Current Visit: Yes (2) Cardiomyopathy Status: Acute Comment: Etiology unclear w/ indeterminate cardiac enzymes, plan continue anticoagulation with repeat echocardiogram in 3-6 months to reassess pulmonary pressures per cardiology request. Continue supportive management with beta- chloe and JUAN inhibitor. 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 left carotid endarterectomy @ [facility] by Dr Lerma 02/06/16 Current Visit: No (12) Non-rheumatic aortic stenosis Status: Chronic Current Visit: No (13) COPD (chronic obstructive pulmonary disease) Status: Chronic Current Visit: No (14) Secondary pulmonary arterial hypertension Status: Chronic Current Visit: No (15) Hyperlipidemia Status: Chronic Current Visit: No (16) Chronic diastolic heart failure Status: Chronic Current Visit: No (17) CVA (cerebral infarction) Status: Chronic Current Visit: No (18) Hypertension Status: Chronic Current Visit: No (19) Hypothyroidism Status: Chronic Current Visit: No (20) Paroxysmal a-fib Status: Chronic Current Visit: No - Allergies/Procedures Done in Hospital Allergies/Adverse Reactions: Allergies prochlorperazine edisylate [From Compazine] Allergy (Verified 03/12/18 03:47) Other prochlorperazine maleate [From Compazine] Allergy (Verified 03/12/18 03:47) Other tolmetin sodium [From Tolectin] Allergy (Verified 03/12/18 03:47) Other Procedures: 2-D Echocardiogram, EKG - Type of Care/Length of Stay Estimated LOS: Convalescent Care Less Than 30 days Type of Care Needed: Skilled Rehab Potential: Fair Prognosis: Fair - Additional Orders/Day of Discharge Additional Orders: (1) HOB, aspiration precautions. (2) Fall precautions. (3) Continue IS 10x/hr 7a-7p. (4) Continue home chronic 2L NC supplementation. (5) Encourage CPAP usage q HS, has been non-compliant skilled nursing. (6) For recent cardiomyopathy, unclear type, continue coreg and low dose lisinopril with hold parameters as noted. (7) Plan repeat ECHO per Cardiology direction in 3-6 months. (8) Hypercoaguable panel pending, obtained upon admission, will need to be reviewed with patient PCP or SNF Physician. H AND P will serve as current which was dated: 03/12/18 Day of Discharge: 03/14/18 - Dietary and Speech Recommendations Dietitian Recommendations/Changes: Suggest diet change to 1800 mouna, carbohydrate-controlled, cardiac/low sodium. Consider Giles 1 packet BID for wound healing--order from pharmacy. Continue 120 ml Glucerna Shake TID on medpass as tolerated. - Follow Up Care Primary Care Physician: Micheal Mercado Chi, MD [Primary Care Provider] - Please follow up with your Primary Care Physician in: Follow- up within 1-2 days SNF discharge planned. Please Follow Up With: Ricky Gregg MD When: Follow-up 2-4 weeks, may see [employer] PREVENTION MANAGER 03/14/18 1114 <Electronically signed by Shamika Mane > Date Shamika Mane CC: Ricky Gregg MD; Micheal Mercado MD Signed CBC W/DIFF, AUTOMATED Collected: 03/14/2018 Status: F Source: [place] 7:[place] [facility] [place] TYPE CODE TESTS RESULT OUT OF RANGE REFERENCE UNITS LAB L100.1000 4.4-11.0 K/mm3 Normal WBC 8.0 LAB L100.1200 4.2-5.4 M/mm3 Low RBC 4.02 LAB L100.1300 12.0-15.0 g/dl Low HGB 11.8 LAB L100.1400 37-47 % Normal HCT 37.3 LAB L100.1500 81-99 fL Normal MCV 92.8 LAB L100.1600 27.0-32.0 pg Normal MCH 29.4 LAB L100.1700 32-36 g/gl Low MCHC 31.6 LAB L100.1810 11.6-14.6 % Normal RDW CV 14.5 LAB L100.1820 35.1-43.9 fl High RDW SD 49.8 LAB L100.1900 150-450 K/mm3 Low PLT 125 LAB L100.2000 6.2-12.0 fl Normal MPV 10.1 LAB L100.2100 47-70 % High NEUT% 79.4 LAB L100.2200 19-41 % Low LY% 13.3 LAB L100.2300 0-10 % Normal MONO% 5.4 LAB L100.2400 0-5 % Normal EO% 1.3 LAB L100.2500 0-1 % Normal BASO% 0.3 LAB L100.2550 0.0-0.9 % Normal IM GRAN % 0.300 Result Comment: IG% - Immature Granulocytes (promyelocytes, myelocytes and metamyelocytes) > 1% indicates that a LEFT SHIFT is Present. LAB L100.2620 2.0-7.7 X10 3/uL Normal Absolute Neut 6.4 LAB L100.2720 0.83-4.51 X10 3/ul Normal Absolute Lymph 1.06 Performed By: #### L100.0100 #### [facility] [address] [place] [address]. [place], [place], [address] BASIC METABOLIC Collected: 03/14/2018 Status: F Source: [place] PROFILE ([place]) 7:30 AM [facility] [place] TYPE CODE TESTS RESULT OUT OF RANGE REFERENCE UNITS LAB L501.0100 74-106 mg/dL High GLU 241 Result Comment: Glucose result greater than or equal to 200 mg/dL suggests DIABETES MELLITUS per A.D.A. criteria. Please note revised GLUCOSE reference range effective 2017. LAB L501.1000 7-18 mg/dL High BUN 24 LAB L501.1100 0.55-1.02 mg/dL Normal CREAT,SERUM 1.02 Result Comment: The validity of the calculated GFR AND GFRAA in patients over 70 years has not been determined. Clinical correlation is essential. LAB L501.1110 >60 mL/min Low EST GFR 56 Result Comment: Non- GFR Calc LAB L501.1115 >60 mL/min Normal EST GFR - AA 68 Result Comment: GFR Calc LAB L501.1255 ml/min Normal Estimated CRCL 34.85 LAB L501.1300 10-20 RATIO High BUN/CRE 23.5 LAB L501.2200 8.5-10 mg/dL Low .1 CA 8.1 LAB L501.5300 136-14 mmol/L Normal 5 NA 142 LAB L501.5600 3.5-5. mmol/L Normal 1 K 4.0 LAB L501.5900 98-107 mmol/L High CL 108 LAB L501.6100 21.0-3 mmol/L Normal 2.0 CO2 29.0 LAB L501.6200 5-15 Normal GAP 5 Performed By: #### L500.2500 #### [facility] [address] [place], [place], [id number] BEDSIDE GLUCOSE Collected: 03/14/2018 Status: F Source: [place] 7:[place] AM [facility] [place] TYPE CODE TESTS RESULT OUT OF REFERENCE UNITS RANGE LAB L501.080 70-110 mg/dL High BEDSIDE GLU 252 Result Comment: MANAGEMENT OF PATIENT CARE PER NURSING PROTOCOL Performed By: #### L501.080 #### [facility] [address] [place], [place] [id number] BEDSIDE GLUCOSE Collected: 03/13/2018 Status: F Source: [place] 10:02 PM [facility] [place] TYPE CODE TESTS RESULT OUT OF REFERENCE UNITS RANGE LAB L501.080 70-110 mg/dL High BEDSIDE GLU 242 Result Comment: MANAGEMENT OF PATIENT CARE PER NURSING PROTOCOL Performed By: #### L501.080 #### [facility] [address] [facility] [place] [address] BEDSIDE GLUCOSE Collected: 03/13/2018 Status: F Source: [place] 4:25 PM [facility] [place] TYPE CODE TESTS RESULT OUT OF REFERENCE UNITS RANGE LAB L501.080 70-110 mg/dL High BEDSIDE GLU 228 Result Comment: MANAGEMENT OF PATIENT CARE PER NURSING PROTOCOL Performed By: #### L501.080 #### [facility] [address] [place] [address] ECHO, COMPLETE W/ Observed: 03/13/2018 Status: F Source: [place] [facility] 11:45 AM [facility] [place] [facility] Cardiovascular Services [address] [place] [address] Echo Complete 03/13/18 0809 MR#: [id number] Acct: [id number] Name: BEVERLY BROUSSARD Rep #: [id number] : 1940 77 From: Ricky Gregg MD Attending Dr: Shamika Mane Status: ADM IN Ordering Dr: Tenzin Olsen MD Date: 03/13/18 Location: U Sex: F C Admitted: 03/12/18 Reason For Study: CHEST PAIN/ PE Procedure This was a 2D Doppler, Color Flow transthoracic echocardiogram. The study was technically difficult. Exam performed portable in patient room. Left Ventricle Mildly dilated left ventricle. The estimated ejection fraction is 25 %. Moderately severe global left ventricular systolic dysfunction. Septal motion consistent with IVCD. Right Ventricle Normal RV size. Mild global right ventricular systolic dysfunction. Atria Normal left atrium. Normal right atrium. Mitral Valve Mild diffuse mitral valve thickening. Mild-Moderate (1-2+) eccentric mitral valve insufficiency. Tricuspid Valve Normal tricuspid valve. Moderate (2+) tricuspid valve insufficiency. Pulmonary artery systolic pressure is 55 mmHg. Moderate pulmonary hypertension. Aortic Valve Peak aortic valve gradient 36 mmHg. Mean aortic valve gradient 21 mmHg. Stable appearing bioprosthetic aortic valve apparatus. Trivial perivalvular insufficiency of the aortic valve. Pulmonic Valve Normal pulmonic valve. Mild (1+) pulmonic valve insufficiency. Great Vessels Normal aortic root. The pulmonary artery is normal size. The inferior vena cava is dilated. Pericardium/Pleural No pericardial effusion. MMode/2D Measurements AND Calculations LVIDd: 5.8 cm IVSd: 0.91 cm LVOT diam: 1.8 cm LVIDs: 5.1 cm LVPWd: 0.93 cm LVOT area: 2.5 cm2 RVDd: 4.9 cm FS: 11.5 % Ao root diam: 3.0 cm LAV(MOD-bp): 61.3 ml LVAd ap4: 36.9 cm2 LAV(MOD-bp) Indexed: 33.0 ml/m2 EDV(MOD-sp4): 126.0 ml LAV(MOD-sp2): 76.6 ml EDV(sp4-el): 131.1 ml LAV(MOD-sp4): 48.6 ml LVAs ap4: 27.0 cm2 ESV(MOD-sp4): 77.3 ml ESV(sp4-el): 81.7 ml EF(MOD-sp4): 38.6 % EF(sp4-el): 37.7 % SV(MOD-sp4): 48.7 ml SV(sp4-el): 49.5 ml LA A4 area: 18.6 cm2 RA A4 area: 15.3 cm2 Doppler Measurements AND Calculations Ao V2 max: 297.6 cm/sec LV V1 max: 96.5 cm/sec SV(LVOT): 54.9 ml Ao max P.5 mmHg LV V1 max P.7 mmHg Ao V2 mean: 219.0 cm/sec LV V1 mean P.9 mmHg Ao mean P.2 mmHg LV V1 mean: 64.6 cm/sec Ao V2 VTI: 65.0 cm LV V1 VTI: 21.7 cm JARRETT(I,D): 0.84 cm2 JARRETT(V,D): 0.82 cm2 PA V2 max: 95.1 cm/sec PI end-d tex: 100.3 cm/sec TR max tex: 354.2 cm/sec TR max P.4 mmHg Interpretation Summary Mildly dilated left ventricle. The estimated ejection fraction is 25 %. Moderately severe global left ventricular systolic dysfunction. Septal motion consistent with IVCD. Mild-Moderate (1-2+) eccentric mitral valve insufficiency. Moderate (2+) tricuspid valve insufficiency. Pulmonary artery systolic pressure is 55 mmHg. Moderate pulmonary hypertension. Compared to the previous echo the LV is worse and the pulmonary pressures are higher Ordering Physician: Tenzin Olsen Referring Physician: MICHEAL MERCADO CHI Performed By: Joann Farrell, RDCS, RVT 03/13/18 1145 Date Ricky Gregg MD CC: Shamika Mane; Tenzin Olsen MD; Micheal Mercado MD Date Dictated: 03/13/18 0809 Date Transcribed: 03/13/18 1145 Upper Extremity Surgeon: Signed BEDSIDE GLUCOSE Collected: 03/13/2018 Status: F Source: [place] 11:27 AM [facility] [place] TYPE CODE TESTS RESULT OUT OF REFERENCE UNITS RANGE LAB L501.080 70-110 mg/dL High BEDSIDE GLU 189 Result Comment: MANAGEMENT OF PATIENT CARE PER NURSING PROTOCOL Performed By: #### L501.080 #### [facility] [address] [place], [place] [id number] BEDSIDE GLUCOSE Collected: 03/13/2018 Status: F Source: [place] 6:38 AM [facility] [place] TYPE CODE TESTS RESULT OUT OF REFERENCE UNITS RANGE LAB L501.080 70-110 mg/dL High BEDSIDE GLU 195 Result Comment: MANAGEMENT OF PATIENT CARE PER NURSING PROTOCOL Performed By: #### L501.080 #### [facility] [address] [place], [place] [id number] CBC-COMPLETE BLOOD CNT Collected: 03/13/2018 Status: F Source: [place] NO DIFF 5:25 AM [facility] [place] TYPE CODE TESTS RESULT OUT OF RANGE REFERENCE UNITS LAB L100.1000 4.4-11.0 K/mm3 Normal WBC 7.1 LAB L100.1200 4.2-5.4 M/mm3 Low RBC 4.17 LAB L100.1300 12.0-15.0 g/dl Normal HGB 12.3 LAB L100.1400 37-47 % Normal HCT 38.4 LAB L100.1500 81-99 fL Normal MCV 92.1 LAB L100.1600 27.0-32.0 pg Normal MCH 29.5 LAB L100.1700 32-36 g/gl Normal MCHC 32.0 LAB L100.1810 11.6-14.6 % Normal RDW CV 14.5 LAB L100.1820 35.1-43.9 fl High RDW SD 48.8 LAB L100.1900 150-450 K/mm3 Low PLT 141 LAB L100.2000 6.2-12.0 fl Normal MPV 10.5 Performed By: #### L100.0500 #### [facility] [address] [place], [place], [id number] BASIC METABOLIC Collected: 03/13/2018 Status: F Source: [place] PROFILE ([place]) 5:25 AM [facility] [place] TYPE CODE TESTS RESULT OUT OF RANGE REFERENCE UNITS LAB L501.0100 74-106 mg/dL High GLU 211 Result Comment: Glucose result greater than or equal to 200 mg/dL suggests DIABETES MELLITUS per A.D.A. criteria. Please note revised GLUCOSE reference range effective 2017. LAB L501.1000 7-18 mg/dL High BUN 29 LAB L501.1100 0.55-1.02 mg/dL High CREAT,SERUM 1.27 Result Comment: The validity of the calculated GFR AND GFRAA in patients over 70 years has not been determined. Clinical correlation is essential. LAB L501.1110 >60 mL/min Low EST GFR 43 Result Comment: Non- GFR Calc LAB L501.1115 >60 mL/min Low EST GFR - AA 52 Result Comment: GFR Calc LAB L501.1255 ml/min Normal Estimated CRCL 27.99 LAB L501.1300 10-20 RATIO High BUN/CRE 22.8 LAB L501.2200 8.5-10 mg/dL Low .1 CA 7.9 LAB L501.5300 136-14 mmol/L Normal 5 NA 144 LAB L501.5600 3.5-5. mmol/L Normal 1 K 3.9 LAB L501.5900 98-107 mmol/L Normal CL 106 LAB L501.6100 21.0-3 mmol/L Normal 2.0 CO2 29.0 LAB L501.6200 5-15 Normal GAP 9 Performed By: #### L500.2500 #### [facility] [address] [place], [place], [address] BEDSIDE GLUCOSE Collected: 03/12/2018 Status: F Source: [place] 9:41 PM [facility] [place] TYPE CODE TESTS RESULT OUT OF REFERENCE UNITS RANGE LAB L501.080 70-110 mg/dL High BEDSIDE GLU 283 Result Comment: MANAGEMENT OF PATIENT CARE PER NURSING PROTOCOL Performed By: #### L501.080 #### [facility] [address] [place], [place] [address] VENOUS DUPLEX LOWER Observed: 03/12/2018 Status: F Source: [place] EXTREMITY 5:57 PM [facility] [place] [facility] Cardiovascular Services [address] [place] [address] Venous Duplex US - Gustavo Extrem 03/12/18 1047 MR#: [id number] Acct: [id number] Name: BEVERLY BROUSSARD Rep #: [id number] : 1940 77 From: Edwar Shore MD Attending Dr: Zane Worrell DO Status: ADM IN Ordering Dr: Tenzin Olsen MD Date: 03/12/18 Location: [facility] Sex: F C Admitted: 03/12/18 Reason For Study: PE RIGHT LEFT GSV is normal. GSV is normal. CFV is compressible, spontaneous, competent CFV is compressible, spontaneous, competent, and demonstrates pulsatile venous flow. and demonstrates pulsatile venous flow. FV is compressible, spontaneous, competent FV is compressible, spontaneous, competent and demonstrates pulsatile venous flow. and demonstrates pulsatile venous flow. POP V is compressible, spontaneous, POP V is compressible, spontaneous, competent and demonstrates pulsatile venous competent and demonstrates pulsatile venous flow. flow. T/P Trunk is compressible. T/P Trunk is compressible. PTV is compressible. PTV is compressible. RT PerV is compressible. LT PerV is compressible. Procedure Exam performed portable in patient room. A preliminary report was called and/or faxed to U nurse. Interpretation Summary Deep veins of the lower extremities are bilaterally patent and compressible segmentally. There is no evidence of deep vein thrombosis on either side. Valvular competence appears intact within the proximal deep venous systems bilaterally. The greater saphenous veins appear bilaterally patent and compressible segmentally. Pulsatile flow is noted in the deep venous system bilaterally, which may be indicative of elevated central venous pressure (i.e. congestive heart failure, tricuspid valve insufficiency, etc.). Clinical correlation is advised. Ordering Physician: Tenzin Olsen Referring Physician: Micheal Mercado Chi Performed By: Alma Tello RVT 03/12/181756 Date Edwar Shore MD CC: Zane Worrell DO; Tenzin Olsen MD; Micheal Mercado MD Date Dictated: 03/12/18 1047 Date Transcribed: 03/12/181756 Upper Extremity Surgeon: Signed BEDSIDE GLUCOSE Collected: 03/12/2018 Status: F Source: [place] 5:30 PM [facility] [place] TYPE CODE TESTS RESULT OUT OF REFERENCE UNITS RANGE LAB L501.080 70-110 mg/dL High BEDSIDE GLU 235 Result Comment: MANAGEMENT OF PATIENT CARE PER NURSING PROTOCOL Performed By: #### L501.080 #### [facility] [address] [facility] [place] [address] TROPONIN-I Collected: 03/12/2018 Status: F Source: [place] 1:00 PM [facility] [place] Order Comment: 'TROP' Serial specimen #1, #2 or #3: 3 TYPE CODE TESTS RESULT OUT OF RANGE REFERENCE UNITS LAB L501.4010 <0.045 ng/mL High 0.185 TROPONIN-I Result Comment: TROPONIN-I EXPECTED VALUES <0.045 Negative 0.045 - 0.590 Consistent with Cardiac Damage > OR = 0.600 Critical Value Not every elevated troponin is indicative of [place]. These values should be used with clinical judgement in examining the patient's clinical picture for diagnosis. To establish a diagnosis of [place] versus myocardial injury, there must be a demonstrated rise and/or fall in the troponin values, in addition to ischemic symptoms, EKG changes, new regional wall motion abnormality, and/or angiographical evidence. PLEASE NOTE: REFERENCE RANGES EDITED 18 Performed By: #### L501.4010 #### [facility] [address] [place], [place], [address] BEDSIDE GLUCOSE Collected: 03/12/2018 Status: F Source: [place] 11:46 AM [facility] [place] TYPE CODE TESTS RESULT OUT OF REFERENCE UNITS RANGE LAB L501.080 70-110 mg/dL High BEDSIDE GLU 275 Result Comment: MANAGEMENT OF PATIENT CARE PER NURSING PROTOCOL Performed By: #### L501.080 #### [facility] [address] [place] [address] TROPONIN-I Collected: 03/12/2018 Status: F Source: [place] 10:20 [place] [facility] [place] Order Comment: DRAW A TIGER WITH THIS TROP PLEASE 'TROP' Serial specimen #1, #2 or #3: 2 TYPE CODE TESTS RESULT OUT OF RANGE REFERENCE UNITS LAB L501.4010 <0.045 ng/mL High 0.176 TROPONIN-I Result Comment: TROPONIN-I EXPECTED VALUES <0.045 Negative 0.045 - 0.590 Consistent with Cardiac Damage > OR = 0.600 Critical Value Not every elevated troponin is indicative of [place]. These values should be used with clinical judgement in examining the patient's clinical picture for diagnosis. To establish a diagnosis of [place] versus myocardial injury, there must be a demonstrated rise and/or fall in the troponin values, in addition to ischemic symptoms, EKG changes, new regional wall motion abnormality, and/or angiographical evidence. PLEASE NOTE: REFERENCE RANGES EDITED 18 Performed By: #### L501.4010 #### [facility] [address] [place], [address] EMERGENCY DEPARTMENT Observed: 03/12/2018 Status: F Source: [place] SUMMARY 8:05 AM [facility] [place] [facility] Medical Records Department [address] [place] [address] Emergency Department Summary 03/12/18 0715 MR#: [id number] Acct: [id number] Name: BEVERLY BROUSASRD Rep #: [id number] : 1940 77 From: Herberth Alvarado MD PCP: Jeffry CARRANZA,Micheal Montoya Status: ADM IN - ER Visit Summary Date of Service: 03/12/18 Chief Complaint: Chest pain History of Present Illness: The patient is a [address] Mercado and Dr. Ragsdale. She reports that she has right-sided chest pain that began 1:00 this morning while she was resting in bed. She is unable to further describe the pain. She reports that 6 out of 10 at worst and 5-10 currently. Is worsened by nothing including movement or breathing. It is also relieved by nothing. No nausea, vomiting, shortness of breath, or diaphoresis with this. She reports that the chest pain radiates up into her jaw into her back and down her right arm. She reports that her chest feels improved now, but her back and arms still hurt. Physical Examination: Vitals: Stable. Afebrile. General: Well-nourished and well-developed. Head: Normocephalic atraumatic. Neck: Supple, no lymphadenopathy. No JVD. Nontender. Cardiovascular: Regular rate and rhythm. 2 out of 6 systolic murmur. Respiratory: No respiratory distress. Clear to auscultation bilaterally. Abdominal: Soft, nontender, nondistended, normal bowel sounds. No guarding, rebound, or peritoneal signs. Back: Nontender. Extremities: Nontender, 1+ pitting edema over lower extremities bilaterally. Skin: Normal color, no rash. Neurologic: Alert and oriented 3. Cranial nerves II through XII are intact. Normal strength and sensation. Psych: Normal affect. Test Results: EKG is sinus at 100 with a left bundle branch block. Is unchanged from December 2017. Initial troponin is 0.186. However, her troponin has been 0.11-0.31 since December 27 of this year. Chem-7 is more for BUN of 22, creatinine 1.46, glucose 196. CBC is normal. Chest x-ray shows stable cardiomegaly that is mild and no acute disease. CTA of the chest shows no dissection. She has bilateral PEs right greater than left. Emergency Department Course and Treatment: Patient was treated the dose of morphine and Zofran IV. She was given aspirin p.o. She is resting comfortably. When her CT returned she was given Eliquis p.o. Treatment Plan: Patient was discussed with Dr. Olsen. She will be admitted to the hospital for further relation and treatment. Disposition: Admitted in stable condition. Impression: 1. Pulmonary embolism bilaterally. 2. Chronic renal insufficiency. 3. Indeterminate troponin. This note was generated with [employer] software. It may contain incorrect words, spelling, and punctuation that were not noted in review of the chart prior to signing ED Disposition - Plan for ED Patient: Disposition: [facility] Chief Complaint: Chest Pain What to do if you have Problems For any increased pain, shortness of breath, bleeding, nausea or vomiting, chest pain, or any unexpected problems, contact your Primary Care Provider. Call [facility] ([phone]) or report to the closest Emergency Room. Call 911 if necessary. 03/12/18 0805 <Electronically signed by Herberth Alvarado MD> Date Herberth Alvarado MD Cosigner Signature (If Indicated): Date CC: Micheal Mercado MD TROPONIN-I Collected: 03/12/2018 Status: F Source: [place] 7:35 AM [facility] [place] Order Comment: 'TROP' Serial specimen #1, #2 or #3: 1 TYPE CODE TESTS RESULT OUT OF RANGE REFERENCE UNITS LAB L501.4010 <0.045 ng/mL High 0.164 TROPONIN-I Result Comment: TROPONIN-I EXPECTED VALUES <0.045 Negative 0.045 - 0.590 Consistent with Cardiac Damage > OR = 0.600 Critical Value Not every elevated troponin is indicative of [place]. These values should be used with clinical judgement in examining the patient's clinical picture for diagnosis. To establish a diagnosis of [place] versus myocardial injury, there must be a demonstrated rise and/or fall in the troponin values, in addition to ischemic symptoms, EKG changes, new regional wall motion abnormality, and/or angiographical evidence. PLEASE NOTE: REFERENCE RANGES EDITED 18 Performed By: #### L501.4010 #### [facility] [place], [address] PROTHROMBIN TIME W/INR Collected: 03/12/2018 Status: F Source: [place] 7:35 AM [facility] [place] TYPE CODE TESTS RESULT OUT OF RANGE REFERENCE UNITS LAB L300.4150 11.7-14.9 SECONDS Normal PROTIME 13.8 LAB L300.4200 Normal INR 1.1 Performed By: #### L300.3900 #### [facility] [address] [place], [place], [id number] PARTIAL THROMBOPLAST Collected: 03/12/2018 Status: F Source: [place] 7:35 AM [facility] [place] TYPE CODE TESTS RESULT OUT OF RANGE REFERENCE UNITS LAB L300.4310 24.1-36.2 Seconds Normal PTT 28.3 Performed By: #### L300.4310 #### [facility] [address] [place], [address] PROTEIN C DEFIC. Collected: 03/12/2018 Status: F Source: [place] 7:35 AM [facility] [place] TYPE CODE TESTS RESULT OUT OF RANGE REFERENCE UNITS LAB L3100.7310 60-150 % Normal PROTEIN C 93 Performed By: #### L3100.7275, L3100.7325, L4500.1999 #### [facility] (refer to report for specific site) refer to report for address and phone number PROTEIN C, FUNCTIONAL Collected: 03/12/2018 Status: F Source: [place] 7:35 AM [facility] [place] TYPE CODE TESTS RESULT OUT OF RANGE REFERENCE UNITS LAB L3100.7325 73-180 % Normal PROT C, 98 Funct Performed By: #### L3100.7275, L3100.7325, L4500.2000 #### [facility] (refer to report for specific site) refer to report for address and phone number FACTOR II, DNA Collected: 03/12/2018 Status: F Source: [place] 7:35 AM [facility] [place] TYPE CODE TESTS RESULT OUT OF RANGE REFERENCE UNITS LAB L4500.2100 . Normal FACTOR Comment II,DNA Result Comment: NEGATIVE No mutation identified. Comment: A point mutation ([id number]) in the factor II (prothrombin) gene is the second most common cause of inherited thrombophilia. The incidence of this mutation in the [place] population is about 2% and in the population it is approximately 0.5%. This mutation is rare in the and population. Being heterozygous for a prothrombin mutation increases the risk for developing venous thrombosis about 2 to 3 times above the general population risk. Being homozygous for the prothrombin gene mutation increases the relative risk for venous thrombosis further, although it is not yet known how much further the risk is increased. In women heterozygous for the prothrombin gene mutation, the use of estrogen containing oral contraceptives increases the relative risk of venous thrombosis about 16 times and the risk of developing cerebral thrombosis is also significantly increased. In the prothrombin gene mutation increases risk for venous thrombosis and may increase risk for stillbirth, placental abruption, pre-eclampsia and growth restriction. If the patient possesses two or more congenital or acquired thrombophilic risk factors, the risk for thrombosis may rise to more than the sum of the risk ratios for the individual mutations. This assay detects only the prothrombin [id number] mutation and does not measure genetic abnormalities elsewhere in the genome. Other thrombotic risk factors may be pursued through systematic clinical laboratory analysis. These factors include the R506Q (Leiden) mutation in the Factor V gene, plasma homocysteine levels, as well as testing for deficiencies of antithrombin III, protein C and protein S. Genetic Counselors are available for health care providers to discuss results at [phone] ([phone]). Methodology: DNA analysis of the Factor II gene was performed by PCR amplification followed by restriction analysis. The diagnostic sensitivity is >99% for both. All the tests must be combined with clinical information for the most accurate interpretation. Molecular-based testing is highly accurate, but as in any laboratory test, diagnostic errors may occur. This test was developed and its performance characteristics determined by [employer]. It has not been cleared or approved by the Food and Drug Administration. Poort SR, et al. Blood. 1996; 88:4288-9988. Hussain العلي. Circulation. 2004; 110:e15-e18. Sarah I, et al. Arterioscler Thromb Vasc Biol. 1999; 19:700-703. Alma Sol, PhD, FACMG Vidhya Gay, PhD, FACMG Adela Denney MOrestesS., PhD, FACMG Tenisha Santana, PhD, FACMG Kristi Hurtado, PhD, FACMG Valentín Granda, PhD, FACMG Performed at: [address] [id number] [employer] Supervisor: Neeraj Saleh MD, Phone: [phone] Performed at: [facility] [address] [place], [place] [id number] [employer] Supervisor: Kuledep Clarke MD, Phone: [phone] Performed By: #### L3100.7275, L3100.7325, L4500.1999 #### [facility] (refer to report for specific site) refer to report for address and phone number ANTICARDIOLIPIN IGG, IGM Collected: 03/12/2018 Status: F Source: [place] 7:35 AM [facility] [place] TYPE CODE TESTS RESULT OUT OF RANGE REFERENCE UNITS LAB L3100.8420 0-14 GPL U/mL Normal ANTICARDIO IgG < 9 Result Comment: Negative: <15 Indeterminate: 15 - 20 Low-Med Positive: >20 - 80 High Positive: >80 LAB L3100.8425 0-12 MPL U/mL Normal ANTICARDIO IgM < 9 Result Comment: Negative: <13 Indeterminate: 13 - 20 Low-Med Positive: >20 - 80 High Positive: >80 Performed By: #### L3100.8410, L3300.0450, L3410.1999, L4500.5000 #### [facility] (refer to report for specific site) refer to report for address and phone number AT III [facility] / Collected: 03/12/2018 Status: F Source: [place] IMMUNOL 7:35 AM [facility] [place] TYPE CODE TESTS RESULT OUT OF RANGE REFERENCE UNITS LAB L3300.0500 75-135 % Normal AT3 FUNCTION 108 Result Comment: Direct Xa inhibitor anticoagulants such as rivaroxaban, apixaban and edoxaban will lead to spuriously elevated antithrombin activity levels possibly masking a deficiency. LAB L3300.0540 72-124 % Normal AT3 AG, IMMUNOL 98 Result Comment: This test was developed and its performance characteristics determined by [facility]. It has not been cleared or approved by the Food and Drug Administration. Performed By: #### L3100.8410, L3300.0450, L3410.1999, L4500.5000 #### [facility] (refer to report for specific site) refer to report for address and phone number BETA-2 GLYCOPROT IGG, Collected: 03/12/2018 Status: F Source: [place] 7:35 AM [facility] [place] TYPE CODE TESTS RESULT OUT OF RANGE REFERENCE UNITS LAB L3410.2100 0-20 Normal B2 GLYCO <9 I IGG Result Comment: Result Units: GPI IgG units The reference interval reflects a 3SD or 99th percentile interval, which is thought to represent a potentially clinically significant result in accordance with the International Consensus Statement on the classification criteria for definitive antiphospholipid syndrome (APS). J Thromb Haem 2006;4:295-306. LAB L3410.2200 0-25 Normal B2 GLYCO I IGA <9 Result Comment: Result Units: GPI IgA units The reference interval reflects a 3SD or 99th percentile interval, which is thought to represent a potentially clinically significant result in accordance with the International Consensus Statement on the classification criteria for definitive antiphospholipid syndrome (APS). J Thromb Haem 2006;4:295-306. LAB L3410.2300 0-32 Normal B2 GLYCO I IGM <9 Result Comment: Result Units: GPI IgM units The reference interval reflects a 3SD or 99th percentile interval, which is thought to represent a potentially clinically significant result in accordance with the International Consensus Statement on the classification criteria for definitive antiphospholipid syndrome (APS). J Thromb Haem 2006;4:295-306. Performed By: #### L3100.8410, L3300.0450, L3410.2000, L4500.5000 #### [facility] (refer to report for specific site) refer to report for address and phone number FACT V LEIDEN Collected: 03/12/2018 Status: F Source: [place] 7:35 AM [facility] [place] TYPE CODE TESTS RESULT OUT OF RANGE REFERENCE UNITS LAB L4500.5100 . Normal FACTOR V Comment LEIDEN Result Comment: Result: Negative (no mutation found) Factor V Leiden is a specific mutation (R506Q) in the factor V gene that is associated with an increased risk of venous thrombosis. Factor V Leiden is more resistant to inactivation by activated protein C. As a result, factor V persists in the circulation leading to a mild hyper- coagulable state. The Leiden mutation accounts for 90% - 95% of APC resistance. Factor V Leiden has been reported in patients with deep vein thrombosis, pulmonary embolus, central retinal vein occlusion, cerebral sinus thrombosis and hepatic vein thrombosis. Other risk factors to be considered in the workup for venous thrombosis include the [id number] mutation in the factor II (prothrombin) gene, protein S and C deficiency, and antithrombin deficiencies. Anticardiolipin antibody and lupus anticoagulant analysis may be appropriate for certain patients, as well as homocysteine levels. Contact your local [facility] for information on how to order additional testing if desired. Genetic counselors are available for health care providers to discuss results at [phone] ([phone]). Methodology: DNA analysis of the Factor V gene was performed by allele- specific PCR. The diagnostic sensitivity and specificity is >99% for both. Molecular-based testing is highly accurate, but as in any laboratory test, diagnostic errors may occur. All test results must be combined with clinical information for the most accurate interpretation. This test was developed and its performance characteristics determined by [facility]. It has not been cleared or approved by the Food and Drug Administration. References: Yonis Preciado (1995). Clin Lab Med 16:169-186. Alma Sol, PhD, FACMG Vidhya Gay, PhD, FACMG Adela Denney MOrestesSOrestes, PhD, FACMG Tenisha Santana, PhD, FACMG Kristi Hurtado, PhD, FAC Valentín Granda PhD, FAC Performed at: [facility] [address] [id number] [employer] Supervisor: Neeraj Saleh MD, Phone: [phone] Performed at: [address] [id number] [employer] Supervisor: Alexy Rider PhD, Phone: [phone] Performed at: [address] [id number] [employer] Supervisor: Kuldeep Clarke MD, Phone: [phone] Performed By: #### L3100.8410, L3300.0450, L3410.2000, L4474.3732 #### [facility] (refer to report for specific site) refer to report for address and phone number JULIAN ORTEGA Collected: 03/12/2018 Status: F Source: [place] 7:35 AM [facility] [place] TYPE CODE TESTS RESULT OUT OF RANGE REFERENCE UNITS LAB L4500.1015 Normal DRVVT Result Comment: TEST RESULT LIMITS Lupus Anticoagulant Reflex PTT-LA 33.4 sec 0.0 - 51.9 dRVVT 38.7 sec 0.0 - 47.0 Lupus Reflex Interpretation Comment: No lupus anticoagulant was detected. [facility]. ORIGINAL REPORT ON FILE IN LAB CONTAINS ADDITIONAL TEST SITE INFORMATION. Performed By: #### L4500.1015 #### [facility]er to report for specific site) refer to report for address and phone number HISTORY AND PHYSICAL Observed: 03/12/2018 Status: F Source: [place] EXAM 6:44 AM [facility] [place] [facility] Medical Records Department [address] [place] [id number] History and Physical 03/12/18 0632 MR#: [id number] Acct: [id number] Name: BEVERLY BROUSSARD Rep #: [id number] : 1940 77 From: Tenzin Olsen MD PCP: Jeffry CARRANZA,Micheal Montoya Status: ADM IN Location: [place] [address] Problem List (1) Thrombocytopenia Status: Chronic (2) Fibromyalgia Status: Chronic (3) Dementia Status: Chronic (4) Uncontrolled diabetes mellitus Status: Chronic (5) H/O aortic valve replacement Status: Chronic Comment: 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 with left carotid endarterectomy @ [facility] by Dr Lerma 02/06/16 (6) Non-rheumatic aortic stenosis Status: Chronic (7) COPD (chronic obstructive pulmonary disease) Status: Chronic (8) Secondary pulmonary arterial hypertension Status: Chronic (9) Hyperlipidemia Status: Chronic (10) Chronic diastolic heart failure Status: Chronic (11) CVA (cerebral infarction) Status: Chronic (12) Hypertension Status: Chronic (13) Hypothyroidism Status: Chronic (14) Paroxysmal a-fib Status: Chronic History of Present Illness Date of Admission: 03/12/18 Chief Complaint: PE The patient is a 77 year old female w/ h/o chronic diastolic heart failure, paroxysmal afib, DMII, HTN, hypothyroid, chronic respiratory failure, and COPD admitted for bilateral PE. She was admitted 2 months ago for confusion. After the admission, she has been mostly bedbound. She only would get up to use the restroom. She developed sudden right arm and shoulder pain. Pain was severe and cramping. Nothing made it better or worse. Pain woke her up around 1AM. Pain was not associated with any other symptoms. No nausea or vomiting. Pain was also in her chest as well. Past Medical History Past Medical History (Chronic Problems): Chronic Problems (Last Reviewed 11/29/17 @ 13:02 by Mora Medina) Thrombocytopenia (Chronic) Fibromyalgia (Chronic) Dementia (Chronic) Uncontrolled diabetes mellitus (Chronic) Obesity (Chronic) H/O aortic valve replacement (Chronic 02/06/16) 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 with left carotid endarterectomy @ [facility] by Dr Lerma 02/06/16 Non-rheumatic aortic stenosis (Chronic) COPD (chronic obstructive pulmonary disease) (Chronic) Secondary pulmonary arterial hypertension (Chronic) Hyperlipidemia (Chronic) Chronic diastolic heart failure (Chronic) CVA (cerebral infarction) (Chronic) Hypertension (Chronic) Hypothyroidism (Chronic) Paroxysmal a-fib (Chronic) Medical History: Medical History (Last Reviewed 11/29/17 @ 13:02 by Mora Medina) Obesity (Chronic) E66.9 Non-rheumatic aortic stenosis (Chronic) I35.0 COPD (chronic obstructive pulmonary disease) (Chronic) J44.9 Secondary pulmonary arterial hypertension (Chronic) I27.21 Hyperlipidemia (Chronic) E78.5 Chronic diastolic heart failure (Chronic) I50.32 CVA (cerebral infarction) (Chronic) I63.9 Hypertension (Chronic) I10 Hypothyroidism (Chronic) E03.9 Paroxysmal a-fib (Chronic) I48.0 Bilateral carotid artery stenosis I65.23 Fibromyalgia M79.7 Obstructive sleep apnea G47.33 Onychomycosis B35.1 Type 2 diabetes mellitus without complications E11.9 Vascular dementia F01.50 Allergies prochlorperazine edisylate [From Compazine] Allergy (Verified 03/12/18 03:47) Other prochlorperazine maleate [From Compazine] Allergy (Verified 03/12/18 03:47) Other tolmetin sodium [From Tolectin] Allergy (Verified 03/12/18 03:47) Other Home Medications: Ambulatory Orders Medication Instructions Recorded Surgical History: Surgical History (Last Reviewed 03/12/18 @ 06:39 by Tenzin Olsen MD) H/O aortic valve replacement (Chronic) Onset Date: 02/06/16 Z95.2 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 with left carotid endarterectomy @ [facility] by Dr Lerma 02/06/16 History of left-sided carotid endarterectomy Onset Date: 02/06/16 Z98.890 History of right and left heart catheterization Onset Date: 12/24/15 Z98.890 CONCLUSIONS: 1. Normal LV function with an EF of 65%. 2. Oedaxhne-wi-wlxyoo at least moderate pulmonary hypertension with evidence of desaturation both intrapulmonary and systemically. 3. Normal cardiac output. 4. No evidence of aortic insufficiency. 5. Nonobstructive coronary artery disease of the mid LAD, mid RCA, and mid left circumflex. Hx of cholecystectomy Z90.49 Surgical History: appendectomy, cataract, - - Aortic Valve replacement, left carotid endarterectomy, shoulder surgery Psychiatric History: No pertinent psych hx MEDICAL REIMBURSEMENT SPECIALIST History: No pertinent MEDICAL REIMBURSEMENT SPECIALIST history Smoking Status: Former smoker - *Family History Maternal Family History: Family History (Last Reviewed 11/29/17 @ 13:02 by Mora Medina) Mother CVA (cerebral vascular accident) Diabetes History Items: Diabetes, Stroke Paternal Family History: Family History (Last Reviewed 11/29/17 @ 13:02 by Mora Medina) Mother CVA (cerebral vascular accident) Diabetes History Items: Cancer Sibling Family History: Family History (Last Reviewed 11/29/17 @ 13:02 by Mora Medina) Mother CVA (cerebral vascular accident) Diabetes History Items: Hypertension Review of Systems Constitutional: Denies: Chills, Fever, Weight Change HEENT: Denies: Head Aches, Sinus Congestion, Sinus Drainage Cardiovascular: Reports: Chest Pain. Denies: Palpitations Respiratory: Denies: Cough, Shortness of breath at rest, Sputum production Gastrointestinal: Denies: Abdominal Pain, Nausea, Vomiting Genitourinary: Denies: Dysuria Musculoskeletal: Reports: Arm Pain, Shoulder Pain. Denies: Joint Pain, Joint Tenderness Skin: Denies: Rash, Wounds Neurological: Denies: Numbness, Tingling, Focal weakness Psychiatric: Denies: Anxiety, Depression, Homicidal Ideations, Suicidal Ideations Hematologic/ Lymphatic: Denies: Easy Bruising, Easy Bleeding VTE Information - Inpt Only VTE Present on Admission: No VTE Mechan Device Prophylaxis: SCD's VTE Pharm Prophylaxis ordered?: Yes - Physical Exam General: Alert, Oriented x3, Cooperative HEENT: Atraumatic, PERRLA, EOMI, Normocephalic Neck: Supple, No JVD, Negative Carotid Bruits Lungs: Clear to auscultation, Normal air movement Cardiovascular: Regular rate, No murmurs Abdomen: Bowel Sounds Present, Soft, Non Tender Extremities: No edema, Capillary Refill Less than 3 Seconds Skin: No rashes, No breakdown Musculoskeletal: No Tenderness to Palpation of Joints or Extremities Neurological: Cranial nerves II-XII grossly intact Psych/Mental Status: Normal Affect, Appropriate Vital Signs Temp Pulse Resp BP Pulse Ox 97.6 F L 98 19 H 127/59 H 95 03/12/18 03:44 03/12/18 06:23 03/12/18 06:23 03/12/18 06:23 03/12/18 06:23 Oxygen Flow Rate (L/min) 2 Oxygen Delivery Method Nasal Cannula Weight: 87.9 kg Body Mass Index (BMI) 36.6 Finger Stick Blood Glucose 529 Laboratory Tests Past 24 Hrs WBC 8.5 RBC 4.80 Hgb 14.6 Hct 43.2 MCV 90.0 MCH 30.4 MCHC 33.8 RDW 14.5 RDW Differential 47.9 H Assessment/Plan All Active Problems (Last Reviewed 11/29/17 @ 13:02 by Mora Medina) Dehydration (Acute) 77 year old female w/ h/o chronic diastolic heart failure, paroxysmal afib, DMII, HTN, hypothyroid, chronic respiratory failure, and COPD admitted for bilateral PE. 1) PE: CT disclosed Bilateral right greater than left pulmonary arterial emboli. Probably from PAF as pt was not anticoag. vs. immobilization. Will get ECHO. Will also get doppler to r/o DVT. Will start heparin gtt. Will consider eliquis once workup is completed. Hypercoag workup pending. 2) Elevated trops: Probably from PE vs type II vs NSTEMI. Will follow trops. Pt is on heparin gtt. C/w home meds. 3) ISIS: Probably azotemia. Baseline Cr 1.0 Hydration. Monitor. 4) Chronic issues: Chronic diastolic heart failure, paroxysmal afib, DMII, HTN, hypothyroid, chronic respiratory failure, and COPD Resume home meds. 5) Prophylaxis: SCD / heparin gtt. 03/12/18 0644 <Electronically signed by Tenzin Olsen MD> Date Tenzin Olsen MD Cosigner Signature: Date (if applicable) CC: Tenzin Olsen MD; Micheal Mercado MD Signed CHEST 1 VIEW Observed: 03/12/2018 Status: F Source: [place] (PORTABLE) 4:07 AM [facility] [place] Imaging Services [address] [place] [id number] Chest 1 View (Portable) MR#: [id number] Acct: [id number] Name: BEVERLY BROUSSARD Rep #: [id number] : 1940 F 77 From: Travis May PCP: Micheal Mercado MD, Chi Status: REG ER Study: Chest 1 View (Portable) Date of Exam: 03/12/18 Exam# [id number] Ordering Dr: Herberth Alvarado MD STUDY: X-RAY CHEST REASON FOR EXAM: Female, 77 years old. Right-sided chest pain radiating down arm. TECHNIQUE: AP portable chest. COMPARISON: January 02, 2018. FINDINGS: The lungs are clear and expanded. There is no demonstrated pleural abnormality. Stable mild cardiomegaly. Normal mediastinum and allen. Normal visualized pulmonary arteries. Normal visualized aortic arch and descending thoracic aorta. Sternal wires are present. Degenerative changes of the thoracic spine. Normal visualized ribs, clavicles, and shoulders. There is no demonstrated abnormality of the visualized soft tissue structures of the upper abdomen. RAD/Chest 1 View (Portable) IMPRESSION: Stable mild cardiomegaly. Electronically Signed: Travis May MD at 4:51 EDT , Service support , CC: Herberth Alvarado MD; Micheal Mercado MD Upper Extremity Surgeon: Signed CTA CHEST W/WO Observed: 03/12/2018 Status: F Source: [place] CONTRAST 4:07 AM [facility] [place] [facility] Imaging Services [address] [place] [address] CTA Chest W/WO Contrast MR#: [id number] Acct: [id number] Name: BEVERLY BROUSSARD Rep #: [id number] : 1940 F 77 From: Ashely Copeland MD PCP: Micheal Mrecado MD, Chi Status: REG ER Study: CTA Chest W/WO Contrast Date of Exam: 03/12/18 Exam# [id number] Ordering Dr: Herberth Alvarado MD STUDY: CTA CHEST REASON FOR EXAM: Female, 77 years old. Chest pain RADIATION DOSAGE (If Supplied By Facility): CTDIvol = ( 19.32 ) mGy, DLP = ( 584.49 ) mGycm TECHNIQUE: The examination was performed with the intravenous administration of 100 ml of Isovue 370 contrast material. Post-processing of the angiographic images was performed, with multiplanar reformation and 3D reconstruction. Individualized dose optimization techniques were used for this CT. COMPARISON: Chest x-ray 03/12/2018. 01/02/2018. FINDINGS: Bilateral filling defects consistent with pulmonary emboli involving the right greater than left pulmonary arteries most pronounced in the right inferior pulmonary artery, less left inferior and bilateral superior pulmonary arteries. There is atherosclerotic calcification of the aortic arch with tortuosity. There is no demonstrated aortic dissection. Sternal cerclage wires are present from a prior sternotomy and aortic valve replacement. There is cardiac enlargement. There is coronary artery calcification. There are discontinued epicardial leads. Enlarged lymph nodes in the pre and paratracheal mediastinum. Normal hilar regions. Normal visualized trachea and bronchi. The lungs are well expanded. There is compression of basilar parenchyma, mild groundglass opacification, platelike atelectasis left upper lobe and lingula. There is no focal parenchymal abnormality. Normal pleura. Normal chest wall structures. There are degenerative changes of thoracic spine and bilateral shoulder joints. Normal visualized upper abdomen. CT/CTA Chest W/WO Contrast IMPRESSION: Bilateral right greater than left pulmonary arterial emboli. These findings were discussed on the telephone with Dr. Alvarado at 551 hrs. EST on 03/12/2018. No pulmonary edema, congestive heart failure or confluent pneumonia. Mild chronic appearing interstitial disease, nonspecific groundglass opacification and atelectasis. Atherosclerosis, cardiomegaly, coronary artery disease, post cardiac surgery, degenerative changes felt to be nonacute findings. N.B. : The above information has been verbally conveyed by Ashely Copeland MD to Herberth Alvarado, Covering Physician, on 03/12/2018 05:52:04 (ET). Electronically Signed: Ashely Copeland MD at 5:59 EDT , Service support , CC: Herberth Alvarado MD; Micheal Mercado MD Upper Extremity Surgeon: Signed CBC W/DIFF, AUTOMATED Collected: 03/12/2018 Status: F Source: [place] 3:49 AM [facility] [place] TYPE CODE TESTS RESULT OUT OF RANGE REFERENCE UNITS LAB L100.1000 4.4-11.0 K/mm3 Normal WBC 8.5 LAB L100.1200 4.2-5.4 M/mm3 Normal RBC 4.80 LAB L100.1300 12.0-15.0 g/dl Normal HGB 14.6 LAB L100.1400 37-47 % Normal HCT 43.2 LAB L100.1500 81-99 fL Normal MCV 90.0 LAB L100.1600 27.0-32.0 pg Normal MCH 30.4 LAB L100.1700 32-36 g/gl Normal MCHC 33.8 LAB L100.1810 11.6-14.6 % Normal RDW CV 14.5 LAB L100.1820 35.1-43.9 fl High RDW SD 47.9 LAB L100.1900 150-450 K/mm3 Normal PLT 150 LAB L100.2000 6.2-12.0 fl Normal MPV 10.4 LAB L100.2100 47-70 % Normal NEUT% 69.2 LAB L100.2200 19-41 % Normal LY% 19.8 LAB L100.2300 0-10 % Normal MONO% 8.8 LAB L100.2400 0-5 % Normal EO% 1.6 LAB L100.2500 0-1 % Normal BASO% 0.4 LAB L100.2550 0.0-0.9 % Normal IM GRAN % 0.200 Result Comment: IG% - Immature Granulocytes (promyelocytes, myelocytes and metamyelocytes) > 1% indicates that a LEFT SHIFT is Present. LAB L100.2620 2.0-7.7 X10 3/uL Normal Absolute Neut 5.9 LAB L100.2720 0.83-4.51 X10 3/ul Normal Absolute Lymph 1.69 Performed By: #### L100.0100 #### [facility] [address] [place] [address]. [place], [place], [address] BASIC METABOLIC Collected: 03/12/2018 Status: F Source: [place] PROFILE (BMP) 3:49 AM [facility] [place] TYPE CODE TESTS RESULT OUT OF RANGE REFERENCE UNITS LAB L501.0100 74-106 mg/dL High GLU 196 Result Comment: Fasting Glucose result greater than or equal to 126 mg/dL suggests DIABETES MELLITUS per A.D.A. criteria. Please note revised GLUCOSE reference range effective 2017. LAB L501.1000 7-18 mg/dL High BUN 22 LAB L501.1100 0.55-1.02 mg/dL High CREAT,SERUM 1.46 Result Comment: The validity of the calculated GFR AND GFRAA in patients over 70 years has not been determined. Clinical correlation is essential. LAB L501.1110 >60 mL/min Low EST GFR 37 Result Comment: Non- GFR Calc LAB L501.1115 >60 mL/min Low EST GFR - AA 45 Result Comment: GFR Calc LAB L501.1255 ml/min Normal Estimated CRCL 24.35 LAB L501.1300 10-20 RATIO Normal BUN/CRE 15.1 LAB L501.2200 8.5-10 mg/dL Normal .1 CA 8.5 LAB L501.5300 136-14 mmol/L Normal 5 NA 140 LAB L501.5600 3.5-5. mmol/L Normal 1 K 4.8 Result Comment: Moderate Hemolysis, Result may be falsely increased. LAB L501.5900 98-107 mmol/L Normal CL 101 LAB L501.6100 21.0-32.0 mmol/L Normal CO2 30.0 LAB L501.6200 5-15 Normal 9 GAP Performed By: #### L500.2500, L501.4010 #### [facility] [address] [place], [place], [address] TROPONIN-I Collected: 03/12/2018 Status: F Source: [place] 3:49 AM [facility] [place] CODE TESTS RESULT OUT OF RANGE REFERENCE UNITS LAB L501.4010 <0.045 ng/mL High 0.186 TROPONIN-I Result Comment: TROPONIN-I EXPECTED VALUES <0.045 Negative 0.045 - 0.590 Consistent with Cardiac Damage > OR = 0.600 Critical Value Not every elevated troponin is indicative of [place]. These values should be used with clinical judgement in examining the patient's clinical picture for diagnosis. To establish a diagnosis of [place] versus myocardial injury, there must be a demonstrated rise and/or fall in the troponin values, in addition to ischemic symptoms, EKG changes, new regional wall motion abnormality, and/or angiographical evidence. PLEASE NOTE: REFERENCE RANGES EDITED 18 Performed By: #### L500.2500, L501.4010 #### [facility] [address] [place], [place], [address] CBC W/DIFF, AUTOMATED Collected: 01/10/2018 Status: F Source: [place] 1:20 PM [facility] [place] TYPE CODE TESTS RESULT OUT OF RANGE REFERENCE UNITS LAB L100.1000 4.4-11.0 K/mm3 High WBC 12.1 LAB L100.1200 4.2-5.4 M/mm3 Normal RBC 5.23 LAB L100.1300 12.0-15.0 g/dl High HGB 15.3 LAB L100.1400 37-47 % Normal HCT 46.1 LAB L100.1500 81-99 fL Normal MCV 88.1 LAB L100.1600 27.0-32.0 pg Normal MCH 29.3 LAB L100.1700 32-36 g/gl Normal MCHC 33.2 LAB L100.1810 11.6-14.6 % High RDW CV 15.8 LAB L100.1820 35.1-43.9 fl High RDW SD 51.2 LAB L100.1900 150-450 K/mm3 Low PLT 137 LAB L100.2000 6.2-12.0 fl Normal MPV 11.0 LAB L100.2100 47-70 % High NEUT% 84.1 LAB L100.2200 19-41 % Low LY% 7.4 LAB L100.2300 0-10 % Normal MONO% 7.8 LAB L100.2400 0-5 % Normal EO% 0.3 LAB L100.2500 0-1 % Normal BASO% 0.2 LAB L100.2550 0.0-0.9 % Normal IM GRAN % 0.200 Result Comment: IG% - Immature Granulocytes (promyelocytes, myelocytes and metamyelocytes) > 1% indicates that a LEFT SHIFT is Present. LAB L100.2620 2.0-7.7 X10 3/uL High Absolute Neut 10.2 LAB L100.2720 0.83-4.51 X10 3/ul Normal Absolute Lymph 0.89 Performed By: #### L100.0100 #### [facility] [address] [place], [place], [id number] COMPREHENSIVE METABOLIC Collected: 01/10/2018 Status: F Source: [place] [facility] 1:20 PM [facility] [place] TYPE CODE TESTS RESULT OUT OF RANGE REFERENCE UNITS LAB L501.0100 74-106 mg/dL Low GLU 73 Result Comment: Please note revised GLUCOSE reference range effective 2017. LAB L501.1000 7-18 mg/dL Normal BUN 15 LAB L501.1100 0.55-1.02 mg/dL Normal CREAT,SERUM 0.99 Result Comment: The validity of the calculated GFR AND GFRAA in patients over 70 years has not been determined. Clinical correlation is essential. LAB L501.1110 >60 mL/min Low EST GFR 58 Result Comment: Non- GFR Calc LAB L501.1115 >60 mL/min Normal EST GFR - AA 70 Result Comment: GFR Calc LAB L501.1300 10-20 RATIO Normal BUN/CRE 15.1 LAB L501.1500 6.4-8.2 g/dL T Normal PROT 7.3 LAB L501.1800 3.2-5.0 g/dL Low ALB 3.1 LAB L501.1950 2.2-4.2 g/dL Normal GLOB 4.2 LAB L501.2000 0.9-2.4 RATIO Low A/G 0.7 LAB L501.2200 8.5-10.1 mg/dL CA Normal 8.9 LAB L501.4100 15-37 U/L Normal AST 33 Result Comment: Slight Hemolysis, Result may be falsely increased. LAB L501.4305 45-117 U/L Normal ALK P 99 LAB L501.4405 13-56 U/L Normal ALT 28 LAB L501.4600 0.20-1.00 mg/dL High T BILI 1.20 LAB L501.5300 136-145 mmol/L Normal NA 138 LAB L501.5600 3.5-5.1 mmol/L Normal K 3.7 Result Comment: Slight Hemolysis, Result may be falsely increased. LAB L501.5900 98-107 mmol/L Normal CL 99 LAB L501.6100 21.0-32.0 mmol/L Normal CO2 28.0 LAB L501.6200 5-15 Normal GAP 11 Performed By: #### L500.4050, L501.9520 #### [facility] [address] [place], [address] THYROID STIM HORMONE Collected: 01/10/2018 Status: F Source: [place] (TSH) 1:20 PM [facility] [place] TYPE CODE TESTS RESULT OUT OF RANGE REFERENCE UNITS LAB L501.9520 0.358-3.74 uIU/mL High TSH 6.74 Performed By: #### L500.4050, L501.9520 #### [facility] [address] [place], [address] VITAMIN D,25 HYDROXY Collected: 01/10/2018 Status: F Source: [place] 1:20 PM [facility] [place] TYPE CODE TESTS RESULT OUT OF RANGE REFERENCE UNITS LAB L506.1000 29.95-100.01 ng/mL Normal Vitamin D 52.0 25-OH Result Comment: Vitamin D 25(OH) Status Range Deficiency <20 ng/mL (50nmol/L) Insuffciency 20 - 30 ng/mL (50 - 75 nmol/L) Sufficiency 30 - 100 ng/mL (75 - 250 nmol/L) Toxicity >100 ng/mL (>250 nmol/L) Performed By: #### L506.1000 #### [facility] [address] [facility] [place], [address] 12 LEAD ELECTROCARDIOGRAM Observed: 01/04/2018 Status: F Source: [place] 1:15 PM [facility] [place] [facility] Cardiovascular Services [address] [facility] [place] [address] 12 Lead EKG 01/02/18 0026 MR#: [id number] Acct: [id number] Name: BEVERLY BROUSSARD Rep #: [id number] : 1940 77 From: Rolan Garrison MD Attending Dr: Della Bermudez Status: DIS MADI Ordering Dr: Ventura Patel MD Date: 01/02/18 Location: [facility] Sex: F C Admitted: 01/02/18 Test Reason : CONFUSION Blood Pressure : / mmHG Vent. Rate : 065 BPM Atrial Rate : 065 BPM P-R Int : 184 ms QRS Dur : 160 ms QT Int : 482 ms P-R-T Axes : 059 -16 004 degrees QTc Int : 501 ms Sinus rhythm with occasional Premature ventricular complexes Left bundle branch block Abnormal ECG Confirmed by BLADIMIR CARRANZA, ROLAN ([id number]), editor & co founder ADELA TOVAR ([id number]) on 01/04/2018 1:14:58 PM Referred By: JOAQUINA Confirmed By:ROLAN AGRRISON MD 01/04/18 1315 Date Rolan Garrison MD CC: Della Bermudez; Ventura Patel MD; Micheal Mercado MD Signed DISCHARGE SUMMARY Observed: 01/03/2018 Status: F Source: [place] 4:58 PM [facility] [place] [facility] Medical Records Department [address] [place] [address] Discharge Summary 01/03/18 1618 MR#: [id number] Acct: [id number] Name: BEVERLY BROUSSARD Rep #: [id number] : 1940 77 From: Luciana Bermudez DO PCP: Micheal Mercado MD, Chi Status: ADM MADI Y Location: [place] [address] Discharge Date and Diagnosis - Problem List Patient Problems: Active and Suspected Problems (Last Reviewed 11/29/17 @ 13:02 by Mora Medina) Dehydration (Acute) Date of Admission: 01/02/18 Date of Discharge: 01/03/18 - Primary Discharge Diagnosis Active and Suspected Problems (Last Reviewed 11/29/17 @ 13:02 by Mora Medina) Dehydration (Acute) altered mental status - this is chronic but the family brought her in to be evaluated for this - Secondary Discharge Diagnosis Chronic Problems (Last Reviewed 11/29/17 @ 13:02 by Mora Medina) Thrombocytopenia (Chronic) - intermittent over the past few years Fibromyalgia (Chronic) Dementia (Chronic) - suspect Alzheimer's Uncontrolled diabetes mellitus (Chronic) Obesity (Chronic) H/O aortic valve replacement (Chronic 02/06/16) 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 with left carotid endarterectomy @ [facility] by Dr Lerma 02/06/16 Non-rheumatic aortic stenosis (Chronic) COPD (chronic obstructive pulmonary disease) (Chronic) Secondary pulmonary arterial hypertension (Chronic) Hyperlipidemia (Chronic) Chronic diastolic heart failure (Chronic) CVA (cerebral infarction) (Chronic) Hypertension (Chronic) Hypothyroidism (Chronic) Paroxysmal a-fib (Chronic) Cardiomyopathy with 37% EF on stress test 12/28/17 Chronic respiratory failure with hypoxemia Hospital Course and Treatment Imaging Results: Clinical Impression(s) from Imaging Studies Brain CT 01/02/18 00:03 IMPRESSION: No acute findings in the brain. An old lacunar infarct involving the left lentiform nucleus and an old area of infarction in the posterior distribution of the right middle cerebral artery. No change since February 18, 2016 Electronically Signed: Kyle Contreras, at 1:18 EDT Tel , Service support , Chest X-Ray 01/02/18 00:45 IMPRESSION: Cardiomegaly with central vascular congestion. No pneumonia. No pleural effusions. Electronically Signed: Kyle PelletierahsanTacho, at 1:52 EDT Tel , Service support , Brain MRI 01/02/18 04:33 IMPRESSION: 1. No MRI evidence of acute or subacute ischemic infarct. 2. Cystic encephalomalacia of the previous acute cortical- based ischemic infarct in the right cerebral hemisphere when compared to 03/25/2014. 3. Wallerian degeneration of the right cerebral peduncle. 4. Chronic periventricular white matter ischemic changes in both cerebral hemispheres. Electronically Signed: Justino Peña MD at 10:27 EDT , Service support , Laboratory Tests WBC 8.2 RBC 4.39 Hgb 12.6 WBC RBC Hgb Hct MCV MCH MCHC WBC RBC Hgb Hct MCV MCH WBC RBC Hgb Hct MCV MCH MCHC RDW WBC 7.5 RBC 4.02 L Hgb 11.8 L Hct 36.6 L MCV 91.0 MCH 29.4 WBC RBC Hgb Hct MCV MCH MCHC RDW RDW Differential Plt Count MPV Immature Gran % (Auto) none Operations: None Procedures: None Summary of Care Provided: Patient is a 77-year-old female with a past medical history of diabetes mellitus type 2, hypertension, COPD, hyperlipidemia, history of CVA, hypothyroidism, paroxysmal atrial fibrillation, fibromyalgia and non-rheumatic Aortic stenosis with aortic valve replacement with carotid endarterectomy at [facility] by Dr. Fonseca on 02/06/2016 who was brought to the emergency department at [facility] on 01/02/2018 by her family complaining of increased confusion and visual hallucinations. The confusion has been getting worse over the past couple years. She had been on a medication for dementia in the past but, she stopped it because she did not think this was helping her memory. These sx have been waxing and waning over the past 6 months. Vital signs at presentation to the emergency room were temperature 97.8, pulse rate 69, blood pressure 135/78, respiratory rate 12 and she was 90% saturated on room air and then dropped to 84% on room air. CBC was remarkable for a platelet count of 125,000. She has had thrombocytopenia intermittently in the past. White Blood cell count was 8.2 but there was a left shift with 80% neutrophils. Creatinine was increased at 1.41 but on 12/27/2017 was 1.82. Random blood glucose was 348. UA showed 0 WBCs per high-power field. The troponin was 0.1 which is lower than at ID from recent admission for chest pain on 12/27/17. Stress test on 12/28/17 was negative for ischemia. The EF was 37% and there was global hypokinesis. She was started on Metoprolol at ID from the recent admission. Metoprolol is the only new medication. CT brain showed no acute findings. MRI of the brain showed no evidence of acute or subacute ischemic infarct. There is encephalomalacia related to old CVA. Lyrica, Vesicare and Metoprolol all can cause confusion in the elderly and they were held at admission. She was hydrated and the creatinine decreased to 0.91 from 1.41. TSH was recently mildly increased at 4.22 but the T4 was within normal limits. B12 is normal. RPR and ROHIT are pending at the time of DC. She had no improvement in her mental status and she continues to confabulate. On the day of DC she told me that she was in [place]. She was afebrile for the duration of her hospital stay and vital signs were stable. The pulse ox on room air at rest on the date of discharge was 88%. The pulse ox on room air with ambulation was 87% and with ambulation on 2 LPM the pulse ox was 90%. She was discharged home on 01/03 with HHC set up by the . Meals on wheels will also be set up for her and her . Home O2 was arranged. She will resume her regular home medications with the following changes. Lasix was changed to 40 mg once daily and the Levemir was increased to 30 units daily. I discussed the diagnosis of dementia with her family and the fact that it is a progressive illness. With the Hallucinations she may have Lewy body dementia. I recommended a consult with Neurology and the patient and family were agreeable. She will follow up with Dr. Mercado in the office in 7-10 days. She is on several medications that can cause confusion. May want to consider a longer trial of discontinuation of beta chloe and vesicare and wean the Lyrica Down. - Physical Exam General: Alert, Oriented to person and year, Cooperative, No apparent distress, Well developed, Well nourished. She is confabulating and tells me that she was brought to the hospital to watch movies and there was a problem with paying for the movies. HEENT: Atraumatic, PERRLA, EOMI, Normocephalic, - - No facial asymmetry Oral: Moist Mucosa Neck: Supple, No Nuchal Rigidity, Trachea Midline, Carotid Bruit, Right - vs radiation of aortic MM Lungs: Clear to auscultation, No rhonchi, No wheeze Cardiovascular: Regular rate, Regular Rhythm, Normal S1, Normal S2, Murmur - 2/6 crescendo decrescendo murmur at the second right intercostal space, No Gallop Abdomen: Bowel Sounds Present, Soft, Non Tender, Non-Distended, Obese Extremities: No clubbing, No cyanosis, No edema Skin: No rashes Musculoskeletal: Arthritic Changes Neurological: Cranial nerves II-XII grossly intact, Neuro grossly intact, - - I did not ambulate Psych/Mental Status: Normal Affect This note was generated with [employer] software. It may contain incorrect words, spelling, and punctuation that were not noted in checking the note before signing. Discharge Activity: May Not Drive, Use Walker Weight Bearing Status: Full weight bearing Call your doctor if you observe: Fever of 101 or Higher, Shortness of breath, Dizziness, Fainting spells, Swelling in the ankles, Chest pain, Increased palpitations (irregular heartbeat) Home Medications: Medications to take at Discharge Insulin Aspart [Novolog Flexpen] See Protocol SC TIDCM 02/18/16 clopidogrel 75 mg tablet 75 mg PO QDAY tab 11/28/17 escitalopram 10 mg tablet 10 mg PO QDAY 11/28/17 pregabalin 75 mg capsule 75 mg PO TID 11/28/17 levothyroxine 88 mcg capsule 112 mcg PO DAILY cap 11/29/17 Cetirizine HCl [Zyrtec] 10 mg PO DAILY 12/27/17 Ergocalciferol [Vitamin D] 50,000 unit PO QMONTH 12/27/17 Potassium Chloride [Klor-Con M20] 20 meq PO DAILY 12/27/17 Ranitidine [Zantac] 150 mg PO DAILY 12/27/17 Sitagliptin Phosphate [Januvia] 100 mg PO DAILY 12/27/17 Solifenacin Succinate [Vesicare] 10 mg PO DAILY 12/27/17 Atorvastatin Calcium [Lipitor] 80 mg PO QHS 01/02/18 Magnesium Oxide [Mag-Ox 400] 400 mg PO DAILY 01/02/18 Metoprolol Tartrate [Lopressor (beta chloe)] 12.5 mg PO BID 01/02/18 Furosemide [Lasix] 40 mg PO DAILY #0 tab 01/03/18 Insulin Detemir [Levemir FlexPen] 30 units SC DAILY #0 01/03/18 Oxygen, Home [Home Oxygen] 2 lpm NASAL CONT #1 unit 01/03/18 Following Prescrptions Were Given to Patient: Oxygen, Home [Home Oxygen] 2 lpm NASAL CONT #1 unit Primary Care Physician: Micheal Mercado Chi, MD [Primary Care Provider] - Please follow up with your Primary Care Physician in: 7-10 days Please Follow Up With: Nayana Eckert MD When: within the next month Please Follow Up With: Ventura Ragsdale MD When: as previously arranged Disposition: Home with Home Health Minutes spent on discharge:: 40 Patient Condition:: Stable Medical Necessity - Tobacco Use Smoking Status: Former smoker Meaningful Use Info Meaningful Use Diagnoses (Choose all that apply): None applicable Code Visit Inpatient E AND M: 16139 Disch Hosp 01/03/18 5248 <Electronically signed by Luciana Bermudez DO> Date Lucaina Bermudez DO Cosigner Signature (if applicable): Date CC: Jose Eckert MD; Della Bermudez; Ventura Ragsdale MD; Micheal Mercado MD Signed BEDSIDE GLUCOSE Collected: 01/03/2018 Status: F Source: [place] 4:46 PM [facility] [place] CODE TESTS RESULT OUT OF REFERENCE UNITS RANGE LAB L501.080 70-110 mg/dL High BEDSIDE GLU 178 Result Comment: MANAGEMENT OF PATIENT CARE PER NURSING PROTOCOL Performed By: #### L501.080 #### [facility] Point of Care [address] [facility] [place] [address] DISCHARGE INSTRUCTION Observed: 01/03/2018 Status: F Source: [place] 4:17 PM [facility] [place] Medical Records Department [address] [place] [address] Instructions for Home/Discharge Instructions 01/03/18 1602 MR#: [id number] Acct: [id number] Name: BEVERLY BROUSSARD Rep #: [id number] : 1940 77 From: Luciana Bermudez DO PCP: Jeffry CARRANZA,Micheal Montoya Status: ADM MADI You will use the following diet at home:: Calorie/Carbohydrate Controlled (specify 1200, 1400, etc) - 1800 calorie, low salt and low fat Your food should be the consistency of: Regular Your liquids should be the consistency of: Regular/Thin Discharge Activity: May Not Drive, Use Walker Weight Bearing Status: Full weight bearing Call your doctor if you observe: Fever of 101 or Higher, Shortness of breath, Dizziness, Fainting spells, Swelling in the ankles, Chest pain, Increased palpitations (irregular heartbeat) Additional Instructions: 1. You have memory loss and this is called dementia. It is most likely due to Alzheimer's disease and there is no cure for this. It is a progressive illness but there are medications that can slow down the decline. It can progress to a point where the brain forgets how to swallow, forgets how to walk and eventually you stop talking. I am referring you to one of the neurologists. A neurologist specializes in problems with the brain and they can get you started on medications to help slow down the decline. 2. The social sciences lecturer has set you up for home health care. She will also arrange for meals on wheels so you will not have to cook and you will get nutritious meals. 3. Your blood sugars are still high and I have increased the dose of the Levemir to 30 units daily. 4. You were dehydrated when you came into the hospital and we gave you IV fluids. I have decreased the Furosemide(Lasix) to once daily in the AM. Pending Tests on Discharge: ROHIT and RPR Allergies/Adverse Reactions: Allergies prochlorperazine edisylate [From Compazine] Allergy (Verified 01/01/18 23:17) Other prochlorperazine maleate [From Compazine] Allergy (Verified 01/01/18 23:17) Other tolmetin sodium [From Tolectin] Allergy (Verified 01/01/18 23:17) Other Medications to take at Discharge Insulin Aspart [Novolog Flexpen] See Protocol SC TIDCM 02/18/16 clopidogrel 75 mg tablet 75 mg PO QDAY tab 11/28/17 escitalopram 10 mg tablet 10 mg PO QDAY 11/28/17 pregabalin 75 mg capsule 75 mg PO TID 11/28/17 levothyroxine 88 mcg capsule 112 mcg PO DAILY cap 11/29/17 Cetirizine HCl [Zyrtec] 10 mg PO DAILY 12/27/17 Ergocalciferol [Vitamin D] 50,000 unit PO QMONTH 12/27/17 Potassium Chloride [Klor-Con M20] 20 meq PO DAILY 12/27/17 Ranitidine [Zantac] 150 mg PO DAILY 12/27/17 Sitagliptin Phosphate [Januvia] 100 mg PO DAILY 12/27/17 Solifenacin Succinate [Vesicare] 10 mg PO DAILY 12/27/17 Atorvastatin Calcium [Lipitor] 80 mg PO QHS 01/02/18 Magnesium Oxide [Mag-Ox 400] 400 mg PO DAILY 01/02/18 Metoprolol Tartrate [Lopressor (beta chloe)] 12.5 mg PO BID 01/02/18 Furosemide [Lasix] 40 mg PO DAILY #0 tab 01/03/18 Insulin Detemir [Levemir FlexPen] 30 units SC DAILY #0 01/03/18 Primary Care Physician: Micheal Mercado Chi, MD [Primary Care Provider] - Please follow up with your Primary Care Physician in: 7-10 days Please Follow Up With: Nayana Eckert MD When: within the next month Please Follow Up With: Ventura Ragsdale MD When: as previously arranged Proposed Discharge Date: 01/03/18 01/03/181616 <Electronically signed by Luciana Bermudez DO> Date Luciana Bermudez DO CC: Jose Eckert MD; Ventura Ragsdale MD; Micheal Mercado MD BEDSIDE GLUCOSE Collected: 01/03/2018 Status: F Source: [place] 11:[place] [facility] [place] CODE TESTS RESULT OUT OF REFERENCE UNITS RANGE LAB L501.080 70-110 mg/dL High BEDSIDE GLU 256 Result Comment: MANAGEMENT OF PATIENT CARE PER NURSING PROTOCOL Performed By: #### L501.080 #### [facility] Point of Care [address] [place] [address] BEDSIDE GLUCOSE Collected: 01/03/2018 Status: F Source: [place] 6:45 AM [facility] [place] CODE TESTS RESULT OUT OF REFERENCE UNITS RANGE LAB L501.080 70-110 mg/dL High BEDSIDE GLU 222 Result Comment: MANAGEMENT OF PATIENT CARE PER NURSING PROTOCOL Performed By: #### L501.080 #### [facility] Point of Care [address] [place] [address] CBC W/DIFF, AUTOMATED Collected: 01/03/2018 Status: F Source: [place] 5:48 AM [facility] [place] CODE TESTS RESULT OUT OF RANGE REFERENCE UNITS LAB L100.1000 4.4-11.0 K/mm3 Normal WBC 7.5 LAB L100.1200 4.2-5.4 M/mm3 Low RBC 4.02 LAB L100.1300 12.0-15.0 g/dl Low HGB 11.8 LAB L100.1400 37-47 % Low HCT 36.6 LAB L100.1500 81-99 fL Normal MCV 91.0 LAB L100.1600 27.0-32.0 pg Normal MCH 29.4 LAB L100.1700 32-36 g/gl Normal MCHC 32.2 LAB L100.1810 11.6-14.6 % High RDW CV 15.9 LAB L100.1820 35.1-43.9 fl High RDW SD 52.3 LAB L100.1900 150-450 K/mm3 Low PLT 114 LAB L100.2000 6.2-12.0 fl Normal MPV 11.2 LAB L100.2100 47-70 % High NEUT% 80.5 LAB L100.2200 19-41 % Low LY% 10.6 LAB L100.2300 0-10 % Normal MONO% 7.9 LAB L100.2400 0-5 % Normal EO% 0.8 LAB L100.2500 0-1 % Normal BASO% 0.1 LAB L100.2550 0.0-0.9 % Normal IM GRAN % 0.100 Result Comment: IG% - Immature Granulocytes (promyelocytes, myelocytes and metamyelocytes) > 1% indicates that a LEFT SHIFT is Present. LAB L100.2620 2.0-7.7 X10 3/uL Normal Absolute Neut 6.0 LAB L100.2720 0.83-4.51 X10 3/ul Low Absolute Lymph 0.79 Performed By: #### L100.0100 #### [facility] [address] [place], [place], [id number] COMPREHENSIVE METABOLIC Collected: 01/03/2018 Status: F Source: [facility] 5:48 AM [facility] [place] CODE TESTS RESULT OUT OF RANGE REFERENCE UNITS LAB L501.0100 74-106 mg/dL High GLU 215 Result Comment: Glucose result greater than or equal to 200 mg/dL suggests DIABETES MELLITUS per A.D.A. criteria. Please note revised GLUCOSE reference range effective 2017. LAB L501.1000 7-18 mg/dL Normal BUN 17 LAB L501.1100 0.55-1.02 mg/dL Normal CREAT,SERUM 0.91 Result Comment: The validity of the calculated GFR AND GFRAA in patients over 70 years has not been determined. Clinical correlation is essential. LAB L501.1110 >60 mL/min Normal EST GFR 63 Result Comment: Non- GFR Calc LAB L501.1115 >60 mL/min Normal EST GFR - AA 77 Result Comment: GFR Calc LAB L501.1255 ml/min Normal Estimated CRCL 37.19 LAB L501.1300 10-20 RATIO Normal BUN/CRE 18.6 LAB L501.1500 6.4-8. g/dL Low 2 T PROT 5.4 LAB L501.1800 3.2-5. g/dL Low 0 ALB 2.4 LAB L501.1950 2.2-4. g/dL Normal 2 GLOB 3.0 LAB L501.2000 0.9-2. RATIO Low 4 A/G 0.8 LAB L501.2200 8.5-10 mg/dL Low .1 CA 8.2 LAB L501.4100 15-37 U/L Normal AST 24 LAB L501.4305 45-117 U/L Normal ALK P 80 LAB L501.4405 13-56 U/L Normal ALT 36 LAB L501.4600 0.20-1 mg/dL Normal .00 T BILI 0.70 LAB L501.5300 136-14 mmol/L Normal 5 NA 141 LAB L501.5600 3.5-5. mmol/L Normal 1 K 4.0 LAB L501.5900 98-107 mmol/L Normal CL 107 LAB L501.6100 21.0-3 mmol/L Normal 2.0 CO2 28.0 LAB L501.6200 5-15 Normal GAP 6 Performed By: #### L500.4050, L501.2300, L501.5200 #### [facility] [address] [place], [address] PHOSPHORUS Collected: 01/03/2018 Status: F Source: [place] 5:48 AM [facility] [place] CODE TESTS RESULT OUT OF RANGE REFERENCE UNITS LAB L501.2300 2.5-4.9 mg/dL Normal PHOS 2.5 Performed By: #### L500.4050, L501.2300, L501.5200 #### [facility] [address] [place], [address] MAGNESIUM Collected: 01/03/2018 Status: F Source: [place] 5:48 AM [facility] [place] CODE TESTS RESULT OUT OF RANGE REFERENCE UNITS LAB L501.5200 1.6-2.6 mg/dL Normal MG 1.9 Performed By: #### L500.4050, L501.2300, L501.5200 #### [facility] [address] [place], [address] ROHIT W/ REFLEX MULT Collected: 01/03/2018 Status: F Source: [place] 5:48 AM [facility] [place] CODE TESTS RESULT OUT OF RANGE REFERENCE UNITS LAB L3100.5475 Negative Normal Negative ROHIT-DIRECT Result Comment: Performed at: [facility] [id number] [employer] Supervisor: Alexy Rider PhD, Phone: [phone] Performed By: #### L3100.5450 #### [facility]refer to report for specific site) refer to report for address and phone number BEDSIDE GLUCOSE Collected: 01/02/2018 Status: F Source: [place] 9:21 PM [facility] [place] CODE TESTS RESULT OUT OF REFERENCE UNITS RANGE LAB L501.080 70-110 mg/dL High BEDSIDE GLU 295 Result Comment: MANAGEMENT OF PATIENT CARE PER NURSING PROTOCOL Performed By: #### L501.080 #### [facility] Point of Care [address] [place], [place] [address] BEDSIDE GLUCOSE Collected: 01/02/2018 Status: F Source: [place] 4:29 PM [facility] [place] CODE TESTS RESULT OUT OF REFERENCE UNITS RANGE LAB L501.080 70-110 mg/dL High BEDSIDE GLU 261 Result Comment: MANAGEMENT OF PATIENT CARE PER NURSING PROTOCOL Performed By: #### L501.080 #### [facility] Point of Care [address] [place] [address] BEDSIDE GLUCOSE Collected: 01/02/2018 Status: F Source: [place] 12:02 PM [facility] [place] CODE TESTS RESULT OUT OF REFERENCE UNITS RANGE LAB L501.080 70-110 mg/dL High BEDSIDE GLU 329 Result Comment: MANAGEMENT OF PATIENT CARE PER NURSING PROTOCOL Performed By: #### L501.080 #### [facility] Point [facility] Care [address] [place] [address] EMERGENCY DEPARTMENT Observed: 01/02/2018 Status: F Source: [place] SUMMARY 7:32 AM [facility] [place] [facility] Medical Records Department [address] [place] [address] Emergency Department Summary 01/02/18 0316 MR#: [id number] Acct: [id number] Name: BEVERLY BROUSSARD Rep #: [id number] : 1940 77 From: Ventura Patel MD PCP: Micheal Mercado MD, Chi Status: ADM IN - ER Visit Summary Date of Service: 01/02/18 Chief Complaint: Confusion History of Present Illness: The patient is a 77 F with confusion. Per family, the patient has been seeing people who are not there and she has been talking about her mother who was 18 years ago. She was angry at family [employer] and called 911. Her son is here. He has noted that she has had trouble with balance recently and also has been having some slurred speech intermittently lasting for short periods of time. No facial droop or unilateral weakness. Patient was seen earlier this month and was having arm and back pain. She had a cardiac evaluation according to the son. She had a negative stress test he says. The patient is not complaining of chest pain, shortness of breath, nausea, sweats, or any other related symptoms. Physical Examination: Afebrile and vital signs unremarkable. Head and neck atraumatic. Cranial nerves grossly intact. Patient was oriented to month and year and person. Heart regular. Lungs clear. Abdomen soft. Test Results: EKG showed sinus rhythm at a rate of 65 with a left bundle branch block pattern, similar to previous. CBC normal. Glucose 348, BUN 25 and creatinine 1.41. Urinalysis unremarkable. Troponin is indeterminate 0.1, and this is improved from previous. Alcohol negative. Chest x-ray showed congestion and cardiomegaly but nothing else acute. CT head showed chronic changes and nothing acute. Emergency Department Course and Treatment: Patient was placed on the monitor. Her son arrived and provided most of the history. Patient had no new or different symptoms for me when I reevaluated her. Her son said she had slurred speech lasting for several minutes here in the emergency department but no other symptoms. On initial reevaluation, the patient is resting comfortably. Patient may have some dementia or encephalopathy. I am concerned about the balance issue and slurred speech. She may also be having TIAs. I called the hospitalist for evaluation. Treatment Plan: As above Disposition: Admission Impression: 1. Encephalopathy 2. dysarthria This note was generated with Cavium dictation software. It may contain incorrect words, spelling, and punctuation that were not noted in review of the chart prior to signing ED Disposition - Plan for ED Patient: Chief Complaint: Confusion Referrals: Micheal Mercado Chi, MD [Primary Care Provider] - What to do if you have Problems For any increased pain, shortness of breath, bleeding, nausea or vomiting, chest pain, or any unexpected problems, contact your Primary Care Provider. Call [facility] ([phone]) or report to the closest Emergency Room. Call 911 if necessary. 01/02/18 0732 <Electronically signed by Ventura Patel MD> Date Ventura Patel MD Cosigner Signature (If Indicated): Date CC: Micheal Mercado MD BEDSIDE GLUCOSE Collected: 01/02/2018 Status: F Source: [place] 6:45 AM [facility] [place] CODE TESTS RESULT OUT OF REFERENCE UNITS RANGE LAB L501.080 70-110 mg/dL High BEDSIDE GLU 283 Result Comment: MANAGEMENT OF PATIENT CARE PER NURSING PROTOCOL Performed By: #### L501.080 #### [facility] Point of Care [address] [place] [address] BRAIN WITHOUT Observed: 01/02/2018 Status: F Source: [place] CONTRAST 4:34 AM [facility] [place] [facility] Imaging Services [address] [place] [address] Brain without Contrast MR#: [id number] Acct: [id number] Name: BEVERLY BROUSSARD Rep #: [id number] : 1940 F 77 From: Justino Peña MD PCP: Jeffry CARRANZA,Micheal Montoya Status: ADM IN Study: Brain without Contrast Date of Exam: 01/02/18 Exam# [id number] Ordering Dr: Ermias Richards MD STUDY: MRI BRAIN WITHOUT CONTRAST REASON FOR EXAM: Female, 77 years old. Confusion. Memory loss. Hallucinating. Slurred speech x1 week. TECHNIQUE: Standardized multiplanar fat and water weighted pulse sequences were obtained. COMPARISON: CT head without contrast 01/02/2018. MRI of the brain with and without contrast 03/25/2014. FINDINGS: No restricted diffusion to suspect acute or subacute ischemic infarct. Cystic encephalomalacia of the previous acute cortical-based ischemic infarct in the right cerebral hemisphere. There is ex vacuo dilatation of the inferior horn and occipital horn of the right lateral ventricle. The ventricles and cisterns are within normal limits. Wallerian degeneration of the right cerebral peduncle. Periventricular white matter T2 FLAIR hyperintensity foci are chronic white matter ischemic changes. Normal bilateral basal ganglia. Normal thalami. There is no extra-axial fluid accumulation. Normal flow voids within the major intracranial circulation suggesting patency by spin echo criteria. Normal sella turcica, pituitary gland, infundibular stalk, optic chiasm and hypothalamus. Normal tectal plate and pineal gland. Wallerian degeneration of the right cerebral peduncle from the cortical base infarct in the right cerebral hemisphere. Normal tomy and medulla. Normal cerebellum. Normal basal cisterns. Normal bilateral temporal bones. Normal bilateral internal auditory canals. No demonstrated orbital abnormality, within the constraints of a routine brain study. Normal visualized paranasal sinuses. Normal calvarium and skull base. Normal visualized soft tissue structures. Normal visualized upper cervical spine. MRI/Brain without Contrast IMPRESSION: 1. No MRI evidence of acute or subacute ischemic infarct. 2. Cystic encephalomalacia of the previous acute cortical- based ischemic infarct in the right cerebral hemisphere when compared to 03/25/2014. 3. Wallerian degeneration of the right cerebral peduncle. 4. Chronic periventricular white matter ischemic changes in both cerebral hemispheres. Electronically Signed: Justino Peña MD at 10:27 EDT , Service support , CC: Ermias Richards; Micheal Mercado MD Upper Extremity Surgeon: Signed HISTORY AND PHYSICAL Observed: 01/02/2018 Status: F Source: [place] EXAM 3:52 AM [facility] [place] [facility] Medical Records Department [address] [place] [id number] History and Physical 01/02/18 0337 MR#: [id number] Acct: [id number] Name: BEVERLY BROUSSARD Rep #: [id number] : 1940 77 From: Ermias Richards MD PCP: Micheal Mercado MD, Chi Status: ADM IN Location: [place] [address] ADDENDUM by Ermias Richards on 01/02/18 at 0352 Code Visit Addendum: Assessment and plan: #9 status post aortic valve replacement with bioprosthetic valve: Stable, no acute issues. 01/02/18 0352 <Electronically signed by Ermias Richards MD> Date Ermias Richards MD cc: Ermias Richards; Micheal Mercado MD * Signed Problem List (1) Uncontrolled diabetes mellitus Status: Chronic (2) H/O aortic valve replacement Status: Resolved Comment: 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 with left carotid endarterectomy @ [facility] by Dr Lerma 02/06/16 (3) COPD (chronic obstructive pulmonary disease) Status: Chronic (4) Hyperlipidemia Status: Chronic (5) Chronic diastolic heart failure Status: Chronic (6) CVA (cerebral infarction) Status: Chronic (7) Hypertension Status: Chronic (8) Hypothyroidism Status: Chronic (9) Paroxysmal a-fib Status: Chronic History of Present Illness Date of Admission: 01/02/18 Chief Complaint: Confusion. The patient is a 77 year old F with past medical history as mentioned above presented to the emergency room because of confusion. At this time, the patient is oriented 2, disoriented to time and she said she does not know why she is in the hospital. The son was at the bedside and he mentioned that she has been confused, having memory issues and she has been hallucinating. The son mentioned that she has been having issues with memory and forgetfulness as well as occasional hesitation over the last few months but has been getting worse. Today, she had an argument with her and she called the [place] office. He mentioned that she had intermittent slurred speech and she has been having issues with her balance. No reported mild deviation or drooling. No focal arm or leg weakness. At this time, the patient denies any symptoms. She has history of aortic valve replacement with bioprosthetic valve for aortic stenosis. She has history of type 2 diabetes mellitus she has been on insulin and Januvia, has been uncontrolled and her most recent hemoglobin A1c was few days ago it was 10.4. She had a history of stroke with no residual motor deficit she has been on Plavix and statins. In the emergency department, her vital signs were stable. Her routine blood work was remarkable for platelet count of 125,000 and creatinine of 1.41. Her blood glucose was 348. Troponin was 0.10. EKG revealed sinus rhythm with PVCs and left bundle branch block which was chronic. Chest x-ray showed no acute infiltrate. CT scan brain showed old lacunar infarction, no evidence of acute infarction or hemorrhage. He is being admitted for altered mental status/encephalopathy, confusion, hallucination and questionable slurred speech For evaluation. Past Medical History Past Medical History (Chronic Problems): Chronic Problems (Last Reviewed 11/29/17 @ 13:02 by Mora Kilner) Uncontrolled diabetes mellitus (Chronic) Obesity (Chronic) Non-rheumatic aortic stenosis (Chronic) COPD (chronic obstructive pulmonary disease) (Chronic) Secondary pulmonary arterial hypertension (Chronic) Hyperlipidemia (Chronic) Chronic diastolic heart failure (Chronic) CVA (cerebral infarction) (Chronic) Hypertension (Chronic) Hypothyroidism (Chronic) Paroxysmal a-fib (Chronic) Allergies prochlorperazine edisylate [From Compazine] Allergy (Verified 01/01/18 23:17) Other prochlorperazine maleate [From Compazine] Allergy (Verified 01/01/18 23:17) Other tolmetin sodium [From Tolectin] Allergy (Verified 01/01/18 23:17) Other Home Medications: Ambulatory Orders Medication Instructions Recorded Atorvastatin Calcium [Lipitor] 80 mg PO QHS #30 tab 04/09/14 Insulin Aspart [Novolog Flexpen] See Protocol SC TIDCM 02/18/16 clopidogrel 75 mg tablet 75 mg PO QDAY tab 11/28/17 Surgical History: appendectomy, cataract, - - Aortic Valve replacement, left carotid endarterectomy, shoulder surgery Psychiatric History: No pertinent psych hx MEDICAL REIMBURSEMENT SPECIALIST History: No pertinent MEDICAL REIMBURSEMENT SPECIALIST history Lives: Spouse/ Significant Other Smoking Status: Former smoker Alcohol: None Drugs: None - *Family History Maternal History Items: Diabetes, Stroke Paternal History Items: Cancer Sibling History Items: Hypertension Review of Systems Constitutional: Denies: Anorexia, Chills, Fever, Weakness Eyes: Denies: Blurred vision, Double vision, Redness HEENT: Denies: Difficulty Hearing, Ear Pain, Nasal Congestion, Sore Throat Cardiovascular: Denies: Chest Pain, Chest Tightness, Heaviness, Palpitations, Syncope Respiratory: Denies: Cough, Pleuritic Pain, Shortness of Breath, Sputum production, Wheezing Gastrointestinal: Denies: Abdominal Pain, Constipation, Diarrhea, Nausea, Vomiting Genitourinary: Denies: Dysuria, Frequency, Hematuria Musculoskeletal: Denies: Arm Pain, Back Pain, Foot Pain Skin: Denies: Dryness, Rash Neurological: Reports: Confusion. Denies: Balance problems, Double vision, Change in Speech, Slurred speech, Focal weakness, Headaches, Incoordination Psychiatric: Denies: Anxiety, Depression Endocrine: Denies: Change in Body Habitus, Polydipsia VTE Information - Inpt Only VTE Present on Admission: No VTE Mechan Device Prophylaxis: None VTE Pharm Prophylaxis ordered?: Yes - Physical Exam General: Alert, Cooperative, No apparent distress, Disoriented HEENT: Atraumatic, PERRLA, EOMI Oral: No Gingival or Mucosal Lesions/ Ulcerations, Dry Mucosa Neck: Supple, No JVD, Negative Carotid Bruits, Trachea Midline, Thyroid Normal Size and Texture Lungs: Clear to auscultation, No rhonchi, No wheeze, No rales, Diminished Cardiovascular: Regular rate, Regular Rhythm, Normal S1, Normal S2, PMI Normal Abdomen: Bowel Sounds Present, Soft, Non Tender, Non-Distended, No Hepato-splenomegaly, Obese Extremities: No clubbing, No cyanosis, No edema Skin: No rashes, No breakdown Lymphatic: No Cervical, Supraclavicular, or Inguinal Adenopathy Neurological: Cranial nerves II-XII grossly intact, Motor Exam 5/5 strength throughout Psych/Mental Status: Normal Affect, Appropriate Vital Signs Temp Pulse Resp BP Pulse Ox 97.8 F 67 15 155/71 H 98 01/01/18 23:18 01/02/18 03:29 01/02/18 03:29 01/02/18 03:29 01/02/18 03:29 Oxygen Flow Rate (L/min) 4 Oxygen Delivery Method Nasal Cannula Weight: 220 lb Body Mass Index (BMI) 43.0 Finger Stick Blood Glucose 529 Laboratory Tests Past 24 Hrs WBC RBC Hgb Hct MCV MCH MCHC RDW RDW Differential Plt Count MPV Immature Gran % (Auto) Neut % (Auto) Clinical Impression(s) from Imaging Studies Brain CT 01/02/18 00:03 IMPRESSION: No acute findings in the brain. An old lacunar infarct involving the left lentiform nucleus and an old area of infarction in the posterior distribution of the right middle cerebral artery. No change since February 18, 2016 Electronically Signed: Kyle Contreras, at 1:18 EDT Tel , Service support , Chest X-Ray 01/02/18 00:45 IMPRESSION: Cardiomegaly with central vascular congestion. No pneumonia. No pleural effusions. Electronically Signed: Kyle Contreras, at 1:52 EDT Tel , Service support , Assessment/Plan This is a 77 years old female patient brought to the emergency room by family because of confusion, hallucination and questionable slurred speech and she is being admitted for evaluation. #1 altered mental status/confusion/hallucination: According to the patient's son, she has been having issues with memory, forgetfulness and sometimes his vision but has been getting worse nowadays. Her symptoms is not typical for TIA or stroke. It could be due to worsening dementia. CT scan brain showed no acute findings. She has no focal deficit on examination. Her vital signs are stable. Routine blood work was remarkable for chronic thrombocytopenia and chronically elevated creatinine. Plan: Admit to PCU for observation, cardiac monitoring, NIH stroke scale, MRI brain, continue Plavix and aspirin for history of stroke, PT OT evaluation and treatment. #2 borderline elevated troponin: Patient was admitted to the hospital for a couple of days ago for chest pain and abnormal cardiac enzymes. She underwent stress test that was negative for stress-induced myocardial ischemia. Troponin 0 0.10 which is actually coming down from December 28, 2017. EKG revealed sinus rhythm with LBBB which is chronic, no acute changes. #3 uncontrolled type 2 diabetes mellitus: A1c was 10.4 a few days ago, uncontrolled. Plan: ADA diet, Accu-Cheks q. before meals at bedtime, continue home dose of Levemir and Humalog insulin, continue Januvia, and systolic scale. #4 hypertension: Blood pressure stable, continue metoprolol. #5 hypothyroidism: Continue levothyroxine. #6 COPD: Stable, pulse ox is maintained on 2 L. Plan for albuterol as needed. #7 history of stroke: Continue Plavix and statins, plan for MRI brain. #8 DVT prophylaxis: Subcu Lovenox. Other chronic medical problems: #1 chronic diastolic CHF. #2 paroxysmal A. fib. #3 pulmonary hypertension. This note was generated with Cavium dictation software. It may contain incorrect words, spelling, and punctuation that were not noted in checking the note before signing. Code Visit OBSV E AND M: 32242 Initial observation care L3 01/02/18 0350 <Electronically signed by Ermias Richards MD> Date Ermias Richards MD Cosigner Signature: Date (if applicable) CC: Ermias Richards; Micheal Mercado MD Signed URINALYSIS, COMPLETE Collected: 01/02/2018 Status: F Source: [place] 1:[place] [facility] [place] Order Comment: How was Urine Obtained? JOB DEVELOPER TO SPECIFY TYPE CODE TESTS RESULT OUT OF RANGE REFERENCE UNITS LAB L400.3000 Yellow COLOR Normal Yellow LAB L400.3050 Clear Normal CLARITY Clear LAB L400.3200 Normal mg/dl High GLUCOSE, UR 1000 LAB L400.3300 Negative mg/dL Normal BILIRUBIN URINE Negative LAB L400.3400 Negative mg/dl High 5 KETONE UR LAB L400.3465 1.002-1.030 Normal SP.GR. DIPSTX 1.020 LAB L400.3550 5.0 - 8.0 pH UR Normal 6.0 LAB L400.3600 Negative mg/dl High PROT 30 DIPSTX LAB L400.3700 Normal mg/dl Normal UROBILI Normal LAB L400.3750 Negative Normal NITRITE UR Negative LAB L400.3780 Negative /ul High 10 OCCULT BLOOD-UR LAB L400.3800 Negative /ul LEUK Normal ESTERASE Negative LAB L400.4050 0-5 /hpf WBC 0 Normal SEEN LAB L400.4100 0-5 /hpf 0 Normal RBC-UA SEEN LAB L400.4150 5-10 /hpf SQUAM 0 Normal EPI SEEN LAB L400.4300 None Seen /hpf 0 Normal BACTERIA SEEN LAB L400.4350 <or=2+ /hpf 0 Normal MUCUS, URINE SEEN Performed By: #### L400.0001 #### [facility] [address] [place], [address] URINE DRUG SCREEN Collected: 01/02/2018 Status: F Source: [place] (VISTA) 1:57 AM [facility] [place] [place] TYPE CODE TESTS RESULT OUT OF RANGE REFERENCE UNITS LAB L505.0075 TO BE Normal CONFIRMED Result Comment: CONFIRMATORY TESTING FOR ALL POSITIVE URINE DRUG SCREEN RESULTS WILL ONLY BE SENT OUT UPON PHYSICIAN ORDER. VISTA Urine Drug Screen methods provide only preliminary analytical test results. A more specific alternate chemical method must be used in order to obtain a confirmed analytical result. Gas chromatography/mass spectrometery (GC/MS) is the preferred confirmatory method. Clinical consideration and professional judgement should be applied to any drug of abuse test result, particularly when preliminary positive results are used. URINE TCA TESTING MUST BE ORDERED SEPARATELY. USE TEST MNEMONIC: [facility] LAB L505.5005 VISTA UDS PH 6 Normal LAB L505.5015 <1000 ng/mL AMPHETAMINES Normal NEGATIVE LAB L505.5025 < 200 ng/mL BARBITIURATES Normal NEGATIVE LAB L505.5035 < 200 ng/mL BENZODIAZIPINE Normal NEGATIVE LAB L505.5045 < 300 ng/mL COCAINE Normal NEGATIVE LAB L505.5055 < 500 ng/mL ECSTACY Normal NEGATIVE LAB L505.5065 < 300 ng/mL METHADONE Normal NEGATIVE LAB L505.5075 < 300 ng/mL OPIATES Normal NEGATIVE LAB L505.5085 < 25 ng/mL PCP Normal NEGATIVE LAB L505.5095 < 50 ng/mL THC Normal NEGATIVE Performed By: #### L505.5000 #### [facility] [address] [place], [address] CBC W/DIFF, AUTOMATED Collected: 01/02/2018 Status: F Source: [place] 12:25 AM [facility] [place] TYPE CODE TESTS RESULT OUT OF RANGE REFERENCE UNITS LAB L100.1000 4.4-11.0 K/mm3 Normal WBC 8.2 LAB L100.1200 4.2-5.4 M/mm3 Normal RBC 4.39 LAB L100.1300 12.0-15.0 g/dl Normal HGB 12.6 LAB L100.1400 37-47 % Normal HCT 39.3 LAB L100.1500 81-99 fL Normal MCV 89.5 LAB L100.1600 27.0-32.0 pg Normal MCH 28.7 LAB L100.1700 32-36 g/gl Normal MCHC 32.1 LAB L100.1810 11.6-14.6 % High RDW CV 15.9 LAB L100.1820 35.1-43.9 fl High RDW SD 52.0 LAB L100.1900 150-450 K/mm3 Low PLT 125 LAB L100.2000 6.2-12.0 fl Normal MPV 10.1 LAB L100.2100 47-70 % High NEUT% 80.0 LAB L100.2200 19-41 % Low LY% 10.2 LAB L100.2300 0-10 % Normal MONO% 8.9 LAB L100.2400 0-5 % Normal EO% 0.7 LAB L100.2500 0-1 % Normal BASO% 0.1 LAB L100.2550 0.0-0.9 % Normal IM GRAN % 0.100 Result Comment: IG% - Immature Granulocytes (promyelocytes, myelocytes and metamyelocytes) > 1% indicates that a LEFT SHIFT is Present. LAB L100.2620 2.0-7.7 X10 3/uL Normal Absolute Neut 6.6 LAB L100.2720 0.83-4.51 X10 3/ul Normal Absolute Lymph 0.84 Performed By: #### L100.0100 #### [facility] [address] [place], [address] BASIC METABOLIC Collected: 01/02/2018 Status: F Source: [place] PROFILE (BMP) 12:25 AM [facility] [place] Order Comment: 'TROP' Serial specimen #1, #2, #3, or #4: 1 TYPE CODE TESTS RESULT OUT OF RANGE REFERENCE UNITS LAB L501.0100 74-106 mg/dL High GLU 348 Result Comment: Glucose result greater than or equal to 200 mg/dL suggests DIABETES MELLITUS per A.D.A. criteria. Please note revised GLUCOSE reference range effective 2017. LAB L501.1000 7-18 mg/dL High BUN 25 LAB L501.1100 0.55-1.02 mg/dL High CREAT,SERUM 1.41 Result Comment: The validity of the calculated GFR AND GFRAA in patients over 70 years has not been determined. Clinical correlation is essential. LAB L501.1110 >60 mL/min Low EST GFR 38 Result Comment: Non- GFR Calc LAB L501.1115 >60 mL/min Low EST GFR - AA 47 Result Comment: GFR Calc LAB L501.1255 ml/min Normal Estimated CRCL 24.00 LAB L501.1300 10-20 RATIO Normal BUN/CRE 17.7 LAB L501.2200 8.5-10 mg/dL Normal .1 CA 8.6 LAB L501.5300 136-14 mmol/L Normal 5 NA 137 LAB L501.5600 3.5-5. mmol/L Normal 1 K 3.9 LAB L501.5900 98-107 mmol/L Normal CL 101 LAB L501.6100 21.0-3 mmol/L Normal 2.0 CO2 30.0 LAB L501.6200 5-15 Normal GAP 6 Performed By: #### L500.2500, L501.4010 #### [facility] [address] [facility] [place], [place], [id number] TROPONIN-I Collected: 01/02/2018 Status: F Source: [place] 12:25 AM [facility] [place] [place] Order Comment: 'TROP' Serial specimen #1, #2, #3, or #4: 1 TYPE CODE TESTS RESULT OUT OF RANGE REFERENCE UNITS LAB L501.4010 <0.06 ng/mL High 0.10 TROPONIN-I Result Comment: TROPONIN-I EXPECTED VALUES <0.05 NEGATIVE 0.06 - 0.59 AT RISK OF [place] > OR = 0.60 SUGGEST [place] Performed By: #### L500.2500, L501.4010 #### [facility] [address] [facility] [place], [place], [id number] ALCOHOL, BLOOD Collected: 01/02/2018 Status: F Source: [place] (MEDICAL)-SERUM 12:25 AM [facility] [place] TYPE CODE TESTS RESULT OUT OF RANGE REFERENCE UNITS LAB L501.9100 mg/dL Normal SERUM < 3.0 ETOH Result Comment: The serum:whole blood ethanol ratio is approximately 1.14 and varies slightly with hematocrit. Medical Alcohol reference interval and critical value in non-tolerant individuals; 50 - 100 Impairment 100 Intoxication 100 - 250 Severe Poisoning 250 - 400 Deep/possible fatal coma Performed By: #### L501.9100 #### [facility] [address] [place], [place], [id number] CRP Collected: 01/02/2018 Status: F Source: [place] 12:25 AM [facility] [place] TYPE CODE TESTS RESULT OUT OF RANGE REFERENCE UNITS LAB L501.6710 0.0-3.0 mg/L High 8.57 C-REACTIVE PROT Result Comment: C-Reactive Protein (CRP) provides useful information for the diagnosis, therapy and monitoring of inflammatory processes and associated diseases. For the evaluation of Relative Risk for Cardiovascular Disease, a High Sensitivity CRP (HSCRP) should be ordered. Performed By: #### L501.6710 #### [facility] [facility] [place], [address] VITAMIN B12 Collected: 01/02/2018 Status: F Source: [place] 12:25 AM [facility] [place] TYPE CODE TESTS RESULT OUT OF RANGE REFERENCE UNITS LAB L503.0105 211-911 pg/mL Normal Vitamin B12 421 Performed By: #### L503.0105 #### [facility] [address] [place] [address], [address] ERYTHROCYTE SED RATE Collected: 01/02/2018 Status: F Source: [place] 12:25 AM [facility] [place] TYPE CODE TESTS RESULT OUT OF RANGE REFERENCE UNITS LAB L102.0000 0-30 mm/hr Normal SED RATE 5 Performed By: #### L101.9900 #### [facility] [address] [place] [address]. [place], [address] RAPID PLASMIN REAGIN Collected: 01/02/2018 Status: F Source: [place] (R[place]) 12:25 AM [facility] [place] [place] TYPE CODE TESTS RESULT OUT OF REFERENCE UNITS RANGE LAB L700.5000 NONREACTIVE NONREACTIVE Normal RPR Performed By: #### L700.5000 #### [facility] [facility] [place], [address] BRAIN/HEAD WITHOUT Observed: 01/02/2018 Status: F Source: [place] CONTRAST 12:05 AM [facility] Imaging Services [address] [place] [address] [place] [address] Brain/Head without Contrast MR#: [id number] Acct: [id number] Name: BEVERLY BROUSSARD Rep #: [id number] : 1940 F 77 From: Kyle Contreras MD PCP: Micheal Mercado MD, Chi Status: REG ER Study: Brain/Head without Contrast Date of Exam: 01/02/18 Exam# [id number] Ordering Dr: Ventura Patel MD STUDY: CT BRAIN WITHOUT CONTRAST REASON FOR EXAM: Female, 77 years old. Altered mental status RADIATION DOSAGE (If Supplied By Facility): CTDIvol = ( 44.99 ) mGy, DLP = ( 745.49 ) mGycm TECHNIQUE: Transaxial CT imaging of the brain was performed without administration of intravenous contrast material. Individualized dose optimization techniques were used for this CT. COMPARISON: February 18, 2016 FINDINGS: There continues to be an area of encephalomalacia in the posterior distribution of the right middle cerebral artery. This is most likely from an old infarct. There is also an old infarct involving the left lentiform nucleus. There is no acute hemorrhage or acute infarction and no intra or extra-axial hemorrhage or tumor mass. The calvarium is intact. There are no scalp swellings. The orbits, paranasal sinuses and mastoid air cells are normal. CT/Brain/Head without Contrast IMPRESSION: No acute findings in the brain. An old lacunar infarct involving the left lentiform nucleus and an old area of infarction in the posterior distribution of the right middle cerebral artery. No change since February 18, 2016 Electronically Signed: Kyle Contreras, at 1:18 EDT Tel , Service support , CC: Ventura Patel MD; Micheal Mercado MD Upper Extremity Surgeon: Signed CHEST 1 VIEW Observed: 01/02/2018 Status: F Source: [place] (PORTABLE) 12:05 AM [facility] [place] [facility] Imaging Services [address] [place] [address] Chest 1 View (Portable) MR#: [id number] Acct: [id number] Name: BEVERLY BROUSSARD N Rep #: [id number] : 1940 F 77 From: Kyle Contreras MD PCP: Micheal Mercado MD, Chi Status: REG ER Study: Chest 1 View (Portable) Date of Exam: 01/02/18 Exam# [id number] Ordering Dr: Ventura Patel MD STUDY: X-RAY CHEST REASON FOR EXAM: Female, 77 years old. Altered mental status TECHNIQUE: One view COMPARISON: December 28, 2007 FINDINGS: There is cardiomegaly with median sternotomy wires in place. Mild central vascular congestion but no pneumonia. No pleural effusions. Normal visualized thoracic spine. Normal visualized ribs, clavicles, and shoulders. There is no demonstrated abnormality of the visualized soft tissue structures of the upper abdomen. RAD/Chest 1 View (Portable) IMPRESSION: Cardiomegaly with central vascular congestion. No pneumonia. No pleural effusions. Electronically Signed: Kyle Contreras, at 1:52 EDT Tel , Service support , CC: Ventura Patel MD; Micheal Mercado MD Upper Extremity Surgeon: Signed 12 LEAD ELECTROCARDIOGRAM Observed: 12/30/2017 Status: F Source: [place] 3:58 PM [facility] [place] [facility] Cardiovascular Services [address] [place] [address] 12 Lead EKG 12/28/17 0539 MR#: [id number] Acct: [id number] Name: BEVERLY BROUSSARD N Rep #: [id number] : 1940 77 From: Ricky Gregg MD Attending Dr: Carmen Parker MD Status: DIS MADI Ordering Dr: Hood Lawson MD Date: 12/28/17 Location: [facility] Sex: F C Admitted: 12/27/17 Test Reason : AM EKG Blood Pressure : / mmHG Vent. Rate : 072 BPM Atrial Rate : 072 BPM P-R Int : 192 ms QRS Dur : 160 ms QT Int : 442 ms P-R-T Axes : 059 -14 150 degrees QTc Int : 483 ms Normal sinus rhythm Left bundle branch block Abnormal ECG When compared with ECG of 27-DEC-2017 19:21, MANUAL COMPARISON REQUIRED, DATA IS UNCONFIRMED Confirmed by RICKY GREGG MD ([id number]), editor & co founder ADELA TOVAR ([id number]) on 12/30/2017 3:58:33 PM Referred By: RENNY Confirmed By:RICKY GREGG MD 12/30/17 1558 Date Ricky Gregg MD CC: Carmen Parker MD; Hood Lawson MD; Micheal Mercado MD Signed 12 LEAD ELECTROCARDIOGRAM Observed: 12/30/2017 Status: F Source: [place] 3:33 PM [facility] [place] [place] [facility] Cardiovascular Services [address] [place] [address] 12 Lead EKG 12/27/171920 MR#: [id number] Acct: [id number] Name: BEVERLY BROUSSARD Rep #: [id number] : 1940 77 From: Ricky Gregg MD Attending Dr: Carmen Parker MD Status: DIS MADI Ordering Dr: Carlee Kwok MD Date: 12/27/17 Location: [facility] Sex: F C Admitted: 12/27/17 Test Reason : CP Blood Pressure : / mmHG Vent. Rate : 097 BPM Atrial Rate : 097 BPM P-R Int : 188 ms QRS Dur : 156 ms QT Int : 408 ms P-R-T Axes : 055 016 087 degrees QTc Int : 518 ms Normal sinus rhythm Left bundle branch block Abnormal ECG Confirmed by RICKY GREGG MD ([id number]), editor & co founder ADELA TOVAR ([id number]) on 12/30/2017 3:32:45 PM Referred By: ASHLEY KWOK Confirmed By:RICKY GREGG MD 12/30/17 1532 Date Ricky Gregg MD CC: Carlee Kwok MD; Carmen Parker MD; Micheal Mercado MD Signed STRESS REPORT Observed: 12/28/2017 Status: F Source: [place] 5:26 PM [facility] [place] [place] [facility] Cardiovascular Services [address] [place] [address] MR#: [id number] Acct: [id number] Name: BEVERLY BROUSSARD Rep #: [id number] : 1940 77 From: Ricky Gregg MD Primary Care: Jeffry CARRANZA,Micheal Montoya Status: DIS MADI Ordering Dr: Sex: F C Stress Test Report Pharmacologic myocardial perfusion stress test. 77-year-old lady with a history of chest pain and mildly abnormal troponins. Medications Lipitor Plavix Lexapro potassium. Stress protocol: Resting EKG demonstrates sinus bradycardia with a rate of 56 bpm left bundle branch block is noted resting blood pressure is 102/60 mmHg. 0.4 mg regadenoson was infused per usual protocol followed by rapid intravenous saline flush injection. Continuous EKG monitoring was performed. At rest nonspecific ST-T wave changes were noted and the patient maintained a left bundle branch block pattern. The maximum heart rate attained was 67 bpm. The resting blood pressure is 102/60 and remained same throughout the infusion. Myocardial perfusion protocol. 15.0 mCi of technetium 99m sestamibi was injected at rest. 0.4 mg of regadenoson was infused per usual protocol. At peak infusion 44.7 mCi of technetium 99m sestamibi was injected stress images were obtained stress and rest images were reconstructed and compared in the short axis vertical long and horizontal long axis. Gated images were also obtained. Perfusion SPECT analysis: Review of the stress images demonstrate a medium-sized defect noted in the mid to distal anteroseptal wall. The anterolateral wall and inferior wall and inferoseptal wall appear to be well perfused. On the resting images there is a similar pattern also noted. This may suggest either previous anteroseptal infarct or breast wall attenuation artifact. No obvious ischemia is noted Gated SPECT analysis. The gated ejection fraction is noted to be 37% with global hypokinesis present. Conclusion: Myocardial perfusion stress test with no evidence of ischemia noted. Previous anteroseptal infarct cannot be completely excluded. Left bundle branch block pattern may give the appearance of previous anteroseptal infarct. Global hypokinesis present. 12/28/171725 <Electronically signed by Ricky Gregg MD> Date Ricky Gregg MD CC: Carmen Parker MD; Micheal Mercado MD Date Dictated: 12/28/171721 Date Transcribed: 12/28/171721 Upper Extremity Surgeon: CO Signed CONSULTATION Observed: 12/28/2017 Status: F Source: [place] 2:58 PM [facility] Medical Records Department [address] [place] [address] Consultation 12/28/17 1446 MR#: [id number] Acct: [id number] Name: BEVERLY BROUSSARD Rep #: [id number] : 1940 77 From: Ventura Ragsdale MD PCP: Micheal Mercado MD, Chi Status: ADM MADI Y Location: [place] [address] Problem List (1) Atypical chest pain Status: Acute (2) H/O aortic valve replacement Status: Resolved Comment: 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 with left carotid endarterectomy @ [facility] by Dr Lerma 02/06/16 (3) COPD (chronic obstructive pulmonary disease) Status: Chronic Reason for Consult Date of Consultation: 12/28/17 Reason for Consultation: Atypical chest pain, AVR, peripheral vascular disease status post CEA former smoker History of Present Illness: The patient is a 77 year old F, known to me, with a history of diabetes, hypertension, hypercholesterolemia, former smoker who quit around 40 years ago after a [id number] smoking history, 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 Patient was found to have severe aortic stenosis and underwent aortic valve replacement in January 2016 as well as concomitant left carotid endarterectomy for a 70% carotid stenosis. Her coronaries at that time were normal and did not require any bypass surgery during her aortic valve replacement. The patient reports that she completed cardiac rehab but essentially has very limited mobility and walks with a cane. Her existence is essentially sitting in a chair all day long. The patient developed atypical nonexertional left arm pain which radiated to her left shoulder blade while she was at rest. Patient came to [facility] ER last evening out of an abundance of caution. Her EKG showed normal sinus rhythm with left bundle branch block which is old. Patient underwent rule out protocol, which had a peak troponin of 0.31. Stress test was ordered with results pending. Prior to this the patient reports that she has had no significant chest pain, pressure, nausea or vomiting. She has been compliant with her medications. She no longer smokes. Patient is already on clopidogrel for previous CVA. [] Past Medical History Allergies/Adverse Reactions: Allergies prochlorperazine edisylate [From Compazine] Allergy (Verified 11/29/17 13:02) Other prochlorperazine maleate [From Compazine] Allergy (Verified 11/29/17 13:02) Other tolmetin sodium [From Tolectin] Allergy (Verified 11/29/17 13:02) Other Home Medications: Ambulatory Orders Medication Instructions Recorded Atorvastatin Calcium [Lipitor] 80 mg PO QHS #30 tab 04/09/14 Insulin Aspart [Novolog Flexpen] See Protocol SC TIDCM 02/18/16 clopidogrel 75 mg tablet 75 mg PO QDAY tab 11/28/17 Past Medical History (Chronic Problems): Chronic Problems (Last Reviewed 11/29/17 @ 13:02 by Mora Medina) Uncontrolled diabetes mellitus (Chronic) Obesity (Chronic) Non-rheumatic aortic stenosis (Chronic) COPD (chronic obstructive pulmonary disease) (Chronic) Secondary pulmonary arterial hypertension (Chronic) Hyperlipidemia (Chronic) Chronic diastolic heart failure (Chronic) CVA (cerebral infarction) (Chronic) Hypertension (Chronic) Hypothyroidism (Chronic) Paroxysmal a-fib (Chronic) Surgical History: appendectomy, cataract, - - Aortic Valve replacement, left carotid endarterectomy, shoulder surgery - *Family History Maternal Family History: Family History (Last Reviewed 11/29/17 @ 13:02 by Mora Medina) Mother CVA (cerebral vascular accident) Diabetes History Items: Diabetes, Stroke Paternal Family History: Family History (Last Reviewed 11/29/17 @ 13:02 by Mora Medina) Mother CVA (cerebral vascular accident) Diabetes History Items: Cancer Sibling Family History: Family History (Last Reviewed 11/29/17 @ 13:02 by Mora Medina) Mother CVA (cerebral vascular accident) Diabetes History Items: Hypertension Smoking Status: Former smoker Subjectve: Patient laying in bed, no acute distress. Objective: Vital Signs Temp Pulse Resp BP Pulse Ox 97.6 F L 65 16 105/63 92 12/28/17 13:38 12/28/17 13:38 12/28/17 13:38 12/28/17 13:38 12/28/17 13:38 Oxygen Flow Rate (L/min) 2 Oxygen Delivery Method Room Air Weight: 210 lb 12.191 oz Body Mass Index (BMI) 41.1 Intake and Output for Last 24 Hours Intake Total 360 / 360 Output Total 500 / 500 Balance -140 / -140 General: Awake, Alert, Oriented x 3 HEENT: PERRL, EOMI, Sclera Non Icteric Neck: Supple, Good ROM, No Lymph Node Enlargement Lungs: Clear to auscultation Cardiovascular: Regular Rhythm, Normal S1, Normal S2, No Rubs, No Gallops Murmur Murmur: Grade 2/6, Crescendo-Decrescendo Vascular: No Carotid Bruits, Normal Femoral Pulses, Normal Radial Pulses, Normal Dorsalis Pedal Pulse, Normal Posterior Tibial Pulses Abdomen: Bowel Sounds Present, Soft, Non Tender, No HSM, No Organomegaly Extremities: No Cyanosis, No Clubbing, No edema Neurological: No Focal Motor or Sensory Deficit 12/27/17 23:14: Troponin I 0.11 H 12/28/17 03:56: Hemoglobin A1c 10.4 H 12/28/17 03:56: Sodium 136, Potassium 4.2, Chloride 104, Carbon Dioxide 24.0, Anion Gap 8, BUN 28 H, Creatinine 1.32 H, Est GFR (MDRD) Af Amer 50 L, Est GFR (MDRD) Non-Af 42 L, BUN/Creatinine Ratio 21.2 H, Glucose 240 H, Calcium 8.0 L, Total Bilirubin 0.50, Troponin I 0.26 H, Triglycerides 94, Cholesterol 122, LDL Cholesterol 55, VLDL Cholesterol 19, HDL Cholesterol 48 12/28/17 03:56: WBC 9.7, RBC 4.27, Hgb 12.4, Hct 38.3, MCV 89.7, MCH 29.0, MCHC 32.4, RDW 16.1 H, RDW Differential 52.2 H, Plt Count 158, MPV 10.8, Immature Gran % (Auto) 0.200, Neut % (Auto) 82.4 H, Lymph % (Auto) 10.0 L, [place] % (Auto) 7.3, Eos % (Auto) 0.0, Baso % (Auto) 0.1, Absolute Neuts (auto) 8.0 H, Total Counted Not Reportable 12/28/17 03:56: PT 14.4, INR 1.1, APTT 27.0 12/28/17 11:34: Troponin I 0.31 H Rhythm: EKG: Normal sinus rhythm, left bundle branch block, no acute changes. ECHO: Stress Test: Pending Cardiac Cath: PCI: CT Surgery: Holter monitor: EPS: PPM: CXR: Chest CT Scan: Assessment/Plan 1. New onset chest pain: It is difficult to get a history from the patient but as best I can tell the patient developed left arm pain with radiation into her shoulder while at rest. Her mobility is quite limited and she walks with a cane, and she has had no exertional anginal symptoms. Unfortunately she never really recovered very well after her aortic valve replacement in January 2016. Her catheterization prior to her aortic valve replacement was reviewed by me today which showed no significant coronary disease at that time. Nonetheless it is possible the patient may have developed coronary disease since her open heart surgery and aortic valve replacement. Her peak troponin thus far 0.31 which may be concerning for possible concomitant coronary disease. The patient underwent a non-walking nuclear stress test this morning and results are pending. If her stress test is negative for inducible ischemia, I would recommend continuing medical management at this time. If however her stress test shows any evidence of ischemia I would have a low threshold for repeat catheterization. She was already on Plavix for her previous CVA. [place] at this point I would recommend continuing Lasix, metoprolol, Plavix, and statin based medications given her diabetes and peripheral vascular disease. Her elevated troponin may be a result of her markedly elevated sugars and may represent a type II non-STEMI. 2. Hyperlipidemia: Her LDL and HDL cholesterol are controlled well. Continue anti-lipid therapy. 3. Thank you very much for the opportunity to participate in the cardiac care of your patient. Consultation time took place between 830 and 9 AM. Code Visit Inpatient Cindi AND M: [id number] Init Hosp L2 12/28/17 1458 <Electronically signed by Ventura Ragsdale MD> Date Ventura Ragsdale MD Cosigner Signature (if applicable): Date CC: Ventura Ragsdale MD; Micheal Mercado MD Signed DISCHARGE SUMMARY Observed: 12/28/2017 Status: F Source: [place] 2:[place] PM [facility] [place] [facility] Medical Records Department [address] [place] [address] Discharge Summary 12/28/17 1358 MR#: [id number] Acct: [id number] Name: BEVERLY BROUSSARD Rep #: [id number] : 1940 77 From: Carmen Parker MD PCP: Micheal Mercado MD, Chi Status: ADM MADI Y Location: [place] [address] Discharge Date and Diagnosis - Problem List Patient Problems: Active and Suspected Problems (Last Reviewed 11/29/17 @ 13:02 by Mora Medina) Atypical chest pain (Acute) Date of Admission: 12/27/17 Date of Discharge: 12/28/17 - Primary Discharge Diagnosis Active and Suspected Problems (Last Reviewed 11/29/17 @ 13:02 by Mora Medina) Atypical chest pain (Acute) Musculoskeletal pain - Secondary Discharge Diagnosis Chronic Problems (Last Reviewed 11/29/17 @ 13:02 by Mora Medina) Uncontrolled diabetes mellitus (Chronic) Obesity (Chronic) Non-rheumatic aortic stenosis (Chronic) COPD (chronic obstructive pulmonary disease) (Chronic) Secondary pulmonary arterial hypertension (Chronic) Hyperlipidemia (Chronic) Chronic diastolic heart failure (Chronic) CVA (cerebral infarction) (Chronic) Hypertension (Chronic) Hypothyroidism (Chronic) Paroxysmal a-fib (Chronic) Hospital Course and Treatment Imaging Results: 12/28/17 05:55 Nuclear Stress Test - Chemical [NM] AM (NON MEDS) None Operations: None Procedures: Stress test Summary of Care Provided: The patient is a 77 year old F with past medical history of CAD, hypertension, type II DM was admitted with atypical chest pain. Chest pain was described as pain that started from the hand and moved up the upper extremity and went in between her shoulders and down the other arm. Admitted to telemetry bed, no acute changes seen on telemetry. Troponins were slightly elevated, believed to be secondary to demand ischemia. Patient underwent stress test that was negative for any acute ischemia but showed previous infarct. Patient was started on beta-blockers and this admission. She was asked to follow- up with her primary doctor in 2 weeks and also to follow-up with Dr. Ragsdale within 2 weeks. Discharge Diet: Low fat/ Low Cholesterol, 2000 mg Sodium Diet, Carb Control Diet Discharge Activity: Return to Normal Activity Home Medications: Medications to take at Discharge Atorvastatin Calcium [Lipitor] 80 mg PO QHS #30 tab 04/09/14 Insulin Aspart [Novolog Flexpen] See Protocol SC TIDCM 02/18/16 clopidogrel 75 mg tablet 75 mg PO QDAY tab 11/28/17 escitalopram 10 mg tablet 10 mg PO QDAY 11/28/17 furosemide 40 mg tablet 40 mg PO BID tab 11/28/17 pregabalin 75 mg capsule 75 mg PO TID 11/28/17 levothyroxine 88 mcg capsule 112 mcg PO DAILY cap 11/29/17 Cetirizine HCl [Zyrtec] 10 mg PO DAILY 12/27/17 Clopidogrel Bisulfate [Plavix] 75 mg PO DAILY 12/27/17 Ergocalciferol [Vitamin D] 50,000 unit PO QMONTH 12/27/17 Potassium Chloride [Klor-Con M20] 20 meq PO DAILY 12/27/17 Ranitidine [Zantac] 150 mg PO DAILY 12/27/17 Sitagliptin Phosphate [Januvia] 100 mg PO DAILY 12/27/17 Solifenacin Succinate [Vesicare] 10 mg PO DAILY 12/27/17 Insulin Detemir [Levemir FlexPen] 25 units SC DAILY #0 05/02/18 Metoprolol Tartrate [Lopressor (beta chloe)] 12.5 mg PO BID #60 tab 12/28/17 Following Prescrptions Were Given to Patient: Metoprolol Tartrate [Lopressor (beta chloe)] 12.5 mg PO BID #60 tab Primary Care Physician: Micheal Mercado Chi, MD [Primary Care Provider] - Please follow up with your Primary Care Physician in: within 2 weeks Please Follow Up With: Ventura Ragsdale MD When: within 2 weeks of discharge Disposition: Home Minutes spent on discharge:: 45 Patient Condition:: Stable Medical Necessity - Tobacco Use Smoking Status: Former smoker Meaningful Use Info Meaningful Use Diagnoses (Choose all that apply): None applicable Code Visit OBSV E AND M: 81874 Observation care discharge 12/28/17 1453 <Electronically signed by Carmen Parker MD> Date Carmen Parker MD Cosigner Signature (if applicable): Date CC: Carmen Parker MD; Micheal Mercado MD Signed DISCHARGE INSTRUCTION Observed: 12/28/2017 Status: F Source: [place] 1:58 PM [facility] [place] [facility] Medical Records Department [address] [place] [id number] Instructions for Home/Discharge Instructions 12/28/17 1356 MR#: [id number] Acct: [id number] Name: BEVERLY BROUSSARD Rep #: [id number] : 1940 77 From: Carmen Parker MD PCP: Micheal Mercado MD, Chi Status: ADM MADI - Discharge Diagnoses Current Active Problems: Current Active and Chronic Problems (Last Reviewed 11/29/17 @ 13:02 by Mora Medina) Atypical chest pain (Acute) Uncontrolled diabetes mellitus (Chronic) Reason(s) for Visit for Discharge Instructions: Chest pain You will use the following diet at home:: Calorie/Carbohydrate Controlled (specify 1200, 1400, etc), Cardiac Your food should be the consistency of: Regular Your liquids should be the consistency of: Regular/Thin Discharge Activity: Return to Normal Activity Allergies/Adverse Reactions: Allergies prochlorperazine edisylate [From Compazine] Allergy (Verified 11/29/17 13:02) Other prochlorperazine maleate [From Compazine] Allergy (Verified 11/29/17 13:02) Other tolmetin sodium [From Tolectin] Allergy (Verified 11/29/17 13:02) Other Medications to take at Discharge Atorvastatin Calcium [Lipitor] 80 mg PO QHS #30 tab 04/09/14 Insulin Aspart [Novolog Flexpen] See Protocol SC TIDCM 02/18/16 clopidogrel 75 mg tablet 75 mg PO QDAY tab 11/28/17 escitalopram 10 mg tablet 10 mg PO QDAY 11/28/17 furosemide 40 mg tablet 40 mg PO BID tab 11/28/17 pregabalin 75 mg capsule 75 mg PO TID 11/28/17 levothyroxine 88 mcg capsule 112 mcg PO DAILY cap 11/29/17 Cetirizine HCl [Zyrtec] 10 mg PO DAILY 12/27/17 Clopidogrel Bisulfate [Plavix] 75 mg PO DAILY 12/27/17 Ergocalciferol [Vitamin D] 50,000 unit PO QMONTH 12/27/17 Potassium Chloride [Klor-Con M20] 20 meq PO DAILY 12/27/17 Ranitidine [Zantac] 150 mg PO DAILY 12/27/17 Sitagliptin Phosphate [Januvia] 100 mg PO DAILY 12/27/17 Solifenacin Succinate [Vesicare] 10 mg PO DAILY 12/27/17 Insulin Detemir [Levemir FlexPen] 25 units SC DAILY #0 12/28/17 Metoprolol Tartrate [Lopressor (beta chloe)] 12.5 mg PO BID #60 tab 12/28/17 The following prescriptions were given: Metoprolol Tartrate [Lopressor (beta chloe)] 12.5 mg PO BID #60 tab Primary Care Physician: Micheal Mercado Chi, MD [Primary Care Provider] - Please follow up with your Primary Care Physician in: within 2 weeks Please Follow Up With: Ventura Ragsdale MD When: within 2 weeks of discharge Proposed Discharge Date: 12/28/17 12/28/17 1358 <Electronically signed by Carmen Parker MD> Date Carmen Parker MD CC: Ventura Ragsdale MD; Micheal Mercado MD BEDSIDE GLUCOSE Collected: 12/28/2017 Status: F Source: [place] 11:[place] AM [facility] [place] TYPE CODE TESTS RESULT OUT OF REFERENCE UNITS RANGE LAB L501.080 70-110 mg/dL High BEDSIDE GLU 211 Result Comment: MANAGEMENT OF PATIENT CARE PER NURSING PROTOCOL Performed By: #### L501.080 #### [facility] [address] [place] [address] TROPONIN-I Collected: 12/28/2017 Status: F Source: [place] 11:34 AM [facility] [place] Order Comment: PT IN STRESS TEST FWC WHEN PT RETURNS. 1115 PATIENT STILL GONE 'TROP' Serial specimen #1, #2, #3, or #4: 4 TYPE CODE TESTS RESULT OUT OF RANGE REFERENCE UNITS LAB L501.4010 <0.06 ng/mL High 0.31 TROPONIN-I Result Comment: TROPONIN-I EXPECTED VALUES <0.05 NEGATIVE 0.06 - 0.59 AT RISK OF [place] > OR = 0.60 SUGGEST [place] Performed By: #### L501.4010 #### [facility] [address] [place], [place], [address] BEDSIDE GLUCOSE Collected: 12/28/2017 Status: F Source: [place] 6:48 AM [facility] [place] TYPE CODE TESTS RESULT OUT OF REFERENCE UNITS RANGE LAB L501.080 70-110 mg/dL High BEDSIDE GLU 264 Result Comment: MANAGEMENT OF PATIENT CARE PER NURSING PROTOCOL Performed By: #### L501.080 #### [facility] [address] [place], [place] [address] CBC W/DIFF, AUTOMATED Collected: 12/28/2017 Status: F Source: [place] 3:56 AM [facility] [place] TYPE CODE TESTS RESULT OUT OF RANGE REFERENCE UNITS LAB L100.1000 4.4-11.0 K/mm3 Normal WBC 9.7 LAB L100.1200 4.2-5.4 M/mm3 Normal RBC 4.27 LAB L100.1300 12.0-15.0 g/dl Normal HGB 12.4 LAB L100.1400 37-47 % Normal HCT 38.3 LAB L100.1500 81-99 fL Normal MCV 89.7 LAB L100.1600 27.0-32.0 pg Normal MCH 29.0 LAB L100.1700 32-36 g/gl Normal MCHC 32.4 LAB L100.1810 11.6-14.6 % High RDW CV 16.1 LAB L100.1820 35.1-43.9 fl High RDW SD 52.2 LAB L100.1900 150-450 K/mm3 Normal PLT 158 LAB L100.2000 6.2-12.0 fl Normal MPV 10.8 LAB L100.2100 47-70 % High NEUT% 82.4 LAB L100.2200 19-41 % Low LY% 10.0 LAB L100.2300 0-10 % Normal MONO% 7.3 LAB L100.2400 0-5 % Normal EO% 0.0 LAB L100.2500 0-1 % Normal BASO% 0.1 LAB L100.2550 0.0-0.9 % Normal IM GRAN % 0.200 Result Comment: IG% - Immature Granulocytes (promyelocytes, myelocytes and metamyelocytes) > 1% indicates that a LEFT SHIFT is Present. LAB L100.2620 2.0-7.7 X10 3/uL High Absolute Neut 8.0 LAB L100.2720 0.83-4.51 X10 3/ul Normal Absolute Lymph 0.97 Performed By: #### L100.0100 #### [facility] [address] [place], [address] COMPREHENSIVE METABOLIC Collected: 12/28/2017 Status: F Source: [facility] 3:56 AM [facility] [place] Order Comment: 'TROP' Serial specimen #1, #2, #3, or #4: 3 TYPE CODE TESTS RESULT OUT OF RANGE REFERENCE UNITS LAB L501.0100 74-106 mg/dL High GLU 240 Result Comment: Glucose result greater than or equal to 200 mg/dL suggests DIABETES MELLITUS per A.D.A. criteria. Please note revised GLUCOSE reference range effective 2017. LAB L501.1000 7-18 mg/dL High BUN 28 LAB L501.1100 0.55-1.02 mg/dL High CREAT,SERUM 1.32 Result Comment: The validity of the calculated GFR AND GFRAA in patients over 70 years has not been determined. Clinical correlation is essential. LAB L501.1110 >60 mL/min Low EST GFR 42 Result Comment: Non- GFR Calc LAB L501.1115 >60 mL/min Low EST GFR - AA 50 Result Comment: GFR Calc LAB L501.1255 ml/min Normal Estimated CRCL 25.64 LAB L501.1300 10-20 RATIO High BUN/CRE 21.2 LAB L501.1500 6.4-8. g/dL Low 2 T PROT 6.0 LAB L501.1800 3.2-5. g/dL Low 0 ALB 2.6 LAB L501.1950 2.2-4. g/dL Normal 2 GLOB 3.4 LAB L501.2000 0.9-2. RATIO Low 4 A/G 0.8 LAB L501.2200 8.5-10 mg/dL Low .1 CA 8.0 LAB L501.4100 15-37 U/L Normal AST 27 LAB L501.4305 45-117 U/L Normal ALK P 86 LAB L501.4405 13-56 U/L Normal ALT 32 LAB L501.4600 0.20-1 mg/dL Normal .00 T BILI 0.50 LAB L501.5300 136-14 mmol/L Normal 5 NA 136 LAB L501.5600 3.5-5. mmol/L Normal 1 K 4.2 LAB L501.5900 98-107 mmol/L Normal CL 104 LAB L501.6100 21.0-3 mmol/L Normal 2.0 CO2 24.0 LAB L501.6200 5-15 Normal GAP 8 Performed By: #### L500.4050, L500.4100, L501.4010, L501.9520, L506.0400 #### [facility] [place], [address] LIPID PROFILE Collected: 12/28/2017 Status: F Source: [place] 3:56 AM [facility] [place] Order Comment: 'TROP' Serial specimen #1, #2, #3, or #4: 3 TYPE CODE TESTS RESULT OUT OF RANGE REFERENCE UNITS LAB L501.4900 200 mg/dL Normal CHOL 122 Result Comment: <200 mg/dL Desirable 200-240 mg/dL Borderline >240 mg/dL High Risk LAB L501.5000 mg/dL Normal TRIG 94 Result Comment: The drugs N-Acetylcysteine and Metamizole may falsely depress this assay. Serum Triglycerides Reference Interval Normal <150 mg/dL Borderline high 150 - 199 mg/dL High 200 - 499 mg/dL Very High > or = 500 mg/dL LAB L501.6400 mg/dL Normal HDL 48 Result Comment: The drugs N-Acetylcysteine and Metamizole may falsely depress this assay. Reference Range HDL <40 mg/dL Low HDL Cholesterol HDL >or= 60 mg/dL High HDL Cholesterol LAB L501.6500 0-130 mg/dL Normal LDL 55 LAB L501.6600 5-40 mg/dL Normal VLDL 19 Performed By: #### L500.4050, L500.4100, L501.4010, L501.9520, L506.0400 #### [facility] [address] [place], [place], [address] TROPONIN-I Collected: 12/28/2017 Status: F Source: [place] 3:56 AM [facility] [place] Order Comment: 'TROP' Serial specimen #1, #2, #3, or #4: 3 TYPE CODE TESTS RESULT OUT OF RANGE REFERENCE UNITS LAB L501.4010 <0.06 ng/mL High 0.26 TROPONIN-I Result Comment: TROPONIN-I EXPECTED VALUES <0.05 NEGATIVE 0.06 - 0.59 AT RISK OF [place] > OR = 0.60 SUGGEST [place] Performed By: #### L500.4050, L500.4100, L501.4010, L501.9520, L506.0400 #### [facility] [address] [place], [place], [address] THYROID STIM HORMONE Collected: 12/28/2017 Status: F Source: [place] ([facility]) 3:56 AM [facility] [place] Order Comment: 'TROP' Serial specimen #1, #2, #3, or #4: 3 TYPE CODE TESTS RESULT OUT OF RANGE REFERENCE UNITS LAB L501.9520 0.358-3.74 uIU/mL High TSH 4.22 Performed By: #### L500.4050, L500.4100, L501.4010, L501.9520, L506.0400 #### [facility] [address] [place], [address] T4 FREE DIRECT Collected: 12/28/2017 Status: F Source: [place] 3:56 AM [facility] [place] Order Comment: 'TROP' Serial specimen #1, #2, #3, or #4: 3 TYPE CODE TESTS RESULT OUT OF RANGE REFERENCE UNITS LAB L506.0400 0.76-1.46 ng/dL Normal T4 FREE 1.08 DIRECT Performed By: #### L500.4050, L500.4100, L501.4010, L501.9520, L506.0400 #### [facility] [address] [place], [address] PROTHROMBIN TIME W/INR Collected: 12/28/2017 Status: F Source: [place] 3:56 AM [facility] [place] [place] TYPE CODE TESTS RESULT OUT OF RANGE REFERENCE UNITS LAB L300.4150 11.7-14.9 SECONDS Normal PROTIME 14.4 LAB L300.4200 Normal INR 1.1 Performed By: #### L300.3900, L300.4310 #### [facility] [address] [place], [address] PARTIAL THROMBOPLAST Collected: 12/28/2017 Status: F Source: [place] TIME 3:56 AM [facility] [place] TYPE CODE TESTS RESULT OUT OF RANGE REFERENCE UNITS LAB L300.4310 24.1-36.2 Seconds Normal PTT 27.0 Performed By: #### L300.3900, L300.4310 #### [facility] [address] [place], [address] HEMOGLOBIN A1C Collected: 12/28/2017 Status: F Source: [place] 3:56 AM [facility] [place] TYPE CODE TESTS RESULT OUT OF RANGE REFERENCE UNITS LAB L501.9985 4.2-6.3 % High HGB A1C 10.4 Performed By: #### L501.9985 #### [facility] [address] [place], [address] EMERGENCY DEPARTMENT Observed: 12/28/2017 Status: F Source: [place] SUMMARY 12:06 AM [facility] [place] [facility] Medical Records Department [address] [place] [address] Emergency Department Summary 12/27/17 193 MR#: [id number] Acct: [id number] Name: BEVERLY BROUSSARD Rep #: [id number] : 1940 77 From: Carlee Kwok MD PCP: Jeffry CARRANZA,Micheal Montoya Status: ADM MADI - ER Visit Summary Date of Service: 12/27/17 Chief Complaint: Chest pain History of Present Illness: The patient is a 77 F presenting with chest pain. This started today. She has pain in her left chest radiating to her left arm. This is associated with shortness of breath. She did not take her insulin this morning. She has a history of CVA, diabetes, hyperlipidemia, CHF, previous aortic valve replacement. She is on Plavix. She is a previous smoker. She is a poor historian. She does not wear home O2. Physical Examination: Vitals are stable. Patient is afebrile. Alert no acute distress. Pulse ox 88% on room air HEENT exam is unremarkable. Neck is supple. Lungs are diminished bilaterally. Heart is regular and tachycardic Abdomen is soft nontender nondistended. Extremities symmetric edema Skin is warm and dry. No focal neurologic deficit. Remainder of exam is unremarkable. Emergency Department Course and Treatment: EKG is normal sinus rhythm rate of 97 with left bundle branch block. Chest x-ray shows no acute process. CBC is unremarkable. Chemistries show sodium 132, BUN 29, creatinine 1.82. Her creatinine yesterday was 1.11. Glucose 486. She is given insulin subcutaneous. Troponin is negative. Will discuss with hospitalist for observation. Disposition: Observation Impression: Chest pain, hyperglycemia This note was generated with Cavium dictation software. It may contain incorrect words, spelling, and punctuation that were not noted in review of the chart prior to signing ED Disposition - Plan for ED Patient: Chief Complaint: Chest Pain Referrals: Micheal Mercado Chi, MD [Primary Care Provider] - What to do if you have Problems For any increased pain, shortness of breath, bleeding, nausea or vomiting, chest pain, or any unexpected problems, contact your Primary Care Provider. Call [facility] ([phone]) or report to the closest Emergency Room. Call 911 if necessary. 12/28/17 0006 <Electronically signed by Carlee Kwok MD> Date Carlee Kwok MD Cosigner Signature (If Indicated): Date CC: Micheal Mercado MD BEDSIDE GLUCOSE Collected: 12/27/2017 Status: F Source: [place] 11:15 PM [facility] [place] TYPE CODE TESTS RESULT OUT OF REFERENCE UNITS RANGE LAB L501.080 70-110 mg/dL High BEDSIDE GLU 197 Result Comment: MANAGEMENT OF PATIENT CARE PER NURSING PROTOCOL Performed By: #### L501.080 #### [facility] [address] [facility] [place] [address] TROPONIN-I Collected: 12/27/2017 Status: F Source: [place] 11:14 PM [facility] Order Comment: 'TROP' Serial specimen #1, #2, #3, or #4: 2 TYPE CODE TESTS RESULT OUT OF RANGE REFERENCE UNITS LAB L501.4010 <0.06 ng/mL High 0.11 TROPONIN-I Result Comment: TROPONIN-I EXPECTED VALUES <0.05 NEGATIVE 0.06 - 0.59 AT RISK OF [place] > OR = 0.60 SUGGEST [place] Performed By: #### L501.4010 #### [facility] [address] [place], [address] HISTORY AND PHYSICAL Observed: 12/27/2017 Status: F Source: [place] EXAM 9:06 PM [facility] [place] Medical Records Department [address] [place] [address] History and Physical 12/27/172050 MR#: [id number] Acct: [id number] Name: BEVERLY BROUSSARD Rep #: [id number] : 1940 77 From: Hood Lawson MD PCP: Jeffry CARRANZA,Micheal Montoya Status: ADM MADI Y Location: [place] [address] Problem List (1) Atypical chest pain Status: Acute (2) Uncontrolled diabetes mellitus Status: Chronic Qualifiers: Diabetes mellitus type: type 2 (3) Obesity Status: Chronic (4) H/O aortic valve replacement Status: Resolved Comment: 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 with left carotid endarterectomy @ [facility] by Dr Lerma 02/06/16 (5) Non-rheumatic aortic stenosis Status: Chronic (6) COPD (chronic obstructive pulmonary disease) Status: Chronic (7) Secondary pulmonary arterial hypertension Status: Chronic (8) Hyperlipidemia Status: Chronic (9) Chronic diastolic heart failure Status: Chronic (10) CVA (cerebral infarction) Status: Chronic (11) Hypertension Status: Chronic (12) Hypothyroidism Status: Chronic (13) Paroxysmal a-fib Status: Chronic History of Present Illness Date of Admission: 12/27/17 Chief Complaint: Intrascapular pain The patient is a 77 year old F with multiple comorbidities including diabetes mellitus type 2 with uncontrolled hyperglycemia, paroxysmal A. fib, not on Coumadin, stroke, bilateral carotid stenosis, left more than right status post left CEA, aortic stenosis status post bioprosthetic valve replacement came to ER with chest pain. She is not a good historian but at best she told me she had pain on the left hand and arm which radiates to intrascapular area. As per ER physician, Dr. Kwok she has left-sided chest pain leading to left arm. She is mild short of breath and gets worse on exertion. Currently, she is chest pain-free [] In ED, initial workup was negative except hyperglycemia, glucose 486 with hyponatremia, sodium 132. Troponin negative. EKG shows normal sinus rhythm at 97 bpm with left bundle branch block. She has chronic left bundle branch block since January 2016 as per the EKG. Past Medical History Past Medical History (Chronic Problems): Chronic Problems (Last Reviewed 11/29/17 @ 13:02 by Mora Medina) Uncontrolled diabetes mellitus (Chronic) Obesity (Chronic) Non-rheumatic aortic stenosis (Chronic) COPD (chronic obstructive pulmonary disease) (Chronic) Secondary pulmonary arterial hypertension (Chronic) Hyperlipidemia (Chronic) Chronic diastolic heart failure (Chronic) CVA (cerebral infarction) (Chronic) Hypertension (Chronic) Hypothyroidism (Chronic) Paroxysmal a-fib (Chronic) Allergies prochlorperazine edisylate [From Compazine] Allergy (Verified 11/29/17 13:02) Other prochlorperazine maleate [From Compazine] Allergy (Verified 11/29/17 13:02) Other tolmetin sodium [From Tolectin] Allergy (Verified 11/29/17 13:02) Other Home Medications: Ambulatory Orders Medication Instructions Recorded Surgical History: appendectomy, cataract, - - Aortic Valve replacement, left carotid endarterectomy, shoulder surgery Smoking Status: Former smoker - *Family History Maternal History Items: Diabetes, Stroke Paternal History Items: Cancer Sibling History Items: Hypertension Review of Systems Constitutional: Denies: Chills, Fever, Weight Change HEENT: Denies: Head Aches, Sinus Congestion, Sinus Drainage Cardiovascular: Reports: Chest Pain. Denies: Palpitations Respiratory: Reports: Shortness of breath upon exertion. Denies: Cough, Shortness of breath at rest, Sputum production Gastrointestinal: Denies: Abdominal Pain, Nausea, Vomiting Genitourinary: Denies: Dysuria Musculoskeletal: Reports: Back Pain, Joint Pain, Joint swelling, Muscle pain. Denies: Joint Tenderness Skin: Denies: Rash, Wounds Neurological: Reports: Balance problems. Denies: Focal weakness, Numbness, Tingling Psychiatric: Denies: Anxiety, Depression, Homicidal Ideations, Suicidal Ideations Hematologic/ Lymphatic: Denies: Easy Bruising, Easy Bleeding VTE Information - Inpt Only VTE Present on Admission: No VTE Mechan Device Prophylaxis: SCD's VTE Pharm Prophylaxis ordered?: Yes Patient Problems: Active and Suspected Problems (Last Reviewed 11/29/17 @ 13:02 by Mora Medina) Atypical chest pain (Acute) - Physical Exam General: Alert, Oriented x3, Cooperative HEENT: Atraumatic, PERRLA, EOMI, Normocephalic Neck: Supple, No JVD, Negative Carotid Bruits, - - Left carotid enterectomy Lungs: Clear to auscultation, Normal air movement, No rhonchi, No wheeze, Diminished Cardiovascular: Regular rate, Regular Rhythm, Normal S1, Normal S2, Murmur - Status post aortic valve replacement Abdomen: Bowel Sounds Present, Soft, Non Tender Extremities: Capillary Refill Less than 3 Seconds, Edema Skin: No rashes, No breakdown Musculoskeletal: No Tenderness to Palpation of Joints or Extremities Neurological: Cranial nerves II-XII grossly intact Psych/Mental Status: Normal Affect, Appropriate Vital Signs Temp Pulse Resp BP Pulse Ox 98.9 F 93 16 133/82 H 94 12/27/17 20:38 12/27/17 20:38 12/27/17 20:38 12/27/17 20:38 12/27/17 20:38 Assessment/Plan Active and Suspected Problems (Last Reviewed 11/29/17 @ 13:02 by Mora Medina) Atypical chest pain (Acute) The patient is a 77 year old F with multiple comorbidities including diabetes mellitus type 2 with uncontrolled hyperglycemia, paroxysmal A. fib, not on Coumadin, stroke, bilateral carotid stenosis, left more than right status post left CEA, aortic stenosis status post bioprosthetic valve replacement came to ER with chest pain. She is not a good historian but at best she told me she had pain on the left hand and arm which radiates to intrascapular area. As per ER physician, Dr. Kwok she has left-sided chest pain leading to left arm. She is mild short of breath and gets worse on exertion. Currently, she is chest pain-free [] In ED, initial workup was negative except hyperglycemia, glucose 486 with hyponatremia, sodium 132. Troponin negative. EKG shows normal sinus rhythm at 97 bpm with left bundle branch block. She has chronic left bundle branch block since January 2016 as per the EKG. Her ANUSHA risk score is 3, one for each for age, CAD risk factor and anginal symptoms. 1. Atypical chest pain with possibility of unstable angina: Patient is being admitted on the PCU. With the history of stroke, carotid stenosis, aortic stenosis status post AVR, consult cardiology. She denies cardiac stents or CABG. Cycle cardiac enzymes. BNP pending. Continue Plavix. Started on metoprolol and continue lovastatin. She is not a good candidate for JUAN/ARB inhibitor of creatinine 1.82 with estimated GFR 18 mL/min. K4.3. 2. Cardiac or CAD equivalents: History of CVA, coronary diastolic heart failure bilateral carotid stenosis status post left CEA, aortic stenosis status post bioprosthetic, diabetes mellitus type 2 with uncontrolled hyperglycemia: This increases the risk of coronary disease. On Accu-Chek before meals and at bedtime and cover with sliding scale insulin. A1c tomorrow a.m. On Levemir 25 units subcu daily. 3. Paroxysmal A. fib: Rate is controlled. Patient is in sinus rhythm. 4. COPD with secondary pulmonary hypertension, hypothyroidism, or with obesity: Home medication reconciliation done. Laboratory Results 12/27/17 19:27: POC Glucose > 500 H* 12/27/17 19:35: WBC 9.4, RBC 4.46, Hgb 12.8, Hct 39.7, MCV 89.0, MCH 28.7, MCHC 32.2, RDW 16.0 H, RDW Differential 52.0 H, Plt Count 151, MPV 10.6, Immature Gran % (Auto) 0.100, Neut % (Auto) 85.1 H, Lymph % (Auto) 5.1 L, [place] % (Auto) 9.7, Eos % (Auto) 0.0, Baso % (Auto) 0.0, Absolute Neuts (auto) 8.0 H, Absolute Lymphs (auto) 0.48 L, Total Counted Not Reportable, Differential Comment SCANNED 12/27/17 19:35: Sodium 132 L, Potassium 4.3, Chloride 97 L, Carbon Dioxide 28.0, Anion Gap 7, BUN 29 H, Creatinine 1.82 H, Estim Creat Clear Calc 18.59, Est GFR (MDRD) Af Amer 35 L, Est GFR (MDRD) Non-Af 29 L, BUN/Creatinine Ratio 15.9, Glucose 486 H*, Calcium 8.3 L, Troponin I < 0.02 12/27/17 19:35: B-Natriuretic Peptide Pending Clinical Impression(s) from Imaging Studies Chest X-Ray 12/27/17 19:35 IMPRESSION: No acute cardiopulmonary disease. Code Visit OBSV E AND M: [id number] Initial observation care L3 12/27/172105 <Electronically signed by Hood Lawson MD> Date Hood Lawson MD Cosigner Signature: Date (if applicable) CC: Hood Lawson MD; Micheal Mercado MD Signed CBC W/DIFF, AUTOMATED Collected: 12/27/2017 Status: F Source: [place] 7:[place] [facility] [place] CODE TESTS RESULT OUT OF RANGE REFERENCE UNITS LAB L100.1000 4.4-11.0 K/mm3 Normal WBC 9.4 LAB L100.1200 4.2-5.4 M/mm3 Normal RBC 4.46 LAB L100.1300 12.0-15.0 g/dl Normal HGB 12.8 LAB L100.1400 37-47 % Normal HCT 39.7 LAB L100.1500 81-99 fL Normal MCV 89.0 LAB L100.1600 27.0-32.0 pg Normal MCH 28.7 LAB L100.1700 32-36 g/gl Normal MCHC 32.2 LAB L100.1810 11.6-14.6 % High RDW CV 16.0 LAB L100.1820 35.1-43.9 fl High RDW SD 52.0 LAB L100.1900 150-450 K/mm3 Normal PLT 151 LAB L100.2000 6.2-12.0 fl Normal MPV 10.6 LAB L100.2100 47-70 % High NEUT% 85.1 LAB L100.2200 19-41 % Low LY% 5.1 LAB L100.2300 0-10 % Normal MONO% 9.7 LAB L100.2400 0-5 % Normal EO% 0.0 LAB L100.2500 0-1 % Normal BASO% 0.0 LAB L100.2550 0.0-0.9 % Normal IM GRAN % 0.100 Result Comment: IG% - Immature Granulocytes (promyelocytes, myelocytes and metamyelocytes) > 1% indicates that a LEFT SHIFT is Present. LAB L100.2620 2.0-7.7 X10 3/uL High Absolute Neut 8.0 LAB L100.2720 0.83-4.51 X10 3/ul Low Absolute Lymph 0.48 LAB L100.4500 Normal SMEAR COMMENT SCANNED Result Comment: LYMPHOPENIA NOTED Performed By: #### L100.0100 #### [facility] [address] [place], [address] BASIC METABOLIC Collected: 12/27/2017 Status: F Source: [place] PRO[place] (BMP) 7:35 PM [facility] [place] Order Comment: 'TROP' Serial specimen #1, #2, #3, or #4: 1 TYPE CODE TESTS RESULT OUT OF RANGE REFERENCE UNITS LAB L501.0100 74-106 mg/dL High alert GLU 486 Result Comment: Critical Result(s) Called at: 20:07:57 12/27/2017 by: Zena Thomas Glucose result greater than or equal to 200 mg/dL suggests DIABETES MELLITUS per A.D.A. criteria. Please note revised GLUCOSE reference range effective 2017. LAB L501.1000 7-18 mg/dL High BUN 29 LAB L501.1100 0.55-1.02 mg/dL High CREAT,SERUM 1.82 Result Comment: The validity of the calculated GFR AND GFRAA in patients over 70 years has not been determined. Clinical correlation is essential. LAB L501.1110 >60 mL/min Low EST GFR 29 Result Comment: Non- GFR Calc LAB L501.1115 >60 mL/min Low EST GFR - AA 35 Result Comment: GFR Calc LAB L501.1255 ml/min Normal Estimated CRCL 18.59 LAB L501.1300 10-20 RATIO Normal BUN/CRE 15.9 LAB L501.2200 8.5-10 mg/dL Low .1 CA 8.3 LAB L501.5300 136-14 mmol/L Low 5 NA 132 LAB L501.5600 3.5-5. mmol/L Normal 1 K 4.3 LAB L501.5900 98-107 mmol/L Low CL 97 LAB L501.6100 21.0-3 mmol/L Normal 2.0 CO2 28.0 LAB L501.6200 5-15 Normal GAP 7 Performed By: #### L500.2500, L501.4010 #### [facility] [address] [place], [address] TROPONIN-I Collected: 12/27/2017 Status: F Source: [place] 7:35 PM [facility] [place] Order Comment: 'TROP' Serial specimen #1, #2, #3, or #4: 1 TYPE CODE TESTS RESULT OUT OF RANGE REFERENCE UNITS LAB L501.4010 <0.06 ng/mL Normal < 0.02 TROPONIN-I Result Comment: TROPONIN-I EXPECTED VALUES <0.05 NEGATIVE 0.06 - 0.59 AT RISK OF [place] > OR = 0.60 SUGGEST [place] Performed By: #### L500.2500, L501.4010 #### [facility] [address] [place], [address] BNP,B-TYPE NATRIURETIC Collected: 12/27/2017 Status: F Source: [place]PT[place] 7:35 PM [facility] [place] TYPE CODE TESTS RESULT OUT OF RANGE REFERENCE UNITS LAB L503.6620 0-100 pg/mL High B-TYPE 743.4 KIERSTEN PEP Performed By: #### L503.6620 #### [facility] [address] [place], [address] CHEST 1 VIEW Observed: 12/27/2017 Status: F Source: [place] (PORTABLE) 7:32 PM [facility] [place] [facility] Imaging Services [address] [place] [address] Chest 1 View (Portable) MR#: [id number] Acct: [id number] Name: BEVERLY BROUSSARD Geoffrey Rep #: [id number] : 1940 F 77 From: Giovany Omalley PCP: Jeffry [email or web address] Status: REG ER Study: Chest 1 View (Portable) Date of Exam: 12/27/17 Exam# [id number] Ordering Dr: Carlee Kwok MD STUDY: X-RAY CHEST REASON FOR EXAM: Female, 77 years old. Chest pain TECHNIQUE: Single AP portable view of the chest. COMPARISON: 02/19/2016. FINDINGS: The lungs are clear and expanded. There is no demonstrated pleural abnormality. Normal size heart. Patient status post sternotomy. Normal mediastinum and allen. Normal visualized pulmonary arteries. Normal visualized aortic arch and descending thoracic aorta. Normal visualized thoracic spine. Normal visualized ribs, clavicles, and shoulders. There is no demonstrated abnormality of the visualized soft tissue structures of the upper abdomen. RAD/Chest 1 View (Portable) IMPRESSION: No acute cardiopulmonary disease. Electronically Signed: Giovany Omalley DO at 19:56 EDT , Service support , CC: Carlee Kwok MD; Micheal Mercado MD Upper Extremity Surgeon: Signed BEDSIDE GLUCOSE Collected: 12/27/2017 Status: F Source: [place] 7:27 PM [facility] [place] TYPE CODE TESTS RESULT OUT OF REFERENCE UNITS RANGE LAB L501.080 70-110 mg/dL High alert BEDSIDE GLU > 500 Result Comment: Orders Followed MANAGEMENT OF PATIENT CARE PER NURSING PROTOCOL Performed By: #### L501.080 #### [facility] [place] [address] BASIC METABOLIC Collected: 12/26/2017 Status: F Source: [place] PROFILE (BMP) 3:52 PM [facility] [place] Order Comment: 'TROP' Serial specimen #1, #2, #3, or #4: 1 TYPE CODE TESTS RESULT OUT OF RANGE REFERENCE UNITS LAB L501.0100 74-106 mg/dL High GLU 285 Result Comment: Glucose result greater than or equal to 200 mg/dL suggests DIABETES MELLITUS per A.D.A. criteria. Please note revised GLUCOSE reference range effective 2017. LAB L501.1000 7-18 mg/dL Normal BUN 16 LAB L501.1100 0.55-1.02 mg/dL High CREAT,SERUM 1.11 Result Comment: The validity of the calculated GFR AND GFRAA in patients over 70 years has not been determined. Clinical correlation is essential. LAB L501.1110 >60 mL/min Low EST GFR 51 Result Comment: Non- GFR Calc LAB L501.1115 >60 mL/min Normal EST GFR - AA 61 Result Comment: GFR Calc LAB L501.1300 10-20 RATIO Normal BUN/CRE 14.4 LAB L501.2200 8.5-10.1 mg/dL CA Normal 9.3 LAB L501.5300 136-145 mmol/L Low NA 135 LAB L501.5600 3.5-5.1 mmol/L K Normal 4.0 LAB L501.5900 98-107 mmol/L CL Normal 100 LAB L501.6100 21.0-32.0 mmol/L Normal CO2 28.0 LAB L501.6200 5-15 Normal GAP 7 Performed By: #### L500.2500, L501.3620, L501.4010 #### [facility] [address] [place], [place], [address] CPK TOTAL, CREATINE Collected: 12/26/2017 Status: F Source: [place] 3:52 PM [facility] [place] Order Comment: 'TROP' Serial specimen #1, #2, #3, or #4: 1 TYPE CODE TESTS RESULT OUT OF RANGE REFERENCE UNITS LAB L501.3620 26-192 U/L Normal CPK TOTAL 43 Performed By: #### L500.2500, L501.3620, L501.4010 #### [facility] [address] [place], [place], [address] TROPONIN-I Collected: 12/26/2017 Status: F Source: [place] 3:52 PM [facility] [place] Order Comment: 'TROP' Serial specimen #1, #2, #3, or #4: 1 TYPE CODE TESTS RESULT OUT OF RANGE REFERENCE UNITS LAB L501.4010 <0.06 ng/mL Normal < 0.02 TROPONIN-I Result Comment: TROPONIN-I EXPECTED VALUES <0.05 NEGATIVE 0.06 - 0.59 AT RISK OF [place] > OR = 0.60 SUGGEST [place] Performed By: #### L500.2500, L501.3620, L501.4010 #### [facility] [address] [facility] [address] CBC W/DIFF, AUTOMATED Collected: 12/26/2017 Status: F Source: [place] 3:52 PM [facility] [place] TYPE CODE TESTS RESULT OUT OF RANGE REFERENCE UNITS LAB L100.1000 4.4-11.0 K/mm3 Normal WBC 7.9 LAB L100.1200 4.2-5.4 M/mm3 Normal RBC 4.64 LAB L100.1300 12.0-15.0 g/dl Normal HGB 13.6 LAB L100.1400 37-47 % Normal HCT 41.5 LAB L100.1500 81-99 fL Normal MCV 89.4 LAB L100.1600 27.0-32.0 pg Normal MCH 29.3 LAB L100.1700 32-36 g/gl Normal MCHC 32.8 LAB L100.1810 11.6-14.6 % High RDW CV 16.1 LAB L100.1820 35.1-43.9 fl High RDW SD 52.0 LAB L100.1900 150-450 K/mm3 Low PLT 141 LAB L100.2000 6.2-12.0 fl Normal MPV 11.0 LAB L100.2100 47-70 % High NEUT% 82.0 LAB L100.2200 19-41 % Low LY% 9.3 LAB L100.2300 0-10 % Normal MONO% 7.5 LAB L100.2400 0-5 % Normal EO% 0.8 LAB L100.2500 0-1 % Normal BASO% 0.3 LAB L100.2550 0.0-0.9 % Normal IM GRAN % 0.100 Result Comment: IG% - Immature Granulocytes (promyelocytes, myelocytes and metamyelocytes) > 1% indicates that a LEFT SHIFT is Present. LAB L100.2620 2.0-7.7 X10 3/uL Normal Absolute Neut 6.5 LAB L100.2720 0.83-4.51 X10 3/ul Low Absolute Lymph 0.73 Performed By: #### L100.0100 #### [facility] [address] [place], [address] MYOGLOBIN, SERUM Collected: 12/26/2017 Status: F Source: [place] 3:52 PM [facility] [place] TYPE CODE TESTS RESULT OUT OF RANGE REFERENCE UNITS LAB L3600.5100 25-58 ng/mL High 60 Myoglobin, Ser Result Comment: Performed at: - [facility] [address] [id number] [employer] Supervisor: Alexy Rider PhD, Phone: [phone] Performed By: #### L3600.5100 #### [facility] (refer to report for specific site) refer to report for address and phone number CARDIOLOGY VISIT Observed: 11/29/2017 Status: F Source: [place] REPORT 1:26 PM [facility] [place] [facility] [address] [place], [place] [address] OFFICE VISIT Date of Service: 11/29/17 MR#: [id number] Acct: [id number] Name: BEVERLY BROUSSARD Rep #: [id number] : 1940 Provider: Ventura Ragsdale MD Age/Sex: 77/F [place] [facility] [place]: Signed HPI HPI Chief Complaint: Routine f/u Details: referring physician: Dr. Liu Mrs. 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 According to the patient she was told that her carotids were nonobstructive at that time although I do not have any documents to that effect. In addition she was reportedly found to have severe aortic stenosis by recent echocardiogram dated 11/04/15. This demonstrated an EF of 65%, mild left atrial enlargement, severe aortic stenosis with a peak/mean gradient of 49/27 mmHg and estimated JARRETT of 0.87 cm . From a cardiac standpoint she denies any exertional angina but does complain of dyspnea on exertion and shortness of breath. She also reports positional lightheadedness and dizziness is been going on for several months. She denies ever having a catheterization, and repeat carotid ultrasound done 11/04/15 demonstrated a greater than 70% stenosis of the right internal and left internal carotid arteries. The systolic velocities bilaterally had increased significantly since 5/7/14. She had antegrade flow normally bilaterally in the vertebrals. A CTA of her neck dated 12/02/15 showed a right internal carotid of 50-69%, and a left internal carotid of 70%, with normal vertebral arteries. She has seen Dr. Aviles in the past. In addition she underwent a CHANCE on 12/05/15 which showed an estimated JARRETT of 0.7 cm , mild mitral regurgitation, and an EF of 65%. Patient was also found to have significant bilateral carotid disease left greater than right. Patient underwent successful aortic valve replacement with a Bogart sutureless valve by Dr. Fonseca at [facility] on 01/27/06, as well as concomitant left carotid endarterectomy at the same time. no additional carotid endarterectomy was performed on the right carotid. Postoperatively she developed some atrial fibrillation and was treated with amiodarone therapy. She was subsequently transferred to the rehab center, and is now back home. She has completed physical therapy at [facility]. She has also completed cardiac rehab without any difficulty.. At home she is doing her daily chores, and feeling stronger every week. She feels better than prior to her surgery, but still not back to 100%. She denies any exertional chest pain, angina, shortness of breath or dyspnea on exertion. She has occasional forgetfulness and poor memory which was present prior to her surgery. She is status post CVA in the past. She walks on her own most of time but occasionally with a cane. Main complaint since her last visit is that over the last 2 weeks the patient has had progressively worsening productive cough, sputum, runny nose and bilateral late expiratory wheezing. This is present on today's exam. She denies any chest pain, angina, lightheadedness or dizziness. She is now walking more on her own without her cane than our last visit. She denies any fevers or chills, presyncope or syncope. She still occasionally gets dizzy sitting up quickly. In our office today her blood pressure is 140/68 and pulse is 95 and regular. her physical exam demonstrates well-healed suture lines in both her carotid and sternal area, no evidence of sternal instability, regular rate and rhythm with a 2/6 systolic ejection murmur, no edema noted. In addition she has faint bilateral late expiratory wheezes. Lipids As of 06/09/16 showed HDL of 60 and LDL of 53.. EKG previously demonstrates normal sinus rhythm with baseline left bundle branch block unchanged. Intake Vital Signs11/29/17 Height 4 ft 11 in 11/29/17 Weight: 231 lb 11/29/17 Body Mass Index (BMI) 46.6 11/29/17 Blood Pressure 140/68 11/29/17 Respiratory Rate 20 11/29/17 Pulse Rate 100 Intake Visit Reasons: 6 M FU Allergies prochlorperazine edisylate [From Compazine] Allergy (Verified 11/29/17 13:02) Other prochlorperazine maleate [From Compazine] Allergy (Verified 11/29/17 13:02) Other tolmetin sodium [From Tolectin] Allergy (Verified 11/29/17 13:02) Other Medications Atorvastatin Calcium [Lipitor] 80 mg PO QHS #30 tab 04/09/14 [Rx Confirmed 11/29/17] Insulin Aspart [Novolog Flexpen] See Protocol SC TIDCM 02/18/16 [History Confirmed 11/29/17] Insulin Detemir [Levemir FlexPen] 25 units SC DAILY 02/18/16 [History Confirmed 11/29/17] Oxybutynin [Ditropan] 10 mg PO QHS 02/18/16 [History Confirmed 11/29/17] clopidogrel 75 mg tablet 75 mg PO QDAY tab 11/28/17 [History Confirmed 11/29/17] escitalopram 10 mg tablet 10 mg PO QDAY 11/28/17 [History Confirmed 11/29/17] furosemide 40 mg tablet 20 mg PO DAILY PRN tab 11/28/17 [History Confirmed 11/29/17] pregabalin 75 mg capsule 75 mg PO BID 11/28/17 [History Confirmed 11/29/17] azithromycin 1 gram oral packet 1 g PO QDAY #1 packet 11/29/17 [Rx Confirmed 11/29/17] levothyroxine 88 mcg capsule 112 mcg PO QDAY cap 11/29/17 [History Confirmed 11/29/17] ranitidine 150 mg tablet 150 mg PO QHS 11/29/17 [History Confirmed 11/29/17] [facility] Medical History Obesity (Chronic) Non-rheumatic aortic stenosis (Chronic) COPD (chronic obstructive pulmonary disease) (Chronic) Secondary pulmonary arterial hypertension (Chronic) Hyperlipidemia (Chronic) Chronic diastolic heart failure (Chronic) CVA (cerebral infarction) (Chronic) Hypertension (Chronic) Hypothyroidism (Chronic) Paroxysmal a-fib (Chronic) Bilateral carotid artery stenosis (Chronic) Fibromyalgia (Chronic) Obstructive sleep apnea (Chronic) Onychomycosis (Chronic) Type 2 diabetes mellitus without complications (Chronic) Vascular dementia (Chronic) Surgical History H/O aortic valve replacement (Resolved 02/06/16) History of left-sided carotid endarterectomy (Resolved 02/06/16) History of right and left heart catheterization (Resolved 12/24/15) Hx of cholecystectomy (Resolved) Family History Mother CVA (cerebral vascular accident) Diabetes Social History Smoking Status: Former smoker ROS Const Const: Positive for weakness; negative for difficulty sleeping, frequent falls, fatigue, excessive sweating or headache(s) Eyes Eyes: Negative for loss of peripheral vision, transient loss of vision, blurry vision or double vision ENT ENT: Positive for balance problems; negative for Nosebleed/epistaxis, headache(s) or dizziness Cardio Chest Pain: No Edema: None Muscle aches with walking: None Resp Respiratory: Positive for SOB with activity, wheezing and chest congestion; negative for SOB at rest, SOB orthopnea\SOB lying down or paroxysmal nocturnal dyspnea Additional Details: Being treated for an URI by PCP GI GI: Negative nausea or heartburn : Negative for hematuria Musc Musc: Positive for joint pain and balance problems; negative for muscle aches/ myalgia or muscle weakness Skin Skin: Negative non-healing lesions, unusual bruising or rash Neuro Neuro: Positive for weakness; negative for blurry vision, lightheadedness, orthostatic symptoms, double vision, frequent falls, headache(s) or dizziness Horacio Hematologic/Lymphatic: Negative for easy bruising Endo Endo: Negative for increased thirst/drinking, fatigue or excessive sweating Psych Psych: Negative for anxiety or depression Allergy Allergy/Immunology: Negative for hives, Negative for rash Cardiology Exam Const Appearance: cooperative, healthy appearing and no acute distress Nutritional Appearance: well nourished Orientation: alert, oriented x3 and oriented to person Head Head: normal to inspection, atraumatic and normocephalic Nose: external nose normal Face and Sinus: face symmetric Mouth: oral mucosae normal Eyes General: appearance normal, both eyes and all related structures Eyelids: eyelids normal Conjunctivae: conjunctivae normal Pupils: PERRL and normal by confrontation EOM: EOM intact bilaterally Neck Neck: normal visual inspection and full ROM Carotids: normal carotid upstroke Chest Chest inspection: normal inspection of the chest Auscultation: Bilateral: Rales, Expiratory Wheezes Cardio Palpation: normal PMI Rate: regular rate Rhythm: regular rhythm Heart sounds: S1 normal and S2 normal GI GI: normal to inspection, no hepatosplenomegaly and bowel sounds present Neuro General: alert, oriented x3, awake, CN's II-XI intact bilaterally and moves all extremities Skin Skin: no rashes or lesions noted Extremities Pulses: Normal: Right Femoral Pulse, Left Femoral Pulse, Right Dorsalis Pedis Pulse, Left Dorsalis Pedis Pulse, Right Posterior Tibial Pulse, Left Posterior Tibial Pulse, Right Radial Pulse, Left Radial Pulse Lower Extremity Edema: None: Bilateral Psych Psychological: normal affect Assessment AND Plan 1. H/O aortic valve replacement Z95.2 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 with left carotid endarterectomy @ [facility] by Dr Lerma 02/06/16 Plan 1. Aortic valve replacement: Patient is status post valve replacement approximately 2 years ago. I recommended that she undergo repeat 2D echo with Doppler to document her LV function, valvular status, particularly light of this recent upper respiratory tract infection. Blood pressure appears to be appropriately controlled at this time. Her echocardiogram will also assess her previously known pulmonary hypertension. The meantime she will continue her Lasix, and Plavix for her peripheral vascular disease and carotid disease. In addition given her upper respiratory tract infection going on for the last 2 weeks with productive green sputum, I recommended that she undergo a chest x-ray today followed by placement on a Z-Yash for what appears to be bronchitis. Recommended that she follow-up with Dr. Tyson her PCP in the next week or 2 as well. Patient is voiced understanding and agrees to comply. I have also expressed to the patient the importance of letting us know if she has any infections going forward, and to let us know if her situation worsens to avoid possible bioprosthetic valve endocarditis. Orders Orders: 2. Hyperlipidemia E78.5 Plan 2. Hyperlipidemia: This is managed by her PCP. Continue Lipitor. 3. Return office in 6 months. This note was generated using a voice recognition system and there may be incorrect words, spelling or punctuation that were not noted when reviewing the office note prior to saving. Orders Orders: Plan Detail Other Orders Orders: Chest PA and Lateral Today E03.9, E66.9, I10, I27.21, I35.0, I48.0, I50.32, I63.9, J44.9, R 05, R06.00 Other Medications New: Follow Up +6m (Jn) Coding Level of Care Code Off vis,est,level 3 Diagnoses H/O aortic valve replacement Z95.2 Hyperlipidemia E78.5 Coding Level of Care Code Off vis,est,level 3 Diagnoses H/O aortic valve replacement Z95.2 Hyperlipidemia E78.5 11/29/17 1326 <Electronically signed by Ventura Ragsdale MD> Date Ventura Ragsdale MD Cosigner Signature: Date (if applicable) CC: Observed: 10/27/2017 Status: F Source: [place] RESPIRATORY PANEL 5:20 PM [facility] [place] PANEL ADENOVIRUS Not Detected HUMAN METAPHNEUMO Not Detected INFLUENZA A Not Detected INFLUENZA A (SUBTYPE H1) Not Detected INFLUENZA A (SUBTYPE H3) Not Detected INFLUENZA B Not Detected PARAINFLUENZA 1 Not Detected PARAINFLUENZA 2 Not Detected PARAINFLUENZA 3 Not Detected PARAINFLUENZA 4 Not Detected RHINOVIRUS Not Detected RSV A Not Detected RSV B Not Detected NAAT METHOD Testing was performed using nucleic acid amplification Performed By: #### M100.638 #### [facility] [address] [place], [address] CBC W/DIFF, AUTOMATED Collected: 10/10/2017 Status: F Source: [place] 4:21 PM [facility] CODE TESTS RESULT OUT OF RANGE REFERENCE UNITS LAB L100.1000 4.4-11.0 K/mm3 Normal WBC 6.2 LAB L100.1200 4.2-5.4 M/mm3 Normal RBC 4.50 LAB L100.1300 12.0-15.0 g/dl Normal HGB 12.7 LAB L100.1400 37-47 % Normal HCT 39.6 LAB L100.1500 81-99 fL Normal MCV 88.0 LAB L100.1600 27.0-32.0 pg Normal MCH 28.2 LAB L100.1700 32-36 g/gl Normal MCHC 32.1 LAB L100.1810 11.6-14.6 % High RDW CV 15.0 LAB L100.1820 35.1-43.9 fl High RDW SD 48.3 LAB L100.1900 150-450 K/mm3 Low PLT 126 LAB L100.2000 6.2-12.0 fl Normal MPV 11.5 LAB L100.2100 47-70 % High NEUT% 76.0 LAB L100.2200 19-41 % Low LY% 13.2 LAB L100.2300 0-10 % Normal MONO% 8.3 LAB L100.2400 0-5 % Normal EO% 1.8 LAB L100.2500 0-1 % Normal BASO% 0.5 LAB L100.2550 0.0-0.9 % Normal IM GRAN % 0.200 Result Comment: IG% - Immature Granulocytes (promyelocytes, myelocytes and metamyelocytes) > 1% indicates that a LEFT SHIFT is Present. LAB L100.2620 2.0-7.7 X10 3/uL Normal Absolute Neut 4.7 LAB L100.2720 0.83-4.51 X10 3/ul Low Absolute Lymph 0.81 Performed By: #### L100.0100 #### [facility] [address] [place], [place], [address] COMPREHENSIVE METABOLIC Collected: 10/10/2017 Status: F Source: [facility] 4:21 PM [facility] CODE TESTS RESULT OUT OF RANGE REFERENCE UNITS LAB L501.0100 74-106 mg/dL High GLU 240 Result Comment: Glucose result greater than or equal to 200 mg/dL suggests DIABETES MELLITUS per A.D.A. criteria. Please note revised GLUCOSE reference range effective 2017. LAB L501.1000 7-18 mg/dL High BUN 22 LAB L501.1100 0.55-1.02 mg/dL High CREAT,SERUM 1.28 Result Comment: The validity of the calculated GFR AND GFRAA in patients over 70 years has not been determined. Clinical correlation is essential. LAB L501.1110 >60 mL/min Low EST GFR 43 Result Comment: Non- GFR Calc LAB L501.1115 >60 mL/min Low EST GFR - AA 52 Result Comment: GFR Calc LAB L501.1300 10-20 RATIO Normal BUN/CRE 17.2 LAB L501.1500 6.4-8.2 g/dL T Normal PROT 7.4 LAB L501.1800 3.2-5.0 g/dL Low ALB 3.0 LAB L501.1950 2.2-4.2 g/dL High GLOB 4.4 LAB L501.2000 0.9-2.4 RATIO Low A/G 0.7 LAB L501.2200 8.5-10.1 mg/dL CA Normal 8.7 LAB L501.4100 15-37 U/L Normal AST 23 LAB L501.4305 45-117 U/L Normal ALK P 84 LAB L501.4405 13-56 U/L Normal ALT 22 Result Comment: Please note revised ALT reference range effective 2017. LAB L501.4600 0.20-1.00 mg/dL Normal T BILI 0.80 LAB L501.5300 136-145 mmol/L Normal NA 141 LAB L501.5600 3.5-5.1 mmol/L Normal K 3.7 LAB L501.5900 98-107 mmol/L Normal CL 101 LAB L501.6100 21.0-32.0 mmol/L Normal CO2 31.0 LAB L501.6200 5-15 Normal GAP 9 Performed By: #### L500.4050, L501.9520 #### [facility] [address] [place], [address] THYROID STIM HORMONE Collected: 10/10/2017 Status: F Source: [place] ([facility]) 4:21 PM [facility] [place] CODE TESTS RESULT OUT OF RANGE REFERENCE UNITS LAB L501.9520 0.358-3.74 uIU/mL Normal TSH 1.53 Performed By: #### L500.4050, L501.9520 #### [facility] [address] [place], [address] VITAMIN D,25 HYDROXY Collected: 10/10/2017 Status: F Source: [place] 4:21 PM [facility] CODE TESTS RESULT OUT OF REFERENCE UNITS RANGE LAB L506.1000 19.95-100.01 ng/mL Low Vitamin D 19.1 25-OH Result Comment: Vitamin D 25(OH) Status Range Deficiency <20 ng/mL (50nmol/L) Insuffciency 20 - 30 ng/mL (50 - 75 nmol/L) Sufficiency 30 - 100 ng/mL (75 - 250 nmol/L) Toxicity >100 ng/mL (>250 nmol/L) Performed By: #### L506.1000 #### [facility] [address] [place], [address] ALLERGIES ALLERGIES DATE TYPE / NAME / CODE REACTION SEVERITY SOURCE CODE 09/01/2018 Drug prochlorperazine seizures [place] Allergy/41 edisylate/[id number](R [facility] 09/01/2018 Drug prochlorperazine seizures [place] Allergy/41 maleate/[id number](RXN [facility] 09/01/2018 Drug tolmetin syncope [place] Allergy/41 sodium/[id number](RXNO Community 5631398([facility]) Repository 09/01/2018 Drug pregabalin/[id number]( MENTAL STATUS [place] Allergy/41 RXNORM) CHANGES Community 8510380([facility]) Repository ENCOUNTERS ENCOUNTERS ADMIT/DISCHARGE ACCOUNT ADMITTING ENCOUNTER LOCATION SOURCE NUMBER CLASS 09/07/2018/ [id number] Ambulatory BMSBuilding:B [place] 9 3 [facility] Repository 09/04/2018 [id number] Ambulatory [place] 0 [facility] ing:OLS.AVEC Repository 09/02/2018 [id number] Ambulatory [place] 5 [facility] Hospital ing:OLS.AVEC Repository 08/13/2018 [id number] Ambulatory [place] 6 [facility] Hospital ing:OLS.AVEC Repository 08/10/2018 [id number] Ambulatory BMSBuilding:B [place] 0 MS.[facility] Repository 08/10/2018 [id number] Ambulatory [place] 3 [facility] Hospital ing:CVS Repository 06/26/2018 [id number] Ambulatory BMSBuilding:B [place] 7 [facility] Repository 05/11/2018/ [id number] Ambulatory BMSBuilding:B [place] 8 3 [facility] Repository 05/04/2018 [id number] Ambulatory [place] 4 [facility] Hospital ing:OLS.AVEC Repository 04/24/2018 [id number] Ambulatory [place] 5 [facility] Hospital ing:OLS.AVED Repository 04/03/2018 [id number] Ambulatory [place] 4 [facility] Hospital ing:OLS.AVED Repository 03/27/2018 [id number] Ambulatory [place] 5 [facility] Hospital ing:OLS.AVED Repository 03/20/2018 [id number] Ambulatory [place] 3 [facility] Hospital ing:OLS.AVED Repository 03/12/2018/ [id number] Tenzin Olsen Inpatient [place] 8 1 Encounter [facility] Hospital ing:PCURoom: Repository [id number]: 1 03/12/2018 [id number] Tenzin Olsen Ambulatory BMSBuilding:B [place] 2 [facility] Repository 03/12/2018 [id number] Pretty Tenzin Ambulatory BMSBuilding:B [place] 2 [facility] Repository 03/12/2018 [id number] Pretty Tenzin Ambulatory BMSBuilding:B [place] 1 MS.[facility] Repository 03/12/2018 [id number] Tenzin Olsen Ambulatory BMSBuilding:B [place] 9 [facility] Repository 03/12/2018 [id number] PrettyTenzin ellsworth Ambulatory BMSBuilding:B [place] 4 MS.[facility] Repository 03/12/2018/ [id number] Ambulatory BMSBuilding:W [place] 8 9 [facility] Repository 02/27/2018 [id number] Ambulatory [place] 8 [facility] Hospital ing:POLAB3 Repository 01/10/2018 [id number] Ambulatory [place] 1 [facility] Hospital ing:POLAB3 Repository 01/02/2018/ [id number] [facility], Ambulatory [place] 8 8 [facility] ing:PCURoom: Repository [id number]: 1 01/02/2018 [id number] [facility], Ambulatory BMSBuilding:B [place] 1 Ghasem [facility] Repository 01/02/2018 [id number] [facility], Ambulatory BMSBuilding:B [place] 2 Ghasem [facility] Repository 12/27/2017/ [id number] [facility], Ambulatory [place] 8 2 [facility] ing:PCURoom: Repository [id number]: 1 12/27/2017 [id number] [facility], Ambulatory BMSBuilding:B [place] 2 [place] [facility] Repository 12/27/2017 [id number] [facility], Ambulatory BMSBuilding:B [place] 8 [place] [facility] Repository 12/27/2017 [id number] [facility], Ambulatory BMSBuilding:B [place] 3 [place] MS.CF.[facility] Repository 12/26/2017 [id number] Ambulatory [place] 8 [facility] Hospital ing:POLAB3 Repository 11/29/2017/ [id number] Ambulatory BMSBuilding:B [place] 8 5 [facility] Repository 11/28/2017 [id number] Ambulatory BMSBuilding:B [place] 1 [facility] Repository 10/27/2017 [id number] Ambulatory [place] 4 [facility] Hospital ing:PSN Repository 10/10/2017 [id number] Ambulatory [place] 8 [facility] ing:POLAB3 Repository PAYERS PAYERS ENCOUNTER GUARANTOR PAYER SUBSCRIBER SOURCE 09/07/2018 FALGUNI L Primary BEVERLY N [place] [id number] CR Insurance:MEDICARE BALDNERDOB: [address] [id number] [facility] , [place] [address]Uxp: Number: Repository [id number] () Date:2018-05-11 09/07/2018 Secondary FALGUNI L [place] Insurance:ANTHEMPolic BALDNERDOB: Community y Number: [id number] Hospital [id number] Repository Date:9388-40-79VM [address] [place] [address] 78829IG: 09/07/2018 Tertiary NOT GIVENUNK [place] Insurance:SELF PAY [facility] Number: Effective Repository Date:2018-08-28 09/04/2018 FALGUNI L Primary B[place]LY N [place] [id number] E. Insurance:MEDICARE BALDNERDOB: [facility] [id number] Hospital[facility] Number: Repository [place] [id number] [place], Date:2018-09-04 [place] [address]Bky: () 09/04/2018 Secondary FALGUNI L [place] Insurance:ANTHEMPolic BALDNERDOB: Community y Number: [id number] Hospital [id number] Repository Date:2069-70-87RM [address] [place] [address] 52093TH: 09/04/2018 Tertiary NOT GIVENUNK [place] Insurance:SELF PAY [facility] Number: Effective Repository Date:2018-09-04 09/02/2018 FALGUNI L Primary BEVERLY N [place] [id number] E. Insurance:MEDICARE BALDNERDOB: [facility] [id number] HospitalN[facility] Number: Repository [place] [id number] [place], Date:2018-09-02 [place] [address]Zjd: () 09/02/2018 Secondary FALGUNI L [place] Insurance:ANTHEMPolic BALDNERDOB: Community y Number: [id number] Hospital [id number] Repository Date:8628-31-19TJ [address] [place] [address] 73156NR: 09/02/2018 Tertiary NOT GIVENUNK [place] Insurance:SELF PAY [facility] Number: Effective Repository Date:2018-09-02 08/13/2018 FALGUNI L Primary B[place]LY N [place] [id number] CR Insurance:MEDICARE BALDNERDOB: [address] A [facility] [id number], [place] [address]Uaf: Number: Repository [id number] () Date:2018-08-13 08/13/2018 Secondary FALGUNI L [place] Insurance:ANTHEMPolic BALDNERDOB: Community y Number: [id number] Hospital [id number] Repository Date:9147-72-56CM [address] [place] [address] 95713VL: 08/13/2018 Tertiary NOT GIVENUNK [place] Insurance:SELF PAY [facility] Number: Effective Repository Date:2018-08-13 08/10/2018 FALGUNI L Primary B[place]LY N [place] BALDNERTHE Insurance:MEDICARE BALDNERDOB: [facility] [id number]1700 E Number: Repository HERSCHER [id number] [place] Date:2018-05-11 [place], [place] [address]Vju: () 08/10/2018 Secondary FALGUNI L [place] Insurance:ANTHEMPolic BALDNERDOB: Community y Number: [id number] Hospital [id number] Repository Date:2258-84-62HU [address] [place] [address] 517[address]HW: 08/10/2018 Tertiary NOT GIVENUNK [place] Insurance:SELF PAY [facility] Number: Effective Repository Date:2018-08-10 08/10/2018 FALGUNI L Primary BEVERLY N [place] BALDNERTHE Insurance:MEDICARE BALDNERDOB: [facility] [id number]1700 E Number: Repository MILAN [id number] [place] Date:2018-05-11 [place] [address]Kzr: () 08/10/2018 Secondary FALGUNI L [place] Insurance:ANTHEMPolic BALDNERDOB: Community y Number: [id number] Hospital [id number] Repository Date:9173-31-07LJ [address] [place] [address] 15485YM: 08/10/2018 Tertiary NOT GIVENUNK [place] Insurance:SELF PAY [facility] Number: Effective Repository Date:2018-05-11 06/26/2018 FALGUNI L Primary BEVERLY N [place] [id number] CR Insurance:MEDICARE BALDNERDOB: [address] [id number], [place] [address]Yda: Number: Repository [id number] (HP) Date:2017-11-29 06/26/2018 Secondary FALGUNI L [place] Insurance:ANTHEMPolic BALDNERDOB: [facility] y Number: [id number] Hospital [id number] Repository Date:5819-75-88GF [address]FIAJ[place], [place] [address]HI: 06/26/2018 Tertiary NOT GIVENUNK [place] Insurance:SELF PAY [facility] Number: Effective Repository Date:2017-11-29 05/11/2018 FALGUNI L Primary B[place]LY N [place] [id number] CR Insurance:MEDICARE BALDNERDOB: [place] [id number], [place] [address]Csk: Number: Repository [id number] (HP) Date:2018-05-04 05/11/2018 Secondary FALGUNI L [place] Insurance:ANTHEMPolic BALDNERDOB: Community y Number: [id number] Hospital [id number] Repository Date:6185-78-61HB [address], [place] [address]VG: 05/11/2018 Tertiary NOT GIVENUNK [place] Insurance:SELF PAY [facility] Number: Effective Repository Date:2018-05-08 05/04/2018 BEVERLY N Primary BEVERLY N [place] [id number] E Insurance:MEDICARE BALDNERDOB: [facility] [id number] Hospital Number: Repository RDWCARLY [place] [id number]: (656) Date:2018-05-04 [phone] () 05/04/2018 Secondary FALGUNI L [place] Insurance:CIGNAPolicy BALDNERDOB: Community Number: [id number] Hospital [id number] Repository Date:0330-86-93FX [address]FZJWUFKPILJ, [place] [address]IM: 05/04/2018 Tertiary NOT GIVENUNK [place] Insurance:SELF PAY [facility] Number: Effective Repository Date:2018-05-04 04/24/2018 BEVERLY N Primary BEVERLY N [place] [id number] E Insurance:MEDICARE BALDNERDOB: [facility] [id number] Hospital Number: Repository [place] [id number]: (330) Date:2018-04-24 80 () 04/24/2018 Secondary FALGUNI L [place] Insurance:ANTHEMPolic BALDNERDOB: Community y Number: [id number] Hospital [id number] Repository Date:2907-26-53CQ [address]RMHZUTR, [place] [address]VS: 04/24/2018 Tertiary NOT GIVENUNK [place] Insurance:SELF PAY [facility] Number: Effective Repository Date:2018-04-24 04/03/2018 FALGUNI L Primary BEVERLY N [place] [id number] CR Insurance:MEDICARE BALDNERDOB: [address] PART A [facility] [id number] [facility] , [place] [address]Tjx: Number: Repository [id number] (HP) Date:2018-04-03 04/03/2018 Secondary FALGUNI L [place] Insurance:ANTHEMPolic BALDNERDOB: Community y Number: [id number] Hospital [id number] Repository Date:1074-91-33OQ [address] [place] [address] 967[address]YK: 04/03/2018 Tertiary NOT GIVENUNK [place] Insurance:SELF PAY [facility] Number: Effective Repository Date:2018-04-03 03/27/2018 BEVERLY Hale Primary BEVERLY N [place] [id number] CR Insurance:MEDICARE BALDNERDOB: Community 1950C/O FALGUNI PART A [facility] [id number] Hospital Number: Repository [place] [id number] [id number]: [phone]) Date:2018-03-27 [phone] () 03/27/2018 Secondary FALGUNI L [place] Insurance:ANTHEMPolic BALDNERDOB: Community y Number: [id number] Hospital [id number] Repository Date:4997-21-90IN [address] [place] [address] 69[address]ER: 03/27/2018 Tertiary NOT GIVENUNK [place] Insurance:SELF PAY [facility] Number: Effective Repository Date:2018-03-27 03/20/2018 Beverly N Primary Beverly N [place] [id number] CR Insurance:MEDICARE BaldnerDOB: Community 1950C/O FALGUNI PART A [facility] [id number] Hospital Number: Repository [place] [id number]: (419) Date:2018-03-20 [phone] () 03/20/2018 Secondary FALGUNI L [place] Insurance:ANTHEMPolic BALDNERDOB: Community y Number: [id number] Hospital [id number] Repository Date:6594-00-52[address]FYKOHKQ, [place] [address]LR: 03/20/2018 Tertiary NOT GIVENUNK [place] Insurance:SELF PAY [facility] Number: Effective Repository Date:2018-03-20 03/12/2018 FALGUNI L Primary BEVERLY N [place] [id number] CR Insurance:MEDICARE BALDNERDOB: [address] [id number], [place] [address]Uhl: Number: Repository [id number] (HP) Date:2018-03-12 03/12/2018 Secondary FALGUNI L [place] Insurance:ANTHEMPolic BALDNERDOB: Community y Number: [id number] Hospital [id number] Repository Date:7480-73-74HM [address], [place] [address]XT: 03/12/2018 Tertiary NOT GIVENUNK [place] Insurance:SELF PAY [facility] Number: Effective Repository Date:2018-03-12 03/12/2018 FALGUNI L Primary BEVERLY N [place] [id number] CR Insurance:MEDICARE BALDNERDOB: [address] [id number], [place] [address]Omk: Number: Repository [id number] (HP) Date:2018-03-12 03/12/2018 Secondary FALGUNI L [place] Insurance:ANTHEMPolic BALDNERDOB: Community y Number: [id number] Hospital [id number] Repository Date:8112-76-01FZ [address] [place] [address] 816[address]TG: 03/12/2018 Tertiary NOT GIVENUNK [place] Insurance:SELF PAY [facility] Number: Effective Repository Date:2018-03-12 03/12/2018 FALGUNI L Primary BEVERLY N [place] [id number] CR Insurance:MEDICARE BALDNERDOB: [place] [id number], [place] [address]Sdj: Number: Repository [id number] (HP) Date:2018-03-12 03/12/2018 Secondary FALGUNI L [place] Insurance:ANTHEMPolic BALDNERDOB: Community y Number: [id number] Hospital [id number] Repository Date:6636-34-98SJ [address] [place] [address] 79[address]KC: 03/12/2018 Tertiary NOT GIVENUNK [place] Insurance:SELF PAY [facility] Number: Effective Repository Date:2018-03-12 03/12/2018 FALGUNI L Primary BEVERLY N [place] [id number] CR Insurance:MEDICARE BALDNERDOB: [address] [id number], [place] [address]Jcm: Number: Repository [id number] () Date:2018-03-12 03/12/2018 Secondary FALGUNI L [place] Insurance:ANTHEMPolic BALDNERDOB: Community y Number: [id number] Hospital [id number] Repository Date:0652-05-79MR [address] [place] [address]25[address]QR: 03/12/2018 Tertiary NOT GIVENUNK [place] Insurance:SELF PAY [facility] Number: Effective Repository Date:2018-03-12 03/12/2018 FALGUNI L Primary BEVERLY N [place] [id number] CR Insurance:MEDICARE BALDNERDOB: [address] [id number], [place] [address]Why: Number: Repository [id number] (HP) Date:2018-03-12 03/12/2018 Secondary FALGUNI L [place] Insurance:ANTHEMPolic BALDNERDOB: Community y Number: [id number] Hospital [id number] Repository Date:5762-74-15JE [address] [place] [address] 404[address]BO: 03/12/2018 Tertiary NOT GIVENUNK [place] Insurance:SELF PAY [facility] Number: Effective Repository Date:2018-03-12 03/12/2018 FALGUNI L Primary BEVERLY N [place] [id number] CR Insurance:MEDICARE BALDNERDOB: Community [address] [place], [place] 723251-03-30[place], [place] [address]Wpw: Number: Repository [id number] (HP) Date:2018-03-12 03/12/2018 Secondary FALGUNI L [place] Insurance:ANTHEMPolic BALDNERDOB: Community y Number: [id number] Hospital [id number] Repository Date:7661-47-52PS [address] [place] [address] 81002OS: 03/12/2018 Tertiary NOT GIVENUNK [place] Insurance:SELF PAY [facility] Number: Effective Repository Date:2018-03-12 03/12/2018 FALGUNI L Primary BEVERLY N [place] [id number] CR Insurance:MEDICARE BALDNERDOB: Community [address] [place], [place] [address]62[address]-30[place], [place] [address]Owc: Number: Repository [id number] (HP) Date:2018-03-12 03/12/2018 Secondary FALGUNI L [place] Insurance:ANTHEMPolic BALDNERDOB: Community y Number: [id number] Hospital [id number] Repository Date:9455-97-01UU [address] [place] [address] 16[address]CJ: 03/12/2018 Tertiary NOT GIVENUNK [place] Insurance:SELF PAY [facility] Number: Effective Repository Date:2018-03-12 02/27/2018 FALGUNI L Primary BEVERLY N [place] [id number] CR Insurance:MEDICARE BALDNERDOB: [address]03-30[place], [place] [address]Pdn: Number: Repository [id number] (HP) Date:2018-01-13 02/27/2018 Secondary FALGUNI L [place] Insurance:ANTHEMPolic BALDNERDOB: Community y Number: [id number] Hospital [id number] Repository Date:0520-19-27[address]SLVOTYR, [place] [address]EP: 02/27/2018 Tertiary NOT GIVENUNK [place] Insurance:SELF PAY [facility] Number: Effective Repository Date:2018-01-13 01/10/2018 FALGUNI L Primary BEVERLY N [place] [id number] CR Insurance:MEDICARE BALDNERDOB: [address] [id number] Hospital , [place] [address]Kxr: Number: Repository [id number] (HP) Date:2018-01-10 01/10/2018 Secondary FALGUNI L [place] Insurance:ANTHEMPolic BALDNERDOB: Community y Number: [id number] Hospital [id number] Repository Date:5905-52-65CJ [address]ECSXZBV, [place] [address]ZN: 01/10/2018 Tertiary NOT GIVENUNK [place] Insurance:SELF PAY [facility] Number: Effective Repository Date:2018-01-10 01/02/2018 FALGUNI L Primary BEVERLY N [place] [id number] CR Insurance:MEDICARE BALDNERDOB: [address] [id number], [place] [address]Ykv: Number: Repository [id number] (HP) Date:2018-01-01 01/02/2018 Secondary FALGUNI L [place] Insurance:ANTHEMPolic BALDNERDOB: Community y Number: [id number] Hospital [id number] Repository Date:7129-29-58AJ [address]XIYAFSF, [place] [address]SZ: 01/02/2018 Tertiary NOT GIVENUNK [place] Insurance:SELF PAY [facility] Number: Effective Repository Date:2018-01-01 01/02/2018 FALGUNI L Primary BEVERLY N [place] [id number] CR Insurance:MEDICARE BALDNERDOB: [place] [id number], [place] [address]Zrz: Number: Repository [id number] (HP) Date:2018-01-01 01/02/2018 Secondary FALGUNI L [place] Insurance:ANTHEMPolic BALDNERDOB: Community y Number: [id number] Hospital [id number] Repository Date:3631-99-13WA [address]EPWKSYA, [place] [address]HC: 01/02/2018 Tertiary NOT GIVENUNK [place] Insurance:SELF PAY [facility] Number: Effective Repository Date:2018-01-02 01/02/2018 FALGUNI L Primary BEVERLY N [place] [id number] CR Insurance:MEDICARE BALDNERDOB: [address] [id number], [place] [address]Uyb: Number: Repository [id number] (HP) Date:2018-01-01 01/02/2018 Secondary FALGUNI L [place] Insurance:ANTHEMPolic BALDNERDOB: Community y Number: [id number] Hospital [id number] Repository Date:6925-86-75LB [address]G, [place] [address]WH: 01/02/2018 Tertiary NOT GIVENUNK [place] Insurance:SELF PAY [facility] Number: Effective Repository Date:2018-01-02 12/27/2017 FALGUNI L Primary BEVERLY N [place] [id number] Insurance:MEDICARE BALDNERDOB: [address] [id number], [place] [address]Enl: Number: Repository [id number] (HP) Date:2017-12-27 12/27/2017 Secondary FALGUNI L Ron Insurance:ANTHEMPolic BALDNERDOB: Community y Number: [id number] [id number] Repository Date:[id number], [place] [address]NK: 12/27/2017 Tertiary NOT GIVENUNK Ron Insurance:SELF PAY [facility] Number: Effective Repository Date:2017-12-27 12/27/2017 FALGUNI L Primary [address]EVERLY N [place] [id number] CR Insurance:MEDICARE BALDNERDOB: Community [address] [place], [place] [id number], [place] [address]Eyv: Number: Repository [id number] (HP) Date:2017-12-27 12/27/2017 Secondary FALGUNI L Hubbard Insurance:ANTHEMPolic BALDNERDOB: Community y Number: [id number] [id number] Repository Date:3356-98-86PI [address] [place] [address]ZV: 12/27/2017 Tertiary NOT GIVENUNK Ron Insurance:SELF PAY [facility] Number: Effective Repository Date:2017-12-27 12/27/2017 FALGUNI L Primary BEVERLY N Hubbard [id number] CR Insurance:MEDICARE BALDNERDOB: Community [address] [place], [place] [id number] [address]Rfq: Number: Repository [id number] (HP) Date:2017-12-27 12/27/2017 Secondary FALGUNI L Ron Insurance:ANTHEMPolic BALDNERDOB: Community y Number: [id number] [place] [address] [id number] Repository Date:2665-29-65[address], [place] [address]MZ: 12/27/2017 Tertiary NOT GIVENUNK Ron Insurance:SELF PAY [facility] Number: Effective Repository Date:2017-12-27 12/27/2017 FALGUNI L Primary BEVERLY N Ron [id number] CR Insurance:MEDICARE BALDNERDOB: [address] [address]Nzi: Number: Repository [id number] (HP) Date:2017-12-27 12/27/2017 Secondary FALGUNI L Ron Insurance:ANTHEMPolic BALDNERDOB: Community y Number: [id number] [place] [address] [id number] Repository Date:1005-34-59[address], [place] [address]ML: 12/27/2017 Tertiary NOT GIVENUNK Hubbard Insurance:SELF PAY [facility] Number: Effective Repository Date:2017-12-27 12/26/2017 FALGUNI L Primary BEVERLY N Hubbard [id number] CR Insurance:MEDICARE BALDNERDOB: [address] [id number], [place] [address]Frd: Number: Repository [id number] (HP) Date:2017-12-26 12/26/2017 Secondary FALGUNI L Ron Insurance:ANTHEMPolic BALDNERDOB: Community y Number: [id number] [id number] Repository Date:9919-61-99[address], [place] [address]IS: 12/26/2017 Tertiary NOT GIVENUNK Ron Insurance:SELF PAY [facility] Number: Effective Repository Date:2017-12-26 11/29/2017 FALGUNI L Primary BEVERLY N Hubbard [id number] CR Insurance:MEDICARE BALDNERDOB: [address] [id number], [place] [address]Qen: Number: Repository [id number] (HP) Date:2017-08-08 11/29/2017 Secondary FALGUNI L Ron Insurance:ANTHEMPolic BALDNERDOB: Community y Number: [id number] [id number] Repository Date:9252-07-60[address], [place] [address]EE: 11/29/2017 Tertiary NOT GIVENUNK Ron Insurance:SELF PAY [facility] Number: Effective Repository Date:2017-11-29 11/28/2017 FALGUNI L Primary BEVERLY N Ron [id number] CR Insurance:MEDICARE BALDNERDOB: [address] [id number], [place] [address]Xvz: Number: Repository [id number] (HP) Date:2017-11-28 11/28/2017 Secondary FALGUNI L Ron Insurance:ANTHEMPolic BALDNERDOB: Community y Number: [id number] [id number] Repository Date:8028-30-99[address], [place] [address]HK: 11/28/2017 Tertiary NOT GIVENUNK Hubbard Insurance:SELF PAY [facility] Number: Effective Repository Date:2017-11-28 10/27/2017 FALGUNI L Primary BEVERLY N Hubbard [id number] CR Insurance:MEDICARE BALDNERDOB: [place] [id number], [place] [address]Dnc: Number: Repository [id number] (HP) Date:2017-10-27 10/27/2017 Secondary FALGUNI L Ron Insurance:ANTHEMPolic BALDNERDOB: Community y Number: [id number] [id number] Repository Date:9874-88-90KJ [address]PP[place], [place] [address]MF: 10/27/2017 Tertiary NOT GIVENUNK Ron Insurance:SELF PAY [facility] Number: Effective Repository Date:2017-10-27 10/10/2017 FALGUNI L Primary BEVERLY N Hubbard [id number] CR Insurance:MEDICARE BALDNERDOB: [place] [id number], [place] [address]Zls: Number: Repository [id number] (HP) Date:2017-10-10 10/10/2017 Secondary FALGUNI L Hubbard Insurance:ANTHEMPolic BALDNERDOB: Community y Number: [id number] [id number] Repository Date:7388-94-87[address], [place] [address]MR: 10/10/2017 Tertiary NOT GIVENUNK Hubbard Insurance:SELF PAY [facility] Number: Effective Repository Date:2017-10-10
== END ==
PROVIDERS: Family Provider Family Medicine Geriatric Medicine; PCP Family Medicine Geriatric Medicine; Referring Provider Internal Medicine Cardiovascular Disease; Visit Provider Internal Medicine Cardiovascular Disease
DX: I26.99 Other pulmonary embolism without acute cor pulmonale (principal)
CPT/HCPCS: 93306

== ENCOUNTER → 2018-08-13 17:05 | Outpatient (REF) | payer MEDICARE, BC, SELFPAY ==
[2018-08-13 17:54] LABS: Absolute Lymphocyte Count 0.97 X10^3/ul (0.83-4.51); Absolute Neutrophil Count 8.6 X10^3/uL (2.0-7.7); Basophil# 0.01 X10^3/uL; Basophil% 0.1 % (0-1); Eosinophil# 0.11 X10^3/uL; Hematocrit 35.1 % (37-47); Hemoglobin 10.9 g/dl (12.0-15.0); Lymphocyte # 0.97 X10^3/ul (4.0); Mean Corp Hgb Conc 31.1 g/gl (32-36); Mean Corpuscular Hgb 26.8 pg (27.0-32.0); Mean Corpuscular Volume 86.2 fL (81-99); Monocyte# 1.08 X10^3/uL; Neutrophil # 8.59 X10^3/uL (2.7-7.7); Neutrophil % 79.8 % (47-70); Platelet Count 204 K/mm3 (150-450); RBC Distribution Width CV 15.5 % (11.6-14.6); Red Blood Count 4.07 M/mm3 (4.2-5.4); White Blood Count 10.8 K/mm3 (4.4-11.0)
[2018-08-13 18:05] LABS: ALB/GLOB Ratio 0.7 RATIO (0.9-2.4); AST(SGOT) 72 U/L (15-37); Alanine Aminotransfer ALT/SGPT 51 U/L (13-56); Albumin, Serum 3.1 g/dL (3.2-5.0); Alkaline Phosphatase 102 U/L (45-117); Anion Gap 7 (5-15); BUN 22 mg/dL (7-18); BUN/Creat Ratio 23.4 RATIO (10-20); Calcium,Total 8.6 mg/dL (8.5-10.1); Chloride 101 mmol/L (98-107); Creatinine, Serum 0.94 mg/dL (0.55-1.02); EST Glomerular Filtration Rate 61 mL/min (>60); Est Glom Filt Rate - Afr Amer 74 mL/min (>60); Globulin 4.4 g/dL (2.2-4.2); Glucose 231 mg/dL (74-106); Potassium 3.6 mmol/L (3.5-5.1); Protein, Total 7.5 g/dL (6.4-8.2); Sodium Level 137 mmol/L (136-145)
[2018-08-13 18:09] LABS: POSITIVE COUNT NO; POSITIVE DIFFERENTIAL NO; POSITIVE MORPHOLOGY NO
--- OUTSIDE RECORDS SUMMARY | 2018-11-15 13:43 | XMS RPT_ITS ---
:1940 Author Organization OHIP Support Name Relationship Address Phone Falguni Broussard Unavailable [address] + [place] [address] BaldaytonerUgoin Unavailable , + [place] [address] R Unavailable Unavailable Unavailable Baldner Falguni Unavailable [address] + [place] [address] Baldner Avery Unavailable , + [place] [address] R Unavailable Unavailable Unavailable Baldner, Falguni Unavailable [address] + [place] [address] Baldner, Avery Unavailable , + [place] [address] R Unavailable Unavailable Unavailable Baldner, Falguni Unavailable [address] + [place] [address] Baldner, Avery Unavailable , + [place] [address] R Unavailable Unavailable Unavailable BALDNER, FALGUNI Unavailable [address] + [place] [address] BALDAYTONER AVERY Unavailable Unavailable + [place] [address] R Unavailable Unavailable Unavailable BALDNER, FALGUNI Unavailable [address] + [place] [address] BALDAYTONER, AVERY Unavailable Unavailable + [place] [address] R Unavailable Unavailable Unavailable Baldner, Falguni Unavailable [address] + [place] [address] Baldner, Avery Unavailable . + [place] [address] R Unavailable Unavailable Unavailable Baldner, Falguni Unavailable [address] + [place] [address] Baldner, Avery Unavailable . + [place] [address] R Unavailable Unavailable Unavailable Baldner, Falguni Unavailable [address] + [place] [address] Baldner, Avery Unavailable . + [place] [address] R Unavailable Unavailable Unavailable Baldner, Falguni Unavailable [address] + [place] [address] Baldner, Avery Unavailable . + [place] [address] R Unavailable Unavailable Unavailable Baldner, Falguni Unavailable [address] + [place] [address] Baldner, Avery Unavailable . + [place] [address] R Unavailable Unavailable Unavailable Baldner, Falguni Unavailable [address] + [place] [address] Baldner, Avery Unavailable . + [place] [address] R Unavailable Unavailable Unavailable Baldner, Falguni Unavailable [address] + [place] [address] Baldner, Avery Unavailable . + [place] [address] R Unavailable Unavailable Unavailable Baldner, Falguni Unavailable [address] + [place] [address] Baldner, Avery Unavailable . + [place] [address] R Unavailable Unavailable Unavailable Baldner, Falguni Unavailable [address] + [place] [address] Baldner, Avery Unavailable Unavailable + [place] [address] R Unavailable Unavailable Unavailable Baldner, Falguni Unavailable [address] + [place] [address] Baldner, Avery Unavailable Unavailable + [place] [address] R Unavailable Unavailable Unavailable BALDNER, FALGUNI Unavailable [address] + [place] [address] BALDNER, AVERY Unavailable Unavailable + [place] [address] R Unavailable Unavailable Unavailable Baldner, Falguni Unavailable [address] + [place] [address] BaldaytonerUgoin Unavailable Unavailable + [place] [address] R Unavailable Unavailable Unavailable BALDNER, FALGUNI Unavailable [address] + [place] [address] BALDAYTONERUGOIN Unavailable Unavailable + [place] [address] R Unavailable Unavailable Unavailable Baldner, Falguni Unavailable [address] + [place] [address] Baldaytoner Avery Unavailable . + [place] [address] R Unavailable Unavailable Unavailable BALDNER, FALGUNI Unavailable [address] + [place] [address] BALDAYTONERUGOIN Unavailable Unavailable + [place] [address] R Unavailable Unavailable Unavailable BALDNER, FALGUNI Unavailable [address] + [place] [address] BALDAYTONER AVERY Unavailable Unavailable + [place] [address] R Unavailable Unavailable Unavailable BALDNER, FALGUNI Unavailable [address] + [place] [address] BALDNER AVERY Unavailable Unavailable + [place] [address] R Unavailable Unavailable Unavailable BALDNER, FALGUNI Unavailable [address] + [place] [address] BALDAYTONER AVERY Unavailable Unavailable + [place] [address] R Unavailable Unavailable Unavailable BALDNER, FALGUNI Unavailable [address] + [place] [address] BALDNER AVERY Unavailable Unavailable + [place] [address] R Unavailable Unavailable Unavailable BALDNER, FALGUNI Unavailable [address] + [place] [address] BALDAYTONER AVERY Unavailable Unavailable + [place] [address] R Unavailable Unavailable Unavailable BALDNER, FALGUNI Unavailable [address] + [place] [address] BALDNER, AVERY Unavailable Unavailable + [place] [address] R Unavailable Unavailable Unavailable BALDNER, FALGUNI Unavailable [address] + [place] [address] BALDNER, AVERY Unavailable Unavailable + [place] [address] R Unavailable Unavailable Unavailable BALDNER, FALGUNI Unavailable [address] + [place] [address] BALDNER, AVERY Unavailable Unavailable + [place] [address] R Unavailable Unavailable Unavailable BALDNER, FALGUNI Unavailable [address] + [place] [address] BALDNER, AVERY Unavailable . + [place] [address] R Unavailable Unavailable Unavailable BALDNER, FALGUNI Unavailable [address] + [place] [address] BALDNER, AVERY Unavailable . + [place] [address] R Unavailable Unavailable Unavailable BALDNER, FALGUNI Unavailable [address] + [place] [address] BALDNER, AVERY Unavailable . + [place] [address] R Unavailable Unavailable Unavailable BALDNER, FALGUNI Unavailable [address] + [place] [address] BALDNER, AVERY Unavailable . + [place] [address] R Unavailable Unavailable Unavailable BALDNER, FALGUNI Unavailable [address] + [place] [address] BALDNER, AVERY Unavailable . + [place] [address] R Unavailable Unavailable Unavailable Care Team Providers Name Role Phone Ventura Ragsdale Attending Unavailable Ventura Ragsdale Referring Unavailable Jeffry, Micheal Chi Primary Care Unavailable Ventura Ragsdale Attending Unavailable Ventura Ragsdale Referring Unavailable Jeffry, Micheal Chi Primary Care Unavailable Ventura Ragsdale Consulting Unavailable Rolan Mark Attending Unavailable Ventura Ragsdale Attending Unavailable Jeffry, Micheal Chi Referring Unavailable Mark, Rolan Attending Unavailable Mark, Rolan Attending Unavailable Jeffry, Micheal Chi Attending Unavailable [...] Admitting Unavailable Ventura Ragsdale Consulting Unavailable [place], [place] Attending Unavailable Renny, Hood Admitting Unavailable Renny, Hood Attending Unavailable Jeffry, Micheal Chi Primary Care Unavailable Renny, Hood Consulting Unavailable Renny, Hood Admitting Unavailable [place], [place] Attending Unavailable Jeffry, Micheal Chi Primary Care Unavailable Ventura Ragsdale Consulting Unavailable [place], [place] Consulting Unavailable Renny, Hood Admitting Unavailable Ventura Ragsdale Attending Unavailable Jeffry, Micheal Chi Primary Care Unavailable Ventura Ragsdale Consulting Unavailable [place], [place] Consulting Unavailable Jeffry, Micheal Chi Primary Care [...] Admitting Unavailable White, Shamika Attending Unavailable Cristino, [place] Consulting Unavailable Pretty, Tenzin Admitting Unavailable Jeffry, Micheal Chi Primary Care Unavailable Pretty, Tenzin Consulting Unavailable Renny, Hood Attending Unavailable Pretty, Tenzin Admitting Unavailable Jeffry, Micheal Chi Primary Care Unavailable Cristino, [place] Consulting Unavailable White, Shamika Attending Unavailable White, Shamika Consulting Unavailable Pretty, Tenzin Admitting Unavailable Cristino, Ricky Attending Unavailable Jeffry, Micheal Chi Primary Care Unavailable Cristino, Ricky Consulting Unavailable White, Shamika Consulting Unavailable Pretty, Tenzin Admitting Unavailable White, Shamika Attending Unavailable Jeffry, Micheal Chi Primary Care Unavailable Cristion, Ricky Consulting Unavailable White, Shamika Consulting Unavailable Pretty, Tenzin Admitting Unavailable Cristino, Ricky Attending Unavailable Jeffry, Micheal Chi Primary Care Unavailable Cristino, [place] Consulting Unavailable White, Shamika Consulting Unavailable Mark, [...] 09/07/2018 Unknown I42.9 - Ventura Ragsdale Active [place] Cardiomyopathy, Community unspecified / Hospital I42.9(ICD-10) Repository 09/07/2018 Unknown E78.5 - Ventura Ragsdale Active [place] Hyperlipidemia, Community unspecified / Hospital E78.5(ICD-10) Repository [...] Unknown 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, 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 and Hospital behavior / Repository F68.8(ICD-10) 09/04/2018 Unknown R06.02 - Shortness of Mark, Rolan Active [place] breath / Community R06.02(ICD-10) Hospital Repository 08/10/2018 [...] Repository 04/26/2018 Unknown I50.32 - Chronic Cristino, [place] Active [facility] diastolic (congestive) Community heart failure / Hospital I50.32(ICD-10) Repository 04/26/2018 Unknown R94.31 - Abnormal Cristino, Ricky Active [facility] electrocardiogram Community [ECG] [EKG] / Hospital R94.31(ICD-10) Repository 04/26/2018 Unknown I11.0 - Hypertensive Cristino, Ricky Active [facility] heart disease with Community heart failure / Hospital I11.0(ICD-10) Repository 04/26/2018 Unknown I25.10 - Cristino, [place] Active [place] Atherosclerotic heart Community disease of [facility] coronary artery Repository without angina pectoris / I25.10(ICD-10) 01/06/2018 Unknown J96.11 - Chronic Sementi, Active [facility] respiratory failure [facility] with hypoxia / Hospital J96.11(ICD-10) Repository 11/29/2017 Unknown Z95.2 - Presence of Ventura Ragsdale Active [facility] prosthetic heart valve [facility] / Z95.2(ICD-10) Hospital Repository 11/29/2017 Unknown E66.9 - Obesity, Ventura Ragsdale Active [facility] unspecified / Community E66.9(ICD-10) Hospital Repository 11/29/2017 Unknown I35.0 - Nonrheumatic Ventura Ragsdale Active [place] aortic (valve) Community stenosis / Hospital I35.0(ICD-10) Repository 11/29/2017 Unknown 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 / Hospital I27.21(ICD-10) Repository 11/29/2017 Unknown I63.9 - Cerebral Ventura Ragsdale Active [place] infarction, Community unspecified / Hospital I63.9(ICD-10) Repository 11/29/2017 Unknown R06.00 - Dyspnea, Ventura Ragsdale Active [place] unspecified / Community R06.00(ICD-10) Hospital Repository 11/29/2017 Unknown R05 - Cough / Ventura Ragsdale Active [place] R05(ICD-10) [facility] Repository 10/10/2017 Unknown E55.9 - Vitamin D Jeffry, Micheal Chi Active [facility] deficiency, Community unspecified / Hospital E55.9(ICD-10) Repository PROCEDURES PROCEDURES No Procedure Records FoundRESULTS RESULTS CARDIOLOGY VISIT Observed: 09/07/2018 Status: F Source: [place] REPORT 3:26 PM [facility] REPOSITORY [facility] [address] [place] [address] OFFICE VISIT Date of Service: 09/07/18 MR#: [id number] Acct: [id number] Name: BEVERLY BROUSSARD Rep #: [id number] : 1940 Provider: Ventura Ragsdale MD Age/Sex: 77/F Location: [facility] [place] Status: Signed HPI HPI Chief Complaint: Routine f/u Details: Details: referring physician: Dr. Liu Mrs. Broussard is a very pleasant 77-year-old morbidly obese diabetic female with a history of hypertension, hypercholesterolemia, former smoker who quit around 40 years ago after a 12-ztqn-dvtf smoking history, previous CVA in February 2014 [...] Esequiel sutureless valve by Dr. Fonseca at [facility] on 01/28/16, as well as concomitant left carotid endarterectomy at the same time. no additional carotid endarterectomy was performed on the right carotid. Postoperatively she developed some atrial fibrillation and was treated with amiodarone therapy. She was subsequently transferred to the rehab center, then to home. She has completed physical therapy at [facility]. She has also completed cardiac rehab without [...] with eliquis, and subsequently transferred to the [facility]. She apparently has no recollection of that admission, does not recall seeing Dr. Gregg. I was out of town at the time she is now here in follow-up. Echocardiogram done on 03/13/18 showed EF of 25%, RVSP of 55 mmHg, with mild to moderate mitral regurgitation. She denies any chest pain, angina, shortness of breath. Apparently the snf adjusted her medications, took her off of [...] therapy. Patient currently lives alone at the snf, and ambulates in the hallway with a [...] mg PO BID 09/07/18 [History Confirmed 09/07/18] [facility] Medical History Pulmonary embolism, bilateral (Acute 03/12/18) [...] evaluate and to discuss the option of AICD/GREEN CHAIN PULLER therapy given her baseline left bundle branch [...] F Source: [place] PROFILE (BMP) 5:10 AM [facility] REPOSITORY Order Comment: 168 TYPE CODE TESTS [...] GAP 7 Performed By: #### L500.2500 #### [facility] [address] [place], [address] CBC W/DIFF, AUTOMATED Collected: 09/04/2018 Status: F Source: [place] 5:10 AM [facility] REPOSITORY Order Comment: 168 TYPE CODE TESTS [...] Lymph 1.21 Performed By: #### L100.0100 #### [facility] [place], [address] CBC W/DIFF, AUTOMATED Collected: 09/02/2018 Status: F Source: [place] 7:05 AM [facility] REPOSITORY TYPE CODE TESTS RESULT OUT OF [...] Lymph 1.19 Performed By: #### L100.0100 #### [facility] [address] [place], [place], [address] BASIC METABOLIC Collected: 09/02/2018 Status: F Source: [place] (BMP) 7:05 AM [facility] REPOSITORY TYPE CODE TESTS RESULT OUT OF [...] GAP 6 Performed By: #### L500.2500 #### [facility] [address] [place], [address] COMPREHENSIVE METABOLIC Collected: 08/13/2018 Status: F Source: [place]IL 5:05 PM [facility] REPOSITORY TYPE CODE TESTS RESULT OUT OF [...] GAP 7 Performed By: #### L500.4050 #### [facility] [address] [place], [address] CBC W/DIFF, AUTOMATED Collected: 08/13/2018 Status: F Source: [place] 5:05 PM [facility] REPOSITORY TYPE CODE TESTS RESULT OUT OF [...] Lymph 0.97 Performed By: #### L100.0100 #### [facility] [address] [place], [address] ECHOCARDIOGRAM COMPLETE Observed: 08/10/2018 Status: F Source: [place] 4:28 PM [facility] REPOSITORY [facility] Cardiovascular Services [address] [place] [address] Echo Complete 08/10/18 1313 MR#: [id number] Acct: [id number] Name: BEVERLY BROUSSARD Rep #: [id number] : 1940 77 From: Ventura Ragsdale MD Attending Dr: Ventura Ragsdale MD Status: REG CLI Ordering Dr: Ventura Ragsdale MD Date: 08/10/18 Location: [facility] Sex: F C Admitted: Reason For Study: [...] Physician: MICHEAL MERCADO Performed By: Katrin Zhao RUST 08/10/18 1628 Date Ventura Ragsdale MD CC: Ventura Ragsdale MD; Micheal Mercado MD Date Dictated: 08/10/18 1313 Date Transcribed: 08/10/181627 Film Replacement Orderer: Signed CARDIOLOGY VISIT Observed: 05/16/2018 Status: F Source: [place] REPORT 10:12 AM [facility] REPOSITORY [facility] [address] [place] [address] [address] [place] [address] OFFICE VISIT Date of Service: 05/11/18 MR#: [id number] Acct: [id number] Name: BEVERLY BROUSSARD Rep #: [id number] : 1940 Provider: Ventura Ragsdale MD Age/Sex: 77/F Location: [facility] – [place] Status: Signed HPI HPI Chief Complaint: Routine f/u Details: referring physician: Dr. Liu Mrs. Broussard is a very pleasant 77-year-old morbidly obese diabetic female with a history of hypertension, hypercholesterolemia, former smoker who quit around 40 years ago after a 95-ywob-glra smoking history, previous CVA in February 2014 [...] underwent successful aortic valve replacement with a [place] sutureless valve by Dr. Fonseca at [facility] on 01/28/16, as well as concomitant left carotid endarterectomy at the same time. no additional carotid endarterectomy was performed on the right carotid. Postoperatively she developed some atrial fibrillation and was treated with amiodarone therapy. She was subsequently transferred to the rehab center, then to home. She has completed physical therapy at [facility]. She has also completed cardiac rehab without [...] with a cane. Patient was admitted was [facility] on 03/14/18 for acute chest pain was found to have minimal elevation of troponins and pulmonary emboli. Patient was placed on anticoagulation therapy with eliquis, and subsequently transferred to the [facility]. She apparently has no recollection of that [...] medications that she is given at the snf. In our office today her blood pressure [...] Blood Pressure 110/50 Intake Visit Reasons: F/U Copy Holder Required: No Accompanied by: Niece Is patient [...] mcg PO DAILY 05/09/18 [History Confirmed 05/11/18] [facility] Medical History Pulmonary embolism, bilateral (Acute [...] for other (Had PE and was in [facility]. [facility] and [...] Palpitations: No Edema: Bilateral (Ptting to mid moya) Muscle aches with walking: None Resp Respiratory: [...] embolism, bilateral I26.99 Per CTA 03/12/18 @ [facility] Plan 1. Pulmonary emboli: Patient recently suffered [...] valve concommitently with left carotid endarterectomy @ [facility] by Dr Lerma 02/06/16 Plan Jing. 3. Status post aortic valve replacement: Continue SBE prophylaxis. Repeat echocardiogram pending 4. Hyperlipidemia E78.5 Plan 4. Hyperlipidemia: Her LDL and HDL cholesterol are at goal. Continue Lipitor. 5. Return office in 4 months with either myself or an BILL DISTRIBUTOR. This note was generated using a voice [...] 05/04/2018 Status: F Source: [place] 8:20 AM [facility] REPOSITORY TYPE CODE TESTS RESULT OUT OF RANGE REFERENCE UNITS LAB L501.9985 4.2-6.3 % Normal HGB A1C 6.2 Performed By: #### L501.9985 #### [facility] [address] [place], [place], [address] COMPREHENSIVE METABOLIC Collected: 05/04/2018 Status: F Source: [place] [facility] 8:20 AM [facility] REPOSITORY TYPE CODE TESTS RESULT OUT OF [...] Performed By: #### L500.4050, L500.4100, L501.9520 #### [facility] [address] [place], [place], [address] LIPID PROFILE Collected: 05/04/2018 Status: F Source: [place] 8:20 AM [facility] REPOSITORY TYPE CODE TESTS RESULT OUT OF [...] Performed By: #### L500.4050, L500.4100, L501.9520 #### [facility] [address] [place], [place], [address] THYROID STIM HORMONE Collected: 05/04/2018 Status: F Source: [place] ([facility]) 8:20 AM [facility] REPOSITORY TYPE CODE TESTS RESULT OUT OF RANGE REFERENCE UNITS LAB L501.9520 0.358-3.74 uIU/mL Normal TSH 3.74 Performed By: #### L500.4050, L500.4100, L501.9520 #### [facility] [address] [facility], [place], [address] CBC-COMPLETE BLOOD CNT Collected: 04/24/2018 Status: F Source: [place] NO DIFF 5:50 AM [facility] REPOSITORY Order Comment: ROOM 168 TYPE CODE [...] MPV 10.4 Performed By: #### L100.0500 #### [facility] [address] [place], [place], [address] PROTEIN, TOTAL Collected: 04/24/2018 Status: F Source: [place] 5:50 AM [facility] REPOSITORY Order Comment: ROOM 168 TYPE CODE TESTS RESULT OUT OF RANGE REFERENCE UNITS LAB L501.1500 6.4-8.2 g/dL Low T PROT 5.5 LAB L501.1950 2.2-4.2 g/dL Normal GLOB 3.2 LAB L501.2000 0.9-2.4 RATIO Low A/G 0.7 Performed By: #### L001.0705, L500.2500, L501.1800, L506.0500 #### [facility] [address] [place], [place], [address] BASIC METABOLIC Collected: 04/24/2018 Status: F Source: [place] PROFILE (BMP) 5:50 AM [facility] REPOSITORY Order Comment: ROOM 168 TYPE CODE [...] By: #### L001.0705, L500.2500, L501.1800, L506.0500 #### [facility] [address] [place], [place], [address] ALBUMIN, SERUM Collected: 04/24/2018 Status: F Source: [place] 5:50 AM [facility] REPOSITORY Order Comment: ROOM 168 TYPE CODE TESTS RESULT OUT OF RANGE REFERENCE UNITS LAB L501.1800 3.2-5.0 g/dL Low ALB 2.3 Performed By: #### L001.0705, L500.2500, L501.1800, L506.0500 #### [facility] [address] [place], [address] PREALBUMIN Collected: 04/24/2018 Status: F Source: [place] 5:50 AM [facility] REPOSITORY Order Comment: ROOM 168 TYPE CODE TESTS RESULT OUT OF REFERENCE UNITS RANGE LAB L506.0500 20.0-40.0 mg/dL Low PREALBUMIN 13.5 Performed By: #### L001.0705, L500.2500, L501.1800, L506.0500 #### [facility] [address] [place], [place], [address] BASIC METABOLIC Collected: 04/03/2018 Status: F Source: [place] PROFILE ([facility]) 8:45 AM [facility] REPOSITORY Order Comment: ROOM 136 TYPE CODE [...] GAP 10 Performed By: #### L500.2500 #### [facility] [address] [facility] [place], [address] BASIC METABOLIC Collected: 03/27/2018 Status: F Source: [place] PROFILE ([facility]) 6:40 AM [facility] REPOSITORY Order Comment: ROOM 136 TYPE CODE [...] GAP 2 Performed By: #### L500.2500 #### [facility] [address] [place], [place], [address] CBC-COMPLETE BLOOD CNT Collected: 03/27/2018 Status: F Source: [place] NO DIFF 6:40 AM [facility] REPOSITORY Order Comment: ROOM 136 TYPE CODE [...] MPV 10.1 Performed By: #### L100.0500 #### [facility] [address] [place], [place], [address] CBC-COMPLETE BLOOD CNT Collected: 03/20/2018 Status: F Source: [place] NO DIFF 7:55 AM [facility] REPOSITORY Order Comment: 136 TYPE CODE TESTS [...] MPV 10.2 Performed By: #### L100.0500 #### [facility] [address] [place], [place], [address] BASIC METABOLIC Collected: 03/20/2018 Status: F Source: [place] PROFILE (BMP) 7:55 AM [facility] REPOSITORY Order Comment: 136 TYPE CODE TESTS [...] GAP 5 Performed By: #### L500.2500 #### [facility] [address] [facility] [place], [address] 12 LEAD ELECTROCARDIOGRAM Observed: 03/17/2018 Status: F Source: [place] 2:00 PM [facility] REPOSITORY [facility] Cardiovascular Services [address] [place] [address] 12 Lead EKG 03/13/182114 MR#: [id number] Acct: [id number] Name: BEVERLY BROUSSARD Rep #: [id number] : 1940 77 From: Ricky Gregg MD Attending Dr: Shamika Mane Status: DIS IN Ordering Dr: Shamika Mane Date: 03/13/18 Location: [facility] Sex: F C Admitted: 03/12/18 Test Reason [...] UNCONFIRMED Confirmed by RICKY GREGG MD ([id number]), website/blog editor ADELA TOVAR ([id number]) on 03/17/2018 2:00:04 PM Referred By: ALHAJI Confirmed By:RICKY GREGG MD 03/17/18 1400 Date Ricky Gregg MD CC: Shamika Mane; Micheal Mercado MD Signed BEDSIDE GLUCOSE Collected: 03/14/2018 Status: F Source: [place] 4:49 PM [facility] REPOSITORY TYPE CODE TESTS RESULT OUT OF REFERENCE UNITS RANGE LAB L501.080 70-110 mg/dL High BEDSIDE GLU 153 Result Comment: MANAGEMENT OF PATIENT CARE PER NURSING PROTOCOL Performed By: #### L501.080 #### [facility] Point of Care [address] [place] [address] DISCHARGE SUMMARY Observed: 03/14/2018 Status: F Source: [place] 4:09 PM [facility] REPOSITORY [facility] Medical Records Department [address] [place] [address] Discharge Summary 03/14/18 1549 MR#: [id number] Acct: [id number] Name: BEVERLY BROUSSARD Rep #: [id number] : 1940 77 From: Ricardo MARTINI PCP: Micheal Mercado MD, Chi Status: ADM IN Y Location: [place] [address] ADDENDUM by Shamika Mane on 03/14/18 at [...] CHF, Hypothyroidism, PAF who presented to the [facility] ED on 03/12/18 w/ history of ongoing [...] eliquis noted to be affordable for patient intermediate. PT, OT, CM consultations w/ decision for [...] hospital summary above. Inpatient E AND M: [id number] Disch Hosp 03/14/18 9203 <Electronically signed by Shamika Mane > Date [...] valve concommitently with left carotid endarterectomy @ [facility] by Dr Lerma 02/06/16 Non-rheumatic aortic stenosis [...] pressures are higher Consultations 03/12/18 18:47 Consult: Onc/Wound/quality improvement engineer Routine Comment: Reason for Consult:: Sores [...] able to be weaned off at the snf. She was discharged to SNF in stable [...] discharge planned. Please Follow Up With: Ventura Ragsdale MD When: Follow-up 2-4 weeks, may see BLACK PULLER Patient Instructions: Pulmonary Embolism, Living with Cardiomyopathy, Medications for Cardiomyopathy, Discharge Instructions for Acute Kidney Injury, Discharge Instructions for Cardiomyopathy, Discharge Instructions for Pulmonary Embolism Disposition: Long-Term facility Minutes spent on discharge:: 35 Patient [...] Date Ricardo MARTINI 03/14/18 1607<Electronically signed by Shmaika Mane > Cosigner Signature (if applicable): Date White, L CC: VINI Rivero; Shamika Alhaji; Micheal Mercado MD Signed 12 LEAD ELECTROCARDIOGRAM Observed: 03/14/2018 Status: F Source: [place] 3:04 PM [facility] REPOSITORY [facility] Cardiovascular Services [address] [place] [address] 12 Lead EKG 03/12/18 1026 MR#: [id number] Acct: [id number] Name: BEVERLY BROUSSARD Rep #: [id number] : 1940 77 From: Ricky Gregg MD Attending Dr: Shamika Mane Status: ADM IN Ordering Dr: Tenzin Olsen MD Date: 03/12/18 Location: [facility] Sex: F C Admitted: 03/12/18 Test Reason [...] UNCONFIRMED Confirmed by RICKY GREGG MD ([id number]), website/blog editor ADELA TOVAR ([id number]) on 03/14/2018 3:04:10 PM Referred By: WILBERTO Confirmed By:RICKY GREGG MD 03/14/18 1504 Date Ricky Gregg MD CC: Shamika Mane; Tenzin Olsen MD; Micheal Mercado MD Signed 12 LEAD ELECTROCARDIOGRAM Observed: 03/14/2018 Status: F Source: [place] 3:04 PM [facility] REPOSITORY [facility] Cardiovascular Services [address] [place] [address] 12 Lead EKG 03/12/18 0756 MR#: [id number] Acct: [id number] Name: BEVERLY BROUSSARD N Rep #: [id number] : 1940 77 From: Ricky Gregg MD Attending Dr: Shamika Mane Status: ADM IN Ordering Dr: Ricardo Rivero Date: 03/12/18 Location: [facility] Sex: F C Admitted: 03/12/18 Test Reason [...] UNCONFIRMED Confirmed by CRISTINO CARRANZA, RICKY ([id number]), website/blog editor ADELA TOVAR ([id number]) on 03/14/2018 3:04:20 PM Referred By: LA Confirmed By:RICKY GREGG MD 03/14/18 1504 Date Ricky Gregg MD CC: VINI Rivero; Shamika Mane; Micheal Mercado MD Signed 12 LEAD ELECTROCARDIOGRAM Observed: 03/14/2018 Status: F Source: [place] 3:00 PM [facility] REPOSITORY [facility] Cardiovascular Services [address] [place] [address] 12 Lead EKG 03/13/18 1221 MR#: [id number] Acct: [id number] Name: BEVERLY BROUSSARD N Rep #: [id number] : 1940 77 From: Rikcy Gregg MD Attending Dr: Shamika Mane Status: ADM IN Ordering Dr: Ricardo Rivero Date: 03/13/18 Location: [facility] Sex: F C Admitted: 03/12/18 Test Reason [...] UNCONFIRMED Confirmed by RICKY GREGG MD ([id number]), website/blog editor ADELA TOVAR (56) on 03/14/2018 3:00:42 PM Referred By: EZE Confirmed By:RICKY GREGG MD 03/14/18 1500 Date Ricky Gregg MD CC: VINI Rivero; Shamika Mane; Micheal Mercado MD Signed CONSULTATION Observed: 03/14/2018 Status: F Source: [place] 2:08 PM [facility] REPOSITORY [facility] Medical Records Department [address] [place] [address] Consultation 03/13/181913 MR#: [id number] Acct: [id number] Name: BEVERLY BROUSSARD Rep #: [id number] : 1940 77 From: Ricky Gregg MD PCP: Micheal Mercado MD, Chi Status: ADM IN Y [id number] Reason for Consult Date of Consultation: 03/13/18 Reason for Consultation: Chest pain and abnormal troponin History of Present Illness: The patient is a 77 year old F known to Dr. Odin Ragsdale, with a history of diabetes, hypertension, hypercholesterolemia, former smoker who quit around 40 years ago after a 27-bweg-erta smoking history, previous CVA in February 2014 [...] valve concommitently with left carotid endarterectomy @ [facility] by Dr Lerma 02/06/16 Non-rheumatic aortic stenosis (Chronic) COPD (chronic obstructive pulmonary disease) (Chronic) Secondary pulmonary arterial hypertension (Chronic) Hyperlipidemia (Chronic) Chronic diastolic heart failure (Chronic) CVA (cerebral infarction) (Chronic) Hypertension (Chronic) Hypothyroidism (Chronic) Paroxysmal a-fib (Chronic) Surgical History: appendectomy, cataract, - - Aortic Valve replacement, left carotid endarterectomy, shoulder surgery Psychiatric History: No pertinent psych hx LINE SERVICER History: No pertinent LINE SERVICER history - *Family History Maternal Family History: [...] 03/14/2018 Status: F Source: [place] 1:38 PM [facility] REPOSITORY [facility] Cardiovascular Services [address] [place] [address] 12 Lead EKG 03/12/18 0347 MR#: [id number] Acct: [id number] Name: BEVERLY BROUSSARD Rep #: [id number] : 1940 77 From: Ricky Gregg MD Attending Dr: Shamika Mane Status: ADM IN Ordering Dr: Herberth Alvarado MD Date: 03/12/18 Location: [facility] Sex: F C Admitted: 03/12/18 Test Reason [...] ECG Confirmed by CRISTINO CARRANZA, RICKY ([id number]), website/blog editor ADELA TOVAR ([id number]) on 03/14/2018 1:38:33 PM Referred By: PATTI Confirmed By:RICKY GREGG MD 03/14/18 1338 Date Ricky Gregg MD CC: Shamika Alvarado MD; Micheal Mercado MD Signed DISCHARGE INSTRUCTION Observed: 03/14/2018 Status: F Source: [place] 11:31 AM [facility] REPOSITORY [facility] Medical Records Department [address] [place] [address] Instructions for Home/Discharge Instructions 03/14/18 1121 MR#: [id number] Acct: [id number] Name: BEVERLY BROUSSARD Rep #: [id number] : 1940 77 From: Shamika Mane PCP: [...] MD When: Follow-up 2-4 weeks, may see BLACK PULLER Proposed Discharge Date: 03/14/18 03/14/18 1131 <Electronically signed by Shamika Mane > Date Shamika Mane CC: Ricky Gregg MD; Micheal Mercado MD BEDSIDE GLUCOSE Collected: 03/14/2018 Status: F Source: [place] 11:27 AM [facility] REPOSITORY TYPE CODE TESTS RESULT OUT OF REFERENCE UNITS RANGE LAB L501.080 70-110 mg/dL High BEDSIDE GLU 212 Result Comment: MANAGEMENT OF PATIENT CARE PER NURSING PROTOCOL Performed By: #### L501.080 #### [facility] Laboratory Point of Care [address] [place] [address] TRANSFER TO EXTENDED Observed: 03/14/2018 Status: F Source: [place] CARE 11:14 AM [facility] REPOSITORY [facility] Medical Records Department [address] [place] [address] Transfer to Extended Care MR#: [id number] Acct: [id number] Name: BEVERLY BROUSSARD Rep #: [id number] : 1940 77 From: Shamika Mane PCP: Jeffry CARRANZA,Micheal Montoya Status: ADM IN BEVERLY BROUSSARD (Patient) (Health Ins. Claim No.) (Day of Discharge to Facility) Certification of patient admission REQUIRED AT TIME OF ADMISSION. I CERTIFY THAT POST-HOSPITAL ECF SERVICES ARE REQUIRED TO BE GIVEN ON AN IN-PATIENT BASIS BECAUSE OF THE ABOVE NAMED PATIENT'S NEED FOR ALF CARE ON A CONTINUING BASIS FOR THE [...] valve concommitently with left carotid endarterectomy @ [facility] by Dr Lerma 02/06/16 Current Visit: No [...] CPAP usage q HS, has been non-compliant intermediate. (6) For recent cardiomyopathy, unclear type, continue [...] MD When: Follow-up 2-4 weeks, may see BLACK PULLER 03/14/18 1114 <Electronically signed by Shamika Mane > Date Shamika Mane CC: Ricky Gregg MD; Micheal Mercado MD Signed CBC W/DIFF, AUTOMATED Collected: 03/14/2018 Status: F Source: [place] 7:30 AM [facility] REPOSITORY TYPE CODE TESTS RESULT OUT OF [...] Lymph 1.06 Performed By: #### L100.0100 #### [facility] [address] [place] [address]. [place], [place], [address] BASIC METABOLIC Collected: 03/14/2018 Status: F Source: [place] PROFILE (BMP) 7:30 AM [facility] REPOSITORY TYPE CODE TESTS RESULT OUT OF [...] GAP 5 Performed By: #### L500.2500 #### [facility] [address] [place], [place], [id number] BEDSIDE GLUCOSE Collected: 03/14/2018 Status: F Source: [place] 7:06 AM [facility] REPOSITORY TYPE CODE TESTS RESULT OUT OF REFERENCE UNITS RANGE LAB L501.080 70-110 mg/dL High BEDSIDE GLU 252 Result Comment: MANAGEMENT OF PATIENT CARE PER NURSING PROTOCOL Performed By: #### L501.080 #### [facility] Laboratory Point of Care [address] [place], [place] [id number] BEDSIDE GLUCOSE Collected: 03/13/2018 Status: F Source: [place] 10:02 PM [facility] REPOSITORY TYPE CODE TESTS RESULT OUT OF REFERENCE UNITS RANGE LAB L501.080 70-110 mg/dL High BEDSIDE GLU 242 Result Comment: MANAGEMENT OF PATIENT CARE PER NURSING PROTOCOL Performed By: #### L501.080 #### [facility] Laboratory Point of Care [address] [facility] [place] [address] BEDSIDE GLUCOSE Collected: 03/13/2018 Status: F Source: [place] 4:25 PM [facility] REPOSITORY TYPE CODE TESTS RESULT OUT OF REFERENCE UNITS RANGE LAB L501.080 70-110 mg/dL High BEDSIDE GLU 228 Result Comment: MANAGEMENT OF PATIENT CARE PER NURSING PROTOCOL Performed By: #### L501.080 #### [facility] Laboratory Point of Care [address] [place] [address] ECHO, COMPLETE W/ Observed: 03/13/2018 Status: F Source: [place] CONTRAST 11:45 AM [facility] REPOSITORY [facility] Cardiovascular Services [address] [place] [address] Echo Complete 03/13/18 0809 MR#: [id number] Acct: [id number] Name: BEVERLY BROUSSARD Rep #: [id number] : 1940 77 From: Ricky Gregg MD [...] Dictated: 03/13/18 0809 Date Transcribed: 03/13/18 1145 Film Replacement Orderer: Signed BEDSIDE GLUCOSE Collected: 03/13/2018 Status: F Source: [place] 11:27 AM [facility] REPOSITORY TYPE CODE TESTS RESULT OUT OF REFERENCE UNITS RANGE LAB L501.080 70-110 mg/dL High BEDSIDE GLU 189 Result Comment: MANAGEMENT OF PATIENT CARE PER NURSING PROTOCOL Performed By: #### L501.080 #### [facility] Laboratory Point of Care [address] [place], [place] [id number] BEDSIDE GLUCOSE Collected: 03/13/2018 Status: F Source: [place] 6:38 AM [facility] REPOSITORY TYPE CODE TESTS RESULT OUT OF REFERENCE UNITS RANGE LAB L501.080 70-110 mg/dL High BEDSIDE GLU 195 Result Comment: MANAGEMENT OF PATIENT CARE PER NURSING PROTOCOL Performed By: #### L501.080 #### [facility] Point of Care [address] [place], [place] [id number] CBC-COMPLETE BLOOD CNT Collected: 03/13/2018 Status: F Source: [place] NO DIFF 5:25 AM [facility] REPOSITORY TYPE CODE TESTS RESULT OUT OF [...] MPV 10.5 Performed By: #### L100.0500 #### [facility] [address] [place], [place], [address] BASIC METABOLIC Collected: 03/13/2018 Status: F Source: [place] PROFILE (BMP) 5:25 AM [facility] REPOSITORY TYPE CODE TESTS RESULT OUT OF [...] GAP 9 Performed By: #### L500.2500 #### [facility] [address] [place], [place], [address] BEDSIDE GLUCOSE Collected: 03/12/2018 Status: F Source: [place] 9:41 PM [facility] REPOSITORY TYPE CODE TESTS RESULT OUT OF REFERENCE UNITS RANGE LAB L501.080 70-110 mg/dL High BEDSIDE GLU 283 Result Comment: MANAGEMENT OF PATIENT CARE PER NURSING PROTOCOL Performed By: #### L501.080 #### [facility] Point of Care [address] [place], [place] [address] VENOUS DUPLEX LOWER Observed: 03/12/2018 Status: F Source: [place] EXTREMITY 5:57 PM [facility] REPOSITORY [facility] Cardiovascular Services [address] [place] [address] Venous Duplex US - Gustavo Extrem 03/12/18 1047 MR#: [id number] Acct: [id number] Name: BEVERLY BROUSSARD Rep #: [id number] : 1940 77 From: Edwar Shore MD Attending Dr: Zane Worrell DO Status: ADM IN Ordering Dr: Tenzin Olsen MD Date: 03/12/18 Location: [facility] Sex: F C Admitted: 03/12/18 Reason For [...] Date Dictated: 03/12/18 1047 Date Transcribed: 03/12/181756 Film Replacement Orderer: Signed BEDSIDE GLUCOSE Collected: 03/12/2018 Status: F Source: [place] 5:30 PM [facility] REPOSITORY TYPE CODE TESTS RESULT OUT OF REFERENCE UNITS RANGE LAB L501.080 70-110 mg/dL High BEDSIDE GLU 235 Result Comment: MANAGEMENT OF PATIENT CARE PER NURSING PROTOCOL Performed By: #### L501.080 #### [facility] Point of Care [address] [place] [address] TROPONIN-I Collected: 03/12/2018 Status: F Source: [place] 1:00 PM [facility] REPOSITORY Order Comment: 'TROP' Serial specimen #1, #2 or #3: 3 TYPE CODE TESTS RESULT OUT OF RANGE REFERENCE UNITS LAB L501.4010 <0.045 ng/mL High 0.185 TROPONIN-I Result Comment: TROPONIN-I EXPECTED VALUES <0.045 Negative 0.045 - 0.590 Consistent with Cardiac Damage > OR = 0.600 Critical Value Not every elevated troponin is indicative of NM. These values should be used with clinical judgement in examining the patient's clinical picture for diagnosis. To establish a diagnosis of NM versus myocardial injury, there must be a demonstrated rise and/or fall in the troponin values, in addition to ischemic symptoms, EKG changes, new regional wall motion abnormality, and/or angiographical evidence. PLEASE NOTE: REFERENCE RANGES EDITED 18 Performed By: #### L501.4010 #### [facility] [address] [place], [place], [address] BEDSIDE GLUCOSE Collected: 03/12/2018 Status: F Source: [place] 11:46 AM [facility] REPOSITORY TYPE CODE TESTS RESULT OUT OF REFERENCE UNITS RANGE LAB L501.080 70-110 mg/dL High BEDSIDE GLU 275 Result Comment: MANAGEMENT OF PATIENT CARE PER NURSING PROTOCOL Performed By: #### L501.080 #### [facility] Point of Care [address] [place] [address] TROPONIN-I Collected: 03/12/2018 Status: F Source: [place] 10:20 AM [facility] REPOSITORY Order Comment: DRAW A TIGER WITH THIS TROP PLEASE 'TROP' Serial specimen #1, #2 or #3: 2 TYPE CODE TESTS RESULT OUT OF RANGE REFERENCE UNITS LAB L501.4010 <0.045 ng/mL High 0.176 TROPONIN-I Result Comment: TROPONIN-I EXPECTED VALUES <0.045 Negative 0.045 - 0.590 Consistent with Cardiac Damage > OR = 0.600 Critical Value Not every elevated troponin is indicative of NM. These values should be used with clinical judgement in examining the patient's clinical picture for diagnosis. To establish a diagnosis of NM versus myocardial injury, there must be a demonstrated rise and/or fall in the troponin values, in addition to ischemic symptoms, EKG changes, new regional wall motion abnormality, and/or angiographical evidence. PLEASE NOTE: REFERENCE RANGES EDITED 18 Performed By: #### L501.4010 #### [facility] [address] [place], [address] EMERGENCY DEPARTMENT Observed: 03/12/2018 Status: F Source: [place] SUMMARY 8:05 AM [facility] REPOSITORY [facility] Medical Records Department [address] [place] [address] Emergency Department Summary 03/12/18 0715 MR#: [id number] Acct: [id number] Name: BEVERLY BROUSSARD Rep #: [id number] : 1940 77 From: Herberth Alvarado MD [...] Indeterminate troponin. This note was generated with [employer] software. It may contain incorrect words, spelling, and punctuation that were not noted in review of the chart prior to signing ED Disposition - Plan for ED Patient: Disposition: Acute Care Hospital [facility] Chief Complaint: Chest Pain What to do if you have Problems For any increased pain, shortness of breath, bleeding, nausea or vomiting, chest pain, or any unexpected problems, contact your Primary Care Provider. Call [facility] ([phone]) or report to the closest Emergency Room. Call 911 if necessary. 03/12/18 0805 <Electronically signed by Herberth Alvarado MD> Date Herberth Alvarado MD Cosigner Signature (If Indicated): Date CC: Micheal Mercado MD TROPONIN-I Collected: 03/12/2018 Status: F Source: [place] 7:35 AM [facility] REPOSITORY Order Comment: 'TROP' Serial specimen #1, #2 or #3: 1 TYPE CODE TESTS RESULT OUT OF RANGE REFERENCE UNITS LAB L501.4010 <0.045 ng/mL High 0.164 TROPONIN-I Result Comment: TROPONIN-I EXPECTED VALUES <0.045 Negative 0.045 - 0.590 Consistent with Cardiac Damage > OR = 0.600 Critical Value Not every elevated troponin is indicative of NM. These values should be used with clinical judgement in examining the patient's clinical picture for diagnosis. To establish a diagnosis of NM versus myocardial injury, there must be a demonstrated rise and/or fall in the troponin values, in addition to ischemic symptoms, EKG changes, new regional wall motion abnormality, and/or angiographical evidence. PLEASE NOTE: REFERENCE RANGES EDITED 18 Performed By: #### L501.4010 #### [facility] [place], [address] PROTHROMBIN TIME W/INR Collected: 03/12/2018 Status: F Source: [place] 7:35 AM [facility] REPOSITORY TYPE CODE TESTS RESULT OUT OF RANGE REFERENCE UNITS LAB L300.4150 11.7-14.9 SECONDS Normal PROTIME 13.8 LAB L300.4200 Normal INR 1.1 Performed By: #### L300.3900 #### [facility] [address] [place], [place], [id number] PARTIAL THROMBOPLAST Collected: 03/12/2018 Status: F Source: [place] TIME 7:35 AM [facility] REPOSITORY TYPE CODE TESTS RESULT OUT OF RANGE REFERENCE UNITS LAB L300.4310 24.1-36.2 Seconds Normal PTT 28.3 Performed By: #### L300.4310 #### [facility] [address] [place], [address] PROTEIN C DEFIC. Collected: 03/12/2018 Status: F Source: [place] PROFILE 7:35 AM [facility] REPOSITORY TYPE CODE TESTS RESULT OUT OF RANGE REFERENCE UNITS LAB L3100.7310 60-150 % Normal PROTEIN C 93 Performed By: #### L3100.7275, L3100.7325, L4500.1999 #### [facility] (refer to report for specific site) refer to report for address and phone number PROTEIN C, FUNCTIONAL Collected: 03/12/2018 Status: F Source: [place] 7:35 AM [facility] REPOSITORY TYPE CODE TESTS RESULT OUT OF RANGE REFERENCE UNITS LAB L3100.7325 73-180 % Normal PROT C, 98 Funct Performed By: #### L3100.7275, L3100.7325, L4500.2000 #### [facility] (refer to report for specific site) refer to report for address and phone number FACTOR II, DNA Collected: 03/12/2018 Status: F Source: [place] ANALYSIS 7:35 AM [facility] REPOSITORY TYPE CODE TESTS RESULT OUT OF RANGE REFERENCE UNITS LAB L4500.2100 . Normal FACTOR Comment II,DNA Result Comment: NEGATIVE No mutation identified. Comment: A point mutation ([id number]) in the factor II (prothrombin) gene is [...] mutations. This assay detects only the prothrombin B50837M mutation and does not measure genetic abnormalities [...] health care providers to discuss results at [phone] ([id number]). Methodology: DNA analysis of the Factor II gene was performed by PCR amplification followed by restriction analysis. The diagnostic sensitivity is >99% for both. All the tests must be combined with clinical information for the most accurate interpretation. Molecular-based testing is highly accurate, but as in any laboratory test, diagnostic errors may occur. This test was developed and its performance characteristics determined by [facility]. It has not been cleared or approved by the Food and Drug Administration. Poort SR, et al. Blood. 1996; 88:7438-6705. Hussain العلي. Circulation. 2004; 110:e15-e18. Sarah I, et al. Arterioscler Thromb Vasc Biol. 1999; 19:700-703. Alma Sol, PhD, FACMG Vidhya Gay, PhD, FACMG Adela Denney MOrestesS., PhD, [facility]ACMG Tenisha Santana, PhD, FACMG Kristi Hurtado, PhD, FACMG Valentín Granda, PhD, FACMG Performed at: [address] [id number] Chemist Internship: Neeraj Saleh MD, Phone: [phone] Performed at: [facility] [place], [place] [id number] Chemist Internship: Kuldeep Clarke MD, Phone: [phone] Performed By: #### L3100.7275, L3100.7325, L4500.1999 #### [facility] (refer to report for specific site) refer to report for address and phone number ANTICARDIOLIPIN IGG, IGM Collected: 03/12/2018 Status: F Source: [place] 7:35 AM [facility] REPOSITORY TYPE CODE TESTS RESULT OUT OF [...] for address and phone number AT III [facility] / Collected: 03/12/2018 Status: F Source: [place] IMMUNOL 7:35 AM [facility] REPOSITORY TYPE CODE TESTS RESULT OUT OF [...] Status: F Source: [place] ETIENNE 7:35 AM [facility] REPOSITORY TYPE CODE TESTS RESULT OUT OF [...] Status: F Source: [place] MUTATION 7:35 AM [facility] REPOSITORY TYPE CODE TESTS RESULT OUT OF [...] the workup for venous thrombosis include the [id number] mutation in the factor II (prothrombin) gene, protein S and C deficiency, and antithrombin deficiencies. Anticardiolipin antibody and lupus anticoagulant analysis may be appropriate for certain patients, as well as homocysteine levels. Contact your local [facility] for information on how to order additional testing if desired. Genetic counselors are available for health care providers to discuss results at [phone] ([id number]). Methodology: DNA analysis of the Factor V gene was performed by allele- specific PCR. The diagnostic sensitivity and specificity is >99% for both. Molecular-based testing is highly accurate, but as in any laboratory test, diagnostic errors may occur. All test results must be combined with clinical information for the most accurate interpretation. This test was developed and its performance characteristics determined by [facility]. It has not been cleared or approved by the Food and Drug Administration. References: Yonis Preciado (1995). Clin Lab Med 16:169-186. Alma Sol, PhD, FACMG Vidhya Gay, PhD, FACMG Adela Denney MOrestesSOrestes, PhD, FACMG Tenisha Santana, PhD, FACMG Kristi Hurtado, PhD, FAC Valentín Granda PhD, FAC Performed at: [facility] [address] [id number] Chemist Internship: Neeraj Saleh MD, Phone: [phone] Performed at: [address] [id number] Chemist Internship: Alexy Rider PhD, Phone: [phone] Performed at: [address] [id number] Chemist Internship: Kuldeep Clarke MD, Phone: [phone] Performed By: #### L3100.8410, L3300.0450, L3410.2000, L4709.1150 #### [facility] (refer to report for specific site) refer to report for address and phone number JULIAN ORTEGA Collected: 03/12/2018 Status: F Source: [place] VENOM 7:35 AM [facility] REPOSITORY TYPE CODE TESTS RESULT OUT OF RANGE REFERENCE UNITS LAB L4500.1015 Normal DRVVT Result Comment: TEST RESULT LIMITS Lupus Anticoagulant Reflex PTT-LA 33.4 sec 0.0 - 51.9 dRVVT 38.7 sec 0.0 - 47.0 Lupus Reflex Interpretation Comment: No lupus anticoagulant was detected. [facility]. ORIGINAL REPORT ON FILE IN LAB CONTAINS ADDITIONAL TEST SITE INFORMATION. Performed By: #### L4500.1015 #### [facility] (refer to report for specific site) refer to report for address and phone number HISTORY AND PHYSICAL Observed: 03/12/2018 Status: F Source: [place] EXAM 6:44 AM [facility] REPOSITORY [facility] Medical Records Department [address] [place] [address] History and Physical 03/12/18 0632 MR#: [id number] Acct: [id number] Name: BEVERLY BROUSSARD Rep #: [id number] : 1940 77 From: Tenzin Olsen MD PCP: Jeffry CARRANZA,Micheal Montoya Status: ADM IN Location: [place] [address] Problem List (1) Thrombocytopenia Status: Chronic (2) Fibromyalgia Status: Chronic (3) Dementia Status: Chronic (4) Uncontrolled diabetes mellitus Status: Chronic (5) H/O aortic valve replacement Status: Chronic Comment: 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 with left carotid endarterectomy @ [facility] by Dr Lerma 02/06/16 (6) Non-rheumatic aortic [...] valve concommitently with left carotid endarterectomy @ [facility] by Dr Lerma 02/06/16 Non-rheumatic aortic stenosis [...] function with an EF of 65%. 2. Ttyegsdt-fn-nxvxer at least moderate pulmonary hypertension with evidence of desaturation both intrapulmonary and systemically. 3. Normal cardiac output. 4. No evidence of aortic insufficiency. 5. Nonobstructive coronary artery disease of the mid LAD, mid RCA, and mid left circumflex. Hx of cholecystectomy Z90.49 Surgical History: appendectomy, cataract, - - Aortic Valve replacement, left carotid endarterectomy, shoulder surgery Psychiatric History: No pertinent psych hx LINE SERVICER History: No pertinent LINE SERVICER history Smoking Status: Former smoker - *Family [...] 1 VIEW Observed: 03/12/2018 Status: F Source: [place] (PORTABLE) 4:07 AM [facility] REPOSITORY [facility] Imaging Services [address] [place] [address] Chest 1 View (Portable) MR#: [id number] Acct: [id number] Name: BEVERLY BROUSSARD Rep #: [id number] : 1940 F 77 From: Travis May PCP: Micheal Mercado MD, Chi Status: REG ER Study: Chest 1 View (Portable) Date of Exam: 03/12/18 Exam# [id number] Ordering Dr: Herberth Alvarado MD STUDY: X-RAY [...] CC: Herberth Alvarado MD; Micheal Mercado MD Film Replacement Orderer: Signed CTA CHEST W/WO Observed: 03/12/2018 Status: F Source: [place] CONTRAST 4:07 AM [facility] REPOSITORY [facility] Imaging Services [address] [place] [address] CTA Chest W/WO Contrast MR#: [id number] Acct: [id number] Name: BEVERLY BROUSSARD Rep #: [id number] : 1940 F 77 From: Ashely Copeland MD PCP: Micheal Mercado MD, Chi Status: REG ER Study: CTA Chest W/WO Contrast Date of Exam: 03/12/18 Exam# [id number] Ordering Dr: Herberth Alvarado MD STUDY: CTA [...] CC: Herberth Alvarado MD; Micheal Mercado MD Film Replacement Orderer: Signed CBC W/DIFF, AUTOMATED Collected: 03/12/2018 Status: F Source: [place] 3:49 AM [facility] REPOSITORY TYPE CODE TESTS RESULT OUT OF [...] Lymph 1.69 Performed By: #### L100.0100 #### [facility] [address] [place] [address]. [place], [place], [address] BASIC METABOLIC Collected: 03/12/2018 Status: F Source: [place] PROFILE (BMP) 3:49 AM [facility] REPOSITORY TYPE CODE TESTS RESULT OUT OF [...] GAP Performed By: #### L500.2500, L501.4010 #### [facility] [address] [place], [place], [address] TROPONIN-I Collected: 03/12/2018 Status: F Source: [place] 3:49 AM [facility] REPOSITORY TYPE CODE TESTS RESULT OUT OF RANGE REFERENCE UNITS LAB L501.4010 <0.045 ng/mL High 0.186 TROPONIN-I Result Comment: TROPONIN-I EXPECTED VALUES <0.045 Negative 0.045 - 0.590 Consistent with Cardiac Damage > OR = 0.600 Critical Value Not every elevated troponin is indicative of NM. These values should be used with clinical judgement in examining the patient's clinical picture for diagnosis. To establish a diagnosis of NM versus myocardial injury, there must be a demonstrated rise and/or fall in the troponin values, in addition to ischemic symptoms, EKG changes, new regional wall motion abnormality, and/or angiographical evidence. PLEASE NOTE: REFERENCE RANGES EDITED 18 Performed By: #### L500.2500, L501.4010 #### [facility] [address] [place], [place], [address] CBC W/DIFF, AUTOMATED Collected: 01/10/2018 Status: F Source: [place] 1:20 PM [facility] REPOSITORY TYPE CODE TESTS RESULT OUT OF [...] Lymph 0.89 Performed By: #### L100.0100 #### [facility] [address] [place], [place], [id number] COMPREHENSIVE METABOLIC Collected: 01/10/2018 Status: F Source: [place] [facility] 1:20 PM [facility] REPOSITORY TYPE CODE TESTS RESULT OUT OF [...] 11 Performed By: #### L500.4050, L501.9520 #### [facility] [address] [place], [address] THYROID STIM HORMONE Collected: 01/10/2018 Status: F Source: [place] (TSH) 1:20 PM [facility] REPOSITORY TYPE CODE TESTS RESULT OUT OF RANGE REFERENCE UNITS LAB L501.9520 0.358-3.74 uIU/mL High TSH 6.74 Performed By: #### L500.4050, L501.9520 #### [facility] [address] [place], [address] VITAMIN D,25 HYDROXY Collected: 01/10/2018 Status: F Source: [place] 1:20 PM [facility] REPOSITORY TYPE CODE TESTS RESULT OUT OF RANGE REFERENCE UNITS LAB L506.1000 29.95-100.01 ng/mL Normal Vitamin D 52.0 25-OH Result Comment: Vitamin D 25(OH) Status Range Deficiency <20 ng/mL (50nmol/L) Insuffciency 20 - 30 ng/mL (50 - 75 nmol/L) Sufficiency 30 - 100 ng/mL (75 - 250 nmol/L) Toxicity >100 ng/mL (>250 nmol/L) Performed By: #### L506.1000 #### [facility] [address] [facility] [place], [address] 12 LEAD ELECTROCARDIOGRAM Observed: 01/04/2018 Status: F Source: [place] 1:15 PM [facility] REPOSITORY [facility] Cardiovascular Services [address] [facility] [place] [address] 12 Lead EKG 01/02/18 0026 MR#: [id number] Acct: [id number] Name: BEVERLY BROUSSARD Rep #: [id number] : 1940 77 From: Rolan Garrison MD Attending Dr: Della Bermudez Status: DIS MADI Ordering Dr: Ventura Patel MD Date: 01/02/18 Location: [facility] Sex: F C Admitted: 01/02/18 Test Reason [...] Abnormal ECG Confirmed by BLADIMIR CARRANZA, ROLAN ([id number]), website/blog editor ADELA TOVAR ([id number]) on 01/04/2018 1:14:58 PM Referred By: JOAQUINA Confirmed By:ROLAN GARRISON MD 01/04/18 1315 Date Rolan Garrison MD CC: Della Bermudez; Ventura Patel MD; Micheal Mercado MD Signed DISCHARGE SUMMARY Observed: 01/03/2018 Status: F Source: [place] 4:58 PM [facility] REPOSITORY [facility] Medical Records Department [address] [place] [address] Discharge Summary 01/03/18 1618 MR#: [id number] Acct: [id number] Name: BEVERLY BROUSSARD Rep #: [id number] : 1940 77 From: Luciana Bermudez DO PCP: Micheal Mercado MD, Chi Status: ADM MADI Y Location: [place] [address] Discharge Date and Diagnosis - Problem List [...] aortic valve replacement with carotid endarterectomy at [facility] by Dr. Fonseca on 02/06/2016 who was brought to the emergency department at [facility] on 01/02/2018 by her family complaining of [...] was 0.1 which is lower than at [place] from recent admission for chest pain on 12/27/17. Stress test on 12/28/17 was negative for ischemia. The EF was 37% and there was global hypokinesis. She was started on Metoprolol at [place] from the recent admission. Metoprolol is the [...] she told me that she was in [place]. She was afebrile for the duration of [...] Normal Affect This note was generated with Syn[employer] Systemsation software. It may contain incorrect words, spelling, [...] applicable Code Visit Inpatient E AND M: 56420 Disch Hosp 01/03/18 8208 <Electronically signed by Luciana Bermudez DO> Date Luciana Bermudez DO Cosigner Signature (if applicable): Date CC: Jose Eckert MD; Della Bermudez; Ventura Ragsdale MD; Micheal Mercado MD Signed BEDSIDE GLUCOSE Collected: 01/03/2018 Status: F Source: [place] 4:46 PM [facility] REPOSITORY TYPE CODE TESTS RESULT OUT OF REFERENCE UNITS RANGE LAB L501.080 70-110 mg/dL High BEDSIDE GLU 178 Result Comment: MANAGEMENT OF PATIENT CARE PER NURSING PROTOCOL Performed By: #### L501.080 #### [facility] Laboratory Point of Care [address] [facility] [place] [address] DISCHARGE INSTRUCTION Observed: 01/03/2018 Status: F Source: [place] 4:17 PM [facility] REPOSITORY [facility] Medical Records Department [address] [place] [address] Instructions for Home/Discharge Instructions 01/03/18 1602 MR#: [id number] Acct: [id number] Name: BEVERLY BROUSSARD Rep #: [id number] : 1940 77 From: Luciana Bermudez DO [...] help slow down the decline. 2. The nursing home social worker has set you up for home health [...] 01/03/2018 Status: F Source: [place] 11:19 AM [facility] REPOSITORY TYPE CODE TESTS RESULT OUT OF REFERENCE UNITS RANGE LAB L501.080 70-110 mg/dL High BEDSIDE GLU 256 Result Comment: MANAGEMENT OF PATIENT CARE PER NURSING PROTOCOL Performed By: #### L501.080 #### [facility] Laboratory Point of Care [address] [place] [address] BEDSIDE GLUCOSE Collected: 01/03/2018 Status: F Source: [place] 6:45 AM [facility] REPOSITORY TYPE CODE TESTS RESULT OUT OF REFERENCE UNITS RANGE LAB L501.080 70-110 mg/dL High BEDSIDE GLU 222 Result Comment: MANAGEMENT OF PATIENT CARE PER NURSING PROTOCOL Performed By: #### L501.080 #### [facility] Laboratory Point of Care [address] [place] [address] CBC W/DIFF, AUTOMATED Collected: 01/03/2018 Status: F Source: [place] 5:48 AM [facility] REPOSITORY TYPE CODE TESTS RESULT OUT OF [...] Lymph 0.79 Performed By: #### L100.0100 #### [facility] [address] [place], [place], [address] COMPREHENSIVE METABOLIC Collected: 01/03/2018 Status: F Source: [facility] 5:48 AM [facility] REPOSITORY TYPE CODE TESTS RESULT OUT OF [...] Performed By: #### L500.4050, L501.2300, L501.5200 #### [facility] [address] [place], [address] PHOSPHORUS Collected: 01/03/2018 Status: F Source: [place] 5:48 AM [facility] REPOSITORY TYPE CODE TESTS RESULT OUT OF RANGE REFERENCE UNITS LAB L501.2300 2.5-4.9 mg/dL Normal PHOS 2.5 Performed By: #### L500.4050, L501.2300, L501.5200 #### [facility] [address] [place], [address] MAGNESIUM Collected: 01/03/2018 Status: F Source: [place] 5:48 AM [facility] REPOSITORY TYPE CODE TESTS RESULT OUT OF RANGE REFERENCE UNITS LAB L501.5200 1.6-2.6 mg/dL Normal MG 1.9 Performed By: #### L500.4050, L501.2300, L501.5200 #### [facility] [address] [place], [address] ROHIT W/ REFLEX MULT Collected: 01/03/2018 Status: F Source: [place] CONFIRM 5:48 AM [facility] REPOSITORY TYPE CODE TESTS RESULT OUT OF RANGE REFERENCE UNITS LAB L3100.5475 Negative Normal Negative ROHIT-DIRECT Result Comment: Performed at: [facility] [id number] Chemist Internship: Alexy Rider PhD, Phone: [phone] Performed By: #### L3100.5450 #### [facility] (refer to report for specific site) refer to report for address and phone number BEDSIDE GLUCOSE Collected: 01/02/2018 Status: F Source: [place] 9:21 PM [facility] REPOSITORY TYPE CODE TESTS RESULT OUT OF REFERENCE UNITS RANGE LAB L501.080 70-110 mg/dL High BEDSIDE GLU 295 Result Comment: MANAGEMENT OF PATIENT CARE PER NURSING PROTOCOL Performed By: #### L501.080 #### [facility] Point of Care [address] [place], [place] [address] BEDSIDE GLUCOSE Collected: 01/02/2018 Status: F Source: [place] 4:29 PM [facility] REPOSITORY TYPE CODE TESTS RESULT OUT OF REFERENCE UNITS RANGE LAB L501.080 70-110 mg/dL High BEDSIDE GLU 261 Result Comment: MANAGEMENT OF PATIENT CARE PER NURSING PROTOCOL Performed By: #### L501.080 #### [facility] Point of Care [address] [place] [address] BEDSIDE GLUCOSE Collected: 01/02/2018 Status: F Source: [place] 12:02 PM [facility] REPOSITORY TYPE CODE TESTS RESULT OUT OF REFERENCE UNITS RANGE LAB L501.080 70-110 mg/dL High BEDSIDE GLU 329 Result Comment: MANAGEMENT OF PATIENT CARE PER NURSING PROTOCOL Performed By: #### L501.080 #### [facility] Laboratory Point of Care [address] [place] [address] EMERGENCY DEPARTMENT Observed: 01/02/2018 Status: F Source: [place] SUMMARY 7:32 AM [facility] REPOSITORY [facility] Medical Records Department [address] [place] [address] Emergency Department Summary 01/02/18 0316 MR#: [id number] Acct: [id number] Name: BEVERLY BROUSSARD Rep #: [id number] : 1940 77 From: Ventura Patel MD [...] years ago. She was angry at family [employer] and called 911. Her son is here. [...] 2. dysarthria This note was generated with [employer] dictation software. It may contain incorrect words, [...] your Primary Care Provider. Call [facility] ([phone]) or report to the closest Emergency Room. Call 911 if necessary. 01/02/18 0732 <Electronically signed by [place] Patel MD> Date Ventura Patel MD Cosigner Signature (If Indicated): Date CC: Micheal Mercado MD BEDSIDE GLUCOSE Collected: 01/02/2018 Status: F Source: [place] 6:45 AM [facility] REPOSITORY TYPE CODE TESTS RESULT OUT OF REFERENCE UNITS RANGE LAB L501.080 70-110 mg/dL High BEDSIDE GLU 283 Result Comment: MANAGEMENT OF PATIENT CARE PER NURSING PROTOCOL Performed By: #### L501.080 #### [facility] Point of Care [address] [place] [address] BRAIN WITHOUT Observed: 01/02/2018 Status: F Source: [place] CONTRAST 4:34 AM [facility] REPOSITORY [facility] Imaging Services [address] [place] [address] Brain without Contrast MR#: [id number] Acct: [id number] Name: BEVERLY BROUSSARD Rep #: [id number] : 1940 F 77 From: Justino Peña MD PCP: Jeffry CARRANZA,Micheal Montoya Status: ADM IN Study: Brain without Contrast Date of Exam: 01/02/18 Exam# [id number] Ordering Dr: Ermias Richards MD STUDY: MRI [...] , CC: Ermias Richards; Micheal Mercado MD Film Replacement Orderer: Signed HISTORY AND PHYSICAL Observed: 01/02/2018 Status: F Source: [place] EXAM 3:52 AM [facility] REPOSITORY [facility] Medical Records Department [address] [place] [address] History and Physical 01/02/18 0337 MR#: [id number] Acct: [id number] Name: BEVERLY BROUSSARD Rep #: [id number] : 1940 77 From: Ermias Richards MD PCP: Micheal Mercado MD, Chi Status: ADM IN Location: [place] [address] ADDENDUM by Ermias Richards on 01/02/18 at [...] argument with her and she called the [employer] office. He mentioned that she had intermittent [...] surgery Psychiatric History: No pertinent psych hx LINE SERVICER History: No pertinent LINE SERVICER history Lives: Spouse/ Significant Other Smoking Status: [...] pulmonary hypertension. This note was generated with [employer] dictation software. It may contain incorrect words, spelling, and punctuation that were not noted in checking the note before signing. Code Visit OBSV E AND M: 20904 Initial observation care L3 01/02/18 0350 <Electronically signed by Ermias Richards MD> Date Ermias Richards MD Cosigner Signature: Date (if applicable) CC: Ermias Richards; Micheal Mercado MD Signed URINALYSIS, COMPLETE Collected: 01/02/2018 Status: F Source: [place] 1:57 AM [facility] REPOSITORY Order Comment: How was Urine Obtained? TECHNICAL PROPOSAL WRITER TO SPECIFY TYPE CODE TESTS RESULT OUT [...] URINE SEEN Performed By: #### L400.0001 #### [facility] [address] [place], [address] URINE DRUG SCREEN Collected: 01/02/2018 Status: F Source: [place] (VISTA) 1:57 AM [facility] REPOSITORY TYPE CODE TESTS RESULT OUT OF [...] Normal NEGATIVE Performed By: #### L505.5000 #### [facility] [address] [place], [address] CBC W/DIFF, AUTOMATED Collected: 01/02/2018 Status: F Source: [place] 12:25 AM [facility] REPOSITORY TYPE CODE TESTS RESULT OUT OF [...] Lymph 0.84 Performed By: #### L100.0100 #### [facility] [address] [place], [address] BASIC METABOLIC Collected: 01/02/2018 Status: F Source: [place] PROFILE (BMP) 12:25 AM [facility] REPOSITORY Order Comment: 'TROP' Serial specimen #1, [...] 6 Performed By: #### L500.2500, L501.4010 #### [facility] [address] [facility] [place], [place], [address] TROPONIN-I Collected: 01/02/2018 Status: F Source: [place] 12:25 AM [facility] REPOSITORY Order Comment: 'TROP' Serial specimen #1, #2, #3, or #4: 1 TYPE CODE TESTS RESULT OUT OF RANGE REFERENCE UNITS LAB L501.4010 <0.06 ng/mL High 0.10 TROPONIN-I Result Comment: TROPONIN-I EXPECTED VALUES <0.05 NEGATIVE 0.06 - 0.59 AT RISK OF NM > OR = 0.60 SUGGEST NM Performed By: #### L500.2500, L501.4010 #### [facility] [address] [facility] [place], [place], [address] ALCOHOL, BLOOD Collected: 01/02/2018 Status: F Source: [place] (MEDICAL)-SERUM 12:25 AM [facility] REPOSITORY TYPE CODE TESTS RESULT OUT OF [...] fatal coma Performed By: #### L501.9100 #### [facility] [address] [place], [place], [address] CRP Collected: 01/02/2018 Status: F Source: [place] 12:25 AM [facility] REPOSITORY TYPE CODE TESTS RESULT OUT OF RANGE REFERENCE UNITS LAB L501.6710 0.0-3.0 mg/L High 8.57 C-REACTIVE PROT Result Comment: C-Reactive Protein (CRP) provides useful information for the diagnosis, therapy and monitoring of inflammatory processes and associated diseases. For the evaluation of Relative Risk for Cardiovascular Disease, a High Sensitivity CRP (HSCRP) should be ordered. Performed By: #### L501.6710 #### [facility] [place], [address] VITAMIN B12 Collected: 01/02/2018 Status: F Source: [place] 12:25 AM [facility] REPOSITORY TYPE CODE TESTS RESULT OUT OF RANGE REFERENCE UNITS LAB L503.0105 211-911 pg/mL Normal Vitamin B12 421 Performed By: #### L503.0105 #### [facility] [address] [place] [address], [address] ERYTHROCYTE SED RATE Collected: 01/02/2018 Status: F Source: [place] 12:25 AM [facility] REPOSITORY TYPE CODE TESTS RESULT OUT OF RANGE REFERENCE UNITS LAB L102.0000 0-30 mm/hr Normal SED RATE 5 Performed By: #### L101.9900 #### [facility] [address] [place] [address]. [place], [address] RAPID PLASMIN REAGIN Collected: 01/02/2018 Status: F Source: [place] (RPR) 12:25 AM [facility] REPOSITORY TYPE CODE TESTS RESULT OUT OF REFERENCE UNITS RANGE LAB L700.5000 NONREACTIVE NONREACTIVE Normal RPR Performed By: #### L700.5000 #### [facility] [place], [address] BRAIN/HEAD WITHOUT Observed: 01/02/2018 Status: F Source: [place] CONTRAST 12:[address] [facility] Imaging Services [address] [place] [address] [place] [address] Brain/Head without Contrast MR#: [id number] Acct: [id number] Name: BEVERLY BROUSSARD Rep #: [id number] : 1940 F 77 From: Kyle Contreras MD PCP: Micheal Mercado MD, Chi Status: REG ER Study: Brain/Head without Contrast Date of Exam: 01/02/18 Exam# [id number] Ordering Dr: Ventura Patel MD STUDY: CT [...] CC: Ventura Patel MD; Micheal Mercado MD Film Replacement Orderer: Signed CHEST 1 VIEW Observed: 01/02/2018 Status: F Source: [place] (PORTABLE) 12:05 AM [facility] REPOSITORY [facility] Imaging Services [address] [place] [address] Chest 1 View (Portable) MR#: [id number] Acct: [id number] Name: BEVERLY BROUSSARD N Rep #: [id number] : 1940 F 77 From: Kyle Contreras MD PCP: Micheal Mercado MD, Chi Status: REG ER Study: Chest 1 View (Portable) Date of Exam: 01/02/18 Exam# [id number] Ordering Dr: Ventura Patel MD STUDY: X-RAY [...] CC: Ventura Patel MD; Micheal Mercado MD Film Replacement Orderer: Signed 12 LEAD ELECTROCARDIOGRAM Observed: 12/30/2017 Status: F Source: [place] 3:58 PM [facility] REPOSITORY [facility] Cardiovascular Services [address] [place] [address] 12 Lead EKG 12/28/17 0539 MR#: [id number] Acct: [id number] Name: BEVERLY BROUSSARD N Rep #: [id number] : 1940 77 From: Ricky Gregg MD Attending Dr: Carmen Parker MD Status: DIS MADI Ordering Dr: Hood Lawson MD Date: 12/28/17 Location: [facility] Sex: F C Admitted: 12/27/17 Test Reason [...] IS UNCONFIRMED Confirmed by RICKY GREGG MD ([id number]), website/blog editor ADELA TOVAR ([id number]) on 12/30/2017 3:58:33 PM Referred By: RENNY Confirmed By:RICKY GREGG MD 12/30/17 1558 Date Ricky Gregg MD CC: Carmen Parker MD; Hood Lawson MD; Micheal Mercado MD Signed 12 LEAD ELECTROCARDIOGRAM Observed: 12/30/2017 Status: F Source: [place] 3:33 PM [facility] REPOSITORY [facility] Cardiovascular Services [address] [place] [address] 12 Lead EKG 12/27/171920 MR#: [id number] Acct: [id number] Name: BEVERLY BROUSSARD Rep #: [id number] : 1940 77 From: Ricky Gregg MD Attending Dr: Carmen Parker MD Status: DIS MADI Ordering Dr: Carlee Kwok MD Date: 12/27/17 Location: [facility] Sex: F C Admitted: 12/27/17 Test Reason [...] Abnormal ECG Confirmed by RICKY GREGG MD ([id number]), website/blog editor ADELA TOVAR ([id number]) on 12/30/2017 3:32:45 PM Referred By: ASHLEY KWOK Confirmed By:RICKY GREGG MD 12/30/17 1532 Date Ricky Gregg MD CC: Carlee Kwok MD; Carmen Parker MD; Micheal Mercado MD Signed STRESS REPORT Observed: 12/28/2017 Status: F Source: [place] 5:26 PM [facility] REPOSITORY [facility] Cardiovascular Services [address] [place] [address] MR#: [id number] Acct: [id number] Name: BEVERLY BROUSSARD Rep #: [id number] : 1940 77 From: Ricky Gregg MD Primary Care: Jeffry CARRANZA,Micheal Mnotoya Status: DIS MADI Ordering Dr: Sex: F [...] MD Date Dictated: 12/28/171721 Date Transcribed: 12/28/171721 Film Replacement Orderer: [place] Signed CONSULTATION Observed: 12/28/2017 Status: F Source: [place] 2:58 PM [facility] REPOSITORY [facility] Medical Records Department [address] [place] [address] Consultation 12/28/17 1446 MR#: [id number] Acct: [id number] Name: BEVERLY BROUSSARD Rep #: [id number] : 1940 77 From: [place] Ragsdale MD PCP: Micheal Mercado MD, Chi Status: ADM MADI Y Location: [place] [address] Problem List (1) Atypical chest pain Status: Acute (2) H/O aortic valve replacement Status: Resolved Comment: 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 with left carotid endarterectomy @ [place] by Dr Lerma 02/06/16 (3) COPD (chronic [...] quit around 40 years ago after a 12-qsid-tcfj smoking history, previous CVA in February 2014 [...] she was at rest. Patient came to [facility] ER last evening out of an [...] History (Last Reviewed 11/29/17 @ 13:02 by Moar Medina) Mother CVA (cerebral vascular accident) Diabetes [...] 82.4 H, Lymph % (Auto) 10.0 L, [place] % (Auto) 7.3, Eos % (Auto) 0.0, [...] already on Plavix for her previous CVA. [place] at this point I would recommend continuing [...] AM. Code Visit Inpatient Cindi AND M: 62200 Init Hosp L2 12/28/17 1458 <Electronically signed by [place] Ragsdale MD> Date [place] Ragsdale MD Cosigner Signature (if applicable): Date CC: [place] Ragsdale MD; Micheal Mercado MD Signed DISCHARGE SUMMARY Observed: 12/28/2017 Status: F Source: [place] 2:53 PM [facility] REPOSITORY [facility] Medical Records Department [address] [place] [address] Discharge Summary 12/28/17 1358 MR#: [id number] Acct: [id number] Name: BEVERLY BROUSSARD Rep #: [id number] : 1940 77 From: Carmen Parker MD PCP: Micheal Mercado MD, Chi Status: ADM MADI Y Location: [place] [address] Discharge Date and Diagnosis - Problem List [...] applicable Code Visit OBSV E AND M: 01075 Observation care discharge 12/28/17 1453 <Electronically signed by Carmen Parker MD> Date Carmen Parker MD Cosigner Signature (if applicable): Date CC: Carmen Parker MD; Micheal Mercado MD Signed DISCHARGE INSTRUCTION Observed: 12/28/2017 Status: F Source: [place] 1:58 PM [facility] REPOSITORY [facility] Medical Records Department [address] [place] [address] Instructions for Home/Discharge Instructions 12/28/17 1356 MR#: [id number] Acct: [id number] Name: BEVERLY BROUSSARD Rep #: [id number] : 1940 77 From: Carmen Parker MD [...] 12/28/2017 Status: F Source: [place] 11:46 AM [facility] REPOSITORY TYPE CODE TESTS RESULT OUT OF REFERENCE UNITS RANGE LAB L501.080 70-110 mg/dL High BEDSIDE GLU 211 Result Comment: MANAGEMENT OF PATIENT CARE PER NURSING PROTOCOL Performed By: #### L501.080 #### [facility] Laboratory Point of Care [address] [place] [address] TROPONIN-I Collected: 12/28/2017 Status: F Source: [place] 11:34 AM [facility] REPOSITORY Order Comment: PT IN STRESS TEST FWC WHEN PT RETURNS. 1115 PATIENT STILL GONE 'TROP' Serial specimen #1, #2, #3, or #4: 4 TYPE CODE TESTS RESULT OUT OF RANGE REFERENCE UNITS LAB L501.4010 <0.06 ng/mL High 0.31 TROPONIN-I Result Comment: TROPONIN-I EXPECTED VALUES <0.05 NEGATIVE 0.06 - 0.59 AT RISK OF NM > OR = 0.60 SUGGEST NM Performed By: #### L501.4010 #### [facility] [address] [place], [place], [address] BEDSIDE GLUCOSE Collected: 12/28/2017 Status: F Source: [place] 6:48 AM [facility] REPOSITORY TYPE CODE TESTS RESULT OUT OF REFERENCE UNITS RANGE LAB L501.080 70-110 mg/dL High BEDSIDE GLU 264 Result Comment: MANAGEMENT OF PATIENT CARE PER NURSING PROTOCOL Performed By: #### L501.080 #### [facility] Point of Care [address] [place], [place] [address] CBC W/DIFF, AUTOMATED Collected: 12/28/2017 Status: F Source: [place] 3:56 AM [facility] REPOSITORY TYPE CODE TESTS RESULT OUT OF [...] Lymph 0.97 Performed By: #### L100.0100 #### [facility] [address] [place], [address] COMPREHENSIVE METABOLIC Collected: 12/28/2017 Status: F [facility] AM [facility] REPOSITORY Order Comment: 'TROP' Serial specimen #1, [...] #### L500.4050, L500.4100, L501.4010, L501.9520, L506.0400 #### [facility] [place], [address] LIPID PROFILE Collected: 12/28/2017 Status: F Source: [place] 3:56 AM [facility] REPOSITORY Order Comment: 'TROP' Serial specimen #1, [...] #### L500.4050, L500.4100, L501.4010, L501.9520, L506.0400 #### [facility] [address] [place], [place], [address] TROPONIN-I Collected: 12/28/2017 Status: F Source: [place] 3:56 AM [facility] REPOSITORY Order Comment: 'TROP' Serial specimen #1, #2, #3, or #4: 3 TYPE CODE TESTS RESULT OUT OF RANGE REFERENCE UNITS LAB L501.4010 <0.06 ng/mL High 0.26 TROPONIN-I Result Comment: TROPONIN-I EXPECTED VALUES <0.05 NEGATIVE 0.06 - 0.59 AT RISK OF NM > OR = 0.60 SUGGEST NM Performed By: #### L500.4050, L500.4100, L501.4010, L501.9520, L506.0400 #### [facility] [address] [place], [place], [address] THYROID STIM HORMONE Collected: 12/28/2017 Status: F Source: [place] (TSH) 3:56 AM [facility] REPOSITORY Order Comment: 'TROP' Serial specimen #1, #2, #3, or #4: 3 TYPE CODE TESTS RESULT OUT OF RANGE REFERENCE UNITS LAB L501.9520 0.358-3.74 uIU/mL High TSH 4.22 Performed By: #### L500.4050, L500.4100, L501.4010, L501.9520, L506.0400 #### [facility] [address] [place], [address] T4 FREE DIRECT Collected: 12/28/2017 Status: F Source: [place] 3:56 AM [facility] REPOSITORY Order Comment: 'TROP' Serial specimen #1, #2, #3, or #4: 3 TYPE CODE TESTS RESULT OUT OF RANGE REFERENCE UNITS LAB L506.0400 0.76-1.46 ng/dL Normal T4 FREE 1.08 DIRECT Performed By: #### L500.4050, L500.4100, L501.4010, L501.9520, L506.0400 #### [facility] [address] [place], [address] PROTHROMBIN TIME W/INR Collected: 12/28/2017 Status: F Source: [place] 3:56 AM [facility] REPOSITORY TYPE CODE TESTS RESULT OUT OF RANGE REFERENCE UNITS LAB L300.4150 11.7-14.9 SECONDS Normal PROTIME 14.4 LAB L300.4200 Normal INR 1.1 Performed By: #### L300.3900, L300.4310 #### [facility] [address] [place], [address] PARTIAL THROMBOPLAST Collected: 12/28/2017 Status: F Source: [place] TIME 3:56 AM [facility] REPOSITORY TYPE CODE TESTS RESULT OUT OF RANGE REFERENCE UNITS LAB L300.4310 24.1-36.2 Seconds Normal PTT 27.0 Performed By: #### L300.3900, L300.4310 #### [facility] [address] [place], [address] HEMOGLOBIN A1C Collected: 12/28/2017 Status: F Source: [place] 3:56 AM [facility] REPOSITORY TYPE CODE TESTS RESULT OUT OF RANGE REFERENCE UNITS LAB L501.9985 4.2-6.3 % High HGB A1C 10.4 Performed By: #### L501.9985 #### [facility] [address] [place], [address] EMERGENCY DEPARTMENT Observed: 12/28/2017 Status: F Source: [place] SUMMARY 12:06 AM [facility] REPOSITORY [facility] Medical Records Department [address] [place] [address] Emergency Department Summary 12/27/17 193 MR#: [id number] Acct: [id number] Name: BEVERLY BROUSSARD Rep #: [id number] : 1940 77 From: Carlee Kwok MD [...] pain, hyperglycemia This note was generated with [employer] dictation software. It may contain incorrect words, [...] your Primary Care Provider. Call [facility] ([phone]) or report to the closest Emergency Room. Call 911 if necessary. 12/28/17 0006 <Electronically signed by Carlee Kwok MD> Date Carlee Kwok MD Cosigner Signature (If Indicated): Date CC: Micheal Mercado MD BEDSIDE GLUCOSE Collected: 12/27/2017 Status: F Source: [place] 11:15 PM [facility] REPOSITORY TYPE CODE TESTS RESULT OUT OF REFERENCE UNITS RANGE LAB L501.080 70-110 mg/dL High BEDSIDE GLU 197 Result Comment: MANAGEMENT OF PATIENT CARE PER NURSING PROTOCOL Performed By: #### L501.080 #### [facility] Point of Care [address] [facility] [place] [address] TROPONIN-I Collected: 12/27/2017 Status: F Source: [place] 11:14 PM [facility] REPOSITORY Order Comment: 'TROP' Serial specimen #1, #2, #3, or #4: 2 TYPE CODE TESTS RESULT OUT OF RANGE REFERENCE UNITS LAB L501.4010 <0.06 ng/mL High 0.11 TROPONIN-I Result Comment: TROPONIN-I EXPECTED VALUES <0.05 NEGATIVE 0.06 - 0.59 AT RISK OF NM > OR = 0.60 SUGGEST NM Performed By: #### L501.4010 #### [facility] [address] [place], [address] HISTORY AND PHYSICAL Observed: 12/27/2017 Status: F Source: [place] EXAM 9:06 PM [facility] REPOSITORY [facility] Medical Records Department [address] [place] [address] History and Physical 12/27/172050 MR#: [id number] Acct: [id number] Name: BEVERLY BROUSSARD Rep #: [id number] : 1940 77 From: Hood Lawson MD PCP: Jeffry CARRANZA,Micheal Montoya Status: ADM MADI Y Location: [place] [address] Problem List (1) Atypical chest pain Status: Acute (2) Uncontrolled diabetes mellitus Status: Chronic Qualifiers: Diabetes mellitus type: type 2 (3) Obesity Status: Chronic (4) H/O aortic valve replacement Status: Resolved Comment: 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 with left carotid endarterectomy @ [place] by Dr Lerma 02/06/16 (5) Non-rheumatic aortic [...] 85.1 H, Lymph % (Auto) 5.1 L, [place] % (Auto) 9.7, Eos % (Auto) 0.0, [...] disease. Code Visit OBSV E AND M: 80832 Initial observation care L3 12/27/172105 <Electronically signed by Hood Lawson MD> Date Hood Lawson MD Cosigner Signature: Date (if applicable) CC: Hood Lawson MD; Micheal Mercado MD Signed CBC W/DIFF, AUTOMATED Collected: 12/27/2017 Status: F Source: [place] 7:35 PM [facility] REPOSITORY TYPE CODE TESTS RESULT OUT OF [...] LYMPHOPENIA NOTED Performed By: #### L100.0100 #### [facility] [address] [place], [address] BASIC METABOLIC Collected: 12/27/2017 Status: F Source: [place] PROFILE (BMP) 7:35 PM [facility] REPOSITORY Order Comment: 'TROP' Serial specimen #1, [...] 7 Performed By: #### L500.2500, L501.4010 #### [facility] [address] [place], [address] TROPONIN-I Collected: 12/27/2017 Status: F Source: [place] 7:35 PM [facility] REPOSITORY Order Comment: 'TROP' Serial specimen #1, #2, #3, or #4: 1 TYPE CODE TESTS RESULT OUT OF RANGE REFERENCE UNITS LAB L501.4010 <0.06 ng/mL Normal < 0.02 TROPONIN-I Result Comment: TROPONIN-I EXPECTED VALUES <0.05 NEGATIVE 0.06 - 0.59 AT RISK OF NM > OR = 0.60 SUGGEST NM Performed By: #### L500.2500, L501.4010 #### [facility] [address] [place], [address] BNP,B-TYPE NATRIURETIC Collected: 12/27/2017 Status: F Source: [place] PEPTIDE 7:35 PM [facility] REPOSITORY TYPE CODE TESTS RESULT OUT OF RANGE REFERENCE UNITS LAB L503.6620 0-100 pg/mL High B-TYPE 743.4 KIERSTEN PEP Performed By: #### L503.6620 #### [facility] [address] [place], [address] CHEST 1 VIEW Observed: 12/27/2017 Status: F Source: [place] (PORTABLE) 7:32 PM [facility] REPOSITORY [facility] Imaging Services [address] [place] [address] Chest 1 View (Portable) MR#: [id number] Acct: [id number] Name: BEVERLY BROUSSARD Geoffrey Rep #: [id number] : 1940 F 77 From: Giovany Omalley PCP: Jeffry CARRANZA,Wellntel Status: REG ER Study: Chest 1 View (Portable) Date of Exam: 12/27/17 Exam# [id number] Ordering Dr: Carlee Kwok MD STUDY: X-RAY [...] CC: Carlee Kwok MD; Micheal Mercado MD Film Replacement Orderer: Signed BEDSIDE GLUCOSE Collected: 12/27/2017 Status: F Source: [place] 7:27 PM [facility] REPOSITORY TYPE CODE TESTS RESULT OUT OF REFERENCE UNITS RANGE LAB L501.080 70-110 mg/dL High alert BEDSIDE GLU > 500 Result Comment: Orders Followed MANAGEMENT OF PATIENT CARE PER NURSING PROTOCOL Performed By: #### L501.080 #### [facility] [place] [address] BASIC METABOLIC Collected: 12/26/2017 Status: F Source: [place] PROFILE (BMP) 3:52 PM [facility] REPOSITORY Order Comment: 'TROP' Serial specimen #1, [...] Performed By: #### L500.2500, L501.3620, L501.4010 #### [facility] [address] [place], [place], [address] CPK TOTAL, CREATINE Collected: 12/26/2017 Status: F Source: [place] KINASE 3:52 PM [facility] REPOSITORY Order Comment: 'TROP' Serial specimen #1, #2, #3, or #4: 1 TYPE CODE TESTS RESULT OUT OF RANGE REFERENCE UNITS LAB L501.3620 26-192 U/L Normal CPK TOTAL 43 Performed By: #### L500.2500, L501.3620, L501.4010 #### [facility] [address] [place], [place], [address] TROPONIN-I Collected: 12/26/2017 Status: F Source: [place] 3:52 PM [facility] REPOSITORY Order Comment: 'TROP' Serial specimen #1, #2, #3, or #4: 1 TYPE CODE TESTS RESULT OUT OF RANGE REFERENCE UNITS LAB L501.4010 <0.06 ng/mL Normal < 0.02 TROPONIN-I Result Comment: TROPONIN-I EXPECTED VALUES <0.05 NEGATIVE 0.06 - 0.59 AT RISK OF NM > OR = 0.60 SUGGEST NM Performed By: #### L500.2500, L501.3620, L501.4010 #### [facility] [address] [facility] [address] CBC W/DIFF, AUTOMATED Collected: 12/26/2017 Status: F Source: [place] 3:52 PM [facility] REPOSITORY TYPE CODE TESTS RESULT OUT OF [...] Lymph 0.73 Performed By: #### L100.0100 #### [facility] [address] [place], [address] MYOGLOBIN, SERUM Collected: 12/26/2017 Status: F Source: [place] 3:52 PM [facility] REPOSITORY TYPE CODE TESTS RESULT OUT OF RANGE REFERENCE UNITS LAB L3600.5100 25-58 ng/mL High 60 Myoglobin, Ser Result Comment: Performed at: - [facility] [address] [id number] Chemist Internship: Alexy Rider PhD, Phone: [phone] Performed By: #### L3600.5100 #### [facility] (refer to report for specific site) refer to report for address and phone number CARDIOLOGY VISIT Observed: 11/29/2017 Status: F Source: [place] REPORT 1:26 PM [facility] REPOSITORY [facility] [address] [place], [place] [address] OFFICE VISIT Date of Service: 11/29/17 MR#: [id number] Acct: [id number] Name: BEVERLY BROUSSARD Rep #: [id number] : 1940 Provider: Ventura Ragsdale MD Age/Sex: 77/F Location: [facility] [place] Status: Signed HPI HPI Chief Complaint: Routine f/u Details: referring physician: Dr. Liu Mrs. Patel a very pleasant 77-year-old morbidly obese diabetic female with a history of hypertension, hypercholesterolemia, former smoker who quit around 40 years ago after a 76-dwvv-qzsq smoking history, previous CVA in February 2014 [...] underwent successful aortic valve replacement with a [place] sutureless valve by Dr. Fonseca at [facility] on 01/27/06, as well as concomitant left carotid endarterectomy at the same time. no additional carotid endarterectomy was performed on the right carotid. Postoperatively she developed some atrial fibrillation and was treated with amiodarone therapy. She was subsequently transferred to the rehab center, and is now back home. She has completed physical therapy at [facility]. She has also completed cardiac rehab without [...] mg PO QHS 11/29/17 [History Confirmed 11/29/17] [facility] Medical History Obesity (Chronic) Non-rheumatic aortic [...] valve concommitently with left carotid endarterectomy @ [place] by Dr Lerma 02/06/16 Plan 1. Aortic [...] applicable) CC: Observed: 10/27/2017 Status: F Source: [place] RESPIRATORY PANEL 5:20 PM [facility] MOLECULAR REPOSITORY RP PANEL ADENOVIRUS Not Detected [...] acid amplification Performed By: #### M100.638 #### [facility] [address] [place], [address] CBC W/DIFF, AUTOMATED Collected: 10/10/2017 Status: F Source: [place] 4:21 PM [facility] REPOSITORY TYPE CODE TESTS RESULT OUT OF [...] Lymph 0.81 Performed By: #### L100.0100 #### [facility] [address] [place], [place], [address] COMPREHENSIVE METABOLIC Collected: 10/10/2017 Status: F Source: [facility] 4:21 PM [facility] REPOSITORY TYPE CODE TESTS RESULT OUT OF [...] 9 Performed By: #### L500.4050, L501.9520 #### [facility] [address] [place], [address] THYROID STIM HORMONE Collected: 10/10/2017 Status: F Source: [place] (TSH) 4:21 PM [facility] REPOSITORY TYPE CODE TESTS RESULT OUT OF RANGE REFERENCE UNITS LAB L501.9520 0.358-3.74 uIU/mL Normal TSH 1.53 Performed By: #### L500.4050, L501.9520 #### [facility] [address] [place], [address] VITAMIN D,25 HYDROXY Collected: 10/10/2017 Status: F Source: [place] 4:21 PM [facility] REPOSITORY TYPE CODE TESTS RESULT OUT OF REFERENCE UNITS RANGE LAB L506.1000 19.95-100.01 ng/mL Low Vitamin D 19.1 25-OH Result Comment: Vitamin D 25(OH) Status Range Deficiency <20 ng/mL (50nmol/L) Insuffciency 20 - 30 ng/mL (50 - 75 nmol/L) Sufficiency 30 - 100 ng/mL (75 - 250 nmol/L) Toxicity >100 ng/mL (>250 nmol/L) Performed By: #### L506.1000 #### [facility] [address] [place], [address] ALLERGIES ALLERGIES DATE TYPE / NAME / CODE REACTION SEVERITY SOURCE CODE 09/01/2018 Drug prochlorperazine seizures [place] Allergy/41 edisylate/[id number]([facility] 09/01/2018 Drug prochlorperazine seizures [place] Allergy/41 maleate/[id number](RXN [facility]1410[facility] 09/01/2018 Drug tolmetin syncope [place] Allergy/41 sodium/[id number](RXNO Community 7809381([facility]) Repository 09/01/2018 Drug pregabalin/[id number]( MENTAL STATUS [place] Allergy/41 RXNORM) CHANGES Community 8891730([facility]) Repository ENCOUNTERS ENCOUNTERS ADMIT/DISCHARGE ACCOUNT ADMITTING ENCOUNTER LOCATION SOURCE NUMBER CLASS 09/07/2018/ [id number] Ambulatory BMSBuilding:B [place] 9 [address] [facility] Repository 09/04/2018 [id number] Ambulatory [place] 0 [facility] ing:OLS.AVEC Repository 09/02/2018 [id number] Ambulatory [place] 5 [facility] Hospital ing:OLS.AVEC Repository 08/13/2018 [id number] Ambulatory [place] 6 [facility] Hospital ing:OLS.AVEC Repository 08/10/2018 [id number] Ambulatory BMSBuilding:B [place] 0 MS.[facility] Repository 08/10/2018 [id number] Ambulatory [place] 3 [facility] Hospital ing:CVS Repository 06/26/2018 [id number] Ambulatory BMSBuilding:B [place] 7 [facility] Repository 05/11/2018/ [id number] Ambulatory BMSBuilding:B [place] [address] [facility] Repository 05/04/2018 [id number] Ambulatory [place] 4 [facility] Hospital ing:OLS.AVEC Repository 04/24/2018 [id number] Ambulatory [place] 5 [facility] Hospital ing:OLS.AVED Repository 04/03/2018 [id number] Ambulatory [place] 4 [facility] Hospital ing:OLS.AVED Repository 03/27/2018 [id number] Ambulatory [place] 5 [facility] Hospital ing:OLS.AVED Repository 03/20/2018 [id number] Ambulatory [place] 3 [facility] Hospital ing:OLS.AVED Repository 03/12/2018/ [id number] Tenzin Olsen Inpatient [place] 8 1 Encounter [facility] Hospital ing:PCURoom: Repository [id number]: 1 03/12/2018 [id number] Tenzin Olsen Ambulatory BMSBuilding:B [place] 2 [facility] Repository 03/12/2018 [id number] Pretty Tenzin Ambulatory BMSBuilding:B [place] 2 [facility] Repository 03/12/2018 [id number] Pretty Tenzin Ambulatory BMSBuilding:B [place] 1 [facility] Repository 03/12/2018 [id number] Tenzin Olsen Ambulatory BMSBuilding:B [place] 9 [facility] Repository 03/12/2018 [id number] PrettyTenzin ellsworth Ambulatory BMSBuilding:B [place] [address] [facility] Repository 03/12/2018/ [id number] Ambulatory BMSBuilding:W [place] 8 9 [facility] Repository 02/27/2018 [id number] Ambulatory [place] 8 [facility] Hospital ing:POLAB3 Repository 01/10/2018 [id number] Ambulatory [place] 1 [facility] Hospital ing:POLAB3 Repository 01/02/2018/ [id number] [facility], Ambulatory [place] 8 8 [facility] ing:PCURoom: Repository [id number]: 1 01/02/2018 [id number] [place], Ambulatory BMSBuilding:B [place] 1 Ghasem [place].[facility] Repository 01/02/2018 [id number] [facility], Ambulatory BMSBuilding:B [place] 2 [place]em [place].[facility] Repository 12/27/2017/ [id number] [facility], Ambulatory [place] 8 2 [facility] ing:PCURoom: Repository [id number]: 1 12/27/2017 [id number] [facility], Ambulatory BMSBuilding:B [place] 2 [place].[facility] Repository 12/27/2017 [id number] [facility], Ambulatory BMSBuilding:B [place] 8 [place].[facility] Repository 12/27/2017 [id number] [facility], Ambulatory BMSBuilding:B [place] 3 [place] [facility] Repository 12/26/2017 [id number] Ambulatory [place] 8 [facility] Hospital ing:POLAB3 Repository 11/29/2017/ [id number] Ambulatory BMSBuilding:B [place] 8 [address] [facility] Repository 11/28/2017 [id number] Ambulatory BMSBuilding:B [place] [address] [facility] Repository 10/27/2017 [id number] Ambulatory [place] 4 [facility] Hospital ing:PSN Repository 10/10/2017 [id number] Ambulatory [place] 8 [facility] ing:POLAB3 Repository PAYERS PAYERS ENCOUNTER GUARANTOR PAYER SUBSCRIBER SOURCE 09/07/2018 FALGUNI L Primary [place] [id number] Insurance:MEDICARE BALDNERDOB: [address] [id number] , [place] [address]Jxo: Number: Repository [id number] () Date:2018-05-11 09/07/2018 Secondary FALGUNI L [place] Insurance:ANTHEMPolic BALDNERDOB: Community y Number: [id number] [id number] Repository Date:3650-65-45[address] [place] [address]JD: 09/07/2018 Tertiary NOT GIVENUNK [place] Insurance:SELF PAY [facility] Number: Effective Repository Date:2018-08-28 09/04/2018 FALGUNI L Primary [place] N [place] [id number] E. Insurance:MEDICARE BALDNERDOB: [id number] Number: Repository [place] [id number] [place], Date:2018-09-04 pr [address]Dmx: () 09/04/2018 Secondary FALGUNI L [place] Insurance:ANTHEMPolic BALDNERDOB: Community y Number: [id number] [id number] Repository Date:1438-06-20WM [address] [place] [id number]: 09/04/2018 Tertiary NOT GIVENUNK [place] Insurance:SELF PAY [facility] Number: Effective Repository Date:2018-09-04 09/02/2018 FALGUNI L Primary B[place] N [place] [id number] E. Insurance:MEDICARE BALDNERDOB: [facility] [id number] CenterNUE Number: Repository OF [id number] [place], Date:2018-09-02 pr [id number]: () 09/02/2018 Secondary FALGUNI L Ron Insurance:ANTHEMPolic BALDNERDOB: Community y Number: [id number] Hospital [id number] Repository Date:9869-54-35PA [address] [place] [address] 49[address]KY: 09/02/2018 Tertiary NOT GIVENUNK [place] Insurance:SELF PAY [facility] Number: Effective Repository Date:2018-09-02 08/13/2018 FALGUNI L Primary BEVERLY N Ron [id number] CR Insurance:MEDICARE BALDNERDOB: [address] A [facility] [id number], [place] [address]Wbw: Number: Repository [id number] () Date:2018-08-13 08/13/2018 Secondary FALGUNI L [place] Insurance:ANTHEMPolic BALDNERDOB: Community y Number: [id number] Hospital [id number] Repository Date:3415-94-05GX [address] [place] [address] 65871HE: 08/13/2018 Tertiary NOT GIVENUNK Ron Insurance:SELF PAY [facility] Number: Effective Repository Date:2018-08-13 08/10/2018 FALGUNI L Primary BEVERLY N Ron BALDNERTHE Insurance:MEDICARE BALDNERDOB: [facility] [id number]1700 E Number: Repository [place] [id number] [place] Date:2018-05-11 [place], [place] [address]Fan: () 08/10/2018 Secondary FALGUNI L [place] Insurance:ANTHEMPolic BALDNERDOB: Community y Number: [id number] Hospital [id number] Repository Date:1635-50-14HK [address] [place] [address]UP: 08/10/2018 Tertiary NOT GIVENUNK [place] Insurance:SELF PAY [facility] Number: Effective Repository Date:2018-08-10 08/10/2018 FALGUNI L Primary B[place] N [place] BALDNERTHE Insurance:MEDICARE BALDNERDOB: [facility] [id number] Hospital1700 E Number: Repository [place] [id number] [place]ST[place] Date:2018-05-11 [place] [phone]: () 08/10/2018 Secondary FALGUNI L [place] Insurance:ANTHEMPolic BALDNERDOB: Community y Number: [id number] Hospital [id number] Repository Date:8401-49-70TP [address] [place] [address] 34[address]WR: 08/10/2018 Tertiary NOT GIVENUNK [place] Insurance:SELF PAY [facility] Number: Effective Repository Date:2018-05-11 06/26/2018 FALGUNI L Primary BEVERLY N Ron [id number] CR Insurance:MEDICARE BALDNERDOB: [address] [id number], [place] [address]Quw: Number: Repository [id number] (HP) Date:2017-11-29 06/26/2018 Secondary FALGUNI L [place] Insurance:ANTHEMPolic BALDNERDOB: [facility] y Number: [id number] Hospital [id number] Repository Date:6806-00-69FA [address]TN, [place] [address]IU: 06/26/2018 Tertiary NOT GIVENUNK [place] Insurance:SELF PAY [facility] Number: Effective Repository Date:2017-11-29 05/11/2018 FALGUNI L Primary BEVERLY N Ron [id number] CR Insurance:MEDICARE BALDNERDOB: [id number], [place] [address]Goz: Number: Repository [id number] (HP) Date:2018-05-04 05/11/2018 Secondary FALGUNI L [place] Insurance:ANTHEMPolic BALDNERDOB: Community y Number: [id number] Hospital [id number] Repository Date:0911-45-70RX [address]HSBMYSR, [place] [address]KH: 05/11/2018 Tertiary NOT GIVENUNK [place] Insurance:SELF PAY [facility] Number: Effective Repository Date:2018-05-08 05/04/2018 BEVERLY N Primary BEVER[place] N [place] [id number] E Insurance:MEDICARE BALDNERDOB: [facility] [id number] Number: Repository RDWCARLY pr [id number]: (563) Date:2018-05-04 [phone] () 05/04/2018 Secondary FALGUNI L Ron Insurance:CIGNAPolicy BALDNERDOB: Community Number: [id number] Hospital [id number] Repository Date:9976-50-51GG [address]ZIQZHDHQKOR, [place] [address]UB: 05/04/2018 Tertiary NOT GIVENUNK [place] Insurance:SELF PAY [facility] Number: Effective Repository Date:2018-05-04 04/24/2018 BEVERLY N Primary BEVERLY N [place] [id number] E Insurance:MEDICARE BALDNERDOB: [facility] [id number] [facility] Number: Repository RDWOOSTJEWELL pr [id number]: (330) Date:2018-04-24 80 () 04/24/2018 Secondary FALGUNI L Ron Insurance:ANTHEMPolic BALDNERDOB: Community y Number: [id number] Hospital [id number] Repository Date:3379-75-01IV [address]YCDFTKX, [place] [address]CI: 04/24/2018 Tertiary NOT GIVENUNK Ron Insurance:SELF PAY [facility] Number: Effective Repository Date:2018-04-24 04/03/2018 FALGUNI L Primary B[place] N [place] [id number] CR Insurance:MEDICARE BALDNERDOB: [address] PART A [facility] [id number] [facility] , [place] [address]Nsv: Number: Repository [id number] (HP) Date:2018-04-03 04/03/2018 Secondary FALGUNI L Ron Insurance:ANTHEMPolic BALDNERDOB: Community y Number: [id number] Hospital [id number] Repository Date:4808-86-84MG [address] [place] [address] 266[address]FE: 04/03/2018 Tertiary NOT GIVENUNK Ron Insurance:SELF PAY [facility] Number: Effective Repository Date:2018-04-03 03/27/2018 BEVERLY Hale Primary BEVERLY N [place] [id number] CR Insurance:MEDICARE BALDNERDOB: Community 1950C/[birth year] FALGUNI PART A [facility] [id number] Medical [facility] Number: Repository [place] [id number]: 419) Date:2018-03-27 [phone] () 03/27/2018 Secondary FALGUNI L Ron Insurance:ANTHEMPolic BALDNERDOB: Community y Number: [id number] Hospital [id number] Repository Date:3040-72-91FI [address] [place] [address] 310[address]LL: 03/27/2018 Tertiary NOT GIVENUNK Ron Insurance:SELF PAY [facility] Number: Effective Repository Date:2018-03-27 03/20/2018 Beverly N Primary [place] N [place] [id number] CR Insurance:MEDICARE BaldnerDOB: Community 1950C/[birth year] FALGUNI PART A [facility] [id number] Number: Repository [place] [id number]: (419) Date:2018-03-20 [phone] () 03/20/2018 Secondary FALGUNI L [place] Insurance:ANTHEMPolic BALDNERDOB: Community y Number: [id number] Hospital [id number] Repository Date:5778-07-36SD [address]QZMNZFH, [place] [address]OR: 03/20/2018 Tertiary NOT GIVENUNK [place] Insurance:SELF PAY [facility] Number: Effective Repository Date:2018-03-20 03/12/2018 FALGUNI L Primary B[place]LY N Ron [id number] CR Insurance:MEDICARE BALDNERDOB: [address] [id number], [place] [address]Rzm: Number: Repository [id number] (HP) Date:2018-03-12 03/12/2018 Secondary FALGUNI L [place] Insurance:ANTHEMPolic BALDNERDOB: Community y Number: [id number] Hospital [id number] Repository Date:5157-27-14VW [address]KKBFCZD, [place] [address]IA: 03/12/2018 Tertiary NOT GIVENUNK Ron Insurance:SELF PAY [facility] Number: Effective Repository Date:2018-03-12 03/12/2018 FALGUNI L Primary B[place] N [place] [id number] CR Insurance:MEDICARE BALDNERDOB: [address] [id number], [place] [address]Gqs: Number: Repository [id number] (HP) Date:2018-03-12 03/12/2018 Secondary FALGUNI L Ron Insurance:ANTHEMPolic BALDNERDOB: Community y Number: [id number] Hospital [id number] Repository Date:9169-02-12LB [address]JF[address] [place] [address] 33[address]KM: 03/12/2018 Tertiary NOT GIVENUNK [place] Insurance:SELF PAY [facility] Number: Effective Repository Date:2018-03-12 03/12/2018 FALGUNI L Primary [place] N Ron [id number] CR Insurance:MEDICARE BALDNERDOB: [place] [id number], [place] [address]Onq: Number: Repository [id number] (HP) Date:2018-03-12 03/12/2018 Secondary FALGUNI L Ron Insurance:ANTHEMPolic BALDNERDOB: Community y Number: [id number] Hospital [id number] Repository Date:8718-77-57BT [address]ML[address] [place] [address] 88[address]PX: 03/12/2018 Tertiary NOT GIVENUNK Ron Insurance:SELF PAY [facility] Number: Effective Repository Date:2018-03-12 03/12/2018 FALGUNI L Primary B[place] N Ron [id number] CR Insurance:MEDICARE BALDNERDOB: [address] [id number], [place] [address]Egx: Number: Repository [id number] () Date:2018-03-12 03/12/2018 Secondary FALGUNI L [place] Insurance:ANTHEMPolic BALDNERDOB: Community y Number: [id number] Hospital [id number] Repository Date:9542-35-80BD [address] [place] [address] 387[address]TS: 03/12/2018 Tertiary NOT GIVENUNK [place] Insurance:SELF PAY [facility] Number: Effective Repository Date:2018-03-12 03/12/2018 FALGUNI L Primary [place] N Ron [id number] CR Insurance:MEDICARE BALDNERDOB: [address] [id number], [place] [address]Wqi: Number: Repository [id number] (HP) Date:2018-03-12 03/12/2018 Secondary FALGUNI L Ron Insurance:ANTHEMPolic BALDNERDOB: Community y Number: [id number] Hospital [id number] Repository Date:9358-03-37QZ [address]EN[address] [place] [address] 680[address]YA: 03/12/2018 Tertiary NOT GIVENUNK [place] Insurance:SELF PAY [facility] Number: Effective Repository Date:2018-03-12 03/12/2018 FALGUNI L Primary B[place] N [place] [id number] CR Insurance:MEDICARE BALDNERDOB: Community [address] [place], [place] 935541-03-30[place], [place] [address]Caq: Number: Repository [id number] (HP) Date:2018-03-12 03/12/2018 Secondary FALGUNI L [place]n Insurance:ANTHEMPolic BALDNERDOB: Community y Number: [id number] Hospital [id number] Repository Date:8888-30-66MX [address] [place] [address]QF: 03/12/2018 Tertiary NOT GIVENUNK Ron Insurance:SELF PAY [facility] Number: Effective Repository Date:2018-03-12 03/12/2018 FALGUNI L Primary BEVER[place] N [place] [id number] CR Insurance:MEDICARE BALDNERDOB: Community [address] [place], [place] [id number], [place] [address]Ttv: Number: Repository [id number] (HP) Date:2018-03-12 03/12/2018 Secondary FALGUNI L Ron Insurance:ANTHEMPolic BALDNERDOB: Community y Number: [id number] Hospital [id number] Repository Date:7521-14-33JO [address] [place] [address]WO: 03/12/2018 Tertiary NOT GIVENUNK Ron Insurance:SELF PAY [facility] Number: Effective Repository Date:2018-03-12 02/27/2018 FALGUNI L Primary B[place] N [place] [id number] CR Insurance:MEDICARE BALDNERDOB: [address]03-30[place], [place] [address]Gmr: Number: Repository [id number] (HP) Date:2018-01-13 02/27/2018 Secondary FALGUNI L [place] Insurance:ANTHEMPolic BALDNERDOB: Community y Number: [id number] Hospital [id number] Repository Date:4220-97-51[address]ABWJZLP, [place] [address]IC: 02/27/2018 Tertiary NOT GIVENUNK [place] Insurance:SELF PAY [facility] Number: Effective Repository Date:2018-01-13 01/10/2018 FALGUNI L Primary [place] N [place] [id number] CR Insurance:MEDICARE BALDNERDOB: [address] [id number] Hospital , [place] [address]Khl: Number: Repository [id number] (HP) Date:2018-01-10 01/10/2018 Secondary FALGUNI L Ron Insurance:ANTHEMPolic BALDNERDOB: Community y Number: [id number] Hospital [id number] Repository Date:3258-36-22DT [address]AMKQKZS, [place] [address]TZ: 01/10/2018 Tertiary NOT GIVENUNK Ron Insurance:SELF PAY [facility] Number: Effective Repository Date:2018-01-10 01/02/2018 FALGUNI L Primary BEVERLY N Ron [id number] CR Insurance:MEDICARE BALDNERDOB: [address] [id number], [place] [address]Ngm: Number: Repository [id number] (HP) Date:2018-01-01 01/02/2018 Secondary FALGUNI L [place] Insurance:ANTHEMPolic BALDNERDOB: Community y Number: [id number] Hospital [id number] Repository Date:7652-97-96AH [address]OOQBZMT, [place] [address]BS: 01/02/2018 Tertiary NOT GIVENUNK [place] Insurance:SELF PAY [facility] Number: Effective Repository Date:2018-01-01 01/02/2018 FALGUNI L Primary B[place] N [place] [id number] CR Insurance:MEDICARE BALDNERDOB: [place] [id number], [place] [address]Mek: Number: Repository [id number] (HP) Date:2018-01-01 01/02/2018 Secondary FALGUNI L Ron Insurance:ANTHEMPolic BALDNERDOB: Community y Number: [id number] Hospital [id number] Repository Date:3344-27-65SQ [address]NBVMZGG, [place] [address]GO: 01/02/2018 Tertiary NOT GIVENUNK Ron Insurance:SELF PAY [facility] Number: Effective Repository Date:2018-01-02 01/02/2018 FALGUNI L Primary BEVERLY N Ron [id number] CR Insurance:MEDICARE BALDNERDOB: [address] [id number], [place] [address]Omk: Number: Repository [id number] (HP) Date:2018-01-01 01/02/2018 Secondary FALGUNI L Ron Insurance:ANTHEMPolic BALDNERDOB: Community y Number: [id number] Hospital [id number] Repository Date:4000-26-25CQ [address]QBRUEBN, [place] [address]NG: 01/02/2018 Tertiary NOT GIVENUNK [place] Insurance:SELF PAY [facility] Number: Effective Repository Date:2018-01-02 12/27/2017 FALGUNI L Primary BEVERLY N [place] [id number] CR Insurance:MEDICARE BALDNERDOB: [address] [id number], [place] [address]Mwk: Number: Repository [id number] (HP) Date:2017-12-27 12/27/2017 Secondary FALGUNI L Ron Insurance:ANTHEMPolic BALDNERDOB: Community y Number: [id number] Hospital [id number] Repository Date:9979-56-65YI [address]OUJYKLE, [place] [address]MU: 12/27/2017 Tertiary NOT GIVENUNK Ron Insurance:SELF PAY [facility] Number: Effective Repository Date:2017-12-27 12/27/2017 FALGUNI L Primary BEVERLY N [place] [id number] CR Insurance:MEDICARE BALDNERDOB: Community [address] [place], [place] [id number], [place] [address]Tri: Number: Repository [id number] (HP) Date:2017-12-27 12/27/2017 Secondary FALGUNI L [place] Insurance:ANTHEMPolic BALDNERDOB: Community y Number: [id number] Hospital [id number] Repository Date:2230-98-97CX [address] [place] [address] 214[address]LL: 12/27/2017 Tertiary NOT GIVENUNK Ron Insurance:SELF PAY [facility] Number: Effective Repository Date:2017-12-27 12/27/2017 FALGUNI L Primary B[place] N [place] [id number] CR Insurance:MEDICARE BALDNERDOB: Community [address] [place], [place] [id number] [address]Ldm: Number: Repository [id number] (HP) Date:2017-12-27 12/27/2017 Secondary FALGUNI L Ron Insurance:ANTHEMPolic BALDNERDOB: Community y Number: [id number] [place] [address] [id number] Repository Date:7073-14-70LR [address]DKJOWFK, [place] [address]IT: 12/27/2017 Tertiary NOT GIVENUNK Ron Insurance:SELF PAY [facility] Number: Effective Repository Date:2017-12-27 12/27/2017 FALGUNI L Primary BEVERLY N Ron [id number] CR Insurance:MEDICARE BALDNERDOB: [address] [address]Gku: Number: Repository [id number] (HP) Date:2017-12-27 12/27/2017 Secondary FALGUNI L Ron Insurance:ANTHEMPolic BALDNERDOB: Community y Number: [id number] [place] [address] [id number] Repository Date:1872-29-44DL [address]XTDXKQB, [place] [address]XW: 12/27/2017 Tertiary NOT GIVENUNK [place] Insurance:SELF PAY [facility] Number: Effective Repository Date:2017-12-27 12/26/2017 FALGUNI L Primary BEVERLY N [place] [id number] CR Insurance:MEDICARE BALDNERDOB: [address] [id number], [place] [address]Odl: Number: Repository [id number] (HP) Date:2017-12-26 12/26/2017 Secondary FALGUNI L Ron Insurance:ANTHEMPolic BALDNERDOB: Community y Number: [id number] Hospital [id number] Repository Date:9990-00-40EI [address]TXNDWIV, [place] [address]KL: 12/26/2017 Tertiary NOT GIVENUNK Ron Insurance:SELF PAY [facility] Number: Effective Repository Date:2017-12-26 11/29/2017 FALGUNI L Primary B[place] N [place] [id number] CR Insurance:MEDICARE BALDNERDOB: [address] [id number], [place] [address]Vjq: Number: Repository [id number] (HP) Date:2017-08-08 11/29/2017 Secondary FALGUNI L Ron Insurance:ANTHEMPolic BALDNERDOB: Community y Number: [id number] Hospital [id number] Repository Date:6702-56-99BU [address]MGCZYSV, [place] [address]IO: 11/29/2017 Tertiary NOT GIVENUNK Ron Insurance:SELF PAY [facility] Number: Effective Repository Date:2017-11-29 11/28/2017 FALGNUI L Primary BEVERLY N Ron [id number] CR Insurance:MEDICARE BALDNERDOB: [address] [id number], [place] [address]Vtf: Number: Repository [id number] (HP) Date:2017-11-28 11/28/2017 Secondary FALGUNI L Ron Insurance:ANTHEMPolic BALDNERDOB: Community y Number: [id number] Hospital [id number] Repository Date:4146-42-58XF [address]UEIXSIQ, [place] [address]SE: 11/28/2017 Tertiary NOT GIVENUNK [place] Insurance:SELF PAY [facility] Number: Effective Repository Date:2017-11-28 10/27/2017 FALGUNI L Primary B[place]LY N [place] [id number] CR Insurance:MEDICARE BALDNERDOB: [place] [id number], [place] [address]Hok: Number: Repository [id number] (HP) Date:2017-10-27 10/27/2017 Secondary FALGUNI L Ron Insurance:ANTHEMPolic BALDNERDOB: Community y Number: [id number] Hospital [id number] Repository Date:7753-14-88MR [address]RAPOHJU, [place] [address]VS: 10/27/2017 Tertiary NOT GIVENUNK Ron Insurance:SELF PAY [facility] Number: Effective Repository Date:2017-10-27 10/10/2017 FALGUNI L Primary B[place] N [place] [id number] CR Insurance:MEDICARE BALDNERDOB: [place] [id number], [place] [address]Nib: Number: Repository [id number] (HP) Date:2017-10-10 10/10/2017 Secondary FALGUNI L [place] Insurance:ANTHEMPolic BALDNERDOB: Community y Number: [id number] Hospital [id number] Repository Date:5782-93-96QR [address]JUEEQYR, [place] [address]AJ: 10/10/2017 Tertiary NOT GIVENUNK [place] Insurance:SELF PAY [facility] Number: Effective Repository Date:2017-10-10
== END ==
LOC: OLS.AVEC 17:05
PROVIDERS: Visit Provider Family Medicine
DX: R06.02 Shortness of breath (principal); R05 Cough
CPT/HCPCS: 36415; 80053; 85025

== ENCOUNTER → 2018-09-02 07:05 | Outpatient (REF) | payer MEDICARE, BC, SELFPAY ==
[2018-09-02 09:46] LABS: Absolute Lymphocyte Count 1.19 X10^3/ul (0.83-4.51); Absolute Neutrophil Count 2.9 X10^3/uL (2.0-7.7); Basophil# 0.02 X10^3/uL; Basophil% 0.4 % (0-1); Eosinophil# 0.16 X10^3/uL; Eosinophils% 3.3 % (0-5); Hematocrit 32.9 % (37-47); Lymphocyte # 1.19 X10^3/ul (4.0); Lymphocyte % 24.6 % (19-41); Mean Corp Hgb Conc 30.4 g/gl (32-36); Mean Corpuscular Hgb 26.5 pg (27.0-32.0); Mean Platelet Vol. 9.6 fl (6.2-12.0); Monocyte% 12.4 % (0-10); Neutrophil # 2.86 X10^3/uL (2.7-7.7); Neutrophil % 59.1 % (47-70); Platelet Count 230 K/mm3 (150-450); RBC Distribution Width CV 17.2 % (11.6-14.6); RBC Distribution Width SD 54.3 fl (35.1-43.9); Red Blood Count 3.78 M/mm3 (4.2-5.4); White Blood Count 4.8 K/mm3 (4.4-11.0)
[2018-09-02 09:47] LABS: POSITIVE COUNT NO; POSITIVE DIFFERENTIAL NO; POSITIVE MORPHOLOGY NO
[2018-09-02 09:50] LABS: Anion Gap 6 (5-15); BUN 20 mg/dL (7-18); BUN/Creat Ratio 23.6 RATIO (10-20); Calcium,Total 8.5 mg/dL (8.5-10.1); Chloride 102 mmol/L (98-107); Creatinine, Serum 0.85 mg/dL (0.55-1.02); EST Glomerular Filtration Rate 69 mL/min (>60); Est Glom Filt Rate - Afr Amer 84 mL/min (>60); Glucose 135 mg/dL (74-106); Potassium 3.9 mmol/L (3.5-5.1); Sodium Level 141 mmol/L (136-145)
[2018-09-07 14:56] VITALS: BMI 36.3
== END ==
LOC: OLS.AVEC 07:05
PROVIDERS: Visit Provider Family Medicine
DX: R46.89 Other symptoms and signs involving appearance and behavior (principal)
CPT/HCPCS: 36415; 80048; 85025

== ENCOUNTER → 2018-09-04 04:00 | Outpatient (REF) | payer MEDICARE, BC, SELFPAY ==
[2018-09-04 07:42] LABS: Absolute Lymphocyte Count 1.21 X10^3/ul (0.83-4.51); Absolute Neutrophil Count 3.7 X10^3/uL (2.0-7.7); Basophil# 0.03 X10^3/uL; Basophil% 0.5 % (0-1); Eosinophil# 0.21 X10^3/uL; Eosinophils% 3.6 % (0-5); Hematocrit 32.6 % (37-47); Hemoglobin 9.9 g/dl (12.0-15.0); Lymphocyte # 1.21 X10^3/ul (4.0); Lymphocyte % 20.5 % (19-41); Mean Corp Hgb Conc 30.4 g/gl (32-36); Mean Corpuscular Hgb 26.5 pg (27.0-32.0); Mean Corpuscular Volume 87.2 fL (81-99); Mean Platelet Vol. 9.6 fl (6.2-12.0); Monocyte# 0.74 X10^3/uL; Monocyte% 12.6 % (0-10); Neutrophil # 3.68 X10^3/uL (2.7-7.7); Neutrophil % 62.5 % (47-70); Platelet Count 208 K/mm3 (150-450); RBC Distribution Width CV 17.2 % (11.6-14.6); RBC Distribution Width SD 54.8 fl (35.1-43.9); Red Blood Count 3.74 M/mm3 (4.2-5.4); White Blood Count 5.9 K/mm3 (4.4-11.0)
[2018-09-04 07:48] LABS: Anion Gap 7 (5-15); BUN 22 mg/dL (7-18); BUN/Creat Ratio 25.8 RATIO (10-20); Calcium,Total 8.1 mg/dL (8.5-10.1); Chloride 103 mmol/L (98-107); Creatinine, Serum 0.85 mg/dL (0.55-1.02); EST Glomerular Filtration Rate 69 mL/min (>60); Est Glom Filt Rate - Afr Amer 83 mL/min (>60); Glucose 130 mg/dL (74-106); Potassium 4.2 mmol/L (3.5-5.1); Sodium Level 140 mmol/L (136-145)
[2018-09-04 07:53] LABS: POSITIVE COUNT NO; POSITIVE DIFFERENTIAL NO; POSITIVE MORPHOLOGY NO
[2018-09-07 14:56] VITALS: BMI 36.3
== END ==
LOC: OLS.AVEC 04:00
PROVIDERS: Visit Provider Family Medicine
DX: J44.9 Chronic obstructive pulmonary disease, unspecified (principal); E11.9 Type 2 diabetes mellitus without complications; I10 Essential (primary) hypertension; E03.9 Hypothyroidism, unspecified
CPT/HCPCS: 36415; 80048; 85025

== ENCOUNTER 2018-09-24 22:17 | Emergency (ER) | payer MEDICARE, BC, SELFPAY ==
[2018-09-07 14:56] VITALS: BMI 36.3
[2018-09-24 22:17] VITALS: BP 133/58; PULSE 73; RESP 18; TEMP 36.9; O2SAT 96; BMI 37.4
--- NOTE | 2018-09-24 22:52 | CT_ITS ---
STUDY: CT BRAIN WITHOUT CONTRAST REASON FOR EXAM: Female, 77 years old. Lost balance and fell, hitting back of head on table. A loss of consciousness. Hematoma. History of CVA, dementia, CHF, diabetes, COPD, and PE. RADIATION DOSAGE (If Supplied By Facility): CTDIvol = ( 444.99 ) mGy, DLP = ( 796.11 ) mGycm TECHNIQUE: Transaxial CT imaging of the brain was performed without administration of intravenous contrast material. Individualized dose optimization techniques were used for this CT. COMPARISON: . FINDINGS: There is a posterior scalp hematoma. Normal calvarium. There is encephalomalacia within the right temporal, occipital, and parietal lobes, consistent with an old infarction. There is mild cerebral atrophy with widening of the extra-axial spaces and ventricular dilatation. There are areas of decreased attenuation within the white matter tracts of the supratentorial brain, consistent with microvascular disease changes. There is an old lacunar infarction of the left basal ganglia. Normal brainstem. Normal cerebellum. There is atherosclerotic calcification of the vertebral and cavernous carotid arteries. There is no intracranial hemorrhage. There are no findings of an acute ischemic infarction. There is mild mucoperiosteal thickening in right sphenoid and left ethmoid sinuses, consistent with chronic sinusitis. There is no evidence for acute sinusitis. CT/Brain/Head without Contrast IMPRESSION: Chronic involutional changes of the brain. Old right MCA distribution infarction. Old lacunar infarction left basal ganglia. No demonstrated acute intracranial process. Electronically Signed: Clement Ramsey MD at 23:56 EST , Service support ,
--- NOTE | 2018-09-24 22:52 | CT_ITS ---
STUDY: CT CERVICAL SPINE WITHOUT CONTRAST REASON FOR EXAM: Female, 77 years old. Lost balance and fell, hitting the back of the head on table. No loss of consciousness. RADIATION DOSAGE (If Supplied By Facility): CTDIvol = ( 26.97 ) mGy, DLP = ( 597.88 ) mGycm TECHNIQUE: High resolution transaxial imaging was performed without contrast material. Sagittal and coronal images were reconstructed. Individualized dose optimization techniques were used for this CT. COMPARISON: CTA neck 12/02/2015. FINDINGS: Normal craniovertebral junction. There are degenerative changes of the anterior atlantoaxial articulation. Normal odontoid process. There is straightening of the normal lordotic curve, a nonspecific finding, which may be due to positioning or which might be due to muscle spasm. Normal vertebral bodies and posterior osseous elements. C2-3: Normal endplates. Normal disc height and morphology. Normal central canal and intervertebral neuroforamina. C3-4: Normal endplates. Very small broad posterior disc osteophyte complex.. Normal central canal and intervertebral neuroforamina. C4-5: 1.5 mm anterolisthesis, on a degenerative basis. Normal endplates. Mild disc space narrowing.. Degenerative changes left apophyseal joint. Normal central canal and intervertebral neuroforamina. C5-6: Spondylolisthesis. Disc space narrowing. Degenerative changes uncovertebral joints.. Normal central canal. Mild narrowing right normal left intervertebral neuroforamina. C6-7: Normal endplates. Normal disc height and morphology. Normal central canal and intervertebral neuroforamina. C7-T1: Normal endplates. Mild relative disc space narrowing.. Normal central canal and intervertebral neuroforamina. Normal visualized soft tissue structures. CT/Spine Cervical without Contras IMPRESSION: Multilevel degenerative changes, as described above. No demonstrated fracture. Electronically Signed: Clement Ramsey MD at 0:04 EST , Service support ,
--- NOTE | 2018-09-24 23:10 | ED.VISSUMM ---
- ER Visit Summary Date of Service: 09/24/18 Chief Complaint: Head injury History of Present Illness: The patient is a 77 F who was at the [facility]. She walked out to the nurses station to get some lip balm and hurt her phone ring. Return to go back to the room and fell. She states that she struck the back of her head on a cart. She notes her neck is sore with movement. She is on Eliquis. No loss of consciousness or vomiting. She does not have any pain in the arms or legs thorax or abdomen or back Physical Examination: Afebrile vital signs stable There is a large hematoma the back of her scalp. Neurovascular intact. Test Results: CT of the brain and cervical spine were obtained. Emergency Department Course and Treatment: [] Impression: 1. Scalp hematoma 2. Cervical strain 3. Closed head injury This note was generated with [employer] dictation software. It may contain incorrect words, spelling, and punctuation that were not noted in review of the chart prior to signing ED Disposition - Plan for ED Patient: Disposition: Home or Assisted Living Chief Complaint: Head Injury Instructions: ED Head Injury Closed, ED Hematoma, ED Sprain Strain Neck Referrals: Micheal Teran Chi, MD [Primary Care Provider] -
[2018-09-24] MEDS: oxyCODONE 5 MG Tablet PO (23:38)
[2018-09-25 00:35] VITALS: BP 125/81; PULSE 70; RESP 18
== END 2018-09-25 01:34 | disposition skilled nursing facility (03) ==
PROVIDERS: Emergency Provider Emergency Medicine; Family Provider Family Medicine Geriatric Medicine; PCP Family Medicine Geriatric Medicine
DX: S00.03XA Contusion of scalp, initial encounter (principal); S16.1XXA Strain of muscle, fascia and tendon at neck level, initial encounter; W18.39XA Other fall on same level, initial encounter; Y93.89 Activity, other specified; Y92.122 Bedroom in nursing home as the place of occurrence of the external cause; Y99.9 Unspecified external cause status; S09.90XA Unspecified injury of head, initial encounter; E11.9 Type 2 diabetes mellitus without complications; I10 Essential (primary) hypertension; E78.00 Pure hypercholesterolemia, unspecified; J44.9 Chronic obstructive pulmonary disease, unspecified; M79.7 Fibromyalgia; Z86.73 Personal history of transient ischemic attack (TIA), and cerebral infarction without residual deficits
CPT/HCPCS: 70450; 72125; 99284

== ENCOUNTER → 2018-09-25 23:00 | Outpatient (REF) | payer MEDICARE, BC, SELFPAY ==
[2018-09-25 13:23] VITALS: BMI 37.3
[2018-09-26 07:43] LABS: Color, Urine Yellow (Yellow); Glucose, Dipstick Normal (Normal); Ketone-Dipstick Negative (Negative); Leukocyte Esterase-Dipstick Negative /ul (Negative); Nitrite-Dipstick Negative (Negative); Occult Blood-Urine Negative /ul (Negative); Protein-Dipstick Negative (Negative); Urine Bilirubin Dipstick Negative (Negative); Urine Clarity Clear (Clear); Urine Urobilinogen Normal (Normal)
== END ==
LOC: OLS.AVEB 23:00
PROVIDERS: Visit Provider Family Medicine
DX: R82.998 Other abnormal findings in urine (principal)
CPT/HCPCS: 81002; 87086; 87088

== ENCOUNTER → 2018-10-30 04:00 | Outpatient (REF) | payer MEDICARE, BC, MEDICAID, SELFPAY ==
[2018-10-27 08:34] VITALS: BMI 37.4
[2018-10-30 09:03] LABS: ALB/GLOB Ratio 0.6 RATIO (0.9-2.4); AST(SGOT) 27 U/L (15-37); Alanine Aminotransfer ALT/SGPT 16 U/L (13-56); Albumin, Serum 2.4 g/dL (3.2-5.0); Alkaline Phosphatase 75 U/L (45-117); Anion Gap 5 (5-15); BUN 22 mg/dL (7-18); BUN/Creat Ratio 27.5 RATIO (10-20); Calcium,Total 8.1 mg/dL (8.5-10.1); Chloride 104 mmol/L (98-107); Cholesterol 98 mg/dL (200); EST Glomerular Filtration Rate 74 mL/min (>60); Est Glom Filt Rate - Afr Amer 89 mL/min (>60); Globulin 3.7 g/dL (2.2-4.2); Glucose 101 mg/dL (74-106); High Density Lipoprotein 40 mg/dL; Potassium 3.8 mmol/L (3.5-5.1); Protein, Total 6.1 g/dL (6.4-8.2); Sodium Level 140 mmol/L (136-145); Thyroid Stim Hormone (TSH) 0.37 uIU/mL (0.358-3.74); Triglycerides 76 mg/dL; Very Low Density Lipoprotein 15 mg/dL (5-40)
== END ==
LOC: OLS.AVEB 04:00
PROVIDERS: Visit Provider Family Medicine
DX: I10 Essential (primary) hypertension (principal); E03.9 Hypothyroidism, unspecified
CPT/HCPCS: 36415; 80053; 80061; 84443

== ENCOUNTER → 2019-01-23 12:24 | Outpatient (CLI) | payer MEDICARE, BC, SELFPAY ==
[2018-10-27 08:34] VITALS: BMI 37.4
--- NOTE | 2019-01-23 12:27 | BI_ITS ---
MAMMOGRAPHY - BILATERAL SCREENING REASON FOR EXAM: Female, 78 years old. Routine annual screening examination. PERTINENT HISTORY: Non-contributory. TECHNIQUE: Digital bilateral breast rubin (3D mammographic acquisition) in the CC and MLO projections. 2-D mediolateral oblique (MLO) and craniocaudad (CC) views of both breasts were obtained. CAD: Full Field Digital Mammography with Computer Added Detection was performed. COMPARISON: Comparison is made with prior examination in June 17, 2017 and January 27, 2015 FINDINGS: Breast Composition: There are scattered areas of fibroglandular density. There are no dominant masses or suspicious calcifications. No other significant abnormalities are identified. There has been no significant change since the prior study. BI/SCREENING MAMM (CAD), BILAT IMPRESSION: Stable bilateral screening mammogram. Yearly follow-up mammogram recommended. (A) ASSESSMENT CATEGORY: BIRADS Category 1: Negative. A letter regarding these results will be sent to the patient by the facility within 30 days. Approximately 10% of breast cancers are not detected by mammography. A normal mammogram should not delay biopsy of a clinically suspicious abnormality. [id number] Electronically Signed: Luis Leiva, at 8:05 EDT , Service support ,
== END ==
PROVIDERS: Family Provider Family Medicine Geriatric Medicine; PCP Family Medicine Geriatric Medicine; Referring Provider Family Medicine; Visit Provider Family Medicine
DX: Z12.31 Encounter for screening mammogram for malignant neoplasm of breast (principal)
CPT/HCPCS: 77063; 77067

== ENCOUNTER → 2019-09-20 23:00 | Outpatient (CLI) | payer MEDICARE, MEDICAID, SELFPAY ==
[2019-04-09 14:03] VITALS: BMI 36.7
== END ==
PROVIDERS: Visit Provider Family Medicine
DX: R05 Cough (principal); R09.81 Nasal congestion
CPT/HCPCS: 87633

== ENCOUNTER → 2019-10-19 12:49 | Outpatient (CLI) | payer MEDICARE, BC, MEDICAID, SELFPAY ==
[2019-10-08 14:20] VITALS: BMI 35.9
--- NOTE | 2019-10-19 12:51 | ECHOCS_ITS ---
Reason For Study: VALVE REPL Procedure This was a 2D Doppler, Color Flow transthoracic echocardiogram. Exam performed in department. Left Ventricle Moderately dilated left ventricle. The estimated ejection fraction is 25-30 %. There is severe global hypokinesis of the left ventricle. Right Ventricle Mildly dilated right ventricle. ICD or pacer leads identified within the right ventricle. Normal systolic function. Atria The left atrium is moderately enlarged. The right atrium is mildly enlarged. Normal atrial septum. Mitral Valve Mild diffuse mitral valve thickening. Mild-Moderate (1-2+) mitral valve insufficiency. Tricuspid Valve Normal tricuspid valve. Mild (1+) tricuspid valve insufficiency. Right ventricular systolic pressure estimated to be 56 mmHg. Moderate pulmonary hypertension. Aortic Valve Peak aortic valve gradient 33 mmHg. Mean aortic valve gradient 21 mmHg. Stable appearing bioprosthetic aortic valve apparatus. Pulmonic Valve The pulmonic valve is not well visualized. Great Vessels Normal aortic root. Normal arch. Normal inferior vena cava. Inferior vena cava collapse with sniff. Pericardium/Pleural No pericardial effusion. Medication 22 gauge I.V. with prn adaptor inserted into right arm. Diluted definity 3.0ml given slow IV push to enhance endocardial definition. MMode/2D Measurements & Calculations LVIDd: 5.5 cm IVSd: 1.1 cm Ao root diam: 3.2 cm LVIDs: 4.4 cm LVPWd: 1.0 cm RVDd: 3.9 cm FS: 20.4 % LAV(MOD-bp): 79.3 ml LA A4 area: 22.6 cm2 LA dimension(2D): 5.0 cm LAV(MOD-bp) Indexed: 44.4 ml/m2 LAV(MOD-sp2): 85.8 ml LAV(MOD-sp4): 71.4 ml RA A4 area: 21.8 cm2 Time Measurements MV dec time: 0.26 sec Doppler Measurements & Calculations MV E max kel: 162.3 cm/sec Lat Peak E' Kel: 3.8 cm/sec Med Peak E' Kel: 2.6 cm/sec MV A max kel: 128.8 cm/sec E/E' lat: 42.6 E/E' med: 62.9 MV E/A: 1.3 MV V2 max: 161.9 cm/sec Ao V2 max: 284.9 cm/sec LV V1 max: 101.0 cm/sec MV max P.7 mmHg Ao max P.5 mmHg LV V1 max P.1 mmHg MV V2 mean: 95.1 cm/sec Ao V2 mean: 219.0 cm/sec LV V1 mean P.2 mmHg MV mean P.1 mmHg Ao mean P.3 mmHg LV V1 mean: 69.2 cm/sec MV V2 VTI: 48.6 cm Ao V2 VTI: 68.2 cm LV V1 VTI: 24.3 cm PA V2 max: 93.5 cm/sec TR max kel: 362.1 cm/sec MV P1/2t-pr_phl: 101.0 msec TR max P.4 mmHg Interpretation Summary Moderately dilated left ventricle. The estimated ejection fraction is 25-30 %. There is severe global hypokinesis of the left ventricle. The left atrium is moderately enlarged. The right atrium is mildly enlarged. Mild-Moderate (1-2+) mitral valve insufficiency. Mild (1+) tricuspid valve insufficiency. Right ventricular systolic pressure estimated to be 56 mmHg. Moderate pulmonary hypertension. Stable appearing and normal functioning bioprosthetic aortic valve apparatus. Trivial perivalvular AI. Peak aortic valve gradient 33 mmHg. Mean aortic valve gradient 21 mmHg. Compared to echo report dated 08/10/2018, no appreciable changes noted. The study was technically difficult. Contrast injection was performed. Ordering Physician: Ventura Ragsdale Referring Physician: Ventura Ragsdale Performed By: Joann Farrell, ALYSSA, RVT
== END ==
PROVIDERS: PCP Family Medicine; Referring Provider Internal Medicine Cardiovascular Disease; Visit Provider Internal Medicine Cardiovascular Disease
DX: T82.118A Breakdown (mechanical) of other cardiac electronic device, initial encounter (principal)
CPT/HCPCS: 93306; Q9957; A4216; C8929

== ENCOUNTER → 2020-02-25 14:46 | Outpatient (CLI) | payer MEDICARE, MEDICAID, SELFPAY ==
[2019-10-08 14:20] VITALS: BMI 35.9
--- NOTE | 2020-02-25 14:49 | BI_ITS ---
MAMMOGRAPHY - BILATERAL SCREENING REASON FOR EXAM: Female, 79 years old. Routine annual screening examination. PERTINENT HISTORY: Non-contributory. TECHNIQUE: Digital bilateral breast la (3D mammographic acquisition) in the CC and MLO projections. 2-D mediolateral oblique (MLO) and craniocaudad (CC) views of both breasts were obtained. CAD: Full Field Digital Mammography with Computer Added Detection was performed. COMPARISON: Comparison is made with prior study dated January 23, 2019 and June 17, 2017. FINDINGS: Breast Composition: There are scattered areas of fibroglandular density. There are no dominant masses or suspicious calcifications. A battery pack from a pacemaker device is seen in the left axillary region. No other significant abnormalities are identified. There has been no significant change since the prior study. BI/SCREEN MAMM (CAD) W/LA BILAT IMPRESSION: Stable bilateral screening mammogram. Yearly follow-up mammogram recommended. (A) ASSESSMENT CATEGORY: BIRADS Category 2: Benign. A letter regarding these results will be sent to the patient by the facility within 30 days. Approximately 10% of breast cancers are not detected by mammography. A normal mammogram should not delay biopsy of a clinically suspicious abnormality. [id number] Electronically Signed: Luis Leiva, at 15:40 EDT , Service support ,
== END ==
PROVIDERS: PCP Family Medicine; Referring Provider Family Medicine; Visit Provider Family Medicine
DX: Z12.31 Encounter for screening mammogram for malignant neoplasm of breast (principal)
CPT/HCPCS: 77063; 77067

== ENCOUNTER 2020-09-28 00:03 | Emergency (ER) | payer MEDICARE, BC, MEDICAID, SELFPAY ==
[2020-04-18 14:04] VITALS: BMI 35.9
[2020-09-28 00:04] VITALS: BP 120/63; PULSE 63; RESP 17; TEMP 36.2; O2SAT 98; BMI 33.0
--- NOTE | 2020-09-28 00:05 | RAD_ITS ---
HISTORY: s/p fallc/o lt hip pain ADDITIONAL HISTORY: None provided. EXAMINATION/TECHNIQUE: XR Hips Bilateral with Pelvis when performed; Min 5 Views Bilateral Number of images including paperwork: 5 COMPARISON: None FINDINGS: BONES: No acute fracture. JOINTS: No subluxation. Moderate degenerative changes of the hips. SOFT TISSUES: No distinct foreign body. Vascular calcifications. Tubal ligation clips. RAD/Hips B/L min 2 views w/ Pelvis IMPRESSION: Degenerative changes without acute osseous abnormality. at 0126 Reported and signed by: Brielle Holloway MD Electronically Signed: Brielle Holloway MD at 1:26 EST Tel , Service support ,
--- NOTE | 2020-09-28 00:05 | CT_ITS ---
HISTORY: FALL AT 11PM,HEAD AND NECK PAIN,LETHARGICHX:CVA,DIABETES,HTN,CHF,COPD,DEMENTIA ADDITIONAL HISTORY: None provided. COMPARISON: 09/24/2018 EXAMINATION/TECHNIQUE: CT Head or Brain W/O Contrast Injection. Axial, coronal and sagittal images. Number of images including paperwork: 234. A radiation dose optimization technique was used for this scan. FINDINGS: BRAIN: No acute hemorrhage or mass. No definite acute infarct; MRI more sensitive. White matter hypodensity is nonspecific but most commonly seen with chronic ischemic changes. Generalized atrophy. Right temporoparietal occipital encephalomalacia and old left basal ganglia lacunar infarct appear similar. Prominent amount of fluid in the sella turcica compatible with empty sella. VENTRICULAR SYSTEM: No hydrocephalus. PARANASAL SINUSES AND MASTOIDS: No air-fluid level in the imaged extent. ORBITS: Unremarkable imaged extent. SKELETON AND SOFT TISSUES: Calvarium intact. ASPECTS score: Not applicable. CT/Brain/Head without Contrast IMPRESSION: No acute intracranial abnormality. Chronic changes, as above. Individualized dose optimization techniques were used for this CT. at 0102 Reported and signed by: Brielle Holloway MD Electronically Signed: Brielle Holloway MD at 1:02 EST Tel , Service support ,
--- NOTE | 2020-09-28 00:05 | CT_ITS ---
HISTORY: FALL AT 11PM,HEAD AND NECK PAIN,LETHARGICHX:CVA,DIABETES,HTN,CHF,COPD,DEMENTIA ADDITIONAL HISTORY: None provided COMPARISON: 09/26/2018 TECHNIQUE: Noncontrast CT images of the cervical spine. 2D images were reviewed to aid in assessment of the cervical spine. A radiation dose optimization technique was used for this scan. Number of images including paperwork: 395 FINDINGS: BONES: No acute fracture. No suspicious bone lesion. VERTEBRAL ALIGNMENT: No traumatic subluxation. Loss of normal cervical lordosis. DISCS AND JOINTS: Mildly increased compared to previous. Facet arthropathy. SPINAL CANAL AND FORAMINA: No critical canal stenosis. SOFT TISSUES: No prevertebral soft tissue swelling. No pathologic-appearing cervical adenopathy. Atherosclerotic calcification. LUNG APICES: Mild interstitial septal thickening and ground glass opacities, similar to previous. PARANASAL SINUSES: Unremarkable imaged portions if any. CT/Spine Cervical without Contras IMPRESSION: 1. No acute osseous abnormality. 2. Loss of normal cervical lordosis may be related to positioning or muscle spasm. 3. Cervical spondylosis. 4. Possible mild pulmonary edema. Individualized dose optimization techniques were used for this CT. at 0111 Reported and signed by: Brielle Holloway MD Electronically Signed: Brielle Holloway MD at 1:11 EST Tel , Service support ,
--- NOTE | 2020-09-28 00:12 | ED.VIS.GEN ---
History of Present Illness Chief Complaint: Fall Informant: Patient Onset: Today Context: Sudden Onset Timing: Continuous Current Severity: Moderate Maximum Severity: Moderate Narrative: The patient is a 79-year-old female from a assisted facility that presents to the emergency department after a fall. Apparently, the patient was trying to answer a phone. She had already taken nighttime Ativan to help her sleep. She lost her balance and fell backwards. She struck her head. She is unsure if she lost consciousness. The patient is on Eliquis. Patient is a poor informant because of her history of dementia. She states that her head is sore. She denies any visual change. She is moving all extremities. She also admits to some pain in her hips after the fall. Prior similar symptoms: Yes Recent Illness/Hospitalization: No Past Medical History - Allergies and Home Meds Allergies/Adverse Reactions: Allergies pregabalin [From Lyrica] Adverse Reaction (Severe, Verified 09/28/20 00:12) Mental status changes Hallucination and delusions prochlorperazine edisylate [From Compazine] Adverse Reaction (Severe, Verified 09/28/20 00:12) Seizures prochlorperazine maleate [From Compazine] Adverse Reaction (Severe, Verified 09/28/20 00:12) Seizures tolmetin sodium [From Tolectin] Adverse Reaction (Severe, Verified 09/28/20 00:12) Syncope Primary Care Physician: Rolan Mark MD [Primary Care Provider] - Prior records reviewed: Yes Past Medical History: - - Pulmonary embolus, COPD, hypertension, hyperlipidemia, dementia Surgical History: appendectomy, cataract, - - Aortic Valve replacement, left carotid endarterectomy, shoulder surgery Smoking Status: Former smoker - Family History Maternal Family History: Family History (Last Reviewed 04/18/20 @ 14:04 by Kaleigh Aguilera) Mother CVA (cerebral vascular accident) Diabetes Family History: Reports: Diabetes, Stroke Paternal Family History: Family History (Last Reviewed 04/18/20 @ 14:04 by Kaleigh Aguilera) Mother CVA (cerebral vascular accident) Diabetes Family History: Reports: Cancer Sibling Family History: Family History (Last Reviewed 04/18/20 @ 14:04 by Kaleigh Aguilera) Mother CVA (cerebral vascular accident) Diabetes Family History: Reports: Hypertension Review of Systems General: Denies: Chills, Fever, Sweats Eyes: Denies: Visual changes - bilaterally, Diplopia ENT: Denies: Rhinorrhea, Sore throat Cardiovascular: Denies: Chest pain, Palpitations Respiratory: Denies: Dyspnea, Cough, Dyspnea on exertion Gastrointestinal: Denies: Abdominal pain, Nausea, Vomiting, Diarrhea, Melena, Hematochezia Genitourinary: Denies: Dysuria, Hematuria, Frequency Musculoskeletal: Denies: Back pain, Extremity Pain Skin: Denies: Rash, Wounds Neurological: Denies: Headache, Weakness, Numbness Physical Exam Vital Signs/Narrative: Vital Signs Temp Pulse Resp BP Pulse Ox 09/28/20 00:04 97.2 F L 63 17 120/63 98 Inital Vital Signs reviewed: Yes General: Well nourished, Well developed, No Acute Distress Head: Normocephalic, Trauma - Large hematoma in the posterior occiput approximately 2 cm. No step-off. Eyes: Perrl, EOMI ENT: Moist mucous membranes, No rhinorrhea Neck: Supple, Nontender Cardiovascular: Regular rate, Regular rhythm, No murmurs Respiratory: No distress, CTA bilaterally, Chest nontender Abdomen: Soft, Nontender, Nondistended, Normal bowel sounds Back: Nontender, Normal Inspection Extremities: Nontender, No edema Skin: Normal color, No rash Neurological: Alert, Oriented x3, Cranial nerves II-XII grossly intact, Normal Strength, Normal Sensation Psychological: Normal affect, Normal Mood Diagnostic/Tx/Re-eval Clinical Impression(s) from Imaging Studies Brain CT 09/28/20 00:05 IMPRESSION: No acute intracranial abnormality. Chronic changes, as above. Individualized dose optimization techniques were used for this CT. at 0102 Reported and signed by: Brielle Holloway MD Electronically Signed: Brielle Holloway MD at 1:02 EST Tel , Service support , Cervical Spine CT 09/28/20 00:05 IMPRESSION: 1. No acute osseous abnormality. 2. Loss of normal cervical lordosis may be related to positioning or muscle spasm. 3. Cervical spondylosis. 4. Possible mild pulmonary edema. Individualized dose optimization techniques were used for this CT. at 0111 Reported and signed by: Brielle Holloway MD Electronically Signed: Brielle Holloway MD at 1:11 EST Tel , Service support , Hip/Pelvis X-Ray 09/28/20 00:05 IMPRESSION: Degenerative changes without acute osseous abnormality. at 0126 Reported and signed by: Brielle Holloway MD Electronically Signed: Brielle Holloway MD at 1:26 EST Tel , Service support , - Medical Decision Making Patient presents after mechanical fall. She is awake and alert. There is report that she was more confused, however the patient displays no confusion and answers questions appropriately. I did obtain noncontrast head CT and CT of the C-spine. These are both unremarkable for acute process. I also obtained x-rays of the pelvis and hips patient was complaining of some pain. These were also negative. The patient was able to ambulate from her room to the bathroom without pain. At this point, given her unremarkable work-up I do feel that she is safe for discharge back to her skilled facility. Impression 1. Scalp contusion 2. Mechanical fall ED Disposition - Plan for ED Patient: Instructions: ED Scalp Contusion, ED Mechanical Fall Referrals: Rolan Mark MD [Primary Care Provider] -
[2020-09-28 01:04] VITALS: RESP 18
--- NOTE | 2020-09-28 01:36 | ED.RN ---
[facility] updated that pt will be returning to facility.
[2020-09-28 02:46] VITALS: BP 136/78; PULSE 76; RESP 18; O2SAT 98
== END 2020-09-28 02:47 | disposition skilled nursing facility (03) ==
PROVIDERS: Emergency Provider Emergency Medicine; PCP Family Medicine
DX: S00.03XA Contusion of scalp, initial encounter (principal); W18.09XA Striking against other object with subsequent fall, initial encounter; Y93.9 Activity, unspecified; Y92.129 Unspecified place in nursing home as the place of occurrence of the external cause; Y99.9 Unspecified external cause status; E11.9 Type 2 diabetes mellitus without complications; E78.5 Hyperlipidemia, unspecified; F03.90 Unspecified dementia, unspecified severity, without behavioral disturbance, psychotic disturbance, mood disturbance, and anxiety; Z87.891 Personal history of nicotine dependence; Z79.01 Long term (current) use of anticoagulants; Z82.49 Family history of ischemic heart disease and other diseases of the circulatory system; Z83.3 Family history of diabetes mellitus; Z86.711 Personal history of pulmonary embolism; Z88.8 Allergy status to other drugs, medicaments and biological substances; J44.9 Chronic obstructive pulmonary disease, unspecified
CPT/HCPCS: 70450; 72125; 73521; 99284

== ENCOUNTER 2020-10-04 06:21 | Emergency (ER) | payer MEDICARE, BC, MEDICAID, SELFPAY ==
[2020-10-04 06:29] VITALS: BP 106/50; PULSE 69; RESP 16; TEMP 36.2; O2SAT 100; BMI 35.2
--- NOTE | 2020-10-04 06:30 | CT_ITS ---
STUDY: CT BRAIN WITHOUT CONTRAST REASON FOR EXAM: Female, 79 years old. Moderate head trauma, frequent falls, lethargic today. Hx vascular dementia, CVA, hypertension. RADIATION DOSAGE (If Supplied By Facility): CTDIvol = ( 44.99 ) mGy, DLP = ( 745.49 ) mGycm TECHNIQUE: Transaxial CT imaging of the brain was performed without administration of intravenous contrast material. Individualized dose optimization techniques were used for this CT. COMPARISON: 09/28/2020 FINDINGS: Normal soft tissue structures. Normal calvarium. There is mild cerebral atrophy with widening of the extra-axial spaces and ventricular dilatation. There are areas of decreased attenuation within the white matter tracts of the supratentorial brain, consistent with microvascular disease changes. No change in the insufflation the posterior right parietal lobe consistent with chronic infarct. Normal basal ganglia and thalami. Normal brainstem. Normal cerebellum. There is no intracranial hemorrhage. There are no findings of an acute ischemic infarction. Normal visualized paranasal sinuses. CT/Brain/Head without Contrast IMPRESSION: Chronic involutional changes of the brain. Electronically Signed: Hilario Cline MD at 7:35 EST Tel , Service support ,
--- NOTE | 2020-10-04 06:30 | CT_ITS ---
STUDY: CT CERVICAL SPINE WITHOUT CONTRAST REASON FOR EXAM: Female, 79 years old. Moderate head trauma, frequent falls, lethargic today. Hx vascular dementia, CVA, hypertension. RADIATION DOSAGE (If Supplied By Facility): CTDIvol = ( 24.61 ) mGy, DLP = ( 480.86 ) mGycm TECHNIQUE: High resolution transaxial imaging was performed without contrast material. Sagittal and coronal images were reconstructed. Individualized dose optimization techniques were used for this CT. COMPARISON: None FINDINGS: Normal craniovertebral junction. There is hypertrophy of the transverse ligament of the atlas with mild posterior displacement of the superior and inferior longitudinal fibers of the cruciform ligament, producing minimal ventral thecal sac flattening, but without cervical cord impingement. There are mild degenerative changes in the anterior atlantoaxial articulation. Normal odontoid process. Normal cervical lordosis. Normal vertebral bodies and posterior osseous elements. C2-3: Normal endplates. Normal disc height and morphology. Normal central canal and intervertebral neuroforamina. C3-4: Mild peripherally calcified broad disc protrusion (hard disc) produces mild spinal stenosis. No neural foraminal stenosis. C4-5: Normal endplates. Normal disc height and morphology. Normal central canal and intervertebral neuroforamina. C5-6: Mild broad disc osteophyte complex produces mild spinal stenosis and mild bilateral neural foraminal stenosis. C6-7: Normal endplates. Normal disc height and morphology. Normal central canal and intervertebral neuroforamina. C7-T1: Normal endplates. Normal disc height and morphology. Normal central canal and intervertebral neuroforamina. Normal visualized soft tissue structures. CT/Spine Cervical without Contras IMPRESSION: No acute fracture or subluxation. Electronically Signed: Hilario Cline MD at 7:38 EST Tel , Service support ,
--- NOTE | 2020-10-04 06:32 | ED.DCSUM_ITS ---
History of Present Illness Informant: Patient, [employer], [facility] Narrative: 79-year-old female presenting from assisted facility reportedly had a fall at 1300 hrs. yesterday. She reportedly struck her head. She denies any pain. Patient is very angry that she is here. Patient has a history of dementia. Reportedly had a low valproic acid level and recently increased that yesterday as well as restarted Seroquel. She was noted to be less alert this morning and was sent to the emergency department for evaluation. She is on Eliquis. Patient denies any symptoms and being mad that she has to be here. <Ventura Calero - Last Filed: 10/04/20 06:49> <Zane White - Last Filed: 10/04/20 08:03> Chief Complaint: Fall - Past Medical History (1) COPD (chronic obstructive pulmonary disease) Status: Chronic (2) CVA (cerebral infarction) Status: Chronic (3) Cardiomyopathy Status: Chronic Comment: echo done Jul 2018 continues to show reduced EF 25%, it was 60-65% in 2016. Etiology unclear (4) Chronic diastolic heart failure Status: Chronic (5) Dementia Status: Chronic (6) Diabetes mellitus, type II Status: Chronic (7) Fibromyalgia Status: Chronic (8) H/O aortic valve replacement Status: Chronic Comment: 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 with left carotid endarterectomy @ [facility] by Dr Lerma 02/06/16 (9) Hyperlipidemia Status: Chronic (10) Hypertension Status: Chronic (11) Hypothyroidism Status: Chronic (12) Obesity Status: Chronic (13) Paroxysmal a-fib Status: Chronic (14) Secondary pulmonary arterial hypertension Status: Chronic <Ventura Calero - Last Filed: 10/04/20 06:49> Past Medical History Surgical History: appendectomy, cataract, - - Aortic Valve replacement, left carotid endarterectomy, shoulder surgery Lives: [facility] Smoking Status: Former smoker Alcohol: None Drugs: None - Family History Maternal Family History: Family History (Last Reviewed 04/18/20 @ 14:04 by Kaleigh Aguilera) Mother CVA (cerebral vascular accident) Diabetes Family History: Reports: Diabetes, Stroke Paternal Family History: Family History (Last Reviewed 04/18/20 @ 14:04 by Kaleigh Aguilera) Mother CVA (cerebral vascular accident) Diabetes Family History: Reports: Cancer Sibling Family History: Family History (Last Reviewed 04/18/20 @ 14:04 by Kaleigh Aguilera) Mother CVA (cerebral vascular accident) Diabetes Family History: Reports: Hypertension <Ventura Calero - Last Filed: 10/04/20 06:49> - Family History Maternal Family History: Family History (Last Reviewed 04/18/20 @ 14:04 by Kaleigh Aguilera) Mother CVA (cerebral vascular accident) Diabetes Paternal Family History: Family History (Last Reviewed 04/18/20 @ 14:04 by Kaleigh Aguilera) Mother CVA (cerebral vascular accident) Diabetes Sibling Family History: Family History (Last Reviewed 04/18/20 @ 14:04 by Kaleigh Aguilera) Mother CVA (cerebral vascular accident) Diabetes <Zane White - Last Filed: 10/04/20 08:03> - Allergies and Home Meds Allergies/Adverse Reactions: Allergies shellfish derived Allergy (Verified 10/04/20 06:34) NEEDS FOLLOW-UP pregabalin [From Lyrica] Adverse Reaction (Severe, Verified 09/28/20 00:12) Mental status changes Hallucination and delusions prochlorperazine edisylate [From Compazine] Adverse Reaction (Severe, Verified 09/28/20 00:12) Seizures prochlorperazine maleate [From Compazine] Adverse Reaction (Severe, Verified 09/28/20 00:12) Seizures tolmetin sodium [From Tolectin] Adverse Reaction (Severe, Verified 09/28/20 00:12) Syncope Primary Care Physician: Rolan Mark MD [Primary Care Provider] - 3-5 Days Review of Systems General: Denies: Chills, Fever, Sweats Eyes: Denies: Visual changes - bilaterally, Diplopia ENT: Denies: Rhinorrhea, Sore throat Cardiovascular: Denies: Chest pain, Palpitations Respiratory: Denies: Dyspnea, Cough, Dyspnea on exertion Gastrointestinal: Denies: Abdominal pain, Nausea, Vomiting, Diarrhea, Melena, Hematochezia Genitourinary: Denies: Dysuria, Hematuria, Frequency Musculoskeletal: Denies: Back pain, Extremity Pain Skin: Denies: Rash, Wounds Neurological: Denies: Headache, Weakness, Numbness <McdonoughVentura - Last Filed: 10/04/20 06:49> Physical Exam Inital Vital Signs reviewed: Yes General: Well nourished, Well developed, Obese, No Acute Distress Head: Normocephalic, Atraumatic Eyes: Perrl, EOMI ENT: Moist mucous membranes, No rhinorrhea Neck: Supple, Nontender Cardiovascular: Regular rate, Regular rhythm, No murmurs Respiratory: No distress, CTA bilaterally, Chest nontender Abdomen: Soft, Nontender, Nondistended, Normal bowel sounds Back: Nontender, Normal Inspection Extremities: Nontender, No edema Skin: Normal color, No rash Neurological: Alert, Cranial nerves II-XII grossly intact, Normal Strength, Normal Sensation. Negative for: Oriented x3 - Orientated to name and place Psychological: Agitated <Doug Caleroel - Last Filed: 10/04/20 06:49> Vital Signs/Narrative: Vital Signs Temp Pulse Resp BP Pulse Ox 10/04/20 06:29 97.1 F L 69 16 106/50 L 100 <Zane White - Last Filed: 10/04/20 08:03> Diagnostic/Tx/Re-eval - Medical Decision Making CT imaging of the brain and cervical spine were obtained. <Ventura Calero - Last Filed: 10/04/20 06:49> - Medical Decision Making Care of the patient was turned over to me pending CT scan of the brain and cervical spine. CT scan of the brain was obtained. There are chronic changes but no acute intracranial abnormality. CT scan of the cervical spine was obtained. There is no acute fracture or subluxation. These were interpreted by the radiologist and reviewed by myself. Patient will be discharged back to the extended care facility. <Zane White - Last Filed: 10/04/20 08:03> ED Disposition <Ventura Calero - Last Filed: 10/04/20 06:49> <Zane White - Last Filed: 10/04/20 08:03> - Plan for ED Patient: Disposition: Group Home Facility Diagnosis: Fall, Head injury, Dementia, Anticoagulant long-term use Instructions: ED Head Injury (Adult) Referrals: Rolan Mark MD [Primary Care Provider] - 3-5 Days
[2020-10-04 08:12] VITALS: BP 132/77; PULSE 62; RESP 15; O2SAT 97
== END 2020-10-04 09:28 | disposition skilled nursing facility (03) ==
LOC: ED 07:03
PROVIDERS: Emergency Provider Emergency Medicine; PCP Family Medicine
DX: S09.90XA Unspecified injury of head, initial encounter (principal); W19.XXXA Unspecified fall, initial encounter; E03.9 Hypothyroidism, unspecified; E11.36 Type 2 diabetes mellitus with diabetic cataract; E66.9 Obesity, unspecified; E78.5 Hyperlipidemia, unspecified; I11.0 Hypertensive heart disease with heart failure; I27.21 Secondary pulmonary arterial hypertension; I48.0 Paroxysmal atrial fibrillation; I50.32 Chronic diastolic (congestive) heart failure; J44.9 Chronic obstructive pulmonary disease, unspecified; R29.6 Repeated falls; F01.50 Vascular dementia, unspecified severity, without behavioral disturbance, psychotic disturbance, mood disturbance, and anxiety; I42.9 Cardiomyopathy, unspecified; M79.7 Fibromyalgia; Z79.01 Long term (current) use of anticoagulants; Z82.49 Family history of ischemic heart disease and other diseases of the circulatory system; Z83.3 Family history of diabetes mellitus; Z86.73 Personal history of transient ischemic attack (TIA), and cerebral infarction without residual deficits; Z87.891 Personal history of nicotine dependence; Z88.8 Allergy status to other drugs, medicaments and biological substances
CPT/HCPCS: 70450; 72125; 99284

== ENCOUNTER 2020-10-07 18:55 | Observation (INO) | payer MEDICARE, BC, MEDICAID, SELFPAY ==
[2020-10-07] VITALS (8 sets, daily range): BP systolic 98–112; BP diastolic 47–75; PULSE 81–100; RESP 17–18; TEMP 36.6–37; O2SAT 90–95; BMI 35.0; BMI 33.8
--- NOTE | 2020-10-07 19:05 | EKG12_ITS ---
Test Reason : CP Blood Pressure : / mmHG Vent. Rate : 079 BPM Atrial Rate : 079 BPM P-R Int : 166 ms QRS Dur : 164 ms QT Int : 440 ms P-R-T Axes : 062 051 155 degrees QTc Int : 504 ms Atrial-sensed ventricular-paced rhythm Abnormal ECG Confirmed by BLADIMIR CARRANZA, JEYSON ([id number]), manuscript editor ASHLEY GARCÍA ([id number]) on 10/09/2020 10:32:12 AM Referred By: GERALD Confirmed By:JEYSON GARRISON MD
[2020-10-07] MEDS: LORazepam 2 MG/ML Syringe 1 MG IV ×2 (19:20→20:04)
--- NOTE | 2020-10-07 19:23 | RAD_ITS ---
STUDY: X-RAY CHEST REASON FOR EXAM: Female, 79 years old. chest pain TECHNIQUE: AP portable COMPARISON: 03/12/2018 FINDINGS: Mild subsegmental atelectasis in left lower lobe.. There is no demonstrated pleural abnormality. Postop change status post median sternotomy and CABG. The heart is enlarged.. Normal mediastinum and allen. Normal visualized pulmonary arteries. Mildly calcified aortic arch and descending thoracic aorta. Biventricular pacer noted with electrodes in satisfactory position Normal visualized thoracic spine. Normal visualized ribs, clavicles, and shoulders. There is no demonstrated abnormality of the visualized soft tissue structures of the upper abdomen. RAD/Chest 1 View (Portable) IMPRESSION: Mild subsegmental atelectasis in left lower lobe. ASHD Electronically Signed: Itz Hutchinson MD at 19:54 EST , Service support ,
[2020-10-07 19:33] LABS: Absolute Lymphocyte Count 0.86 X10^3/uL (0.83-4.51); Absolute Neutrophil Count 4.9 X10^3/uL (2.0-7.7); Basophil# 0.04 X10^3/uL; Basophil% 0.6 % (0-1); Eosinophil# 0.14 X10^3/uL; Eosinophils% 2.2 % (0-5); Hematocrit 37.4 % (37-47); Hemoglobin 10.7 g/dL (12.0-15.0); Lymphocyte # 0.86 X10^3/ul (4.0); Lymphocyte % 13.3 % (19-41); Mean Corp Hgb Conc 28.6 g/dL (32-36); Mean Corpuscular Hgb 29.2 pg (27.0-32.0); Mean Corpuscular Volume 102.2 fL (81-99); Mean Platelet Vol. 10.3 fl (6.2-12.0); Monocyte% 7.7 % (0-10); NRBC Flagged by Analyzer 0 % (0-5); Neutrophil # 4.94 X10^3/uL (2.7-7.7); Platelet Count 121 K/mm3 (150-450); RBC Distribution Width CV 15.5 % (11.6-14.6); RBC Distribution Width SD 58.2 fl (35.1-43.9); Red Blood Count 3.66 M/mm3 (4.2-5.4); White Blood Count 6.5 K/mm3 (4.4-11.0)
[2020-10-07 19:51] LABS: Anion Gap 4 (5-15); BUN 28 mg/dL (7-18); BUN/Creat Ratio 19.7 RATIO (10-20); Calcium,Total 8.7 mg/dL (8.5-10.1); Chloride 106 mmol/L (98-107); Creatinine, Serum 1.42 mg/dL (0.55-1.02); EST Glomerular Filtration Rate 38 mL/min (>60); Est Glom Filt Rate - Afr Amer 46 mL/min (>60); Estimated Creatinine Clearance 23.07 ml/min; Glucose 125 mg/dL (74-106); Potassium 4.5 mmol/L (3.5-5.1); Sodium Level 140 mmol/L (136-145)
[2020-10-07 19:55] LABS: BNP,B-Type NATRIURETIC PEPTIDE 1112.5 pg/mL (0-100)
--- NOTE | 2020-10-07 20:22 | HP.PCM_ITS ---
History of Present Illness Date of Admission: 10/07/20 Chief Complaint: chest pain The patient is a 79 year old F with a PMH as outlined who was admitted with a complaint of chest pain. PEr ED Doctor,. had some issues with the nurses at her SNF, and got upset and screamed at them. She got so upset, she told them she had chest pain, though she doesn't really think she had chest pain. Patient was very confused at the time I reviewed, and thought she was in restoration. I was unable to get any history from the patient. She was brought to the ED, where vitals were stable. Chemistry showed Cr of 1.42, with initial troponin of 0.319, and BNP of 1112.5. CBC showed hb of 10.7, with wbc of 6.5, platelets of 121. She does have chronically elevated troponins, with her baseline being ~ 0.1. EKG showed no acute ST changes. CXR showed mild subsegmental atelectasis in the left lower lobe. She is being admitted to be managed for elevated BNP likely due to acute on chronic HF and elevated troponins.] Past Medical History Past Medical History (Chronic Problems): Chronic Problems (Last Reviewed 04/18/20 @ 14:04 by Kaleigh Aguilera) Biventricular automatic implantable cardioverter defibrillator in situ (Chronic) Diabetes mellitus, type II (Chronic) Chronic respiratory failure with hypoxia (Chronic) Cardiomyopathy (Chronic) echo done Jul 2018 continues to show reduced EF 25%, it was 60-65% in 2016. Etiology unclear Thrombocytopenia (Chronic) Fibromyalgia (Chronic) Dementia (Chronic) Uncontrolled diabetes mellitus (Chronic) Obesity (Chronic) H/O aortic valve replacement (Chronic 02/06/16) AVR w/ large Jasbir Perceval stentless sutureless pericardial valve con commitently with left carotid endarterectomy @ [facility] by Dr Lerma 02/06/16 Non-rheumatic aortic stenosis (Chronic) COPD (chronic obstructive pulmonary disease) (Chronic) Secondary pulmonary arterial hypertension (Chronic) Hyperlipidemia (Chronic) Chronic diastolic heart failure (Chronic) CVA (cerebral infarction) (Chronic) Hypertension (Chronic) Hypothyroidism (Chronic) Paroxysmal a-fib (Chronic) Medical History: Medical History (Last Reviewed 04/18/20 @ 14:04 by Kaleigh Aguilera) Biventricular automatic implantable cardioverter defibrillator in situ (Chronic) Z95.810 Pulmonary embolism, bilateral (Resolved) Onset Date: 03/12/18 I26.99 Per CTA 03/12/18 @ [facility] Diabetes mellitus, type II (Chronic) E11.9 Chronic respiratory failure with hypoxia (Chronic) J96.11 Cardiomyopathy (Chronic) I42.9 echo done Jul 2018 continues to show reduced EF 25%, it was 60-65% in 2016. Etiology unclear Thrombocytopenia (Chronic) D69.6 Fibromyalgia (Chronic) M79.7 Dementia (Chronic) F03.90 Uncontrolled diabetes mellitus (Chronic) E11.65 Obesity (Chronic) E66.9 Non-rheumatic aortic stenosis (Chronic) I35.0 COPD (chronic obstructive pulmonary disease) (Chronic) J44.9 Secondary pulmonary arterial hypertension (Chronic) I27.21 Hyperlipidemia (Chronic) E78.5 Chronic diastolic heart failure (Chronic) I50.32 CVA (cerebral infarction) (Chronic) I63.9 Hypertension (Chronic) I10 Hypothyroidism (Chronic) E03.9 Paroxysmal a-fib (Chronic) I48.0 Acute kidney injury N17.9 Cardiac enzymes elevated R74.8 Bilateral carotid artery stenosis I65.23 Fibromyalgia M79.7 Obstructive sleep apnea G47.33 Onychomycosis B35.1 Type 2 diabetes mellitus without complications E11.9 Vascular dementia F01.50 Dehydration E86.0 Allergies shellfish derived Allergy (Verified 10/07/20 18:56) NEEDS FOLLOW-UP pregabalin [From Lyrica] Adverse Reaction (Severe, Verified 10/07/20 18:56) Mental status changes Hallucination and delusions prochlorperazine edisylate [From Compazine] Adverse Reaction (Severe, Verified 10/07/20 18:56) Seizures prochlorperazine maleate [From Compazine] Adverse Reaction (Severe, Verified 10/07/20 18:56) Seizures tolmetin sodium [From Tolectin] Adverse Reaction (Severe, Verified 10/07/20 18:56) Syncope Home Medications: Ambulatory Orders Medication Instructions Recorded Ergocalciferol [Vitamin D] 50,000 unit PO FR 12/27/17 Sitagliptin Phosphate [Januvia] 100 mg PO DAILY 12/27/17 metoprolol tartrate 25 mg tablet 12.5 mg PO BID tab 09/08/18 Magnesium Hydroxide [Milk Of 30 ml PO DAILY PRN PRN 09/24/18 Magnesia] Polyethylene Glycol 3350 [Miralax] 17 gm PO DAILY 09/24/18 memantine 10 mg tablet 10 mg PO BID tab 10/08/19 Apixaban [Eliquis] 5 mg PO BID 09/28/20 Donepezil HCl 5 mg PO QHS 09/28/20 Melatonin 5 mg PO QHS 09/28/20 Acetaminophen 1,000 mg PO BID PRN 10/04/20 Fluorometholone Acetate [Flarex] 1 drp OP BID 10/04/20 Insulin Detemir [Levemir] 10 unit SQ QHS 10/04/20 Insulin Lispro [Humalog] 2 unit SQ TID 10/04/20 Quetiapine Fumarate [Seroquel] 12.5 mg PO DAILY@1700 10/04/20 Divalproex Sodium [Depakote] 250 mg PO BID 10/07/20 Furosemide [Lasix] 20 mg PO DAILY 10/07/20 Levothyroxine Sodium [Synthroid] 100 mcg PO DAILY 10/07/20 Nut.tx.gluc Intol,Lf,Soy/Fiber 237 ml PO TIDCM 10/07/20 [Boost Glucose Control Liquid] Vortioxetine Hydrobromide 10 mg PO QHS 10/07/20 [Trintellix] Surgical History: Surgical History (Last Reviewed 04/18/20 @ 14:04 by Kaleigh Aguilera) Biventricular AICD malfunction (Resolved) Onset Date: 10/27/18 T82.118A RA lead became dislodged after implant: pt taken back to EP lab and new Medtronic RA lead placed with excellent results per Dr. Mauro WORTHY H/O aortic valve replacement (Chronic) Onset Date: 02/06/16 Z95.2 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 with left carotid endarterectomy @ [place] by Dr Lerma 02/06/16 History of left-sided carotid endarterectomy Onset Date: 02/06/16 Z98.890 History of right and left heart catheterization Onset Date: 12/24/15 Z98.890 CONCLUSIONS: 1. Normal LV function with an EF of 65%. 2. Dvihzjsp-ie-ovdlvs at least moderate pulmonary hypertension with evidence of desaturation both intrapulmonary and systemically. 3. Normal cardiac output. 4. No evidence of aortic insufficiency. 5. Nonobstructive coronary artery disease of the mid LAD, mid RCA, and mid left circumflex. Hx of cholecystectomy Z90.49 Surgical History: appendectomy, cataract, - - Aortic Valve replacement, left carotid endarterectomy, shoulder surgery Psychiatric History: No pertinent psych hx ALL SOURCE ANALYST History: No pertinent ALL SOURCE ANALYST history Smoking Status: Former smoker - *Family History Maternal Family History: Family History (Last Reviewed 04/18/20 @ 14:04 by Kaleigh Aguilera) Mother CVA (cerebral vascular accident) Diabetes History Items: Diabetes, Stroke Paternal Family History: Family History (Last Reviewed 04/18/20 @ 14:04 by Kaleigh Aguilera) Mother CVA (cerebral vascular accident) Diabetes History Items: Cancer Sibling Family History: Family History (Last Reviewed 04/18/20 @ 14:04 by Kaleigh Aguilera) Mother CVA (cerebral vascular accident) Diabetes History Items: Hypertension Review of Systems Unable to obtain accurate/complete ROS d/t: patient very confused VTE Information - Inpt Only VTE Present on Admission: No VTE Pharm Prophylaxis ordered?: Yes - Physical Exam Vitals/I&O's: Vital Signs Temp Pulse Resp BP Pulse Ox 98 F 81 18 106/47 L 95 10/07/20 18:57 10/07/20 18:57 10/07/20 18:57 10/07/20 20:01 10/07/20 18:57 Oxygen Delivery Method Room Air Weight: 179 lb 7.3 oz Body Mass Index (BMI) 35.0 Finger Stick Blood Glucose 529 General: Alert, Confused, Disoriented HEENT: Atraumatic, PERRLA, EOMI, Normocephalic Oral: Dry Mucosa Neck: Supple, No JVD, Negative Carotid Bruits Lungs: Clear to auscultation, Normal air movement, No rhonchi, No wheeze Cardiovascular: Regular rate, Regular Rhythm, Normal S1, Normal S2, No murmurs Abdomen: Bowel Sounds Present, Soft, Non Tender, Non-Distended, No Hepato- splenomegaly Extremities: No clubbing, No cyanosis, No edema, Capillary Refill Less than 3 Seconds Skin: No rashes, No breakdown Musculoskeletal: No Tenderness to Palpation of Joints or Extremities Lymphatic: No Cervical, Supraclavicular, or Inguinal Adenopathy Neurological: Cranial nerves II-XII grossly intact, Neuro grossly intact, Motor Exam 5/5 strength throughout Psych/Mental Status: Flat Affect, - - confused, AO x 0 Laboratory Results 10/07/20 19:20: WBC 6.5, RBC 3.66 L, Hgb 10.7 L, Hct 37.4, MCV 102.2 H, MCH 29.2, MCHC 28.6 L, RDW Std Deviation 58.2 H, RDW Coeff of Prema 15.5 H, Plt Count 121 L, MPV 10.3, Immature Gran % (Auto) 0.200, Neut % (Auto) 76.0 H, Lymph % (Auto) 13.3 L, [place] % (Auto) 7.7, Eos % (Auto) 2.2, Baso % (Auto) 0.6, Absolute Neuts (auto) 4.9, Absolute Lymphs (auto) 0.86, Nucleated RBC % 0 10/07/20 19:20: Sodium 140, Potassium 4.5, Chloride 106, Carbon Dioxide 30.0, Anion Gap 4 L, BUN 28 H, Creatinine 1.42 H, Estim Creat Clear Calc 23.07, Est GFR (MDRD) Af Amer 46 L, Est GFR (MDRD) Non-Af 38 L, BUN/Creatinine Ratio 19.7, Glucose 125 H, Calcium 8.7, Troponin I 0.319 H 10/07/20 19:20: B-Natriuretic Peptide 1112.5 H Diagnostic Data Chest X-Ray 10/07/20 19:23 IMPRESSION: Mild subsegmental atelectasis in left lower lobe. ASHD Electronically Signed: Itz Hutchinson MD at 19:54 EST , Service support , Assessment/Plan All Active Problems (Last Reviewed 04/18/20 @ 14:04 by Kaleigh Aguilera) Biventricular AICD malfunction (Resolved 10/27/18) Pulmonary embolism, bilateral (Resolved 03/12/18) 79 y/o admitted with a complaint of questionable chest pain #Chest pain, to r/o ACS * admit to PCU * cycle troponins; intial troponin is 0.3 * SL nitroglyceirn prn. PO aspirin 81 mg daily * stress test if troponins are negative. * # Acute on chronic heart failure * BNP is markedly elevated at >1000 * diurese with IV lasix 40mg bid * CXR showed mild subsegmental atelectasis in left lower lobe * 2D echo (10/19/2019) showed moderately dilated LV, EF of 25-30%, and severe global hypokinesis of hte left ventricle, with moderately enlarged LA, and RVSp of 56mmHg, indicating moderate pulmonary HTN. Stable apperaing bioprosthetic aortic valve apparatus * #Hypertension: Continue home meds: *Hyperlipidemia: Continue statin #Hypothyroidism: Continue Synthroid. Type 2 diabetes mellitus: Continue home insulin of Lantus 10 units nightly and sitagliptin Insulin sliding scale. Accu-Cheks AC at bedtime. #History of PE: On Eliquis #History of dementia with behavioural disturbance: * Patient is confused now alert and oriented x0. * Continue dementia medication-memantine. * on seroquel for behavioural disturbance * * DVT prophylaxis: on eliquis Code status: DNRCCA, per papers from [facility] OBSV E&M: 12833 Initial observation care L3
[2020-10-07] MEDS: Ziprasidone IM 20 MG/ML VIAL IM (20:37)
--- NOTE | 2020-10-07 20:39 | ED.RN ---
spoke with [facility] at [facility], states patient has had increased confusion since having COVID last month
--- NOTE | 2020-10-07 20:47 | ED.VIS.GEN ---
History of Present Illness Chief Complaint: Chest Pain Informant: Patient Onset: Today Maximum Severity: Mild Narrative: Patient presents complaining of chest pain Note the original dictation could not be found this is then the second dictation from mary Presents from nursing center apparently today at the nursing center she became to get quite agitated reported that she felt staff there or others there had surrounded her were potentially trying to aggravate her or harm her the situation intensified through the course of the day and then she presented to the desk and there was concern the part of [place] [facility] staff that she might be having chest pain as she has history of heart disease pacemaker valve replacement. The patient knows her name knows [facility], she indicates she may have told the nurse that she had chest pain. She is DNR comfort care, she denies any chest pain now is quite upset as to what might of happened at the nursing center Past Medical History - Allergies and Home Meds Allergies/Adverse Reactions: Allergies shellfish derived Allergy (Verified 10/07/20 18:56) NEEDS FOLLOW-UP pregabalin [From Lyrica] Adverse Reaction (Severe, Verified 10/07/20 18:56) Mental status changes Hallucination and delusions prochlorperazine edisylate [From Compazine] Adverse Reaction (Severe, Verified 10/07/20 18:56) Seizures prochlorperazine maleate [From Compazine] Adverse Reaction (Severe, Verified 10/07/20 18:56) Seizures tolmetin sodium [From Tolectin] Adverse Reaction (Severe, Verified 10/07/20 18:56) Syncope Primary Care Physician: Rolan Mark MD [Primary Care Provider] - Past Medical History: - - Heart disease pacemaker Surgical History: appendectomy, cataract, - - Aortic Valve replacement, left carotid endarterectomy, shoulder surgery Smoking Status: Former smoker - Family History Maternal Family History: Family History (Last Reviewed 04/18/20 @ 14:04 by Kaleigh Aguilera) Mother CVA (cerebral vascular accident) Diabetes Family History: Reports: Diabetes, Stroke Paternal Family History: Family History (Last Reviewed 04/18/20 @ 14:04 by Kaleigh Aguilera) Mother CVA (cerebral vascular accident) Diabetes Family History: Reports: Cancer Sibling Family History: Family History (Last Reviewed 04/18/20 @ 14:04 by Kaleigh Aguilera) Mother CVA (cerebral vascular accident) Diabetes Family History: Reports: Hypertension Review of Systems ROS: - Heart disease pacemaker valvular heart replacement General: Denies: Chills, Fever, Sweats Eyes: Denies: Visual changes - bilaterally, Diplopia ENT: Denies: Rhinorrhea, Sore throat Cardiovascular: Reports: Chest pain. Denies: Palpitations Respiratory: Denies: Dyspnea, Cough, Dyspnea on exertion Gastrointestinal: Denies: Abdominal pain, Nausea, Vomiting, Diarrhea, Melena, Hematochezia Genitourinary: Denies: Dysuria, Hematuria, Frequency Musculoskeletal: Denies: Back pain, Extremity Pain Skin: Denies: Rash, Wounds Neurological: Denies: Headache, Weakness, Numbness Physical Exam Vital Signs/Narrative: Vital Signs Temp Pulse Resp BP Pulse Ox 10/07/20 20:01 106/47 L 10/07/20 18:57 98 F 81 18 112/58 L 95 General: Well nourished, Well developed, No Acute Distress Head: Normocephalic, Atraumatic Eyes: Perrl, EOMI ENT: Moist mucous membranes, No rhinorrhea Neck: Supple, Nontender Cardiovascular: Regular rate, Regular rhythm, No murmurs Respiratory: No distress, CTA bilaterally, Chest nontender Abdomen: Soft, Nontender, Nondistended, Normal bowel sounds Back: Nontender, Normal Inspection Extremities: Nontender, No edema Skin: Normal color, No rash Neurological: Alert, Oriented x3, Cranial nerves II-XII grossly intact, Normal Strength, Normal Sensation Psychological: Normal affect, Normal Mood Diagnostic/Tx/Re-eval - Medical Decision Making The patient's EKG shows a paced rhythm nothing acute, the chest x-ray 1 view to my review shows nothing acute her labs are remarkable for elevated creatinine elevated troponin elevated BNP she continues to be agitated related to what may or happened at nursing center. We did have staff contact nursing center and basically the patient has been displaying worsening memory loss and labile affect worsening for the last week or 2 there is a distant history from a month ago that she had Covid. At this time given all the above I spoke with the hospitalist will arrange for admission for further management she is medicated with Ativan and Geodon due to her agitated state Disposition is admit Final impression chest pain abnormal troponin, memory loss agitated emotional state ED Disposition - Plan for ED Patient: Referrals: Rolan Mark MD [Primary Care Provider] -
[2020-10-07] MEDS: Aspirin 325 MG Tablet PO (20:55)
--- NOTE | 2020-10-07 21:07 | ED.RN ---
spoke with son, Avery for pt update- aware of admission.
--- NOTE | 2020-10-07 22:02 | EKG12_ITS ---
Test Reason : CP ADMIT Blood Pressure : / mmHG Vent. Rate : 097 BPM Atrial Rate : 097 BPM P-R Int : 176 ms QRS Dur : 164 ms QT Int : 422 ms P-R-T Axes : 080 -22 132 degrees QTc Int : 535 ms Atrial-sensed ventricular-paced rhythm Abnormal ECG When compared with ECG of 13-MAR-2018 21:15, Electronic ventricular pacemaker has replaced Sinus rhythm Confirmed by KEILA CARRANZA, ELIA ([id number]), food editor ASHLEY GARCÍA ([id number]) on 10/10/2020 8:50:45 AM Referred By: KANNAN Confirmed By:SHEELA PEDRAZA MD
[2020-10-07] MEDS: Furosemide 40 MG/4 ML Vial IV (22:40)
[2020-10-07] MEDS: Divalproex Sodium 250 MG Tablet PO (22:41)
[2020-10-07] MEDS: Donepezil HCl 5 MG Tablet PO (22:42)
[2020-10-07] MEDS: Metoprolol Tartrate 25 MG Tablet 12.5 MG PO (22:42)
[2020-10-07] MEDS: APIXABAN 5 MG TABLET PO (22:42)
[2020-10-07] MEDS: Memantine Hydrochloride 10 MG Tablet PO (22:43)
[2020-10-07] MEDS: MELATONIN 10 MG TABLET 5 MG PO (22:43)
[2020-10-07] MEDS: 0.9% Saline Lock 10 ML Syringe IV (22:48)
[2020-10-07 22:55] LABS: Bedside Glucose 102 mg/dL (70-110)
[2020-10-08] VITALS (8 sets, daily range): BP systolic 88–114; BP diastolic 40–51; PULSE 60–69; RESP 18; TEMP 36.7–36.8; O2SAT 92–98
--- NOTE | 2020-10-08 04:44 | PCS.PANDOC ---
PANDEMIC DOCUMENTATION INITIATED: Date: 10/07/2020 Time: 2199
[2020-10-08] MEDS: Levothyroxine 100 MCG Tablet PO (05:29)
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
[2020-10-08 08:01] LABS: Magnesium 2.2 mg/dL (1.6-2.6)
[2020-10-08 08:19] LABS: T4 Free Direct 1.22 ng/dL (0.76-1.46); Thyroid Stim Hormone (TSH) 0.11 uIU/mL (0.358-3.74)
[2020-10-08 08:20] LABS: Bedside Glucose 113 mg/dL (70-110)
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
--- NOTE | 2020-10-08 09:07 | ECHOD_ITS ---
Reason For Study: Arrhythmia Procedure This was a 2D Doppler, Color Flow transthoracic echocardiogram. The study was technically difficult. Did not use Definity due to increased PAP. Exam performed portable in patient room. Left Ventricle Normal LV size. The estimated ejection fraction is 25 %. Severe global left ventricular systolic dysfunction. There is severe global hypokinesis of the left ventricle. Right Ventricle Normal RV size. ICD or pacer leads identified within the right ventricle. Normal systolic function. Atria Normal left atrium. Normal right atrium. Mitral Valve There is mild to moderate mitral annular calcification. Mild-Moderate (1-2+) eccentric mitral valve insufficiency. Tricuspid Valve Normal tricuspid valve. Moderately severe (3+) tricuspid valve insufficiency. Pulmonary artery systolic pressure is 75 mmHg. Severe pulmonary hypertension. Aortic Valve Peak aortic valve gradient 61 mmHg. Mean aortic valve gradient 38 mmHg. Severe aortic stenosis. Bioprosthetic aortic valve. Pulmonic Valve The pulmonic valve is not well visualized. Great Vessels Calcified aortic root. The pulmonary artery is normal size. Inferior vena cava collapse with respiration. Pericardium/Pleural No pericardial effusion. MMode/2D Measurements & Calculations LVIDd: 5.6 cm IVSd: 1.4 cm LVOT diam: 1.7 cm LVIDs: 4.8 cm LVPWd: 1.1 cm LVOT area: 2.3 cm2 RVDd: 4.1 cm FS: 15.3 % Ao root diam: 2.9 cm LAV(MOD-bp): 75.0 ml LA A4 area: 19.9 cm2 LAV(MOD-bp) Indexed: 43.6 ml/m2 LAV(MOD-sp2): 78.5 ml LAV(MOD-sp4): 64.4 ml LA dimension(2D): 4.9 cm RA A4 area: 17.8 cm2 Time Measurements MV dec time: 0.13 sec Doppler Measurements & Calculations MV E max kel: 142.3 cm/sec Lat Peak E' Kel: 5.4 cm/sec Med Peak E' Kel: 2.9 cm/sec MV A max kel: 132.9 cm/sec E/E' lat: 26.6 E/E' med: 49.0 MV E/A: 1.1 MV V2 max: 161.3 cm/sec MV P1/2t max kel: 153.2 cm/sec Ao V2 max: 389.8 cm/sec MV max P.4 mmHg MV P1/2t: 71.2 msec Ao max P.8 mmHg MV V2 mean: 103.1 cm/sec MV dec slope: 630.5 cm/sec2 Ao V2 mean: 292.1 cm/sec MV mean P.7 mmHg Ao mean P.5 mmHg MV V2 VTI: 43.0 cm MVA(P1/2t): 3.1 cm2 Ao V2 VTI: 103.0 cm MVA(VTI): 1.6 cm2 JARRETT(I,D): 0.68 cm2 JARRETT(V,D): 0.70 cm2 LV V1 max: 119.8 cm/sec SV(LVOT): 69.8 ml PA V2 max: 95.3 cm/sec LV V1 max P.8 mmHg LV V1 mean P.3 mmHg LV V1 mean: 86.5 cm/sec LV V1 VTI: 30.5 cm PI end-d kel: 163.7 cm/sec TR max kel: 421.7 cm/sec TR max P.1 mmHg Interpretation Summary Normal LV size. The estimated ejection fraction is 25 %. Severe global left ventricular systolic dysfunction. Mean aortic valve gradient 38 mmHg. Severe aortic stenosis. Pulmonary artery systolic pressure is 75 mmHg. Severe pulmonary hypertension. Compared to the previous echocardiogram the prosthetic aortic valve area appears to be worsened with significantly worsened pulmonary hypertension. Recommend repeat echocardiogram in 3 months. Ordering Physician: Shamika Mane Referring Physician: Rolan Mark Performed By: Zainab Benitez, ALYSSA, RVT
--- NOTE | 2020-10-08 09:32 | CASEMGMT ---
Patient is from [facility] [place]. 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 They can take patient back today. She said patient does not need a COVID to return. JAVAN faxed clinicals to [facility]. Plan: d/c back to [facility] [place] under intermediate level of care. Martha CHOUDHARY LAB ANIMAL TECHNOLOGIST
--- NOTE | 2020-10-08 10:23 | PCM.TXEXTCAR ---
- Diet 10/08/20 09:07 ADA [Diet: Cardiac: Calorie-Controlled] Is pt able to select menu?: Yes How many daily calories?: 1800 calorie - Routine Orders/Code Status Enema Type: Fleetz Enema Frequency: Daily PRN Suppository Type: Dulcolax 10mg Suppository Frequency: Daily PRN O2 Liters per Minute: 4 O2 Frequency: Continuous Keep PO Greater than or Equal to (%): 90 Routine Lab Work: - - Repeat CBC, BMP within 1 week. Code Status: DNRCC-A - DNR-CCA, no intubation. - Wound(s) coccyx Wound Type: Pressure Injury Dressing Change: Dry Sterile Dressing left elbow Wound Type: scab Dressing Change: Dry Sterile Dressing - Suggestions for Active Care Change Position every (hours): 2 Hours to sit in a chair: 6 Times a day to sit in chair: 3 - Therapies Weight Bearing: Full weight bearing Physical Therapy: Eval and Treat Occupational Therapy: Eval and Treat - Allergies/Procedures Done in Hospital Allergies/Adverse Reactions: Allergies shellfish derived Allergy (Verified 10/07/20 21:51) NEEDS FOLLOW-UP pregabalin [From Lyrica] Adverse Reaction (Severe, Verified 10/07/20 21:51) Mental status changes Hallucination and delusions prochlorperazine edisylate [From Compazine] Adverse Reaction (Severe, Verified 10/07/20 21:51) Seizures prochlorperazine maleate [From Compazine] Adverse Reaction (Severe, Verified 10/07/20 21:51) Seizures tolmetin sodium [From Tolectin] Adverse Reaction (Severe, Verified 10/07/20 21:51) Syncope Procedures: 2-D Echocardiogram, EKG - Type of Care/Length of Stay Estimated LOS: More Than 30 Days Type of Care Needed: Penitentiary/Assisted Living Rehab Potential: Fair Prognosis: Fair - Additional Orders/Day of Discharge Additional Orders: (1) Encourage aspiration and fall precautions. (2) Encourage IS 10x/hr 7a-7p. (3) Given dementia history encourage up and awake, lights on, window coverings up during daytime hours AND night TV off, window coverings down, lights off H&P will serve as current which was dated: 10/07/20 Day of Discharge: 10/08/20 - Follow Up Care Primary Care Physician: Rolan Mark MD [Primary Care Provider] - Please follow up with your Primary Care Physician in: Upon SNF return per their facility protocol or within 1 week, may see COMMISSION ASSOCIATE.
--- NOTE | 2020-10-08 10:38 | PCM.DC.SUM ---
Discharge Date and Diagnosis Date of Admission: 10/07/20 Date of Discharge: 10/08/20 - Primary Discharge Diagnosis Acute Problems: Chest pain with chronically elevated troponin Chronic Diastolic CHF/Cardiomyopathy unclear type s/p AICD/pacemaker, lower suspicion acute exacerbation Valvular heart disease s/p AVR and L CEA Carotid disease s/p L CEA Hypertension Hyperlipidemia Hypothyroidism Diabetes mellitus type II History of PE on Eliquis Dementia, unclear type with unclear behavioral disturbance history, but per ED noted episodes of psychosis Hx CVA Chronic COPD with Chronic Hypoxic Respiratory Failure - Secondary Discharge Diagnosis Chronic Problems: Chronic Problems (Last Reviewed 04/18/20 @ 14:04 by Kaleigh Aguilera) Biventricular automatic implantable cardioverter defibrillator in situ (Chronic) Diabetes mellitus, type II (Chronic) Chronic respiratory failure with hypoxia (Chronic) Cardiomyopathy (Chronic) echo done Jul 2018 continues to show reduced EF 25%, it was 60-65% in 2015. Etiology unclear Thrombocytopenia (Chronic) Fibromyalgia (Chronic) Dementia (Chronic) Uncontrolled diabetes mellitus (Chronic) Obesity (Chronic) H/O aortic valve replacement (Chronic 02/06/16) 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 with left carotid endarterectomy @ [facility] by Dr Lerma 02/06/16 Non-rheumatic aortic stenosis (Chronic) COPD (chronic obstructive pulmonary disease) (Chronic) Secondary pulmonary arterial hypertension (Chronic) Hyperlipidemia (Chronic) Chronic diastolic heart failure (Chronic) CVA (cerebral infarction) (Chronic) Hypertension (Chronic) Hypothyroidism (Chronic) Paroxysmal a-fib (Chronic) Hospital Course and Treatment Imaging Results: 10/08/20 09:07 Echo Complete [ECHO] Routine Cardiology Dr. Gregg Operations: None Procedures: 2-D Echocardiogram, EKG Summary of Care Provided: The patient is a 79 y/o F w/ PMHx: BL Carotid stenosis, Hx BL PE, KWAN, Hypothyroidism, HTN, HLD, Dementia unclear type with unclear behavioral disturbance history, Valvular Heart Disease s/p AVR, Cardiomyopathy s/p AICD, Hx CVA, Chronic COPD with Chronic Hypoxic Respiratory Failure, Former Tobacco use who presented to the [facility] ED on 10/07/20 with history of onset of chest discomfort at her skilled facility following significant outburst with staff prompting staff to refer her to the ED for evaluation. Patient admitted to the PCU, maintained on cardiac telemetry, obtained cardiac enzyme series with last 0.299, will continue to trend to assure decreasing, obtain serial EKGs, given IV lasix diuresis upon presentation but evaluation 10/08/20 per Cardiology and despite elevated BNP concern actually dry, deferred further IV diuresis and of note currently laying flat and comfortable in the PCU bed thus transitioned back to home oral lower dose lasix. Patient continued on medical therapy. Most recent ECHO noted 10/19/19, pending ECHO as noted. PRN morphine to decrease afterload, continue oxygen supplementation, if necessary will position w/ upright position with legs off bed to decrease preload thus repeat requested. Patient with chronically elevated enzymes, therefore serial cardiac enzymes obtained with initial troponin 0.319--> 0.277--> 0.299. Mag 2.2, TSH 0.11 however FT4 normal level 1.22 thus subclinical. Discussed with Dr. Gregg and given presence pacemaker, stress testing may be falsely altered, thus deferred stress testing and obtained repeat ECHO as last done 10/19/19. Given patient age and dementia, reportedly worsening, may benefit from consideration palliative/hospice evaluation at SNF and deferral of further aggressive medical evaluations. Requested re-evaluation per PCP/TRANSMITTER SUPERVISOR within 1 week of return to SNF. - Physical Exam Vitals/I&O's: Vital Signs Temp Pulse Resp BP Pulse Ox 98.1 F 60 18 111/50 L 98 10/08/20 04:21 10/08/20 07:00 10/08/20 04:21 10/08/20 04:21 10/08/20 07:00 Oxygen Flow Rate (L/min) 4 Oxygen Delivery Method Nasal Cannula Weight: 173 lb 4.533 oz Body Mass Index (BMI) 33.8 Finger Stick Blood Glucose 529 Intake and Output for Last 24 Hours 10/06/20 10/07/20 10/08/20 23:59 23:59 23:59 Intake Total 100 / 100 600 / 600 Balance 100 / 100 600 / 600 Laboratory Results 10/07/20 19:20: WBC 6.5, RBC 3.66 L, Hgb 10.7 L, Hct 37.4, MCV 102.2 H, MCH 29.2, MCHC 28.6 L, RDW Std Deviation 58.2 H, RDW Coeff of Prema 15.5 H, Plt Count 121 L, MPV 10.3, Immature Gran % (Auto) 0.200, Neut % (Auto) 76.0 H, Lymph % (Auto) 13.3 L, Glenn % (Auto) 7.7, Eos % (Auto) 2.2, Baso % (Auto) 0.6, Absolute Neuts (auto) 4.9, Absolute Lymphs (auto) 0.86, Nucleated RBC % 0 10/07/20 19:20: Sodium 140, Potassium 4.5, Chloride 106, Carbon Dioxide 30.0, Anion Gap 4 L, BUN 28 H, Creatinine 1.42 H, Estim Creat Clear Calc 23.07, Est GFR (MDRD) Af Amer 46 L, Est GFR (MDRD) Non-Af 38 L, BUN/Creatinine Ratio 19.7, Glucose 125 H, Calcium 8.7, Troponin I 0.319 H 10/07/20 19:20: B-Natriuretic Peptide 1112.5 H 10/07/20 22:39: POC Glucose 102 10/07/20 22:42: Troponin I 0.277 H 10/08/20 01:20: Troponin I 0.299 H 10/08/20 01:20: TSH 0.11 L, Free T4 1.22 10/08/20 01:20: Magnesium 2.2 10/08/20 08:17: POC Glucose 113 H 10/08/20 09:30: Troponin I 0.369 H Current Medications Acetaminophen (Acetaminophen 500 Mg Tablet) 1,000 mg PO BID PRN PRN PRN Reason: pain () Apixaban (Apixaban 5 Mg Tablet) 5 mg PO BID [facility] Last Admin: 10/07/20 22:42 Dose: 5 mg Documented by: Divalproex Sodium (Divalproex Sodium 250 Mg Tablet) 250 mg PO BID [facility] Last Admin: 10/07/20 22:41 Dose: 250 mg Documented by: Donepezil HCl (Donepezil Hcl 5 Mg Tablet) 5 mg PO QHS [facility] Last Admin: 10/07/20 22:42 Dose: 5 mg Documented by: Ergocalciferol (Ergocalciferol 50,000 Unit Capsule) 50,000 unit PO FR [facility] Furosemide (Furosemide 20 Mg Tablet) 20 mg PO DAILY [facility] Sodium Chloride () 250 mls @ 15 mls/hr IV .[id number] PRN PRN Reason: Saline Flush Sodium Chloride () 250 mls @ 15 mls/hr IV .[id number] PRN PRN Reason: Additional IVPB Infusion Insulin Glargine (Insulin Glargine 100 Units/Ml Pen) 10 units SC QHS [facility] Last Admin: 10/07/20 22:42 Dose: Not Given Documented by: Insulin Human Lispro (Insulin Lispro 100 Unit/Ml Insuln.Pen) 2 unit SC TIDCM [facility] Insulin Human Lispro (Insulin Lispro 100 Unit/Ml Insuln.Pen) 0 unit SC TIDAC [facility]; Protocol Levothyroxine Sodium (Levothyroxine 100 Mcg Tablet) 100 mcg PO DAILY@0600 [facility] Last Admin: 10/08/20 05:29 Dose: 100 mcg Documented by: Linagliptin (Linagliptin 5 Mg Tablet) 5 mg PO DAILY [facility] Magnesium Hydroxide (Magnesium Hydroxide 30 Ml Udc) 30 ml PO DAILY PRN PRN PRN Reason: Constipation Melatonin (Melatonin 10 Mg Tablet) 5 mg PO QHS [facility] Last Admin: 10/07/20 22:43 Dose: 5 mg Documented by: Memantine (Memantine Hydrochloride 10 Mg Tablet) 10 mg PO BID [facility] Last Admin: 10/07/20 22:43 Dose: 10 mg Documented by: Metoprolol Tartrate (Metoprolol Tartrate 25 Mg Tablet) 12.5 mg PO BID [facility] Last Admin: 10/07/20 22:42 Dose: 12.5 mg Documented by: Nitroglycerin (Nitroglycerin (Inpatient Use) 0.4 Mg Tab.Subl) 0.4 mg SUBLINGUAL Q5M PRN PRN Reason: CARDIAC/CHEST PAIN Non-Formulary Medication (Fluorometholone Acetate) 1 drp OP BID [facility] Non-Formulary Medication (Vortioxetine Hydrobromide) 10 mg PO QHS [facility] Nutritional Formula (Lactose Free) (Glucerna Shake 120 Ml Liquid) 120 ml PO 4X/DAY [facility] Ondansetron HCl (Ondansetron 4 Mg/2 Ml Vial) 4 mg IV Q8H PRN PRN PRN Reason: NAUSEA/VOMITING Polyethylene Glycol (Polyethylene Glycol 3350 17 Gm Packet) 17 gm PO DAILY [facility] Quetiapine Fumarate (Quetiapine 25 Mg Tablet) 25 mg PO BID [facility] Sodium Chloride (0.9% Saline Lock 10 Ml Syringe) 10 - 40 ml IV UD PRN PRN Reason: SALINE FLUSH Last Admin: 10/07/20 22:48 Dose: 10 ml Documented by: Home Medications: Medications to take at Discharge Ergocalciferol [Vitamin D] 50,000 unit PO FR 12/27/17 Sitagliptin Phosphate [Januvia] 100 mg PO DAILY 12/27/17 metoprolol tartrate 25 mg tablet 12.5 mg PO BID tab 09/08/18 Magnesium Hydroxide [Milk Of Magnesia] 30 ml PO DAILY PRN PRN 09/24/18 Polyethylene Glycol 3350 [Miralax] 17 gm PO DAILY 09/24/18 memantine 10 mg tablet 10 mg PO BID tab 10/08/19 Apixaban [Eliquis] 5 mg PO BID 09/28/20 Donepezil HCl 5 mg PO QHS 09/28/20 Melatonin 5 mg PO QHS 09/28/20 Acetaminophen 1,000 mg PO BID PRN 10/04/20 Fluorometholone Acetate [Flarex] 1 drp OP BID 10/04/20 Insulin Detemir [Levemir] 10 unit SQ QHS 10/04/20 Insulin Lispro [Humalog] 2 unit SQ TID 10/04/20 Quetiapine Fumarate [Seroquel] 12.5 mg PO DAILY@1700 10/04/20 Divalproex Sodium [Depakote] 250 mg PO BID 10/07/20 Furosemide [Lasix] 20 mg PO DAILY 10/07/20 Levothyroxine Sodium [Synthroid] 100 mcg PO DAILY 10/07/20 Nut.tx.gluc Intol,Lf,Soy/Fiber [Boost Glucose Control Liquid] 237 ml PO TIDCM 10/07/20 Vortioxetine Hydrobromide [Trintellix] 10 mg PO QHS 10/07/20 Primary Care Physician: Rolan Mark MD [Primary Care Provider] - Please follow up with your Primary Care Physician in: Upon SNF return per their facility protocol or within 1 week, may see TRANSMITTER SUPERVISOR. Disposition: Snf facility Minutes spent on discharge:: 35 Patient Condition:: Fair Medical Necessity - Tobacco Use Smoking Status: Former smoker Meaningful Use Info Meaningful Use Diagnoses (Choose all that apply): None applicable OBSV E&M: 62516 Observation care discharge
[2020-10-08] MEDS: Insulin Lispro 100 UNIT/ML INSULN.PEN SC (10:57)
--- NOTE | 2020-10-08 10:58 | PHA.DC.MR ---
Pharmacy Service has performed discharge medication reconciliation for this patient. The patient's discharge medication list was reviewed for discrepancies and discrepancies were resolved. Home Medications Ergocalciferol [Vitamin D] 50,000 unit PO FR 12/27/17 Sitagliptin Phosphate [Januvia] 100 mg PO DAILY 12/27/17 metoprolol tartrate 25 mg tablet 12.5 mg PO BID tab 09/08/18 Magnesium Hydroxide [Milk Of Magnesia] 30 ml PO DAILY PRN PRN 09/24/18 Polyethylene Glycol 3350 [Miralax] 17 gm PO DAILY 09/24/18 memantine 10 mg tablet 10 mg PO BID tab 10/08/19 Apixaban [Eliquis] 5 mg PO BID 09/28/20 Donepezil HCl 5 mg PO QHS 09/28/20 Melatonin 5 mg PO QHS 09/28/20 Acetaminophen 1,000 mg PO BID PRN 10/04/20 Fluorometholone Acetate [Flarex] 1 drp OP BID 10/04/20 Insulin Detemir [Levemir] 10 unit SQ QHS 10/04/20 Insulin Lispro [Humalog] 2 unit SQ TID 10/04/20 Quetiapine Fumarate [Seroquel] 12.5 mg PO DAILY@1700 10/04/20 Divalproex Sodium [Depakote] 250 mg PO BID 10/07/20 Furosemide [Lasix] 20 mg PO DAILY 10/07/20 Levothyroxine Sodium [Synthroid] 100 mcg PO DAILY 10/07/20 Nut.tx.gluc Intol,Lf,Soy/Fiber [Boost Glucose Control Liquid] 237 ml PO TIDCM 10/07/20 Vortioxetine Hydrobromide [Trintellix] 10 mg PO QHS 10/07/20
--- NOTE | 2020-10-08 11:07 | CASEMGMT ---
Patient has a Healthcare Power of Inset Cutter and Healthcare Living Will on file at [facility]. Her Adonay is her Healthcare Power of Inset Cutter. Martha CHOUDHARY MSW
--- NOTE | 2020-10-08 12:06 | CASEMGMT ---
Patient is ready to return to [facility] today. JAVAN faxed orders. 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 JAVAN notified principal secretary who notified RN, Libertad at [facility], and left a message for patient's son. JAVAN spoke with Libertad at [facility] and patient's is also a resident at [facility]. Patient's son is there right now as they are waiting on Hospice to come and talk with them. She will make sure they know when she is coming back. Plan: d/c back to [facility] at [facility] under intermediate level of care. [facility] will transport her via cot due to her Dementia. Martha CHOUDHARY REALTIME COURT REPORTER
[2020-10-08 12:36] LABS: Bedside Glucose 110 mg/dL (70-110)
--- NOTE | 2020-10-08 13:30 | NURSING ---
Report called to nurse Cortney for pt transfer back to [facility].
--- NOTE | 2020-10-08 13:36 | CHAPLAIN ---
Type of Pastoral Visit _x__ Initial Visit ___ Follow-up Visit ___ On-call Visit ___ General Patient Visit ___ Spiritual Assessment ___ Family Conference ___ Bereavement ___ Rapid Response ___ Code Blue ___ Other (describe below) Pastoral Care Referral From ___ Patient ___ Family _x__ Nurse ___ Physician ___ Inserting Machine Operator ___ Fitter Machinist ___ Other (describe below) Sacrament/Intervention _x__ Active listening ___ Anointing ___ Bahai ___ Bereavement ___ Communion _x__ Yasmeen exploration ___ _x__ Life review _x__ Prayer ___ Reconciliation ___ Sacrament of Sick _x__ Supportive presence ___ Wedding ___ Other (describe below) Pastoral Comments request of presence came from staff analyst; pt has been calling out and does not understand where she is at this time; sat with patient and gave calm presence, distraction, quotes from scripture (which patient was able to remember and repeat some), assurance that she was in good care and would in fact be returning to her ECF; pt did settle down and stopped calling out; prayer offered; patient closed eyes and was quiet so this fast food cashier left the room
== END 2020-10-08 10:28 | disposition skilled nursing facility (03) ==
LOC: ED 19:34 → PCU 20:57
PROVIDERS: Admitting Provider Student in an Organized Health Care Education/Training Program; Emergency Provider Emergency Medicine; PCP Family Medicine; Visit Provider Family Medicine
DX: R07.89 Other chest pain (principal); I50.32 Chronic diastolic (congestive) heart failure; I42.9 Cardiomyopathy, unspecified; J96.11 Chronic respiratory failure with hypoxia; M79.7 Fibromyalgia; E78.5 Hyperlipidemia, unspecified; I11.0 Hypertensive heart disease with heart failure; J44.9 Chronic obstructive pulmonary disease, unspecified; I27.21 Secondary pulmonary arterial hypertension; E66.9 Obesity, unspecified; E03.9 Hypothyroidism, unspecified; G47.33 Obstructive sleep apnea (adult) (pediatric); F03.91 Unspecified dementia, unspecified severity, with behavioral disturbance; I25.10 Atherosclerotic heart disease of native coronary artery without angina pectoris; I48.0 Paroxysmal atrial fibrillation; E11.9 Type 2 diabetes mellitus without complications; Z79.82 Long term (current) use of aspirin; Z79.899 Other long term (current) drug therapy; Z79.4 Long term (current) use of insulin; Z79.01 Long term (current) use of anticoagulants; Z86.711 Personal history of pulmonary embolism; Z87.891 Personal history of nicotine dependence; Z86.73 Personal history of transient ischemic attack (TIA), and cerebral infarction without residual deficits; Z95.810 Presence of automatic (implantable) cardiac defibrillator; Z95.3 Presence of xenogenic heart valve; I08.1 Rheumatic disorders of both mitral and tricuspid valves
CPT/HCPCS: 36415; 71045; 80048; 82962; 83735; 83880; 84439; 84443; 84484; 85025; 93005; 93306; 96361; 96372; 96374; 96375; 96376; 99218; 99285; J7040; A4216; G0378; J1940; J3486